=== PATIENT | male | born 1955 | race Caucasian/White ===

== ENCOUNTER 2018-02-07 09:08 | Emergency (ER) | payer OTHER ==
[~2018-02-07] VITALS: Ht 172.7 cm; Wt 79.4 kg
[~2018-02-07 09:08] MED LIST: ACET325 PO; ALBIPROI INH; AZIT250 PO; Augmentin 875-1 EACH PO; BENZ100A PO; BISA10S PR; CHLO25 PO; CLON.1 PO; CODGUAEL PO; CYCL10 PO; DOCU100 PO; FENT25TP TOP; FOLI1 PO; GUAI600T33 PO; Glucophage1000 MG PO; HYDACE10B PO; HYDACE5 PO; HYDR1TAB94 PO; LEVFLO500 PO; LORA.5 PO; LORA1 PO; LORA2 PO; MAGOX 400400 MG PO; MAGOXI400 PO; Milk Of Ma800 MG/5 M PO; NAPR500 PO; NICO21TP TD; Omeprazole20 M1 PO; PENVK500 PO; PHENY100ER PO; PRED20 PO; PROM25 PO; RANI150 PO; ROXICODONE5 MG PO; RXLORA1 PO; THIA100 PO; TRAM50 PO; Therapeutic M1 EAC4 PO; Tylenol325 MG PO; Ultram50 MG PO; Ventolin Soln3 ML INH; ZOLP5 PO
[2018-02-07] MEDS ORDERED: PAROEX473 ML MM (10:01)
[2018-02-07] MEDS ORDERED: Augmentin 875-1 EACH PO (10:01)
[2018-02-07] MEDS ORDERED: Cough Formula118 ML PO (10:01)
== END 2018-02-07 10:15 | disposition home or self-care (01) ==
LOC: ER 09:08
DX: K04.7 Periapical abscess without sinus (principal); R05 Cough; F17.210 Nicotine dependence, cigarettes, uncomplicated
CPT/HCPCS: 99283

== ENCOUNTER 2018-05-26 12:49 | Emergency (ER) | payer SELFPAY ==
[~2018-05-26] VITALS: Ht 172.7 cm; Wt 77.1 kg
[~2018-05-26 12:49] MED LIST changes: +Cough Formula118 ML PO; +PAROEX473 ML MM
[2018-05-26] MEDS ORDERED: Augmentin 500-1 EACH PO (13:32)
== END 2018-05-26 13:44 | disposition home or self-care (01) ==
LOC: ER 12:49
DX: K04.7 Periapical abscess without sinus (principal); F17.210 Nicotine dependence, cigarettes, uncomplicated
CPT/HCPCS: 41800; 99282

== ENCOUNTER 2018-09-21 11:42 | Emergency (ER) | payer MEDICAID ==
[~2018-09-21] VITALS: Ht 172.7 cm; Wt 77.1 kg
[~2018-09-21 11:42] MED LIST changes: +Augmentin 500-1 EACH PO
[2018-09-21 12:10] LABS: Base Excess Venous 2.9 mmol/L; Bicarbonate Venous 25.5 mmol/L (24.0-30.0); PCO2 Venous 48.2 mmHg (38-42); PO2 Venous 44.7 mmHg (38-42); pH Blood Venous 7.38 (7.34-7.37)
[2018-09-21 12:14] LABS: BASOPHILS ABSOLUTE AUTO 0.04 K/mm3 (0.00-0.23); BASOPHILS PERCENT AUTO 0 % (0-2); EOSINOPHILS ABSOLUTE AUTO 0.01 K/mm3 (0.00-0.68); EOSINOPHILS PERCENT AUTO 0 % (0-6); Hematocrit 47.2 % (37.0-53.0); IMMATURE GRAN ABSOLUTE AUTO 0.03 K/mm3 (0.00-0.10); IMMATURE GRAN PERCENT AUTO 0 % (0-1); LYMPHOCYTES ABSOLUTE AUTO 2.11 K/mm3 (0.84-5.20); LYMPHOCYTES PERCENT AUTO 21 % (21-46); MONOCYTES PERCENT AUTO 6 % (4-13); Mean Corpuscular HGB 30.8 pg (26.0-34.0); Mean Corpuscular HGB Conc 33.9 g/dL (31.5-36.5); Mean Corpuscular Volume 91 fL (80-100); Mean Platelet Volume 7.8 fL (9.1-12.4); NEUTROPHILS ABSOLUTE AUTO 7.17 K/mm3 (1.96-9.15); NEUTROPHILS PERCENT AUTO 72 % (41-73); Platelet Count 552 K/mm3 (150-400); RDW Coefficient Variation 14.7 % (11.7-14.2); RDW Standard Deviation 48.1 fL (35.1-46.3); Red Blood Cell Count 5.19 M/mm3 (4.30-5.90); White Blood Cell Count 9.96 K/mm3 (4.00-11.30)
[2018-09-21 12:37] LABS: Alanine Aminotransfer (ALT/SGP 71 U/L (12-78); Albumin, Blood 3.3 g/dL (3.4-5.0); Albumin/Globulin Ratio 0.7 (0.8-1.8); Alk Phos 134 U/L (50-136); Anion Gap 11 mmol/L (6-16); Aspartate Aminotrans (AST/SGOT 30 U/L (12-37); Bilirubin, Total 0.2 mg/dL (0.1-1.0); Blood Urea Nitrogen 7 mg/dL (8-24); CO2, Blood 26 mmol/L (21-32); CPK Creatine Kinase 70 U/L (39-308); Calcium, Blood 8.2 mg/dL (8.5-10.1); Chloride, Blood 99 mmol/L (98-108); Creatine Kinase MB Index 4.3 (0.0-4.0); Globulin, Blood 4.7 g/dL (2.2-4.0); Glomerular Filtration Rate >60 (60-); Glucose, Blood 130 mg/dL (70-99); Magnesium, Blood 1.9 mg/dL (1.6-2.4); Potassium, Blood 4.3 mmol/L (3.5-5.5); Sodium, Blood 136 mmol/L (136-145); Troponin I <0.015 ng/mL (0.000-0.040)
[2018-09-21 12:56] LABS: Ethanol (Alcohol), Blood, Med 332 mg/dL
== END 2018-09-21 17:02 | disposition home or self-care (01) ==
LOC: ER 11:42
PROVIDERS: Emergency Medicine
DX: G93.40 Encephalopathy, unspecified (principal); F10.10 Alcohol abuse, uncomplicated; F17.200 Nicotine dependence, unspecified, uncomplicated
CPT/HCPCS: 36415; 70450; 71045; 80053; 82550; 82553; 82803; 83690; 83735; 83880; 84443; 84484; 85025; 93005; 93010; 96365; 96366; 96375; 99285-25; G0480; J2405; J3411; J3475; J7042

== ENCOUNTER 2018-10-31 12:47 | Emergency (ER) | payer OTHER ==
[~2018-10-31] VITALS: Ht 172.7 cm; Wt 72.6 kg
[2018-10-31 13:30] LABS: Source, Urine Clean Catch
[2018-10-31 13:32] LABS: BASOPHILS ABSOLUTE AUTO 0.05 K/mm3 (0.00-0.23); BASOPHILS PERCENT AUTO 1 % (0-2); EOSINOPHILS ABSOLUTE AUTO 0.09 K/mm3 (0.00-0.68); EOSINOPHILS PERCENT AUTO 1 % (0-6); Hemoglobin 17.1 g/dL (13.5-17.5); IMMATURE GRAN ABSOLUTE AUTO 0.03 K/mm3 (0.00-0.10); IMMATURE GRAN PERCENT AUTO 0 % (0-1); LYMPHOCYTES ABSOLUTE AUTO 2.53 K/mm3 (0.84-5.20); LYMPHOCYTES PERCENT AUTO 24 % (21-46); MONOCYTES ABSOLUTE AUTO 0.77 K/mm3 (0.16-1.47); MONOCYTES PERCENT AUTO 7 % (4-13); Mean Corpuscular HGB 31.1 pg (26.0-34.0); Mean Corpuscular HGB Conc 33.5 g/dL (31.5-36.5); Mean Corpuscular Volume 93 fL (80-100); Mean Platelet Volume 9.4 fL (9.1-12.4); NEUTROPHILS ABSOLUTE AUTO 6.94 K/mm3 (1.96-9.15); NEUTROPHILS PERCENT AUTO 67 % (41-73); Platelet Count 273 K/mm3 (150-400); RDW Coefficient Variation 13.7 % (11.7-14.2); RDW Standard Deviation 47.9 fL (35.1-46.3); White Blood Cell Count 10.41 K/mm3 (4.00-11.30)
[2018-10-31 13:42] LABS: Bilirubin, Urine Neg (Neg); Blood, Urine 1+ (Neg); Glucose Qualitative, Urine Neg (Neg); Ketones, Urine Neg (Neg); Leukocyte Esterase, Urine Neg (Neg); Nitrite, Urine Neg (Neg); Protein, Urine Neg (Neg); Specific Gravity, Urine 1.015 (1.003-1.022); Urobilinogen, Urine NORM (Normal)
[2018-10-31 13:51] LABS: Alanine Aminotransfer (ALT/SGP 22 U/L (12-78); Albumin, Blood 3.7 g/dL (3.4-5.0); Albumin/Globulin Ratio 0.9 (0.8-1.8); Alk Phos 69 U/L (50-136); Anion Gap 6 mmol/L (6-16); Aspartate Aminotrans (AST/SGOT 16 U/L (12-37); Bilirubin, Total 0.3 mg/dL (0.1-1.0); Blood Urea Nitrogen 17 mg/dL (8-24); Bun/Creatinine Ratio 21.7 (12.0-20.0); CO2, Blood 27 mmol/L (21-32); Calcium, Blood 9.2 mg/dL (8.5-10.1); Chloride, Blood 105 mmol/L (98-108); Creatinine, Blood 0.78 mg/dL (0.60-1.20); Globulin, Blood 4.2 g/dL (2.2-4.0); Glomerular Filtration Rate >60 (60-); Glucose, Blood 124 mg/dL (70-99); Potassium, Blood 3.8 mmol/L (3.5-5.5); Sodium, Blood 138 mmol/L (136-145); Total Protein, Blood 7.9 g/dL (6.4-8.2)
[2018-10-31 14:04] LABS: Appearance, Urine Clear (Clear); Color, Urine Yellow (P-Yellow)
[2018-10-31 14:08] LABS: Bacteria Rare /hpf; Mucus Light (0-Heavy); Squamous Epithelial Cells Not Seen /hpf (Few); White Blood Cells, Urine Rare /hpf (0-5)
[2018-10-31] MEDS ORDERED: ONDA4ODT MM (15:22)
== END 2018-10-31 13:35 | disposition home or self-care (01) ==
LOC: ER 12:47
PROVIDERS: Physician Assistant
DX: R10.9 Unspecified abdominal pain (principal); F17.200 Nicotine dependence, unspecified, uncomplicated
CPT/HCPCS: 80053; 81001; 83690; 85025; 93005; 93010; 96374; 99283-25; J2405

== ENCOUNTER 2019-11-26 08:27 | Inpatient (IN) | payer OTHER ==
[~2019-11-26] VITALS: Ht 182.9 cm; Wt 63.6 kg
[~2019-11-26 08:27] MED LIST changes: +ONDA4ODT MM
[2019-11-26] MEDS ORDERED: HYDPAM50 (08:44)
[2019-11-26] MEDS ORDERED: CLON.1 (08:44)
[2019-11-26] MEDS ORDERED: METO25 PO (08:45)
[2019-11-26] MEDS ORDERED: PROM25 PO (08:45)
[2019-11-26] MEDS ORDERED: TRAZ50 PO (08:46)
[2019-11-26] MEDS ORDERED: NICO21TP TOP (08:46)
[2019-11-26 09:05] LABS: BASOPHILS ABSOLUTE AUTO 0.03 K/mm3 (0.00-0.23); BASOPHILS PERCENT AUTO 0 % (0-2); EOSINOPHILS ABSOLUTE AUTO 0.04 K/mm3 (0.00-0.68); EOSINOPHILS PERCENT AUTO 0 % (0-6); Hemoglobin 15.5 g/dL (13.5-17.5); IMMATURE GRAN ABSOLUTE AUTO 0.04 K/mm3 (0.00-0.10); IMMATURE GRAN PERCENT AUTO 0 % (0-1); LYMPHOCYTES ABSOLUTE AUTO 1.17 K/mm3 (0.84-5.20); LYMPHOCYTES PERCENT AUTO 13 % (21-46); MONOCYTES ABSOLUTE AUTO 0.62 K/mm3 (0.16-1.47); MONOCYTES PERCENT AUTO 7 % (4-13); Mean Corpuscular HGB 32.4 pg (26.0-34.0); Mean Corpuscular HGB Conc 34.4 g/dL (31.5-36.5); Mean Corpuscular Volume 94 fL (80-100); Mean Platelet Volume 9.8 fL (9.1-12.4); NEUTROPHILS PERCENT AUTO 79 % (41-73); Platelet Count 143 K/mm3 (150-400); RDW Coefficient Variation 15.6 % (11.7-14.2); RDW Standard Deviation 54.4 fL (35.1-46.3); Red Blood Cell Count 4.79 M/mm3 (4.30-5.90)
[2019-11-26 09:17] LABS: Alanine Aminotransfer (ALT/SGP 248 U/L (12-78); Albumin, Blood 2.8 g/dL (3.4-5.0); Albumin/Globulin Ratio 0.7 (0.8-1.8); Alk Phos 89 U/L (50-136); Anion Gap 10 mmol/L (6-16); Aspartate Aminotrans (AST/SGOT 197 U/L (12-37); Bilirubin, Total 1.1 mg/dL (0.1-1.0); Blood Urea Nitrogen 17 mg/dL (8-24); Bun/Creatinine Ratio 20.1 (12.0-20.0); CO2, Blood 22 mmol/L (21-32); Calcium, Blood 9.2 mg/dL (8.5-10.1); Chloride, Blood 105 mmol/L (98-108); Creatinine, Blood 0.85 mg/dL (0.60-1.20); Ethanol (Alcohol), Blood, Med 14 mg/dL; Globulin, Blood 4.2 g/dL (2.2-4.0); Glomerular Filtration Rate >60 (60-); Glucose, Blood 85 mg/dL (70-99); Potassium, Blood 4.8 mmol/L (3.5-5.5); Sodium, Blood 137 mmol/L (136-145)
[2019-11-26 14:59] LABS: International Normalized Ratio 1.02; Prothrombin Time Results 10.9 Sec (9.7-11.5)
[2019-11-26] MEDS ORDERED: B-1100 M1 PO (15:02)
[2019-11-26 15:07] LABS: CPK Creatine Kinase 177 U/L (39-308)
[2019-11-26] MEDS ORDERED: FOLI400 PO (15:13)
[2019-11-26] MEDS ORDERED: Daily Vitamin1 EAC8 PO (15:15)
[2019-11-26] MEDS ORDERED: Ativan1 MG PO (15:15)
[2019-11-26 17:18] LABS: Source, Urine Clean Catch
[2019-11-26 17:22] LABS: Bilirubin, Urine Neg (Neg); Blood, Urine 2+ (Neg); Glucose Qualitative, Urine Neg (Neg); Ketones, Urine 1+ (Neg); Leukocyte Esterase, Urine Neg (Neg); Nitrite, Urine Neg (Neg); Protein, Urine 2+ (Neg); Urobilinogen, Urine NORM (Normal)
[2019-11-26 17:27] LABS: Appearance, Urine Clear (Clear); Color, Urine Yellow (P-Yellow)
[2019-11-26 17:28] LABS: Bacteria Rare /hpf; Squamous Epithelial Cells Not Seen /hpf (Few); White Blood Cells, Urine 0-2 /hpf (0-5)
[2019-11-26 17:43] LABS: U Amphetamine Screen Not Detected; U Barbituate Screen Not Detected; U Benzodiazapine Screen DETECTED; U Buprenorphine Screen Not Detected; U Cannabinoids Screen DETECTED; U Cocaine Screen Not Detected; U Methadone Screen Not Detected; U Methamphetamine Screen Not Detected; U Opiates Screen Not Detected; U Oxycodone Screen Not Detected; U Phencyclidine Screen Not Detected; U Propoxyphene Screen Not Detected
--- NOTE | 2019-11-26 18:02 | NUR ---
Shift Summary Pt arrived from ER to room 362 @ 1630 via stretcher. Garbled and mumbled speech. A/O to self, hospital, and year (does not know date). CIWA 15, medicated with 2mg Ativan IV, notified matrix inspector Sally. Pt mildly impulsive and forgetful, attempts to climb OOB. Patient's fiancee (Catrina) to bring in meds to complete med rec tomorrow (11/27/19) per conversation this RN had with Catrina over the phone. Pt continues to have visual hallucinations and obvious visible tremors. Pt c/o /10 headache between the eyes and unable to add/subtract dates appropriately. No visible sweats. Will continue to monitor. Bed alarm on, bed in lowest position. Call light and phone in reach.
--- NOTE | 2019-11-26 20:39 | NUR ---
PT WAS SLEEPING AT SHIFT COMMENCE, AWAKENED FOR CIWA ASSESSMENT. SKIN - PALMS SWEATY. LETHARGIC BUT EATING MEAL WITH ASSISTANCE. WILL CONTINUE TO MONITOR/ASSESS. CALL LIGHT IN REACH.
--- NOTE | 2019-11-27 00:58 | NUR ---
PT CONTINUES ON CIWAS, LAST CIWA WAS 17. RECEIVED PO LIBRIUM 50 MG AND IV ATIVAN 2 MG ABOUT 20 MIN AGO. STATED THAT HE IS FEELING BETTER. TREMORS CONTINUE. INSTRUCTED TO REMAIN IN BED FOR SAFETY. CHARGE NURSE AND WELDING MACHINE OPERATOR THERMIT HSE COORDINATOR NOTIFIED. CALL LIGHT IN REACH. NICOTINE PATCH AND GUM PER NOV ADMIN. ARTUR CONTINUE TO MONITOR.
[2019-11-27] MEDS ORDERED: MELATONIN5 M1 PO (02:33)
[2019-11-27] MEDS ORDERED: NICO21TP TOP (02:37)
[2019-11-27] MEDS ORDERED: IBUP400 PO (02:38)
[2019-11-27] MEDS ORDERED: ACET500 PO (02:38)
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
[2019-11-27] MEDS ORDERED: CLON.1 PO (02:42)
[2019-11-27] MEDS ORDERED: HYDPAM50 PO (02:43)
[2019-11-27] MEDS ORDERED: GABA300 PO (02:45)
[2019-11-27] MEDS ORDERED: CHLO25 PO (02:51)
--- NOTE | 2019-11-27 03:29 | NUR ---
INFORMED CLINICAL COORDINATOR RE: HTN AND MILD TACHYCARDIA & SLIGHT RISE IN TEMP. SHE INSTRUCTED ME TO GIVE THIS PT MORE ATIVAN. PRIMARY RN IS AT LUNCH. I WILL CONTINUE TO MONITOR UNTIL HE RETURNS.
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
--- NOTE | 2019-11-27 03:53 | NUR ---
PT CONTINUES TO INCREASE IN CIWA ACUITY. CURRENT SCORE IS 20. CALL PLACED TO MD TEST OPERATOR. ORDERS RECEIVED TO TRANSFER TO ICU. BP 151/97, HR 104. T 98.4 F. TALKING TO THE WALL, TREMORS INVOLVE ENTIRE ARMS AND DROPPING WATER CUP ON CHEST WHEN TRYING TO TAKE A DRINK. SHOE CUTTER STATED HE TRIED TO ET OUT OF BED AND ALMOST FELL X 2.
--- NOTE | 2019-11-27 04:40 | NUR ---
TRANSFERRED TO ICU ROOM 8 POST REPORT GIVEN TO STENOGRAPHIC COURT REPORTER. CALL PLACED TO FAMILY MEMBER "SUNITHA" [phone], NOTIFIED OF SAID TRANSFER.
--- NOTE | 2019-11-27 05:00 | NUR ---
PT TRANSFERED TO ICU-8 FROM RM 362. PT IS ALERT, ORIENTED TO SELF, SAYS HE'S AT [facility]. RAMBLING CONVERSATION, TREMORS NOTED. IV NOTED INFILTRATED, AND RESTARTED X 2. MEGAN PLACED FOR SAFETY, PT HAD BEEN CLIMBING OUT OF BED. WILL CONT TO MONITOR.
[2019-11-27 05:08] LABS: Hemoglobin 15.8 g/dL (13.5-17.5); Mean Corpuscular HGB 31.9 pg (26.0-34.0); Mean Corpuscular HGB Conc 34.3 g/dL (31.5-36.5); Mean Corpuscular Volume 93 fL (80-100); Mean Platelet Volume 10.2 fL (9.1-12.4); Platelet Count 125 K/mm3 (150-400); RDW Coefficient Variation 14.8 % (11.7-14.2); RDW Standard Deviation 51.2 fL (35.1-46.3); Red Blood Cell Count 4.95 M/mm3 (4.30-5.90); White Blood Cell Count 7.39 K/mm3 (4.00-11.30)
[2019-11-27 05:41] LABS: Alanine Aminotransfer (ALT/SGP 194 U/L (12-78); Albumin, Blood 2.8 g/dL (3.4-5.0); Albumin/Globulin Ratio 0.6 (0.8-1.8); Alk Phos 89 U/L (50-136); Anion Gap 8 mmol/L (6-16); Aspartate Aminotrans (AST/SGOT 104 U/L (12-37); Bilirubin, Total 1.3 mg/dL (0.1-1.0); Blood Urea Nitrogen 18 mg/dL (8-24); Bun/Creatinine Ratio 27.1 (12.0-20.0); CO2, Blood 25 mmol/L (21-32); Calcium, Blood 8.8 mg/dL (8.5-10.1); Chloride, Blood 103 mmol/L (98-108); Creatinine, Blood 0.66 mg/dL (0.60-1.20); Globulin, Blood 4.4 g/dL (2.2-4.0); Glomerular Filtration Rate >60 (60-); Glucose, Blood 97 mg/dL (70-99); Potassium, Blood 3.9 mmol/L (3.5-5.5); Sodium, Blood 136 mmol/L (136-145); Total Protein, Blood 7.2 g/dL (6.4-8.2)
--- NOTE | 2019-11-27 07:34 | NUR ---
PT TRIED TO USE URINAL, CALLED FOR HELP, BUT BECOMING MORE AGITATED. WANTS TO GO OUTSIDE TO SMOKE, ASKING FOR VALIUM AND QUALUDES. RAMBLING CONVERSATION. PT MED W LIBRIUM 50 MG. SWALLOWED WO DIFFICULTY. MEGAN IN PLACE, BUT IS NOT TIED- BED ALARM IS ON.
--- NOTE | 2019-11-27 09:43 | NUR ---
ASSUMED CARE OF PT AT 0700. REPORT FROM SADIA ZAPATA. PT RESTING IN BED. BED ALARM ON FOR SAFETY. PT AWAKE, TELLING STORIES OF PREVIOUS LOGGING EXPERIENCES. PT STATES HE IS AT [facility]. FOLLOWS SIMPLE COMMANDS. TREMOROUS, INTERMITTANTLY AGGITATED, PARANOID. REQUESTING THAT I CALL SWETHA TO SEE IF SHE PAID THE RENT. ATTEMPTED TO REORIENT PT. PT ALSO REQUESTING TO GO OUTSIDE TO SMOKE. NICOTINE GUM PROVIDED. CAMELIA 27, WILL MONITOR AND MEDICATED c LIBRUIM AND ATIVAN ORDERED. ST ON MONITOR. WILL MONITOR.
--- NOTE | 2019-11-27 18:00 | NUR ---
SHIFT SUMMARY PT MENTATION IMPROVED THIS SHIFT. A&OX 2. FOLLOWS SIMPLE COMMANDS. ABLE TO AMBULATE IN DEPARTMENT c WALKER. PT REMAINS TREMOROUS. NO LONGER APPEARS TO HAVE VISUAL AND AUDITORY HALLUCINATIONS. MEDICATED c ATIVAN AND LIBRIUM PRN. PT ALSO C/O GENERALIZED BODY PAIN. ORDER OBTAINED FOR TYLENOL AND ULTRAM, MEDICATED c ULTRAM. CONDOM CATH IN PLACE. VSS. REPORT TO ONCOMING NURSE.
--- NOTE | 2019-11-27 23:45 | NUR ---
CARE ASSUMED BEDSIDE REPORT RECEIVED, CARE ASSUMED AT 1900 FROM JODI ORR. PT SLEEPING ON ROUNDS, AROUSES DURING REPORT. DURING INITIAL ASSESSMENT, CIWA ELEVATED, PT CONFUSED BUT CALM AND COOPERATIVE. NIGHT PROGRESSED, PT BECAME AGITATED, YELLING, FRUSTRATED AND FIXATED ON GOING HOME TO PAY HIS BILLS, REPEATEDLY ATTEMPTING TO GET OUT OF BED, UNABLE TO REDIRECT, REQUIRING MULTIPLE STAFF MEMBERS AT BEDSIDE TO KEEP PATIENT SAFE FROM PULLING LINES OR GETTING OUT OF BED TO LEAVE AND POTENTIALLY FALLING DOWN. ATIVAN GIVEN MULTIPLE TIMES WITH NO RESULTS. LIBRIUM GIVEN. MEGAN VEST PLACED. PT EVENTUALLY REQUIRED PRECEDEX DUE TO INABILITY TO CALM PATIENT AND EXTREMELY ELEVATED CIWAS. APPROXIMATELY 1 HOUR AFTER INITIATING AND TITRATING PRECEDEX, PT CALMED AND FELL ASLEEP. SINCE THEN, PRECEDEX HAS BEEN TITRATED DOWN. PT CONTINUES TO HAVE TREMORS WHEN AWAKE. AFTER STARTING PRECEDEX, HR 60'S-70'S, BP SOFT BUT MAPS CONTINUE GREATER THAN 65. 02 SAT 90'S ON ROOM AIR. PT AFEBRILE. PT AROUSES WITH NOXIOUS STIMULI, AND IS REPOSITIONING SELF IN BED PERIODICALLY.
--- NOTE | 2019-11-28 01:15 | NUR ---
REASSESSMENT PT AROUSES EASILY FOR REASSESSMENT. CONFUSED AND HAVING HALLUCINATIONS. CALLS OUT FOR VARIOUS PEOPLE WHO ARE NOT HERE, ASKS NURSE QUESTIONS INCLUDING, "HOW DO WE DRIVE THIS THING?" AND "WHAT THE HELL IS GOING ON HERE?" ATTEMPTED TO REDIRECT AND PT ESCALATES. PULLING OFF CORDS/LINES. DURING PRECEDEX TITRATED UP. PT REPORTING "PAIN EVERYWHERE." MEDICATED WITH ULTRAM. VITALS STABLE.
[2019-11-28 03:48] LABS: BASOPHILS ABSOLUTE AUTO 0.02 K/mm3 (0.00-0.23); BASOPHILS PERCENT AUTO 0 % (0-2); EOSINOPHILS ABSOLUTE AUTO 0.15 K/mm3 (0.00-0.68); EOSINOPHILS PERCENT AUTO 3 % (0-6); Hematocrit 42.9 % (37.0-53.0); Hemoglobin 14.8 g/dL (13.5-17.5); IMMATURE GRAN ABSOLUTE AUTO 0.03 K/mm3 (0.00-0.10); IMMATURE GRAN PERCENT AUTO 1 % (0-1); LYMPHOCYTES ABSOLUTE AUTO 1.58 K/mm3 (0.84-5.20); LYMPHOCYTES PERCENT AUTO 26 % (21-46); MONOCYTES ABSOLUTE AUTO 0.53 K/mm3 (0.16-1.47); MONOCYTES PERCENT AUTO 9 % (4-13); Mean Corpuscular HGB 31.9 pg (26.0-34.0); Mean Corpuscular HGB Conc 34.5 g/dL (31.5-36.5); Mean Corpuscular Volume 93 fL (80-100); Mean Platelet Volume 10.2 fL (9.1-12.4); NEUTROPHILS ABSOLUTE AUTO 3.79 K/mm3 (1.96-9.15); NEUTROPHILS PERCENT AUTO 62 % (41-73); Platelet Count 118 K/mm3 (150-400); RDW Coefficient Variation 14.7 % (11.7-14.2); RDW Standard Deviation 50.6 fL (35.1-46.3); Red Blood Cell Count 4.64 M/mm3 (4.30-5.90)
[2019-11-28 04:05] LABS: Alanine Aminotransfer (ALT/SGP 151 U/L (12-78); Albumin, Blood 2.7 g/dL (3.4-5.0); Albumin/Globulin Ratio 0.6 (0.8-1.8); Alk Phos 85 U/L (50-136); Anion Gap 7 mmol/L (6-16); Aspartate Aminotrans (AST/SGOT 77 U/L (12-37); Bilirubin, Total 0.7 mg/dL (0.1-1.0); Blood Urea Nitrogen 22 mg/dL (8-24); Bun/Creatinine Ratio 36.1 (12.0-20.0); CO2, Blood 26 mmol/L (21-32); Calcium, Blood 9.1 mg/dL (8.5-10.1); Chloride, Blood 104 mmol/L (98-108); Creatinine, Blood 0.61 mg/dL (0.60-1.20); Globulin, Blood 4.2 g/dL (2.2-4.0); Glomerular Filtration Rate >60 (60-); Glucose, Blood 134 mg/dL (70-99); Potassium, Blood 3.8 mmol/L (3.5-5.5); Sodium, Blood 137 mmol/L (136-145); Total Protein, Blood 6.9 g/dL (6.4-8.2)
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
--- NOTE | 2019-11-28 10:56 | NUR ---
ASSUMED CARE OF PT AT 0700. REPORT FROM KAREY ZAPATA. PT RESTING IN BED. WAKES TO VERBAL STIMULI. CONFUSED. OREINTED TO SELF. IRRITABLE. YELLING OUT FOR SWETHA AND TO "GO SMOKE." GARBLED SPEECH. ATTEMPTED TO ORIENT. PRECEDEX INFUSING AT 0.1 MCG/KG/HR. MEGAN VEST IN PLACE TO PROTECT LINES AND TUBES AND FOR PT SAFETY. INCREASED PRECEDEX AND WILL CONTINUE TO TITRATE TO EFFECT. PT C/O JARVIS, TREMOROUS. WILL MONITOR CIWA. VSS. WILL CONTINUE TO MONITOR.
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
--- NOTE | 2019-11-28 20:39 | NUR ---
ASSUMPTION OF CARE: PT ALERT AND ORIENTED TO SELF, YR, MONTH. DENIES A/V HALLUCINATIONS. PT APPEARS TREMULOUS, SPEECH IS SLURRED. IN SR WITH HR IN THE 70S, SBP IN THE 130S. LUNG SOUNDS CLEAR, SPO2 >90% ON RA. PT IS ABLE TO VOID USING URINAL WITH SOME ASSISTANCE. 2 IVS IN R FA/HAND INFUSING WITH PRECEDEX AT 0.2 MCG. PT CURRENTLY UP IN CHAIR ON PHONE WITH SO. WILL CONT TO MONITOR
--- NOTE | 2019-11-28 23:05 | NUR ---
PT UP IN ROOM. PULLED OUT BOTH PIVS AND CARDIAC MONITORING LEADS. TWO 20G IVS PLACED IN BILAT FAS. LEADS REPLACED. PT BACK IN BED. WILL CONTINUE TO MONITOR
--- NOTE | 2019-11-29 00:55 | NUR ---
PT CURRENTLY RESTING. NO COMPLAINTS AT THIS TIME. VSS
--- NOTE | 2019-11-29 06:07 | NUR ---
SUMMARY: PT RESTING COMFORTABLY SINCE LAST NOTE. BP HAS BEEN SOMEWHAT SOFT, BUT MAP HAS REMAINED >60. LUNG SOUNDS CLEAR ON RA. CIWA A 8 THIS AM. PT STATED THAT HIS TREMORS SEEM BETTER THIS AM. HE IS A&O TO SELF, FAMILY, PLACE, YEAR, MONTH. PT IS CURRENTLY AWAKE IN BED WATCHING TV. ONLY COMPLAINTS THIS AM IS HE IS HUNGRY AND WOULD LIKE BREAKFAST.
--- NOTE | 2019-11-29 07:15 | NUR ---
BEGINNING OF SHIFT Assumed care at 0700. Bedside report received from Juan ZAPATA. Pt alert and oriented to self and place. Follows directions. Verbalizes needs. Pt on room air. Sinus rhtyhm per monitor. Bed in lowest position. Call light in reach. Pt denies need at this time.
[2019-11-29 07:17] LABS: BASOPHILS ABSOLUTE AUTO 0.03 K/mm3 (0.00-0.23); BASOPHILS PERCENT AUTO 1 % (0-2); EOSINOPHILS ABSOLUTE AUTO 0.17 K/mm3 (0.00-0.68); EOSINOPHILS PERCENT AUTO 3 % (0-6); Hematocrit 43.8 % (37.0-53.0); Hemoglobin 14.9 g/dL (13.5-17.5); IMMATURE GRAN ABSOLUTE AUTO 0.02 K/mm3 (0.00-0.10); IMMATURE GRAN PERCENT AUTO 0 % (0-1); LYMPHOCYTES ABSOLUTE AUTO 1.72 K/mm3 (0.84-5.20); LYMPHOCYTES PERCENT AUTO 29 % (21-46); MONOCYTES ABSOLUTE AUTO 0.57 K/mm3 (0.16-1.47); MONOCYTES PERCENT AUTO 10 % (4-13); Mean Corpuscular HGB 31.9 pg (26.0-34.0); Mean Corpuscular Volume 94 fL (80-100); Mean Platelet Volume 9.9 fL (9.1-12.4); NEUTROPHILS PERCENT AUTO 58 % (41-73); Platelet Count 126 K/mm3 (150-400); RDW Coefficient Variation 14.6 % (11.7-14.2); RDW Standard Deviation 51.1 fL (35.1-46.3); Red Blood Cell Count 4.67 M/mm3 (4.30-5.90); White Blood Cell Count 6.01 K/mm3 (4.00-11.30)
[2019-11-29 07:34] LABS: Anion Gap 5 mmol/L (6-16); Blood Urea Nitrogen 20 mg/dL (8-24); Bun/Creatinine Ratio 29.5 (12.0-20.0); CO2, Blood 26 mmol/L (21-32); Calcium, Blood 8.7 mg/dL (8.5-10.1); Chloride, Blood 109 mmol/L (98-108); Creatinine, Blood 0.68 mg/dL (0.60-1.20); Glomerular Filtration Rate >60 (60-); Glucose, Blood 156 mg/dL (70-99); Magnesium, Blood 1.6 mg/dL (1.6-2.4); Sodium, Blood 140 mmol/L (136-145)
--- NOTE | 2019-11-29 08:58 | NUR ---
PHYSICAL THERAPY IN TO SEE PATIENT Pt up to chair. Tolerated activity well. Remains in vest restraint. Tab alarm on.
--- NOTE | 2019-11-29 09:00 | NUR ---
LIBRIUM Pt states that he feels tremulous and his stomach hurts. This RN placed call to Dr Eaton. Discussed current CIWA and mentation. This RN requested PRN librium. Provider states he will assess pt when he rounds. No new orders at this time.
--- NOTE | 2019-11-29 09:30 | NUR ---
UPDATE Precedex off. Pt verbalizes concern about lack of mobility. States he feels very weak and verbalizes concern that he will become more weak. States desire to walk in hallway. This RN assisted pt to walk around entire unit using walker and gait belt. Pt tolerated this activity well. Pt out of vest restraint and compliant with fall prevention.
--- NOTE | 2019-11-29 13:10 | NUR ---
MEDICAL FLOOR STATUS Dr Eaton in to see pt. Plan of care discussed. Pt remains in chair with tab alarm on. Verbalizes desire to go for a walk. Pleasant and cooperative with care. Plan for pt to transfer to room 310.
--- NOTE | 2019-11-29 14:30 | NUR ---
TRANSFERRED TO ROOM 310 Telephone report given to Anaya ZAPATA. Pt verbalized desire to walk to newly assigned room. Pt walked from ICU 8 to room 310 using gait belt and FWW. Escorted by this RN and PCTMerced. Wheelchair brought during transport, however pt did not require wheelchair. Pt remains pleasant and cooperative with care, follows directions well and verbalizes needs.
--- NOTE | 2019-11-29 15:31 | NUR ---
PATIENT ARRIVED TO THE UNIT WALKING VIA A WALKER WITH ICU STAFF. HE IS ORIENTED TO SELF, MUMBLING. PATIENT HAS ATTEMPTED TO GET UP 2X SINCE COMING TO THE UNIT. NOTIFIED CHIEF CLINICAL OFFICER. WILL TRANSFER TO SCU.
--- NOTE | 2019-11-29 15:58 | NUR ---
PATIENT IS MUMBLING TO SELF. HE IS SAYING " MAKE IT SHUT UP, COMMON GET MY MEDICINE IN ME" HE IS VERY HARD TO UNDERSTAND HIS CONVERSATION. HE IS TALKING ABOUT PREVIOUS MARRIAGE. SHAKING. STATES HIS HEAD IS SCREAMING AT HIM. VERY SHAKING. UNAWARE OF WHERE HE IS. KNOWS HIS BIRTHDAY. STATES HIS WHOLE BODY IS ITCHING. MEDICATED PER EMAR.
--- NOTE | 2019-11-29 18:38 | NUR ---
SHIFT SUMMARY. 1640 TRANSFER FROM RM 310, REPORT RECIEVED FROM JODI PIMENTEL PRIOR TO TRANSFER. PT IS CONFUSED, ALERT, ORIENTATED TO SELF AND THAT HE IS IN A HOSPITAL. PT WITH TREMORS, ITCHY FEELING. PT REPORTS PAIN TO BLE, PAIN MANAGED WELL WITH PRN APAP. PT DENIES SOB, N/V. GOOD MEAL INTAKE FOR DINNER. NO NEW CHANGES OR CONCERNS.
--- NOTE | 2019-11-30 00:34 | NUR ---
PT COMPLAINING OF LEG PAIN. PT STATES HE WANTS HYDROCODONE FOR PAIN. PT STATES HE HAS USED HYDROCODONE IN PAST VISITS PT AT [facility] [place]. DR JOY HAMILTON WAS CALLED AND HE ORDERED GABAPENTIN. PT IS AGITATED DUE TO NOT GETTING HYDROCODONE. WCTM.
--- NOTE | 2019-11-30 04:51 | NUR ---
SUMMARY PT HAD TREMORS T/O SHIFT. PT HAD COMPLAINTS OF LEG DISCOMFORT. PT HAS A HX OF BACK INJURY IN THE PAST. DR HAMILTON WAS CALLED AND HE ORDERED GABAPENTIN FOR LEG DISCOMFORT. PT WAS REQUESTING HYDROCODONE. PT S/O, SWETHA, CALLED FOR UPDATE AND ASKED TO HAVE PROVIDER CALL HER FOR UPDATE AND ANSWER SOME QUESTIONS. SWETHA DID STATE PT HAD IN THE PAST TOOK HER TRAMADOL AND OXYCODONE FOR RECREATIONAL PURPOSES. PT TX WITH ATIVAN AND LIBRIUM ORDERED WITH GOOD RESULTS. PT EVENTUALLY WAS ABLE TO FALL ASLEEP. PT CURRENTLYSLEEPING AND BREATHING EASY. CALL LIGHT IN REACH AND BED ALARM ON.
[2019-11-30 06:06] LABS: BASOPHILS ABSOLUTE AUTO 0.02 K/mm3 (0.00-0.23); BASOPHILS PERCENT AUTO 0 % (0-2); EOSINOPHILS ABSOLUTE AUTO 0.11 K/mm3 (0.00-0.68); EOSINOPHILS PERCENT AUTO 2 % (0-6); Hemoglobin 15.1 g/dL (13.5-17.5); IMMATURE GRAN ABSOLUTE AUTO 0.02 K/mm3 (0.00-0.10); IMMATURE GRAN PERCENT AUTO 0 % (0-1); LYMPHOCYTES ABSOLUTE AUTO 1.98 K/mm3 (0.84-5.20); LYMPHOCYTES PERCENT AUTO 33 % (21-46); MONOCYTES ABSOLUTE AUTO 0.78 K/mm3 (0.16-1.47); MONOCYTES PERCENT AUTO 13 % (4-13); Mean Corpuscular HGB 32.3 pg (26.0-34.0); Mean Corpuscular HGB Conc 34.3 g/dL (31.5-36.5); Mean Corpuscular Volume 94 fL (80-100); NEUTROPHILS PERCENT AUTO 52 % (41-73); Platelet Count 143 K/mm3 (150-400); RDW Coefficient Variation 14.7 % (11.7-14.2); RDW Standard Deviation 51.3 fL (35.1-46.3); Red Blood Cell Count 4.68 M/mm3 (4.30-5.90); White Blood Cell Count 6.01 K/mm3 (4.00-11.30)
[2019-11-30 06:39] LABS: Anion Gap 8 mmol/L (6-16); Blood Urea Nitrogen 14 mg/dL (8-24); Bun/Creatinine Ratio 18.3 (12.0-20.0); CO2, Blood 25 mmol/L (21-32); Calcium, Blood 8.7 mg/dL (8.5-10.1); Chloride, Blood 107 mmol/L (98-108); Creatinine, Blood 0.76 mg/dL (0.60-1.20); Glomerular Filtration Rate >60 (60-); Glucose, Blood 104 mg/dL (70-99); Potassium, Blood 3.6 mmol/L (3.5-5.5); Sodium, Blood 140 mmol/L (136-145)
--- NOTE | 2019-11-30 16:57 | NUR ---
SHIFT SUMMARY0- PT IS A/O PLESANT AND COOPERATIVE. HE HAS SOME CONFUSION. HIS SON AND GIRLFRIEND VISITED FOR MUCH OF THIS SHIFT. PT WORKED WITH PHYSICAL THERAPY AND TOLERATED WELL. PT IS MAINTAING ON HIS CIWA SCORES. HIS SCORES WERE LOWER THIS AFTERNOON BECAUSE HE WAS SLEEPING. HE IS EATING AND DRINKING WELL
--- NOTE | 2019-11-30 19:19 | NUR ---
PT'S GIRLFRIEND WAS IN VISITING. WANTED TO TAKE PT OUT OF THE ROOM IN A WHEEL CHAIR FOR A SHOR WALK. WHEN THEY WALKED BY THE ACCOUNTING MANAGER ASSISTANT CONTROLLER NOTICED THAT THEY SMELLED LIKE ETOH. SHE LOOKED IN THE ROOM AND FOUND AN EMPTY WATTERBOTTLE WHICH SMELLED HEAVLY LIKE BEER. NOTIFIED DR. PAREDES.
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
--- NOTE | 2019-12-01 04:18 | NUR ---
SHIFT SUMMARY: 64 Y/O MALE HAD RESTLESS NIGHT MOST OF NIGHT; CIWA SCORED 8; ATIVAN 2MG IVP GIVEN X 1; NICORETTE GUM X 2 GIVEN; LIBRUIM 25MG PO X 2 GIVEN WITH GOOD EFFECT WITH PATIENT FINALLY ABLE TO SLEEP AROUND 0330; GIRLFRIEND AT SIDE AND SUPPORTIVE; PT TAUGHT BE THIS NURSE NEED FOR ETOH CESSATION AND POSSIBLY ATTEND AA CLASSES WITH COOL NAILING MACHINE OPERATOR TO IDEA AT THIS TIME. PT DENIES NAUSEA OR PAIN; PT GAIT SLIGHTLY UNSTEADY AT TIMES WITH WALKER USAGE ENCOURAGED; PT DRANK 2-3 CUPS OF COFFEE THIS SHIFT AND FELT MORE RELAXED AFTER DRINKING THIS BEVERAGE; BED LOW POSITION WITH CALL LIGHT AT SIDE.
--- NOTE | 2019-12-01 11:30 | NUR ---
PT REQUESTED TO GO HOME. HE SAID HE WAS FEELING BETTER AND NEEDED TO GET HOME TO TAKE CARE OF BILLS. SPOKE WITH DR. TOLENTINO ABOUT PT WISHES, NOTIFIED HIM THAT PT HAD AMBULATED IN THE [facility] AND HAD ONE UNSTEADY MOMENT, AGREED TO DISCHARGE PT HOME. DISCHARGED FROM THE UNIT AT 1130. IV'S REMOVED FROM BOTH ARMS. DISCHARGE INSTRUCTIONS REVIEWED. NO NEW MEDICATIONS.
--- NOTE | 2019-12-01 12:11 | NUR ---
PT WAS LEAVING THE UNIT THEY REPORTED THAT THEY DID NOT HAVE ANY MEDICATIONS AT HOME. HARD COPY OF LIBRIUM PROVIDED, MEDICATIONS FAXED TO [facility]
== END 2019-12-01 12:10 | disposition home or self-care (01) | DRG 896 ==
LOC: ER 08:27 → PCU 13:15 → ICUE 13:15 → MEDS 16:28 → ICUE 11-27 03:47 → MEDS 11-29 14:21 → ENPENDDIS 12-01 10:43 → MEDS 12-01 12:10
PROVIDERS: Emergency Medicine; Nurse Practitioner Acute Care; ADMIT Internal Medicine
DX: F10.239 Alcohol dependence with withdrawal, unspecified (principal); G92 Toxic encephalopathy; E44.0 Moderate protein-calorie malnutrition; I95.9 Hypotension, unspecified; M79.669 Pain in unspecified lower leg; D69.6 Thrombocytopenia, unspecified; F17.210 Nicotine dependence, cigarettes, uncomplicated; K70.10 Alcoholic hepatitis without ascites; R74.0 Nonspecific elevation of levels of transaminase and lactic acid dehydrogenase [LDH]; Z68.23 Body mass index [BMI] 23.0-23.9, adult
CPT/HCPCS: 36415; 70450; 73551; 80048; 80053; 81001; 82140; 82533; 82550; 82607; 82746; 82947; 83735; 84443; 85025; 85027; 85610; 93005; 93010; 96365; 96366; 96375; 96376; 97110; 97162; 97165; 97530; 97535; 99285-25; A9270; G0480; J1650; J2060; J3411; J3475; J7030; J7042

== ENCOUNTER 2019-12-25 19:08 | Observation (INO) | payer OTHER ==
[~2019-12-25] VITALS: Ht 172.7 cm; Wt 72.6 kg
[~2019-12-25 19:08] MED LIST changes: +ACET500 PO; +Ativan1 MG PO; +B-1100 M1 PO; +CLON.1; +Daily Vitamin1 EAC8 PO; +FOLI400 PO; +GABA300 PO; +HYDPAM50; +HYDPAM50 PO; +IBUP400 PO; +MELATONIN5 M1 PO; +METO25 PO; +NICO21TP TOP; +TRAZ50 PO
[2019-12-25 20:08] LABS: BASOPHILS ABSOLUTE AUTO 0.02 K/mm3 (0.00-0.23); BASOPHILS PERCENT AUTO 0 % (0-2); EOSINOPHILS ABSOLUTE AUTO 0.01 K/mm3 (0.00-0.68); EOSINOPHILS PERCENT AUTO 0 % (0-6); Hematocrit 54.7 % (37.0-53.0); Hemoglobin 19.1 g/dL (13.5-17.5); IMMATURE GRAN ABSOLUTE AUTO 0.01 K/mm3 (0.00-0.10); IMMATURE GRAN PERCENT AUTO 0 % (0-1); LYMPHOCYTES ABSOLUTE AUTO 1.91 K/mm3 (0.84-5.20); LYMPHOCYTES PERCENT AUTO 34 % (21-46); MONOCYTES ABSOLUTE AUTO 0.43 K/mm3 (0.16-1.47); MONOCYTES PERCENT AUTO 8 % (4-13); Mean Corpuscular HGB Conc 34.9 g/dL (31.5-36.5); Mean Corpuscular Volume 92 fL (80-100); Mean Platelet Volume 9.4 fL (9.1-12.4); NEUTROPHILS ABSOLUTE AUTO 3.17 K/mm3 (1.96-9.15); NEUTROPHILS PERCENT AUTO 57 % (41-73); Platelet Count 96 K/mm3 (150-400); RDW Coefficient Variation 13.9 % (11.7-14.2); RDW Standard Deviation 47.1 fL (35.1-46.3); Red Blood Cell Count 5.96 M/mm3 (4.30-5.90); White Blood Cell Count 5.55 K/mm3 (4.00-11.30)
[2019-12-25 20:30] LABS: Alanine Aminotransfer (ALT/SGP 184 U/L (12-78); Albumin, Blood 3.5 g/dL (3.4-5.0); Albumin/Globulin Ratio 0.8 (0.8-1.8); Alk Phos 98 U/L (50-136); Anion Gap 13 mmol/L (6-16); Aspartate Aminotrans (AST/SGOT 180 U/L (12-37); Bilirubin, Total 0.4 mg/dL (0.1-1.0); Blood Urea Nitrogen 9 mg/dL (8-24); Bun/Creatinine Ratio 16.2 (12.0-20.0); CO2, Blood 24 mmol/L (21-32); Calcium, Blood 8.4 mg/dL (8.5-10.1); Chloride, Blood 105 mmol/L (98-108); Creatinine, Blood 0.56 mg/dL (0.60-1.20); Globulin, Blood 4.5 g/dL (2.2-4.0); Glomerular Filtration Rate >60 (60-); Glucose, Blood 132 mg/dL (70-99); Potassium, Blood 4.2 mmol/L (3.5-5.5); Salicylate 3.4 mg/dL (2.8-20.0); Sodium, Blood 142 mmol/L (136-145)
[2019-12-25 20:36] LABS: Acetaminophen, Random <2.0 ug/mL (10.0-30.0); Ethanol (Alcohol), Blood, Med 428 mg/dL
[2019-12-25] MEDS ORDERED: B-1100 M1 PO (20:55)
[2019-12-25 23:19] LABS: Source, Urine Clean Catch
[2019-12-25 23:32] LABS: Bilirubin, Urine Neg (Neg); Blood, Urine 3+ (Neg); Glucose Qualitative, Urine Neg (Neg); Ketones, Urine 2+ (Neg); Leukocyte Esterase, Urine Neg (Neg); Nitrite, Urine Neg (Neg); Protein, Urine 2+ (Neg); Urobilinogen, Urine NORM (Normal)
[2019-12-25 23:33] LABS: Appearance, Urine Clear (Clear); Color, Urine Yellow (P-Yellow)
[2019-12-25 23:42] LABS: U Amphetamine Screen Not Detected; U Barbituate Screen Not Detected; U Benzodiazapine Screen DETECTED; U Buprenorphine Screen Not Detected; U Cannabinoids Screen Not Detected; U Cocaine Screen Not Detected; U Methadone Screen Not Detected; U Methamphetamine Screen Not Detected; U Opiates Screen Not Detected; U Oxycodone Screen Not Detected; U Phencyclidine Screen Not Detected; U Propoxyphene Screen Not Detected
[2019-12-25 23:43] LABS: Bacteria Few /hpf; Red Blood Cells, Urine 0-2 /hpf (0-2); Squamous Epithelial Cells Not Seen /hpf (Few); White Blood Cells, Urine 0-2 /hpf (0-5)
[2019-12-25 23:44] LABS: Hyaline Casts 0-2 /lpf (0-2)
== END 2019-12-26 00:31 | disposition home or self-care (01) ==
LOC: ER 19:08 → EOR 19:09
PROVIDERS: ADMIT Emergency Medicine
DX: F10.129 Alcohol abuse with intoxication, unspecified (principal); F17.200 Nicotine dependence, unspecified, uncomplicated; G92 Toxic encephalopathy; E86.0 Dehydration; Y90.8 Blood alcohol level of 240 mg/100 ml or more
CPT/HCPCS: 36415; 80053; 81001; 85025; 96360; 99285-25; G0378; G0480; J7030

== ENCOUNTER 2019-12-27 15:59 | Emergency (ER) | payer OTHER ==
[~2019-12-27] VITALS: Ht 172.7 cm; Wt 63.5 kg
== END 2019-12-27 16:47 | disposition left against medical advice (07) ==
LOC: ER 15:59
DX: R07.9 Chest pain, unspecified (principal); R56.9 Unspecified convulsions; F17.210 Nicotine dependence, cigarettes, uncomplicated; Z79.899 Other long term (current) drug therapy
CPT/HCPCS: 36415; 93005; 93010; 99283-25

== ENCOUNTER 2020-03-09 12:03 | Inpatient (IN) | payer OTHER ==
[~2020-03-09] VITALS: Ht 172.7 cm; Wt 65.6 kg
[2020-03-09 13:00] LABS: BASOPHILS ABSOLUTE AUTO 0.02 K/mm3 (0.00-0.23); BASOPHILS PERCENT AUTO 0 % (0-2); EOSINOPHILS PERCENT AUTO 0 % (0-6); Hemoglobin 15.8 g/dL (13.5-17.5); IMMATURE GRAN ABSOLUTE AUTO 0.01 K/mm3 (0.00-0.10); IMMATURE GRAN PERCENT AUTO 0 % (0-1); LYMPHOCYTES ABSOLUTE AUTO 0.88 K/mm3 (0.84-5.20); LYMPHOCYTES PERCENT AUTO 15 % (21-46); MONOCYTES ABSOLUTE AUTO 0.34 K/mm3 (0.16-1.47); MONOCYTES PERCENT AUTO 6 % (4-13); Mean Corpuscular HGB 31.3 pg (26.0-34.0); Mean Corpuscular HGB Conc 33.6 g/dL (31.5-36.5); Mean Corpuscular Volume 93 fL (80-100); Mean Platelet Volume 8.9 fL (9.1-12.4); NEUTROPHILS ABSOLUTE AUTO 4.56 K/mm3 (1.96-9.15); NEUTROPHILS PERCENT AUTO 79 % (41-73); Platelet Count 298 K/mm3 (150-400); RDW Coefficient Variation 14.8 % (11.7-14.2); RDW Standard Deviation 51.4 fL (35.1-46.3); Red Blood Cell Count 5.04 M/mm3 (4.30-5.90); White Blood Cell Count 5.81 K/mm3 (4.00-11.30)
[2020-03-09 13:21] LABS: Alanine Aminotransfer (ALT/SGP 73 U/L (12-78); Albumin, Blood 3.3 g/dL (3.4-5.0); Albumin/Globulin Ratio 0.7 (0.8-1.8); Alk Phos 111 U/L (50-136); Anion Gap 11 mmol/L (6-16); Aspartate Aminotrans (AST/SGOT 66 U/L (12-37); Bilirubin, Total 0.7 mg/dL (0.1-1.0); Blood Urea Nitrogen 8 mg/dL (8-24); Bun/Creatinine Ratio 15.6 (12.0-20.0); CO2, Blood 22 mmol/L (21-32); Calcium, Blood 8.1 mg/dL (8.5-10.1); Chloride, Blood 104 mmol/L (98-108); Creatinine, Blood 0.51 mg/dL (0.60-1.20); Globulin, Blood 4.5 g/dL (2.2-4.0); Glomerular Filtration Rate >60 (60-); Glucose, Blood 73 mg/dL (70-99); Potassium, Blood 4.3 mmol/L (3.5-5.5); Sodium, Blood 137 mmol/L (136-145); Total Protein, Blood 7.8 g/dL (6.4-8.2); Troponin I <0.015 ng/mL (0.000-0.040)
[2020-03-09 16:26] LABS: Source, Urine Voided
[2020-03-09 16:34] LABS: Bilirubin, Urine Neg (Neg); Blood, Urine 3+ (Neg); Glucose Qualitative, Urine Neg (Neg); Ketones, Urine 3+ (Neg); Leukocyte Esterase, Urine Neg (Neg); Nitrite, Urine Neg (Neg); Protein, Urine 3+ (Neg); Urobilinogen, Urine NORM (Normal)
[2020-03-09 16:43] LABS: Appearance, Urine Clear (Clear); Color, Urine Yellow (P-Yellow)
[2020-03-09 16:44] LABS: Bacteria Not Seen /hpf; Granular Casts 0-2 /lpf (0); Red Blood Cells, Urine 0-2 /hpf (0-2); Squamous Epithelial Cells Not Seen /hpf (Few); White Blood Cells, Urine Not Seen /hpf (0-5)
[2020-03-09 17:39] LABS: International Normalized Ratio 1.01; Prothrombin Time Results 10.8 Sec (9.7-11.5)
[2020-03-09 17:44] LABS: CPK Creatine Kinase 295 U/L (39-308)
[2020-03-09 18:28] LABS: U Amphetamine Screen Not Detected; U Methamphetamine Screen DETECTED
[2020-03-09 18:29] LABS: U Barbituate Screen Not Detected; U Benzodiazapine Screen DETECTED; U Buprenorphine Screen Not Detected; U Cannabinoids Screen Not Detected; U Cocaine Screen Not Detected; U Methadone Screen Not Detected; U Opiates Screen Not Detected; U Oxycodone Screen Not Detected; U Phencyclidine Screen Not Detected; U Propoxyphene Screen Not Detected
--- NOTE | 2020-03-09 18:50 | NUR ---
ADMISSION NOTE- PT ADMITTED TO ICU FROM ER ON [facility]. ASLEEP, AWAKENS TO NAME, ABLE TO FOLLOW DIRECTIONS AND ANSWER BRIEF QUESTIONS. COOPERATIVE WITH CARES. SKIN POOR CONDITION, BRIGHT RED COLOR POSTERIOR ARMS, LEGS, KNEES, FEET. RASH PERIAREA. DISHELVED APPEARANCE, DIRTY. LUNGS CLEAR, DENIES SOB OR PAIN. PIV X 2 INTACT WITH NS BOLUS AND BANANA BAG INFUSING. NO N/V. MULTIPLE ABRASION, OPEN SORES RIGHT BUTTOCK AND LOWER SPINE.
--- NOTE | 2020-03-09 21:16 | NUR ---
ASSUME CARE: REPORT RECIEVED FROM LAURA OFF GOING RN. MONITOR INTACT SHOWING SINUS TACH HEART RATE 100'S-120'S, LUNG SOUNDS COARSE UPPER LOBES DECREASED IN THE BASES OCC MOIST LOOSE NONPRODUCTIVE COUGH. ABDOMEN SOFT WITH BOWEL SOUNDS FOUR QUADS. DENIES NEED TO VOID. AROUSES TO VERBAL STIMULI SLOW TO RESPOND ANSWERS IN ONE TO THREE WORD ANSWERS. TREMULEOUS VISIBLE DENIES NAUSEA SEE CAMELIA SHUKLA WELL IN BED. RETURNS TO SLEEP QUICKLY. BLOOD CONSENT GIVEN VERBALLY AND WITNESSED. PEDAL PULSES PRESENT NO EDEMA NOTED. COOPERATIVE TO CARES CONTINUE TO MONITOR AND REPORT CHANGE IN PATIENT CONDITION.
[2020-03-10 03:54] LABS: BASOPHILS ABSOLUTE AUTO 0.03 K/mm3 (0.00-0.23); BASOPHILS PERCENT AUTO 1 % (0-2); EOSINOPHILS ABSOLUTE AUTO 0.03 K/mm3 (0.00-0.68); EOSINOPHILS PERCENT AUTO 1 % (0-6); Hematocrit 40.4 % (37.0-53.0); Hemoglobin 13.7 g/dL (13.5-17.5); IMMATURE GRAN ABSOLUTE AUTO 0.01 K/mm3 (0.00-0.10); IMMATURE GRAN PERCENT AUTO 0 % (0-1); LYMPHOCYTES ABSOLUTE AUTO 1.51 K/mm3 (0.84-5.20); LYMPHOCYTES PERCENT AUTO 28 % (21-46); MONOCYTES ABSOLUTE AUTO 0.54 K/mm3 (0.16-1.47); MONOCYTES PERCENT AUTO 10 % (4-13); Mean Corpuscular HGB 31.9 pg (26.0-34.0); Mean Corpuscular HGB Conc 33.9 g/dL (31.5-36.5); Mean Corpuscular Volume 94 fL (80-100); Mean Platelet Volume 9.3 fL (9.1-12.4); NEUTROPHILS ABSOLUTE AUTO 3.24 K/mm3 (1.96-9.15); NEUTROPHILS PERCENT AUTO 60 % (41-73); Platelet Count 223 K/mm3 (150-400); RDW Standard Deviation 51.8 fL (35.1-46.3); White Blood Cell Count 5.36 K/mm3 (4.00-11.30)
[2020-03-10 04:17] LABS: Alanine Aminotransfer (ALT/SGP 56 U/L (12-78); Albumin, Blood 2.6 g/dL (3.4-5.0); Albumin/Globulin Ratio 0.7 (0.8-1.8); Alk Phos 86 U/L (50-136); Anion Gap 10 mmol/L (6-16); Aspartate Aminotrans (AST/SGOT 46 U/L (12-37); Bilirubin, Total 1.2 mg/dL (0.1-1.0); Blood Urea Nitrogen 7 mg/dL (8-24); CO2, Blood 22 mmol/L (21-32); Calcium, Blood 7.5 mg/dL (8.5-10.1); Chloride, Blood 105 mmol/L (98-108); Creatinine, Blood 0.58 mg/dL (0.60-1.20); Globulin, Blood 3.8 g/dL (2.2-4.0); Glomerular Filtration Rate >60 (60-); Glucose, Blood 64 mg/dL (70-99); Magnesium, Blood 1.6 mg/dL (1.6-2.4); Potassium, Blood 3.9 mmol/L (3.5-5.5); Sodium, Blood 137 mmol/L (136-145); Total Protein, Blood 6.4 g/dL (6.4-8.2)
--- NOTE | 2020-03-10 06:00 | NUR ---
SHIFT SUMMARY: RESTS QUIETLY WHEN UNDISTURBED MONITOR INTACT SHOWING SINUS RHYTHM-SINUS TACH HEART RATE 90'S-100'S. LUNG SOUNDS COARSE UPPER LOBES WITH DECREASED SOUNDS IN THE BASES. OCC MOIST LOOSE NONPRODUCTIVE COUGH.ABDOMEN SOFT WITH BOWEL SOUNDS FOUR QUADS. VOIDS MARIELA URINE PER URINAL. SHUKLA WELL IN BED REPOSITIONS SELF IN BED SCATTERED ABRASIONS TO BACK, FACE . SEE PHOTOS. CONTINUE TO MONITOR AND REPORT CHANGE IN PATIENT CONDITION.
--- NOTE | 2020-03-10 09:13 | NUR ---
ASSUMED CARE: REPORT RECEIVED FROM JODI OROURKE. PT LAYING IN BED TRYING TO TAKE A DRINK OF WATER BUT STRUGGLING BECAUSE HIS ARMS ARE TREMORING SO BAD. CIWAA COMPLETED AND PT SCORED 27. MEDICATED WITH ATIVAN, LIBRIUM AND TYLENOL WELL FOR COMPLAINTS OF RIB AND BACK PAIN. ASSISTED PT WITH BREAKFAST AND THEN PT FELL ASLEEP. AN HOUR LATER CIWAA 12 BUT STILL SLEEPING SO HELD OFF ON MEDICATION AND WILL REASSESS IN AN HOUR.
--- NOTE | 2020-03-10 16:52 | NUR ---
SHIFT SUMMARY PT SPENT THE DAY IN BED. HE IS ALERT, ORIENTED TO PERSON AND PLACE. CIWAA STARTED OUT AT 27, BUT CAME DOWN TO STAY DOWN AROUND 11 AND 12 FOR THE REST OF THE DAY. MEDICATING WITH ATIVAN AND LIBRIUM. PT STATES HE IS STILL HALLUCINATING AND TREMORS ARE BAD ENOUGH THAT IT IS DIFFICULT FOR HIM TO FEED HIMSELF. PT STATES THAT HE WOULD LIKE TO QUIT DRINKING "ONCE AND FOR ALL" THIS TIME. LUNGS ARE CLEAR, RA. ST IN THE 110S, BP STABLE. VOIDING IN THE URINAL. PASSING GAS, AND HASD SOME SMEARS, BUT NO BM. CONTINUING TO MONITOR.
--- NOTE | 2020-03-10 21:03 | NUR ---
ASSUMED CARE OF PT, REPORT RCV'D FROM ALVAREZ Rapp RN. PT SLEEPING UPON ASSESSMENT, OPENS EYES TO VERBAL STIMULI, GARBLED SPEECH. PT ABLE TO FOLLOW COMMANDS AND ASSIST WITH REPOSITIONING. USES URINAL UNASSISTED. PT HAS SEVERE VISIBLE TREMORS. PT NOT MEDICATED WITH ATIVAN/LIBRIUM AT THIS TIME D/T DECREASED LOC/SLEEPINESS. WILL CONTINUE ASSESSING PER [facility] PROTOCOL. GROIN, NATHAN AREA RED, REDDNESS SCATTERED T/O BACKSIDE (ARMS/LEGS/TRUNK), OPEN WOUND BUTTOCKS/COCCYX (SEE PICTS). SEE FULL SHIFT ASSESSMENT
[2020-03-11 03:45] LABS: Anion Gap 6 mmol/L (6-16); Blood Urea Nitrogen 12 mg/dL (8-24); Bun/Creatinine Ratio 19.9 (12.0-20.0); CO2, Blood 27 mmol/L (21-32); Calcium, Blood 8.2 mg/dL (8.5-10.1); Chloride, Blood 105 mmol/L (98-108); Glomerular Filtration Rate >60 (60-); Glucose, Blood 108 mg/dL (70-99); Magnesium, Blood 1.6 mg/dL (1.6-2.4); Phosphorus, Blood 2.7 mg/dL (2.5-4.9); Potassium, Blood 3.4 mmol/L (3.5-5.5); Sodium, Blood 138 mmol/L (136-145)
--- NOTE | 2020-03-11 05:58 | NUR ---
SHIFT SUMMARY NO ACUTE CHANGES OVERNIGHT. PT ALERT/ORIENTED, SLOW AND OFTEN GARBLED/TREMULOUS SPEECH. PT ASSISTS WITH CARE ABLE. CIWA OF 3,13,13-MEDICATED PER EMAR WITH 50 MG LIBRIUM X1 DOSE AND 2MG ATIVAN X1 DOSE. PT HAD 2000 ML CLEAR URINARY OUTPUT, CONDOM CATH IN PLACE D/T FREQUENT INCONTINENCE. PT HAS GOOD APPETITE, NEEDS ASSISTANCE WITH EATING D/T TREMORS. PT STATES HIS DESIRE TO STOP DRINKING AND STAY INPATIENT UNTIL DETOXED. WILL REPORT TO DAYSHIFT NURSE.
--- NOTE | 2020-03-11 08:00 | NUR ---
PT OPENS EYES TO VOICE. CIWA 18. SPEECH GARBLED. PT ORIENTED TO SELF AND COOPERATIVE WITH CARE, BUT HE THOUGHT THAT THE MONTH WAS APRIL. MED WITH LIBRIUM 50 MG PO FOR DT'S. PT HAS DIFFICULTY FEEDING HIMSELF THIS AM DUE TO TREMORS-ASSISTED PT WITH BREAKFAST TRAY-HE ATE 25% OCCASIONAL, MOIST, NONPRODUCTIVE COUGH NOTED. NO NOTED SOB-MAINTAINS SATS>90% ON RA. PT REPORTS DISCOMFORT TO RIBS ON THE LEFT SIDE-REPOSITIONED SUPINE WITH HOB ELEVATED AND EXTREMITIES ELEVATED ON PILLOWS.
--- NOTE | 2020-03-11 11:45 | NUR ---
CIWA 23. PT MED WITH LIBRIUM 25 MG PO X 1. SLEPT FOR MOST OF THE AM, BUT AWAKENS AND IS DIAPHORETIC, ANXIOUS, AND TREMULOUS.
--- NOTE | 2020-03-11 12:11 | NUR ---
PT REPORTS NAUSEA. MED WITH ZOFRAN 4 MG IVP X 1. PT HAS TO BE ASSISTED WITH MEALS. HE IS HIGH RISK FOR ASPIRATION DUE TO DT'S.
--- NOTE | 2020-03-11 12:25 | NUR ---
PT TEARFUL AND CIWA 24-MED WITH ATIVAN 1 MG IVP X 1.
--- NOTE | 2020-03-11 13:00 | NUR ---
CIWA CONTINUES 24. MED WITH LIBRIUM 25 MG PO X 1 AND ATIVAN 1 MG IVP X 1.
--- NOTE | 2020-03-11 13:55 | NUR ---
CIWA 19 DESPITE MED WITH BOTH LIBRIUM AND ATIVAN.
--- NOTE | 2020-03-11 15:30 | NUR ---
CIWA CONTINUES AT 20 DESPITE MED WITH A TOTAL OF 6 MG ATIVAN IVP AND LIBRIUM 100 MG PO SO FAR TODAY. DR. HAMILTON UPDATED TO CIWA, CURRENT VS, AND STATUS. PRECEDEX DRIP TO BE INITIATED.
--- NOTE | 2020-03-11 17:00 | NUR ---
CIWA 7 WITH PRECEDEX @ 0.4 MCG/KG/MIN-SATS TO 88% ON RA WHEN PT SLEEPING. O2 PLACED AT 2 LITERS NASAL CANULA TO KEEP SATS>90% PT RESTING QUIETLY WHEN NOT DISTURBED.
--- NOTE | 2020-03-11 18:04 | NUR ---
CIWA 5. PT SLEEPING. SBP 70'S AND MAP 57. PRECEDEX TITRATED DOWN TO 0.2 MCG/KG/MIN.
--- NOTE | 2020-03-11 18:06 | NUR ---
MAP 50'S. PT SLEEPING.PRECEDEX DRIP ON STANDBY.
--- NOTE | 2020-03-11 21:45 | NUR ---
PT ORIENTED TO PERSON AND PLACE. KNEW THE MONTH AND YEAR. ABLE TO DO BASIC MATH. GARBLED SPEECH. PT HAS BILATERAL HAND TREMORS. LIBRIUM PER CIWA SCORE OF 15. PT HAS BEEN OFF OF PRECEDEX SINCE DAY SHIFT. PT C/O RIB AND LEG PAIN, ULTRAM GIVEN. PT C/O NAUSEA, ZOFRAN ADMINISTRED. PT ABLE TO HOLD DOWN EVENING MEDICATIONS. PT ATE 1/2 TURKEY SANDWICH. NO SIGN OF DISTRESS
[2020-03-12 03:55] LABS: Anion Gap 6 mmol/L (6-16); Blood Urea Nitrogen 9 mg/dL (8-24); Bun/Creatinine Ratio 14.4 (12.0-20.0); CO2, Blood 26 mmol/L (21-32); Calcium, Blood 7.9 mg/dL (8.5-10.1); Chloride, Blood 107 mmol/L (98-108); Creatinine, Blood 0.62 mg/dL (0.60-1.20); Glomerular Filtration Rate >60 (60-); Glucose, Blood 102 mg/dL (70-99); Potassium, Blood 3.9 mmol/L (3.5-5.5); Sodium, Blood 139 mmol/L (136-145)
--- NOTE | 2020-03-12 06:26 | NUR ---
END OF SHIFT SUMMARY PT ALERT TO PERSON AND PLACE. PRECEDEX HAS BEEN OFF ALL NIGHT. PT HAS BEEN CALM AND COOPERATIVE. LIBRIUM AND ATIVAN GIVEN PER CIWA. CIWA HAS BEEN BETWEEN 13-15 THROUGHOUT THE NIGHT. TOLERATING FOOD. PT C/O LEFT RIB AND KNEE PAIN WITH MOVEMENT, UNKNOWN ORIGIN. PT APPEARS TO BE SLEEPING, NO SIGN OF OBVIOUS DISTRESS.
--- NOTE | 2020-03-12 07:30 | NUR ---
PT AWAKE AND ORIENTED TO PERSON AND PLACE. FOLLOWING COMMANDS AND COOPERATIVE WITH CARE. SPEECH REMAINS GARBLED, BUT LESS GARBLED THAN 03/11/20. CIWA 15. MED WITH LIBRIUM 50 MG PO-SEE EMAR.PT IS GENERALLY WEAK AND DECONDITIONED. PT REPORTS 10/10 LEFT KNEE PAIN. MED WITH ULTRAM AND ELEVATED LEFT, LOWER EXTREMITY ON PILLOWS. ECG CONTINUES SR, BP STABLE. LUNGS WITH SCATTERED RHONCHI THAT CLEAR WITH COUGH. PT HAS OCCASIONAL, MOIST COUGH THAT IS PRODUCTIVE OF SMALL AMOUNT OF THICK, CLEAR SECRETIONS. SATS>90% ON RA. MILD EXERTIONAL DYSPNEA NOTED. PT REPORTS NAUSEA THIS AM-MED WITH ZOFRAN 4 MG IVP X 1. PT IS STILL TREMULOUS, BUT IS ABLE TO FEED HIMSELF BREAKFAST THIS AM. ATTENDS IN PLACE PT REMOVED CONDOM CATH DURING THE NIGHT-IT IS C/D/I.
--- NOTE | 2020-03-12 08:00 | NUR ---
PT CRYING OUT "HELP!" PT ACCIDENTALLY REMOVED RIGHT HAND IV AND BLOOD DRIPPING ON THE PT AND THE BED. PRESSURE DRESSING PLACED TO RIGHT HAND AND PT CLEANED UP. PT STATES "I'M SORRY."
--- NOTE | 2020-03-12 09:00 | NUR ---
PT STATES THAT THE ULTRAM DID NOT IMPROVE HIS PAIN TO THE LEFT KNEE. PT ATE 100% OF BREAKFAST TRAY. PT ABLE TO FEED HIMSELF, BUT BED SOILED BY FOOD AND DRINK. BED BATH, ATTENDS CHANGED, AND LINEN CHANGE COMPLETED. CIWA 9.
--- NOTE | 2020-03-12 11:31 | NUR ---
CIWA 15. PT MED WITH LIBRIUM 100 MG PO. PT REPORTS CONTINUED 10/10 PAIN TO LEFT KNEE. ASSISTED PT OOB TO CHAIR WITH WALKER AND 2 PERSON ASSIST. PT CRYING OUT "OUCH! OUCH!" PT REQUESTS HYDROCODONE BY NAME-FOR PAIN.
--- NOTE | 2020-03-12 12:56 | NUR ---
PT APPEARS TO BE SLEEPING AT THIS TIME. ICE IN PLACE TO LEFT KNEE AND LEFT LOWER EXTREMITY ELEVATED ON PILLOWS.
--- NOTE | 2020-03-12 13:23 | NUR ---
PT APPEARS TO BE RESTING WHEN NOT DISTURBED. REPOSITIONED IN RECLINER CHAIR AND COVERED WITH BLANKET.
--- NOTE | 2020-03-12 14:54 | NUR ---
PT ABLE TO WASH HIS FACE, COMB HIS HAIR, AND AMBULATE WITH OT. PT FOLLOWING COMMANDS AND COOPERATIVE WITH CARE. PT REPORTS 10/10 LEFT RIB, HIP, AND KNEE PAIN. MED WITH OXYCODONE 5 MG PO X 1 SEE EMAR.
--- NOTE | 2020-03-12 16:36 | NUR ---
CIWA 5. PT SITTING UP IN CHAIR WATCHING TV WITHOUT NOTED DISTRESS. PT TOLERATING PO FOOD AND FLUIDS WELL. DR. HAMILTON CONTACTED AND UPDATED TO CURRENT VS AND STATUS. MD MADE AWARE THAT PT IS TOLERATING PO WELL AND THAT PT CONTINUES TO REPORTS LEFT HIP AND KNEE PAIN. IVF TO BE DISCONTINUED AND DR. HAMILTON TO ORDER X-RAYS.
--- NOTE | 2020-03-12 17:10 | NUR ---
PT MED WITH LIBRIUM 50 MG PO FOR CIWA 5-REPORT PHONED TO JODI JAIME. PT TRANSFERED TO U 3 VIA RECLINER CHAIR. BELONGINGS AND CHART SENT WITH PT.
--- NOTE | 2020-03-12 17:16 | NUR ---
PT ARRIVAL... PT ARRIVED ON UNIT IN RECLINER CHAIR. PT'S VS STABLE. PT IS VERY EMOTIONAL AND TEARFUL. PT ASKED "CAN I GET SOMETHING FOR DEPRESSION PLEASE, I JUST DON'T KNOW WHAT TO DO ANY MORE." THIS RN PROVIDED EMOTIONAL SUPPORT AND THERAPUTIC COMMUNICATION TO THE PT. CALL LIGHT IN REACH WILL CONTINUE TO MONITOR.
--- NOTE | 2020-03-12 21:55 | NUR ---
ASSUMPTION OF CARE ASSUMED CARE OF PT @ 1900, PT UP IN CHAIR WATCHING TELEVISION, ORIENTED TO SELF, EVENT, LOCATION AND FOLLOWING DIRECTIONS, CIWA 13, ATIVAN PROVIDED. O2 SATURATIONS>90% ON RA, NSR PER SAMPLER TESTER, VSS. PT REPORTS 10/10 PAIN TO L KNEE, HIP, RIB AND BACK AREA, NOT RELEIVED WITH PAIN MEDICATIONS. PT TRANSPORTED TO XRAY @ APPROX 1940, MODERATE ASSISTANCE NEEDED WITH AMBULATION R/T PAIN, BACK TO ROOM @ 1999, PT SLEEPING. CALL LIGHT WITHIN REACH. CALL PLACED TO NANCY CONTRERAS HAND SCREEN PRINTER, ULTRASandra AND LIDOCAINE PATCH ORDERED FOR PAIN.
[2020-03-13 05:31] LABS: Anion Gap 4 mmol/L (6-16); Blood Urea Nitrogen 15 mg/dL (8-24); Bun/Creatinine Ratio 19.3 (12.0-20.0); CO2, Blood 29 mmol/L (21-32); Calcium, Blood 8.3 mg/dL (8.5-10.1); Chloride, Blood 102 mmol/L (98-108); Creatinine, Blood 0.78 mg/dL (0.60-1.20); Glomerular Filtration Rate >60 (60-); Glucose, Blood 102 mg/dL (70-99); Magnesium, Blood 1.4 mg/dL (1.6-2.4); Phosphorus, Blood 3.7 mg/dL (2.5-4.9); Potassium, Blood 3.7 mmol/L (3.5-5.5); Sodium, Blood 135 mmol/L (136-145)
--- NOTE | 2020-03-13 06:06 | NUR ---
SHIFT SUMMARY PT SLEPT WELL T/O NIGHT, REMAINS AROUSABLE BUT VERY DROWSY, PAIN WITH REPOSITIONING IN BED. O2 SATURATIONS> 90% ON RA, VSS. PT TOLERATING PO INTAKE, VOIDS IN URINAL AT BEDSIDE, AMBULATES WITH ASSISTANCE BUT REPORTS SIGNIFICANT PAIN TO KNEE AND HIP WITH MOVEMENT, XRAY COMPLETED AT BEGINNING OF SHIFT. CIWA AT BEGINNING OF SHIFT 13, PT SLEEPING FOR FOLLOW UP ASSESSMENTS. CALL LIGHT WITHIN REACH.
--- NOTE | 2020-03-13 10:39 | NUR ---
UPDATE PT ALERT AND ORIENTED. VS STABLE. CIWA OF 3. PT COMPLAINS OF PAIN IN HIS LEFT HIP AND RIGHT KNEE. PT MEDICATED PER EMAR AND ENCOURAGED TO MOVE [facility] ROOM WITH STAFF ASSISTANCE. DR. HAMILTON IN WITH NEW ORDERS TO TRANSFER TO MEDICAL FLOOR. REPORT GIVEN TO MEDICAL FLOOR RN. PT TAKEN UP BY MELY.
--- NOTE | 2020-03-13 17:10 | NUR ---
SHIFT SUMMARY PCU TRANSFER THISMORNING. PATIENT ARRIVED BY WHEELCHAIR. PATIENT UP ONE ASSIST W/FWW. PATIENT MEDICATED X2 FOR PAIN. PATIENT DENIES NAUSEA AND SHORTNESS OF BREATH. CIWA LESS THAN 3. PATIENT EATING AND DRINKING WELL. PATIEN UP IN CHAIR OR NAPPING IN BED THIS SHIFT. CALL LIGHT IN REACH.
--- NOTE | 2020-03-14 04:08 | NUR ---
SHIFT SUMMARY ADMITTED FOR ALCOHOL WITHDRAWAL. FULL CODE. CIWAS HAVE BEEN 2 IN SCORE FOR ME. ONLY TREMORS VISIBLE. HE DOES HAVE PAIN IN LEFT HIP AND RT KNEE, I HAVE MEDICATED FOR PAIN TWICE THIS SHIFT. HE IS ON RA, REGULAR DIET, 1 ASSIST W/FWW & GAITBELT. HE IS HOMELESS. PLAN MAY BE FOR DC TO [facility]. SOME ELECTROLYTE IMBALANCES ARE BEING MONITORED AND CORRECTED. HX: HEAVY ALCOHOL USE, FREQUENT FALLS, RECENT ADMIT 11/2018 ALCOHOL WITHDRAWALS.
[2020-03-14 09:01] LABS: Albumin, Blood 2.8 g/dL (3.4-5.0); Anion Gap 4 mmol/L (6-16); Blood Urea Nitrogen 17 mg/dL (8-24); Bun/Creatinine Ratio 22.4 (12.0-20.0); CO2, Blood 29 mmol/L (21-32); Calcium, Blood 8.8 mg/dL (8.5-10.1); Chloride, Blood 101 mmol/L (98-108); Creatinine, Blood 0.76 mg/dL (0.60-1.20); Glomerular Filtration Rate >60 (60-); Glucose, Blood 99 mg/dL (70-99); Magnesium, Blood 1.5 mg/dL (1.6-2.4); Phosphorus, Blood 3.1 mg/dL (2.5-4.9); Potassium, Blood 4.2 mmol/L (3.5-5.5); Sodium, Blood 134 mmol/L (136-145)
--- NOTE | 2020-03-14 17:16 | NUR ---
SHIFT SUMMARY PT AWAKE DURING SHIFT REPORT. ADMITTED FOR ALCOHOL W/D AFTER BEING FOUND DOWN IN A PARK. PT DENIED BEING HOMELESS TODAY, BUT REPORTED THAT HE WILL BE IN A FEW DAYS. PT REPORTED PAIN TO L KNEE AND R HIP WITH SOME SCATTERED BRUISING ON RIBS/BACK FROM FALLS WHEN DRINKING. PT MEDICATED PER EMAR FOR PAIN. REPORTED MEDICATION EFFECTIVE. ABLE TO WORK WITH P/T TODAY AND REQUESTED TO WALK HALLS SEVERAL TIMES AFTER THAT. 1P SBA USING FWW TO WALK HALLS. PT SEEMS TO BE IMPROVING. OCCASSIONAL TREMORS NOTED LASTING ONLY BRIEFLY. PT REPORTED NO BM FOR 4-[address] FREITAS NOTIFIED. NEW ORDERS PLACED AND ADMINISTERED. PT UP TO CHAIR SEVERAL TIMES AND FOR ALL MEALS. RESTING QUIETLY AT THIS TIME. BED ALARM AND CHAIR ALARM ON FOR SAFETY. CALL LT IN REACH.
--- NOTE | 2020-03-15 04:19 | NUR ---
SHIFT SUMMARY PATIENT HAD NO ACUTE CHANGES OBSERVED. AXOX 3 AND ONE ASSIST WITH FWW TO BSC. USES URINAL AT BEDSIDE. PIV REMAINS INTACT. REPORTED L KNEE AND R HIP PAIN AND RECEIVED TRAMADOL AND OXYCODONE PER EMAR PRN. VSS/AFEBRILE. DENIES SOB AND N/V. WATCHED TV T/O SHIFT. COOPERATIVE WITH CARE. CALL LIGHT IN REACH. BED IN LOWEST POSITION. WILL CONTINUE TO MONITOR UNTIL DAY SHIFT NURSE ASSUMES CARE.
[2020-03-15] MEDS ORDERED: OMEP20ER PO (12:15)
[2020-03-15] MEDS ORDERED: TRAM50 PO (12:15)
--- NOTE | 2020-03-15 15:34 | NUR ---
SHIFT SUMMARY PT AWAKE AT START OF SHIFT, WATCHING TV. REQUESTED PAIN MEDICATION WITH BREAKFAST FOR L KNEE PAIN. ICE BAG ALSO GIVEN AGAIN, WHICH PT REPORTED HELPED. SWELLING TO L KNEE MUCH IMPROVED FROM YESTERDAY. PT UP AMBULATING IN ROOM AND IN MUSTAFA AFTER BREAKFAST. PT SAT IN CHAIR AT END OF MUSTAFA FOR A WHILE WELL. PT DID NOT C/O PAIN NEAR MUCH TODAY YESTERDAY. BOWEL CARE GIVEN AGAIN PT REPORTED ONLY PARTIAL BM AFTER YESTERDAYS BOWEL CARE. LUNGS T/O IMPROVED FROM YESTERDAY. NICOTINE PATCH PLACED AGAIN PER PT REQUEST, BUT WANTED TO GO OUT TO [facility] INSTEAD. DR FREITAS IN TO SEE PT. D/C ORDERS PLACED. PT ABLE TO DRESS HIMSELF AND WAS THEN ANXIOUS TO LEAVE. PT TAKEN OUT, VIA W/C, WHEN [facility] ARRIVED.
== END 2020-03-15 13:07 | disposition home or self-care (01) | DRG 897 ==
LOC: ER 12:03 → PCU 16:51 → ICUE 18:11 → PCU 03-12 16:53 → MEDS 03-13 10:35
PROVIDERS: Emergency Medicine; Family Medicine; Nurse Practitioner Acute Care; ADMIT Internal Medicine
DX: F10.239 Alcohol dependence with withdrawal, unspecified (principal); F19.90 Other psychoactive substance use, unspecified, uncomplicated; E83.42 Hypomagnesemia; E87.6 Hypokalemia; E83.39 Other disorders of phosphorus metabolism; K21.9 Gastro-esophageal reflux disease without esophagitis; M25.552 Pain in left hip; I10 Essential (primary) hypertension; F17.290 Nicotine dependence, other tobacco product, uncomplicated; Z91.81 History of falling
CPT/HCPCS: 36415; 71111; 73502; 73560-LT; 80048; 80053; 80069; 81001; 82140; 82550; 83690; 83735; 84100; 84443; 84484; 85025; 85610; 93005; 93010; 96361; 96374; 96375; 96376; 97110; 97116; 97162; 97166; 97535; 99285-25; A9270; A9270-GY; C9113; G0480; J1650; J2060; J2405; J2560; J3411; J3475; J7030; J7042

== ENCOUNTER 2020-10-05 23:21 | Observation (INO) | payer OTHER ==
[~2020-10-05] VITALS: Ht 172.7 cm; Wt 68.0 kg
[~2020-10-05 23:21] MED LIST changes: +OMEP20ER PO
[2020-10-05 23:46] LABS: BASOPHILS ABSOLUTE AUTO 0.03 K/mm3 (0.00-0.23); BASOPHILS PERCENT AUTO 1 % (0-2); EOSINOPHILS ABSOLUTE AUTO 0.13 K/mm3 (0.00-0.68); EOSINOPHILS PERCENT AUTO 2 % (0-6); Hemoglobin 17.9 g/dL (13.5-17.5); IMMATURE GRAN ABSOLUTE AUTO 0.01 K/mm3 (0.00-0.10); IMMATURE GRAN PERCENT AUTO 0 % (0-1); LYMPHOCYTES PERCENT AUTO 42 % (21-46); MONOCYTES ABSOLUTE AUTO 0.38 K/mm3 (0.16-1.47); MONOCYTES PERCENT AUTO 6 % (4-13); Mean Corpuscular HGB 30.8 pg (26.0-34.0); Mean Corpuscular HGB Conc 35.1 g/dL (31.5-36.5); Mean Corpuscular Volume 88 fL (80-100); Mean Platelet Volume 9.7 fL (9.1-12.4); NEUTROPHILS ABSOLUTE AUTO 2.99 K/mm3 (1.96-9.15); NEUTROPHILS PERCENT AUTO 49 % (41-73); Platelet Count 149 K/mm3 (150-400); RDW Coefficient Variation 12.4 % (11.7-14.2); RDW Standard Deviation 39.6 fL (35.1-46.3); Red Blood Cell Count 5.82 M/mm3 (4.30-5.90); White Blood Cell Count 6.14 K/mm3 (4.00-11.30)
[2020-10-06 00:09] LABS: Alanine Aminotransfer (ALT/SGP 169 U/L (12-78); Albumin, Blood 3.8 g/dL (3.4-5.0); Albumin/Globulin Ratio 0.9 (0.8-1.8); Alk Phos 93 U/L (50-136); Anion Gap 7 mmol/L (6-16); Aspartate Aminotrans (AST/SGOT 129 U/L (12-37); Bilirubin, Total 0.5 mg/dL (0.1-1.0); Blood Urea Nitrogen 8 mg/dL (8-24); Bun/Creatinine Ratio 12.4 (12.0-20.0); CO2, Blood 28 mmol/L (21-32); Calcium, Blood 8.6 mg/dL (8.5-10.1); Chloride, Blood 105 mmol/L (98-108); Creatinine, Blood 0.64 mg/dL (0.60-1.20); Globulin, Blood 4.1 g/dL (2.2-4.0); Glomerular Filtration Rate >60 (60-); Glucose, Blood 115 mg/dL (70-99); Potassium, Blood 4.1 mmol/L (3.5-5.5); Sodium, Blood 140 mmol/L (136-145); Total Protein, Blood 7.9 g/dL (6.4-8.2); Troponin I <0.015 ng/mL (0.000-0.040)
[2020-10-06 00:10] LABS: Ethanol (Alcohol), Blood, Med 425 mg/dL
== END 2020-10-06 03:45 | disposition home or self-care (01) ==
LOC: ER 23:21 → EOR 23:22
PROVIDERS: ADMIT Emergency Medicine
DX: F10.129 Alcohol abuse with intoxication, unspecified (principal); R07.9 Chest pain, unspecified; F17.200 Nicotine dependence, unspecified, uncomplicated; Z86.69 Personal history of other diseases of the nervous system and sense organs
CPT/HCPCS: 36415; 71046; 80053; 83690; 83880; 84484; 85025; 93005; 93010; 99285-25; G0378; G0480

== ENCOUNTER 2021-12-08 17:41 | Inpatient (IN) | payer OTHER ==
[~2021-12-08] VITALS: Ht 177.8 cm; Wt 65.2 kg
[2021-12-08 18:33] LABS: Base Excess Venous -4.6 mmol/L; Bicarbonate Venous 20.9 mmol/L (24.0-30.0); PCO2 Venous 35.9 mmHg (38-42); PO2 Venous 63.3 mmHg (38-42); pH Blood Venous 7.37 (7.34-7.37)
[2021-12-08 18:39] LABS: BASOPHILS ABSOLUTE AUTO 0.01 K/mm3 (0.00-0.23); BASOPHILS PERCENT AUTO 0 % (0-2); EOSINOPHILS PERCENT AUTO 0 % (0-6); Hematocrit 42.7 % (37.0-53.0); IMMATURE GRAN ABSOLUTE AUTO 0.02 K/mm3 (0.00-0.10); IMMATURE GRAN PERCENT AUTO 0 % (0-1); LYMPHOCYTES ABSOLUTE AUTO 0.86 K/mm3 (0.84-5.20); LYMPHOCYTES PERCENT AUTO 8 % (21-46); MONOCYTES ABSOLUTE AUTO 0.64 K/mm3 (0.16-1.47); MONOCYTES PERCENT AUTO 6 % (4-13); Mean Corpuscular HGB 32.6 pg (26.0-34.0); Mean Corpuscular HGB Conc 35.1 g/dL (31.5-36.5); Mean Corpuscular Volume 93 fL (80-100); Mean Platelet Volume 10.3 fL (9.1-12.4); NEUTROPHILS ABSOLUTE AUTO 8.77 K/mm3 (1.96-9.15); NEUTROPHILS PERCENT AUTO 85 % (41-73); Platelet Count 84 K/mm3 (150-400); RDW Coefficient Variation 15.9 % (11.7-14.2); RDW Standard Deviation 54.2 fL (35.1-46.3)
[2021-12-08 18:53] LABS: Alanine Aminotransfer (ALT/SGP 78 U/L (12-78); Albumin, Blood 2.8 g/dL (3.4-5.0); Albumin/Globulin Ratio 0.6 (0.8-1.8); Alk Phos 113 U/L (50-136); Anion Gap 13 mmol/L (6-16); Aspartate Aminotrans (AST/SGOT 100 U/L (12-37); Bilirubin, Direct 0.2 mg/dL (0.0-0.3); Bilirubin, Indirect 0.3 mg/dL (0.1-0.7); Bilirubin, Total 0.5 mg/dL (0.1-1.0); Blood Urea Nitrogen 17 mg/dL (8-24); Bun/Creatinine Ratio 28.9 (12.0-20.0); CO2, Blood 20 mmol/L (21-32); Chloride, Blood 102 mmol/L (98-108); Creatinine, Blood 0.59 mg/dL (0.60-1.20); Globulin, Blood 4.4 g/dL (2.2-4.0); Glomerular Filtration Rate >60 (60-); Glucose, Blood 118 mg/dL (70-99); Magnesium, Blood 1.7 mg/dL (1.6-2.4); Salicylate 3.6 mg/dL (2.8-20.0); Sodium, Blood 135 mmol/L (136-145); Total Protein, Blood 7.2 g/dL (6.4-8.2)
[2021-12-08 19:06] LABS: Acetaminophen, Random <2.0 ug/mL (10.0-30.0); Ethanol (Alcohol), Blood, Med 437 mg/dL
[2021-12-08 19:26] LABS: Influenza A, PCR NEGATIVE (NEGATIVE); Influenza B, PCR NEGATIVE (NEGATIVE); Resp Syncytial Virus, PCR NEGATIVE (NEGATIVE); SARS-Cov-2 (COVID-19) PCR, MMC NEGATIVE (NEGATIVE)
[2021-12-09 00:54] LABS: Source, Urine Clean Catch
[2021-12-09 01:04] LABS: Appearance, Urine Clear (Clear); Bilirubin, Urine Neg (Neg); Blood, Urine 4+ (Neg); Color, Urine Yellow (P-Yellow); Glucose Qualitative, Urine Neg (Neg); Ketones, Urine 3+ (Neg); Leukocyte Esterase, Urine Neg (Neg); Nitrite, Urine Neg (Neg); Protein, Urine 2+ (Neg); Specific Gravity, Urine 1.015 (1.003-1.022); Urobilinogen, Urine NORM (Normal); White Blood Cells, Urine Rare /hpf (0-5)
[2021-12-09 01:05] LABS: Bacteria Not Seen /hpf; Red Blood Cells, Urine 0-2 /hpf (0-2); Squamous Epithelial Cells Not Seen /hpf (Few)
[2021-12-09 01:12] LABS: U Amphetamine Screen Not Detected; U Barbituate Screen Not Detected; U Benzodiazapine Screen DETECTED; U Buprenorphine Screen Not Detected; U Cannabinoids Screen Not Detected; U Cocaine Screen Not Detected; U Methadone Screen Not Detected; U Methamphetamine Screen Not Detected; U Opiates Screen Not Detected; U Oxycodone Screen Not Detected; U Phencyclidine Screen Not Detected; U Propoxyphene Screen Not Detected
[2021-12-09 04:30] LABS: Source, Urine Foley catheter
[2021-12-09 04:40] LABS: BASOPHILS ABSOLUTE AUTO 0.01 K/mm3 (0.00-0.23); BASOPHILS PERCENT AUTO 0 % (0-2); EOSINOPHILS ABSOLUTE AUTO 0.02 K/mm3 (0.00-0.68); EOSINOPHILS PERCENT AUTO 0 % (0-6); Hematocrit 35.7 % (37.0-53.0); Hemoglobin 12.4 g/dL (13.5-17.5); IMMATURE GRAN ABSOLUTE AUTO 0.02 K/mm3 (0.00-0.10); IMMATURE GRAN PERCENT AUTO 0 % (0-1); LYMPHOCYTES ABSOLUTE AUTO 0.87 K/mm3 (0.84-5.20); LYMPHOCYTES PERCENT AUTO 11 % (21-46); MONOCYTES ABSOLUTE AUTO 0.67 K/mm3 (0.16-1.47); MONOCYTES PERCENT AUTO 9 % (4-13); Mean Corpuscular HGB 32.5 pg (26.0-34.0); Mean Corpuscular HGB Conc 34.7 g/dL (31.5-36.5); Mean Corpuscular Volume 94 fL (80-100); Mean Platelet Volume 10.3 fL (9.1-12.4); NEUTROPHILS ABSOLUTE AUTO 6.05 K/mm3 (1.96-9.15); NEUTROPHILS PERCENT AUTO 79 % (41-73); Platelet Count 70 K/mm3 (150-400); RDW Coefficient Variation 15.8 % (11.7-14.2); RDW Standard Deviation 54.8 fL (35.1-46.3); Red Blood Cell Count 3.81 M/mm3 (4.30-5.90); White Blood Cell Count 7.64 K/mm3 (4.00-11.30)
[2021-12-09 04:40] LABS: Bilirubin, Urine Neg (Neg); Blood, Urine 4+ (Neg); Glucose Qualitative, Urine Neg (Neg); Ketones, Urine 3+ (Neg); Leukocyte Esterase, Urine 1+ (Neg); Nitrite, Urine Neg (Neg); Protein, Urine 2+ (Neg); Specific Gravity, Urine 1.015 (1.003-1.022); Urobilinogen, Urine NORM (Normal)
[2021-12-09 05:01] LABS: Alanine Aminotransfer (ALT/SGP 57 U/L (12-78); Albumin, Blood 2.2 g/dL (3.4-5.0); Albumin/Globulin Ratio 0.6 (0.8-1.8); Alk Phos 85 U/L (50-136); Anion Gap 7 mmol/L (6-16); Aspartate Aminotrans (AST/SGOT 68 U/L (12-37); Bilirubin, Total 0.5 mg/dL (0.1-1.0); Blood Urea Nitrogen 10 mg/dL (8-24); Bun/Creatinine Ratio 18.8 (12.0-20.0); CO2, Blood 25 mmol/L (21-32); Calcium, Blood 6.7 mg/dL (8.5-10.1); Chloride, Blood 110 mmol/L (98-108); Creatinine, Blood 0.53 mg/dL (0.60-1.20); Globulin, Blood 3.4 g/dL (2.2-4.0); Glomerular Filtration Rate >60 (60-); Glucose, Blood 95 mg/dL (70-99); Potassium, Blood 3.8 mmol/L (3.5-5.5); Sodium, Blood 142 mmol/L (136-145); Total Protein, Blood 5.6 g/dL (6.4-8.2)
[2021-12-09 05:09] LABS: Appearance, Urine Hazy (Clear); Color, Urine Yellow (P-Yellow)
[2021-12-09 05:11] LABS: Amorphous Light (0-Heavy); Bacteria Few /hpf; Mucus Light (0-Heavy); Squamous Epithelial Cells Not Seen /hpf (Few); White Blood Cells, Urine 50-100 /hpf (0-5)
--- NOTE | 2021-12-09 05:33 | NUR ---
ASSUMED PT CARE AT 0330 FROM ED PT ARRIVED TO ICU SECONDARY TO ETOH WITHDRAWALS WITH ATIVAN GTT INFUSING AT 8MG/HR PIGGYBACKED TO NS AT 400MLS/HR. ATIVAN SWITCHED TO ITS OWN PUMP AT 6MG/HR AND Y SITED TO NS BOLUS. PT ALER TO SELF, FOLLOWING SIMPLE COMMANDS; HOWEVER, DIFFICULT TO UNDERSTAND D/T GARBLED SPEECH. CIWA SCORE 19-25. ACTIVE HALLUCINATIONS THAT HE IS SMOKING. PER REPORT PT LIVES IN A TRAILER THAT IS TARPED; RECENTLY AND PT DRINKS APPROXIMATELY A GALLON OF WINE/DAY. PT IS ALSO AN ACTIVE SMOKER. UNABLE TO OBTAIN HISTORY D/T MENTATION. PT WAS A HIGH 1:1 OBSERVATION IN ER D/T SUICIDE RISK; HOWEVER, ORDERS OBTAINED FOR MODERATE RISK IN ICU D/T SEDATIVE MEDICATIONS. PT IS CURRENTLY ON THE REMOTE MONITORING SYSTEM. PT IS CURRENTLY IN BILATERAL SOFT WRIST RESTRAINTS D/T ATTEMPTING TO PULL OUT IV'S AND PAINTER CATHETER. PT HAS A POWERGLIDE TO RIGHT UPPER ARM. PRECEDEX GTT AT 0.7MCG/KG/HR, BANANA BAG AT 100MLS/HR, AND ATIVAN AT 1MG/HR. 18G TO BILATERAL AC SITES. SOLES OF FEET APPEAR TO HAVE LIND BITE WITH RIGHT BIG TOE NOTED TO BE PURPLE/CYANOTIC WITH BLACK/NECROTIC TISSUE. ALL PULSES ARE PALPABLE AND STRONG AND ALL EXTREMITIES ARE HOT TO THE TOUCH. UNABLE TO ACCURATELY ASSESS PT'S PAIN LEVEL D/T MENTATION AND GARBLED SPEECH. PT NOTED TO BE SINUS TACHYCARDIA WITH HR 110-120'S; BP'S STABLE AT THIS TIME, SEE FLOWSHEET. PT ARRIVED ON 4L OF OXYGEN VIA NC, WHICH IS NOW DOWN TO 2L WITH SPO2 98%. RR 20'S. SEE SHIFT SUMMARY FOR FURTHER DETAIL. WILL CONTINUE TO MONITOR UNTIL REPORT IS HANDED OFF TO ONCOMING RN.
--- NOTE | 2021-12-09 07:30 | NUR ---
ASSUMPTION OF CARE RECEIVED REPORT FROM BAKARI ZAPATA, ASSUMED CARE OF PATIENT. PATIENT IN BED, EYES CLOSED. SEDATED ON PRECEDEX OF 0.6MCG/KG AND ATIVAN OF 1MG/HR. DECREASED PRECEDEX TO 0.5MCG/KG. VITALS STABLE, ON 2L 02 VIA NC. WOUNDS ASSESSED, WILL LEAVE OPEN TO AIR UNTIL FURTHER EVALUATION FROM PHYSICIAN.
--- NOTE | 2021-12-09 09:01 | NUR ---
PHYSICIAN COMMUNICATION DR. SARGENT ROUNDED ON PATIENT. COMMUNICATED PLATELET RESULTS, AND CURRENT SEDATION. WILL TURN OFF ATIVAN DRIP AND HOLD LOVENEX TO BE REASSESSED TOMORROW. FEET EVALUATED, AWAITING CONSULT ORDERS FOR FURTHER TREATMENT.
--- NOTE | 2021-12-09 12:54 | NUR ---
oral care perfomed
--- NOTE | 2021-12-09 12:56 | NUR ---
DAYRON WASTED 45ML OF ATIVAN DRIP WITH MARIAJOSE ANDUJAR RN WITNESS.
[2021-12-09 14:23] LABS: BASOPHILS ABSOLUTE AUTO 0.01 K/mm3 (0.00-0.23); BASOPHILS PERCENT AUTO 0 % (0-2); EOSINOPHILS ABSOLUTE AUTO 0.02 K/mm3 (0.00-0.68); EOSINOPHILS PERCENT AUTO 0 % (0-6); Hematocrit 38.5 % (37.0-53.0); Hemoglobin 12.9 g/dL (13.5-17.5); IMMATURE GRAN ABSOLUTE AUTO 0.02 K/mm3 (0.00-0.10); IMMATURE GRAN PERCENT AUTO 0 % (0-1); LYMPHOCYTES ABSOLUTE AUTO 0.51 K/mm3 (0.84-5.20); LYMPHOCYTES PERCENT AUTO 7 % (21-46); MONOCYTES ABSOLUTE AUTO 0.73 K/mm3 (0.16-1.47); MONOCYTES PERCENT AUTO 10 % (4-13); Mean Corpuscular HGB 32.4 pg (26.0-34.0); Mean Corpuscular HGB Conc 33.5 g/dL (31.5-36.5); Mean Corpuscular Volume 97 fL (80-100); Mean Platelet Volume 10.3 fL (9.1-12.4); NEUTROPHILS ABSOLUTE AUTO 5.91 K/mm3 (1.96-9.15); NEUTROPHILS PERCENT AUTO 82 % (41-73); Platelet Count 76 K/mm3 (150-400); RDW Coefficient Variation 15.9 % (11.7-14.2); RDW Standard Deviation 56.9 fL (35.1-46.3); Red Blood Cell Count 3.98 M/mm3 (4.30-5.90)
--- NOTE | 2021-12-09 18:20 | NUR ---
SHIFT SUMMARY PATIENT SEDATED THROUGH SHIFT, ATIVAN REMOVED CHARTED WITH IV PUSHES ADMINISTERED FOR CIWA SCORES. PRECEDEX AT 0.2MCG/KG. PATIENT AWAKENS TO VERBAL STIMULI, GARBLED SPEECH AND SEVERE TREMORS TO BUE NOTED WHILE AWAKE. VITALS STABLE WITH HEART RATE 100-110'S. REMAINS ON 2L 02 VIA NC AT 95%. REVIEWED CONCERNS WITH DR. SARGENT DURING AM ROUNDS AND REVIEWED SUICIDE RISK. PATIENT TO REMAIN MODERATE SUICIDE RISK, 1:1 CONTINUOUS OBSERVATION PROVIDED BY STAFF. FLUIDS ORDERED AND INFUSING. REPOSITIONED CHARTED AND RESTRAINTS REMOVED AT 1600. CONSULT TO DR. MARSHALL PODIATRY CALLED IN. PAINTER CATHETER REMAINED PATENT AND DRAINING.
--- NOTE | 2021-12-09 20:59 | NUR ---
SHIFT ASSESSMENT ASSUMED CARE OF PT @ 1900. PT LAYING SUPINE IN BED. ALERT AND ORIENTED TO PERSON, PLACE, AND YEAR. VERY DIFFICULT TO UNDERSTAND DUE TO GARBLED SPEECH. FOLLOWING COMMANDS, SHUKLA. SEVERE TREMORS TO ARMS, MEDICATED c ATIVAN PER MAR FOR CIWA SCORES. PRECEDEX GTT @ 0.2MCG/KG. LS CLEAR, ON 2LPM O2 VIA NC c SATS >95%. VSS. TEMP PROBE PAINTER PATENT, DRAINING MARIELA URINE. AWAITING PODIATRY CONSULT FOR BLACKENED BLE. PT REMAINS ON 1:1 OBSERVATION FOR SI PRECAUTIONS.
[2021-12-10 04:20] LABS: BASOPHILS ABSOLUTE AUTO 0.03 K/mm3 (0.00-0.23); BASOPHILS PERCENT AUTO 1 % (0-2); EOSINOPHILS ABSOLUTE AUTO 0.03 K/mm3 (0.00-0.68); EOSINOPHILS PERCENT AUTO 1 % (0-6); Hematocrit 37.1 % (37.0-53.0); IMMATURE GRAN ABSOLUTE AUTO 0.02 K/mm3 (0.00-0.10); IMMATURE GRAN PERCENT AUTO 0 % (0-1); LYMPHOCYTES ABSOLUTE AUTO 1.02 K/mm3 (0.84-5.20); LYMPHOCYTES PERCENT AUTO 18 % (21-46); MONOCYTES ABSOLUTE AUTO 0.78 K/mm3 (0.16-1.47); MONOCYTES PERCENT AUTO 14 % (4-13); Mean Corpuscular HGB 32.8 pg (26.0-34.0); Mean Corpuscular Volume 94 fL (80-100); Mean Platelet Volume 11.2 fL (9.1-12.4); NEUTROPHILS ABSOLUTE AUTO 3.72 K/mm3 (1.96-9.15); NEUTROPHILS PERCENT AUTO 67 % (41-73); Platelet Count 69 K/mm3 (150-400); RDW Coefficient Variation 15.2 % (11.7-14.2); RDW Standard Deviation 52.5 fL (35.1-46.3); Red Blood Cell Count 3.96 M/mm3 (4.30-5.90)
[2021-12-10 04:34] LABS: Alanine Aminotransfer (ALT/SGP 45 U/L (12-78); Albumin, Blood 2.2 g/dL (3.4-5.0); Albumin/Globulin Ratio 0.6 (0.8-1.8); Alk Phos 88 U/L (50-136); Anion Gap 8 mmol/L (6-16); Aspartate Aminotrans (AST/SGOT 54 U/L (12-37); Bilirubin, Total 0.7 mg/dL (0.1-1.0); Blood Urea Nitrogen 7 mg/dL (8-24); Bun/Creatinine Ratio 12.3 (12.0-20.0); CO2, Blood 27 mmol/L (21-32); Calcium, Blood 7.5 mg/dL (8.5-10.1); Chloride, Blood 102 mmol/L (98-108); Creatinine, Blood 0.57 mg/dL (0.60-1.20); Globulin, Blood 3.9 g/dL (2.2-4.0); Glomerular Filtration Rate >60 (60-); Glucose, Blood 111 mg/dL (70-99); Potassium, Blood 3.2 mmol/L (3.5-5.5); Sodium, Blood 137 mmol/L (136-145); Total Protein, Blood 6.1 g/dL (6.4-8.2)
--- NOTE | 2021-12-10 06:18 | NUR ---
SHIFT SUMMARY NO SIGNIFICANT ACUTE CHANGES DURING THE NIGHT. PT REMAINS ON SEDATION. AWAKENS EASILY TO VERBAL STIMULI, ABLE TO FOLLOW COMMANDS, SPEACH REMAINS GARBLED. PRECEDEX GTT TITRATED UP TO 0.7MCG/KG/HR. UPPER EXTREMITIES VERY TREMULOUS, MEDICATED c PRN ATIVAN FOR INCREASING CIWA SCORES. PAINTER CATH PATENT, DRAINING MARIELA URINE. PT AFEBRILE. NO BM THIS SHIFT. 1:1 SITTER T/O THE NIGHT.
--- NOTE | 2021-12-10 08:00 | NUR ---
ASSUMED CARE OF PT PT AWAKENS TO VOICE, ORIENTED TO SELF AND SURROUNDINGS. FOLLOWS COMMANDS, BUT FALLS ASLEEP EASILY. PT'S SPEECH IS MUMBLED, BUT AT TIMES CLEAR. CIWA SCORE 10. WHEN PT WAS ASKED ABOUT SI, HE DENIED, BUT FELL BACK ASLEEP QUICKLY. PRECEDEX GTT CONTINUES AT 0.7MCG/KG/HR. PT HAS DARK DISCOLORATION TO RIGHT FOOT. PODIATRY CONSULT IN PLACE. PT REMAINS NPO DUE TO MENTATION TO REDUCE ASPIRATION RISK AND IS RECEIVING IVF. PAINTER TO GRAVITY DRAINING CLEAR, YELLOW, URINE. PT ON 2L OF O2 VIA NC TO MAINTAIN SPO2>92%, LUNGS ARE COURSE, PT HAS WEAK PRODUCTIVE COUGH. MONITOR SHOWS PT TO BE IN SINUS RHYTHM. VITALS ARE STABLE.
--- NOTE | 2021-12-10 12:30 | NUR ---
REASSESSMENT PT REMAINS 1:1, RN SITTER. PT AWAKENS MORE EASILY THIS AFTERNOON AND SPEECH IS CLEARER. DR MARSHALL FROM PODIATRY EVALUATED PTS FOOT WOUNDS. WHILE DR WAS AT BEDSIDE RIGHT FOOT WOUND WAS SCRUBBED AND PAINTED WITH BETADINE. DAILY WOUND DRESSING CHANGE ORDERS RECEIVED AND IMPLEMENTED. DR MARSHALL PLANS TO RE-EVALUATE RIGHT FOOT WOUNDS ON MONDAY. CIWA SCORE NOW 13. PT MEDICATED WITH LORAZAPAM. PT HAS BEEN RELATIVELY SEDATED THIS MORNING, STARTED TO TITRATE PRECEDEX GTT DOWN. NOW INFUSING AT 0.6MCG/KG/HR. NO OTHER CHANGES TO PREVIOUS ASSESSMENT. VITALS REMAIN STABLE. SINUS RHYTHM ON THE MONITOR.
--- NOTE | 2021-12-10 14:39 | NUR ---
RN notified this poem writer yesterday of possible need for Safety Plan, but patient still altered mentation. Review of notes today indicate patient continues to require intensive medical treatment and is unable to engage in active conversation or counseling. Caroline Bland M.d., [facility], [facility]
--- NOTE | 2021-12-10 15:10 | NUR ---
CASE CONFERENCED with ICU staff re: current status and concerns, lack of proxy decision maker with pt's altered mental status. I reviewed previous admissions back to 2017 and [place] contact [place] [facility] [place] and no contact information was found in EMR, CM, RN notes.
--- NOTE | 2021-12-10 16:20 | NUR ---
REASSESSMENT PT IS MORE ALERT THIS AFTERNOON, ORIENTED TO PERSON, PLACE AND YEAR. FOLLOWS COMMANDS AND IS CALM AND COOPERATIVE. CIWA SCORE NOW A 9. TITRATED PRECEDEX GTT DOWN AGAIN TO 0.5MCG/KG/HR. OTHER PORTIONS OF PREVIOUS ASSESSMENT REMAINS UNCHANGED. PT REMAINS 1:1 SITTER FOR SAFETY. EARLIER TODAY DISCUSSED PSYCH CONSULT WITH DR ABDUL AND WHEN PT IS ALERT ENOUGH TO PARTICPATE WITH PROVIDER, A CONSULT CAN BE PLACED. VITALS ARE STABLE. SINUS RHYTHM ON THE MONITOR.
--- NOTE | 2021-12-10 18:33 | NUR ---
SHIFT SUMMARY PT IS MORE ALERT THIS EVENING, CALM AND COOPERATIVE. PT DENIES SI AT THIS TIME. WITH PT AWAKE, WAS ABLE TO START PT ON A DIET. PT TOLERATED SIPS OF WATER AND A PUDDING WITH ASSISTANCE FROM STAFF. WITH PT AWAKE, WAS ABLE TO TITARATE O2 OFF. SPO2 >96% ON ROOM AIR. PT IS C/O SOME NASAL CONGESTION. THIS EVENING PT REPORTED 1.5PPD CIGARETTE SMOKER. NICOTINE PATCH ORDER OBTAINED AND APPLIED TO PT. DISCUSSED PSYCH EVAL WITH DR ABDUL AND SHE STATED TOMORROW FOR A TELEPSYCH EVAL WILL BE APPROPRIATE TO ALLOW PT TO CONTINUE TO BECOME MORE ALERT. VITALS HAVE REMAINED STABLE. SINUS RHYTHM ON THE MONITOR. REMAINS 1:1 WITH SITTER.
--- NOTE | 2021-12-10 19:59 | NUR ---
ASSUMED CARE AT 1900 PATIENT IS SITTING UP EATING AT START OF SHIFT. ALERT AND ORIENTED X SELF, PLACE A FOLLOWING DIRECTIONS. CIWA OF 19 DUE TO TREMORS, HEADACHE, RINGING IN EARS, PATIENT STATES HE IS SEEING THINGS, UNABLE TO STATE DATE, THINKS ITS 2011. PRECEDEX INF AND ATIVAN PRN. WHEN ASKED ABOUT SUICIDAL IDEATION PATIENT STATES "NO, NOT RIGHT NOW". HE THEN STARTED TO TALK ABOUT HIS GIRLFRIEND THAT RECENTLY. 02 SATS 97% ON RA. HR SR @70s CURRENTLY. BP STABLE. PAINTER DRAINING TO GRAVITY. PER DAYSHIFT RN RIGHT FOOT DRESSING CHANGE DONE TODAY, DRESSING IS C/D/I, PULSES STRONG. SEE SHIFT ASSESSMENT FOR MORE DETAIL.
[2021-12-11 03:56] LABS: BASOPHILS ABSOLUTE AUTO 0.02 K/mm3 (0.00-0.23); BASOPHILS PERCENT AUTO 0 % (0-2); EOSINOPHILS ABSOLUTE AUTO 0.06 K/mm3 (0.00-0.68); EOSINOPHILS PERCENT AUTO 1 % (0-6); Hematocrit 37.9 % (37.0-53.0); Hemoglobin 13.5 g/dL (13.5-17.5); IMMATURE GRAN ABSOLUTE AUTO 0.01 K/mm3 (0.00-0.10); IMMATURE GRAN PERCENT AUTO 0 % (0-1); LYMPHOCYTES ABSOLUTE AUTO 1.15 K/mm3 (0.84-5.20); LYMPHOCYTES PERCENT AUTO 23 % (21-46); MONOCYTES ABSOLUTE AUTO 0.72 K/mm3 (0.16-1.47); MONOCYTES PERCENT AUTO 14 % (4-13); Mean Corpuscular HGB 32.8 pg (26.0-34.0); Mean Corpuscular HGB Conc 35.6 g/dL (31.5-36.5); Mean Corpuscular Volume 92 fL (80-100); Mean Platelet Volume 10.7 fL (9.1-12.4); NEUTROPHILS ABSOLUTE AUTO 3.04 K/mm3 (1.96-9.15); NEUTROPHILS PERCENT AUTO 61 % (41-73); Platelet Count 84 K/mm3 (150-400); RDW Coefficient Variation 14.4 % (11.7-14.2); RDW Standard Deviation 48.9 fL (35.1-46.3); Red Blood Cell Count 4.12 M/mm3 (4.30-5.90)
[2021-12-11 04:13] LABS: Alanine Aminotransfer (ALT/SGP 38 U/L (12-78); Albumin, Blood 2.3 g/dL (3.4-5.0); Albumin/Globulin Ratio 0.6 (0.8-1.8); Alk Phos 94 U/L (50-136); Anion Gap 8 mmol/L (6-16); Aspartate Aminotrans (AST/SGOT 36 U/L (12-37); Bilirubin, Total 0.7 mg/dL (0.1-1.0); Blood Urea Nitrogen 9 mg/dL (8-24); Bun/Creatinine Ratio 16.4 (12.0-20.0); CO2, Blood 28 mmol/L (21-32); Calcium, Blood 7.9 mg/dL (8.5-10.1); Chloride, Blood 100 mmol/L (98-108); Creatinine, Blood 0.55 mg/dL (0.60-1.20); Globulin, Blood 3.9 g/dL (2.2-4.0); Glomerular Filtration Rate >60 (60-); Glucose, Blood 130 mg/dL (70-99); Potassium, Blood 2.9 mmol/L (3.5-5.5); Sodium, Blood 136 mmol/L (136-145); Total Protein, Blood 6.2 g/dL (6.4-8.2)
--- NOTE | 2021-12-11 05:48 | NUR ---
SHIFT SUMMARY PATIENT IS ALERT AND ORIENTED. CIWA RANGES FROM 21-16. PATIENTS HAS TREMORS, HEADACHE, HALLUCINATION, VISUAL DISTURBANCES. PRECEDEX INF, MEDICATED PER EMAR PRN WELL. PATIENT IS COOPERATIVE WITH CARE AND AWARE OF WHAT IS HAPPENING. HARD TO UNDERSTAND AT TIMES, MUMBLES AND TALKS QUIETLY. DENIES SUICIDAL IDEATION CURRENTLY BUT HAS TALKED A LOT THIS SHIFT ABOUT BEING SAD AND THAT HE HAS THOUGHT ABOUT SUICIDE THIS LAST WEEK FREQUENTLY. 1:1 SITTER THIS SHIFT. 02 SATS >95% ON RA. HR SR @70s. BP STABLE. PAINTER DRAINING CLEAR YELLOW, 2400 OUT THIS SHIFT. NO BM. PATIENT COMPLAINING OF RIGHT FOOT PAIN, MEDICATED PER EMAR. SNACKS PROVIDED THROUGH THE NIGHT. PATIENT TURNED Q2 HOURS.
--- NOTE | 2021-12-11 07:31 | NUR ---
0700: SBAR FROM TOBIAS RN. PT SLEEPING, NO DISTRESS NOTED. BED IN LOW/LOCKED POSITION, CALL LIGHT IN REACH. PUMPS VERIFIED.
[2021-12-11 08:07] LABS: Magnesium, Blood 1.1 mg/dL (1.6-2.4); Phosphorus, Blood 2.3 mg/dL (2.5-4.9)
--- NOTE | 2021-12-11 08:56 | NUR ---
0850: RECEIVED CALL-BACK AFTER LEAVING MESSAGE WITH . NOTIFIED MD SARGENT OF CRITICAL MG LEVEL OF 1.1; SEE MAR FOR MED CHANGES. FED PATIENT HIS BREAKFAST, HE ATE APPROXIMATELY 75% OF MEAL. HE VERBALIZED "I WANT TO " BUT STATES HE IS FEELING "MORE HOPEFUL" TODAY COMPARED TO YESTERDAY. NIGHT RN REPORTED PT DESCRIBING PLAN TO SHOOT HIMSELF THROUGH THE MOUTH. CHARGE NURSE NOTIFIED, PSYCH CONSULT PLACED. PT REMAINS ON 1:1 BUT SHOWS NO IMPULSIVE BEHAVIOR AND IS COOPERATIVE WITH CARE; HE COMMUNICATES HIS NEEDS IN AN ORGANIZED FASHION.
--- NOTE | 2021-12-11 09:28 | NUR ---
0915: MD AT BEDSIDE. DISCUSSED CURRENT CIWA/TREATMENT, PSYCH SITUATION W/ TELEPSYCH CONSULT AND PT ACTIVE SUICIDAL IDEATION LAST NIGHT. NOTIFIED MD THAT PT AAOX4 TODAY AND ABLE TO PERFORM SERIAL ADDITION, WITH IMPROVEMENT IN AUDITORY/VISUAL HALLUCINATIONS S/P LIBRIUM INITIATION. NOTIFIED MD THAT PT REPORTS SOB/FATIGUE AFTER MINIMAL EXERTION. WITH TEMP ELEVATION LAST NIGHT AND PT DIFFICULTY SWALLOWING THIN LIQUIDS, RECOMMENDED CONSIDERATION FOR SPEECH PATHOLOGY CONSULT AND CXR. DISCUSSED CURRENT WOUND MANAGEMENT AND PRESENTATION TODAY. MD STATES TO PLAN FOR CONTINUED E'LYTE REPLACEMENT, SWALL EVAL, PSYCH EVAL, CXR, AND USE LIBRIUM BEFORE ATIVAN TODAY PER CIWA NEEDS.
--- NOTE | 2021-12-11 11:56 | NUR ---
FULL BEDBATH WITH HAIR CARE PROVIDED AT THIS TIME, INCLUDING ORAL CARE. PT TOLERATED WELL. LINEN CHANGED.
--- NOTE | 2021-12-11 15:25 | NUR ---
1500: SPOKE WITH MD AND RECOMMENDED CONSIDERATION FOR POTASSIUM REPLACEMENT D/T PERSISTENT HYPOKALEMIA AND MANDATORY LOSS THROUGH HIGH VOLUME OF URINARY OUTPUT. SEE MAR FOR CHANGES.
--- NOTE | 2021-12-11 16:13 | NUR ---
SHIFT SUMMARY NEURO: CIWA 13-15 THROUGHOUT SHIFT, CONTROLLED WITH PRN LIBRIUM AND PRN LORAZEPAM. PT ORIENTED X 4 THROUGHOUT SHIFT AND ABLE TO PERFORM SERIAL ADDITION. SLEPT FOR A SIGNIFICANT PORTION OF SHIFT, EASILY REAWAKENED; PT ABLE TO VERBALIZE WHEN HIS HEADACHE AND OTHER SX GET SEVERE ENOUGH TO REQUEST MEDICATION. PRECEDEX CONTINUED AT 0.7MCG/KG/HR. PAIN CONTROLLED PRIMARILY THROUGH TREATING ALCOHOL WITHDRAWAL, HEADACHE IS PT'S MOST SIGNIFICANT CONCERN AND DECREASES WITH USE OF ATIVAN/LIBRIUM. PAIN TO R FOOT MANAGED WITH ACETAMINOPHEN AND FOOT ELEVATION TO PREVENT SWELLING. CARDIAC: AFEBRILE. SR W/ OCCASIONAL UNIFOCAL PVC. MONITORING FOR DYSRHYTHMIA SECONDARY TO HYPOMAGNESEMIA/KALEMIA/PHOSPHATEMIA. PT APPEARS SOMEWHAT ORTHOSTATIC WITH SBP CONSISTENTLY DOWN TO 92 MMHG WHEN SITTING UPRIGHT IN BED. NEW ABX, SEE NOV. R FOOT ELEVATED TO LEVEL OF HEART THROUGHOUT SHIFT. RESP: PT STATES SOB ON MILD EXERTION, CONTINUES TACHYPNEIC WITH ANY EXERTION. DENIES CP. SPO2 94-98% THROUGHOUT SHIFT ON RA. CXR PERFORMED, UNREMARKABLE. BREATHING TX PERFORMED BY RT W/O SIGNIFICANT CHANGES. RISK FOR ASPIRATION PER SPEECH PATHOLOGY ASSESSMENT; PT TO BE 90DEG WHEN RECEIVING ORAL MEDICATIONS. GI: PT NPO PENDING RE-EVALUATION FROM SPEECH PATHOLOGY DUE TO DYSPHAGIA WITH ANY TYPE OF LIQUIDS; MAY HAVE APPLESAUCE/PUDDING CONSISTENCY LIQUID WITH CRUSHED MEDICATIONS. NO BM, PT STATES HE IS HUNGRY AND PASSING GAS. ORAL CARE Q4 HRS PERFORMED, INCLUDING SUCTION ([phone]). : PAINTER WITH 2000ML OUTPUT BETWEEN [id number], CLEAR YELLOW URINE. REPLACED POTASSIUM X 2 EVENTS. REPLACED PHOSPHATE X 2 EVENTS. REPLACED MAGNESIUM IN ADDITION TO BANANA BAG. MK/INTEG: PT PERFORMED EXERCISES IN BED BY MOVING LEGS. TURNED Q2HRS; WHEN SLEEPING, PT DOES NOT MAKE SIGNIFICANT POSITIONAL CHANGES BUT HE IS CAPABLE WHEN AWAKE. R FOOT DRESSING CHANGED. R HALLUX GANGRENE STILL DEMONSTRATING SIGNFIICANT DEMARCATION AT THE JOINT, WITH 3RD-5TH DIGITS DISTAL AND DORSAL GANGRENE UNCHANGED. MILD REDNESS/ERYTHEMA SURROUNDING WOUNDS TO R FOOT. DRESSING TO COCCYX INTACT. FULL BEDBATH PERFORMED AND LINENS CHANGED. PSYCH: CONSULT PLACED, NO TELEPSYCH EVAL PERFORMED TODAY. PT CONTINUED TO EXPRESS SOME THOUGHTS OF DYING ("I JUST WANT TO ") BUT DID NOT ELABORATE FURTHER ON PLANS PREVIOUSLY EXPRESSED (I.E., JUMPING OFF BRIDGE; SHOOTING SELF IN HEAD). 1:1 CONTINUED.
--- NOTE | 2021-12-11 18:45 | NUR ---
MEAL REQUEST: PT VERBALIZED THAT MEALS "ARE THE ONLY THING KEEPING [HIS] ENERGY UP" AND REQUESTS FOOD. HE INDICATED THAT HE DOES NOT AGREE REGARDING HIS RISK OF ASPIRATION, STATES "I AM NOT GOING TO ASPIRATE; IF I WAS GOING TO ASPIRATE I WOULD HAVE YEARS AGO." HE APPEARED QUITE EMOTIONAL REGARDING THIS ISSUE AND IT APPEARS TO BE OF SIGNIFICANT IMPORTANCE TO HIS MORALE. WILL DISCUSS OPTIONS WITH ONCOMING RN TO ADDRESS WITH PROVIDER THIS EVENING. NOTE THAT PT SUCCESSFULLY TOOK MEDICATIONS WITH APPLESAUCE AND PUDDING WITHOUT ANY COUGHING AFTERWARDS (IN AFTERNOON). COUGHING OCCURS WITH ANY LIQUID (INCLUDING NECTAR) PER VERBAL DISCUSSION WITH SPEECH PATHOLOGIST.
--- NOTE | 2021-12-11 20:21 | NUR ---
ASSUMED CARE AT 1900 PATIENT IS ALERT AND ORIENTED X4. PATIENT IS VERY AGITATED AT START OF SHIFT TALKING ABOUT LEAVING, WANTING FOOD, AND STARTED TO CRY. TITRATED PRECEDEX. CIWA 16, MEDICATED WITH ATIVAN PER EMAR. 02 SATS 97% ON RA. LUNGS COARSE TO DIMINISHED. BP STABLE. HR SR 70s-80s. PAINTER DRAINING TO GRAVITY. PATIENT DENIES SUICIDAL IDEATION AT THIS TIME, CURRENTLY ON CAMERA AND THIS RN 1:1 SITTER. REPOSITONED AND ORAL CARE DONE. SEE SHIFT ASSESSMENT FOR MORE DETAIL.
[2021-12-12 03:50] LABS: BASOPHILS ABSOLUTE AUTO 0.02 K/mm3 (0.00-0.23); BASOPHILS PERCENT AUTO 0 % (0-2); EOSINOPHILS ABSOLUTE AUTO 0.07 K/mm3 (0.00-0.68); EOSINOPHILS PERCENT AUTO 2 % (0-6); Hematocrit 39.4 % (37.0-53.0); Hemoglobin 13.8 g/dL (13.5-17.5); IMMATURE GRAN ABSOLUTE AUTO 0.02 K/mm3 (0.00-0.10); IMMATURE GRAN PERCENT AUTO 0 % (0-1); LYMPHOCYTES ABSOLUTE AUTO 1.22 K/mm3 (0.84-5.20); LYMPHOCYTES PERCENT AUTO 26 % (21-46); MONOCYTES ABSOLUTE AUTO 0.78 K/mm3 (0.16-1.47); MONOCYTES PERCENT AUTO 17 % (4-13); Mean Corpuscular HGB 32.6 pg (26.0-34.0); Mean Corpuscular Volume 93 fL (80-100); Mean Platelet Volume 9.7 fL (9.1-12.4); NEUTROPHILS ABSOLUTE AUTO 2.56 K/mm3 (1.96-9.15); NEUTROPHILS PERCENT AUTO 55 % (41-73); Platelet Count 119 K/mm3 (150-400); RDW Coefficient Variation 14.9 % (11.7-14.2); RDW Standard Deviation 51.4 fL (35.1-46.3); Red Blood Cell Count 4.23 M/mm3 (4.30-5.90); White Blood Cell Count 4.67 K/mm3 (4.00-11.30)
[2021-12-12 04:03] LABS: Albumin, Blood 2.3 g/dL (3.4-5.0); Anion Gap 7 mmol/L (6-16); Blood Urea Nitrogen 6 mg/dL (8-24); Bun/Creatinine Ratio 10.6 (12.0-20.0); CO2, Blood 27 mmol/L (21-32); Calcium, Blood 8.2 mg/dL (8.5-10.1); Chloride, Blood 105 mmol/L (98-108); Creatinine, Blood 0.57 mg/dL (0.60-1.20); Glomerular Filtration Rate >60 (60-); Glucose, Blood 159 mg/dL (70-99); Magnesium, Blood 1.4 mg/dL (1.6-2.4); Phosphorus, Blood 3.6 mg/dL (2.5-4.9); Potassium, Blood 3.3 mmol/L (3.5-5.5); Sodium, Blood 139 mmol/L (136-145)
--- NOTE | 2021-12-12 06:02 | NUR ---
SHIFT SUMMARY PATIENT IS ALERT AND ORIENTED X4. THIS AM PATIENT APPEARS LESS AGITATED AND ABLE TO COMMUNICATE WITHOUT BECOMING ANXIOUS, TITRATED PRECEDEX DOWN. MEDICATED PER EMAR FOR CIWAs RANGING FROM 12-16. DENIES SUICIDAL IDEATION CURRENTLY. 02 SATS >95% ON RA THROUGH THE SHIFT. LUNGS COARSE IN UPPER LOBES, COUGH BECOMING STRONGER. BP STABLE. HR SR 60s-70s. PAINTER DRAINING CLEAR YELLOW URINE, 3600 OUT THIS SHIFT. NO BM. PATIENT NOW ABLE TO PULL SELF UP IN BED AND TURN SELF SIDE TO SIDE. ORAL CARE DONE Q4 HOURS. MAG AND POTASSIUM LOW IN AM LABS, CALLED HOSPITALIST, CURRENTLY REPLACING ELECTROLYTES, SEE EMAR. CALL LIGHT IN REACH. 1:1 SITTER AND PATIENT ON CAMERA.
--- NOTE | 2021-12-12 07:16 | NUR ---
ASSUMED CARE BEDSIDE REPORT RECIEVED. PT IS LAYING IN BED AWAKE AND ALERT. PT IS DROWSEY, BUT ANSWERS QUESTIONS APPROPRIATELY. SPEECH IS SLURRED AND DIFFICULT TO UNDERSTAND. PT ASKED IF HE REMAINS SUICIDAL, PT STATES "I WOULDNT BE SUICIDAL IF YOU GUYS GAVE ME SOMETHING TO EAT." PT IS TREMULOUS WITH EXTREMITY MOVEMENT AND PICKING AT DRESSING TO RIGHT FOOT. PRECEDEX INFUSING AT 1.0 MCG/KG/HR AND NS AT 100 ML/HR. PAINTER TEMP PROBE IN PLACE WITH CLEAR YELLOW URINE OUTPUT. VITAL SIGNS STABLE. REMOTE MONITORING CAMERA IN PLACE AND PT ON 1:1 DIRECT OBSERVATION. WILL CONTINUE TO MONITOR.
[2021-12-12 13:16] LABS: Albumin, Blood 2.3 g/dL (3.4-5.0); Anion Gap 7 mmol/L (6-16); Blood Urea Nitrogen 8 mg/dL (8-24); Bun/Creatinine Ratio 12.5 (12.0-20.0); CO2, Blood 28 mmol/L (21-32); Calcium, Blood 8.2 mg/dL (8.5-10.1); Chloride, Blood 105 mmol/L (98-108); Creatinine, Blood 0.64 mg/dL (0.60-1.20); Glomerular Filtration Rate >60 (60-); Glucose, Blood 118 mg/dL (70-99); Magnesium, Blood 1.6 mg/dL (1.6-2.4); Phosphorus, Blood 3.2 mg/dL (2.5-4.9); Potassium, Blood 3.3 mmol/L (3.5-5.5); Sodium, Blood 140 mmol/L (136-145)
--- NOTE | 2021-12-12 17:38 | NUR ---
SHIFT SUMMARY NO ACUTE CHANGES THIS SHIFT. PT HAS SLEPT OFF AND ON THROUGHOUT THE SHIFT. WHEN PT AWAKE, PT IS DROWSEY, BUT ORIENTED AND ANSWERS QUESTIONS APPROPRIATELY. PT SPEECH REMAINS QUIET/SLURRED. PT HAS COMPLAINED OF PAIN AT TIMES TO RIGHT FOOT. PT MED PER EMAR. PT WITH PERIODS OF FORGETFULNESS AND IS TREMULOUS WITH EXTREMITY MOVEMENT. PT MED WITH ATIVAN AND LIBRIUM PER EMAR. PT REMAINS WITH PRECEDEX INFUSING AT 1.0 MCG/KG/HR AND NS AT 100 ML/HR. PAINTER TEMP PROBE REMAINS IN PLACE WITH DARK YELLOW URINE OUTPUT NOTED. VITAL SIGNS HAVE REMAINED STABLE. PT IS WEAK, BUT ABLE TO REPOSITION SELF INDEPENDENTLY. PT REMAINS ON 2 MD HOLD. REMOTE MONITORING REMAINS IN PLACE AND 1:1 DIRECT OBSERVATION THIS SHIFT. WILL CONTINUE TO MONITOR AND REPORT OFF TO ONCOMING RN.
[2021-12-13 03:02] LABS: Hematocrit 39.3 % (37.0-53.0); Hemoglobin 13.8 g/dL (13.5-17.5); Mean Corpuscular HGB 32.6 pg (26.0-34.0); Mean Corpuscular HGB Conc 35.1 g/dL (31.5-36.5); Mean Corpuscular Volume 93 fL (80-100); Mean Platelet Volume 9.3 fL (9.1-12.4); Platelet Count 142 K/mm3 (150-400); Red Blood Cell Count 4.23 M/mm3 (4.30-5.90); White Blood Cell Count 6.98 K/mm3 (4.00-11.30)
[2021-12-13 03:17] LABS: Anion Gap 5 mmol/L (6-16); Blood Urea Nitrogen 5 mg/dL (8-24); Bun/Creatinine Ratio 10.4 (12.0-20.0); CO2, Blood 27 mmol/L (21-32); Calcium, Blood 8.2 mg/dL (8.5-10.1); Chloride, Blood 104 mmol/L (98-108); Creatinine, Blood 0.48 mg/dL (0.60-1.20); Glomerular Filtration Rate >60 (60-); Glucose, Blood 128 mg/dL (70-99); Potassium, Blood 3.4 mmol/L (3.5-5.5); Sodium, Blood 136 mmol/L (136-145)
--- NOTE | 2021-12-13 06:01 | NUR ---
SHIFT SUMMARY: PT ALERT AND ORIENTED TO TIME, PLACE AND PERSON. DOES SLURR, GARBLE AND MUMBLE WORDS INTERMITTENTLY. REMAINS ON PRECEDEX GTT. ATTEMPTED TO TITRATE DOWN BUT PT STARTED TO BECOME MORE AGITATED SO RATE WAS INCREASED TO 1.0 MCG/KG/HR. PT DOES GET CONFUSED INTERMITTENTLY BUT ABLE TO REDIRECT. ABLE TO MOVE ALL EXTREMITIES EQUALLY BUT WEAK. ROOM AIR, DOES HAVE AN OCCAISIONAL COUGH, LUNG SOUNDS ARE COARSE TO CLEAR. BP REMAINS STABLE, SINUS RHYTHM HR 60-80, SLIGHTLY FEVER 99F TO 100.0F, ACETAMINOPHEN GIVEN. PT DOES COMPLAIN OF RIGHT FOOT PAIN. REMAINS NPO AND APPLESAUCE FOR MEDICATIONS. TOLERATING OK, BUT DOES COUGH AFTER APPLESAUCE, UNABLE TO CLEAR APPLESAUCE COMPLETELY. NO BM. SIGNIFICANT AMOUNTS OF UO. WILL RECOMMEND BOWEL MEDICATIONS TO ONCOMING DAY SHIFT RN. SKIN REMAINS INTACT, RIGHT FOOT DRESSING ALSO CLEAN DRY AND INTACT. K+ REPLACED PER ZENA. LAB RECHECK AT NOON. ATIVAN GIVEN OVERNIGHT PER CIWA PROTOCOL.
--- NOTE | 2021-12-13 08:09 | NUR ---
report from pm rn, patient awake all night, albuterol treatment now, speech mumbled, 1:1, with in eye sight, pleasant to care
--- NOTE | 2021-12-13 09:33 | NUR ---
ST IN ROOM WORKING WITH THE PATIENT
--- NOTE | 2021-12-13 10:12 | NUR ---
DR JENKINS ROUNDED, DR MAS CONTACTED VIA CELL PHONE SPOKE TO HIM DIRECTLY, ST INCREASED DIET TO PUREE WITH THIN LIQUIDS, CALL LIGHT WITH IN REACH, WCTM
--- NOTE | 2021-12-13 12:35 | NUR ---
PATIENT OOB IN CHAIR, ASSISTED WITH LUNCH, MAKES NEEDS KNOWN, SLOW MUMBLED VOICE, COOPERATIVE TO CARE, OT WORKED WITH PATIENT , PT TO STILL COME TO SEE PATIENT
--- NOTE | 2021-12-13 13:31 | NUR ---
PT IN WITH PATEINT, MEDICATED WITH NORCO FOR 10/10 PAIN IN RIGHT FOOT, SBP TRENDING 80-90S, DECREASED PRECEDEX TO 0.6, WCTM
[2021-12-13 15:08] LABS: HEPARIN INDUCED PLATELET AB 0.081 OD (0.000-0.400)
--- NOTE | 2021-12-13 17:45 | NUR ---
DR MAS AT BEDSIDE, PATIENT ATE 100%, 1:1 FEEDER, TRIED USING BEDPAN, ONLY FLATUS NO BM, MEDICATED WITH SUPP, WCTM
--- NOTE | 2021-12-13 18:25 | NUR ---
PATIENT ALERT AND ORIENTED, MUMBLED SPEECH, CIWA 12, LS COARSE AND RHONCHI, CLEARED WITH COUGH, RA 98% SATS, WEAL COUGH. TELE SNR 80-100, SBP 100-140, DENIES CHEST PAIN. TEMP PAINTER TO GRAVITY, VERY CLEAR URINE, MEDICATED FOR BM, PATIENT TRYING ON THE BEDPAN NOW. RIGHT FOOT CARE, SKIN CLEANED, NONADHERANT DRESSING INBETWEEN TOES, GAUZE WRAP AND JAYASHREE WRAP, PATIENT TOLERATED WELL. MEDICATED FOR PAIN WITH NORBELGICA, DR MAS ROUNDED THIS EVENING PATIENT NOW LOW SI. COCCYX DRESSING CDI. ADVACNED TO PUREE DIET WITH THIN LIQUIDS 1:1 FEEDER, ASSIT FOR TREMORS. K+3.3, SUPPLIMENTED WITH PO AND IV, MAG 1.6 SUPPLIMENTED WITH IV, PRECEDEX GTT AT 6. REPOSITIONS EASILY, CALL LIGHT WITHIN REACH, WILL RELAY TO PM RN, KELLEN
[2021-12-14 03:15] LABS: BASOPHILS ABSOLUTE AUTO 0.02 K/mm3 (0.00-0.23); BASOPHILS PERCENT AUTO 0 % (0-2); EOSINOPHILS PERCENT AUTO 2 % (0-6); Hematocrit 37.5 % (37.0-53.0); Hemoglobin 12.9 g/dL (13.5-17.5); IMMATURE GRAN ABSOLUTE AUTO 0.01 K/mm3 (0.00-0.10); IMMATURE GRAN PERCENT AUTO 0 % (0-1); LYMPHOCYTES ABSOLUTE AUTO 1.18 K/mm3 (0.84-5.20); LYMPHOCYTES PERCENT AUTO 20 % (21-46); MONOCYTES ABSOLUTE AUTO 0.99 K/mm3 (0.16-1.47); MONOCYTES PERCENT AUTO 17 % (4-13); Mean Corpuscular HGB 32.2 pg (26.0-34.0); Mean Corpuscular HGB Conc 34.4 g/dL (31.5-36.5); Mean Corpuscular Volume 94 fL (80-100); Mean Platelet Volume 9.1 fL (9.1-12.4); NEUTROPHILS ABSOLUTE AUTO 3.62 K/mm3 (1.96-9.15); NEUTROPHILS PERCENT AUTO 61 % (41-73); Platelet Count 176 K/mm3 (150-400); Red Blood Cell Count 4.01 M/mm3 (4.30-5.90); White Blood Cell Count 5.92 K/mm3 (4.00-11.30)
[2021-12-14 03:29] LABS: Albumin, Blood 2.2 g/dL (3.4-5.0); Anion Gap 6 mmol/L (6-16); Blood Urea Nitrogen 8 mg/dL (8-24); Bun/Creatinine Ratio 15.4 (12.0-20.0); CO2, Blood 25 mmol/L (21-32); Calcium, Blood 8.1 mg/dL (8.5-10.1); Chloride, Blood 108 mmol/L (98-108); Creatinine, Blood 0.52 mg/dL (0.60-1.20); Glomerular Filtration Rate >60 (60-); Glucose, Blood 118 mg/dL (70-99); Magnesium, Blood 1.4 mg/dL (1.6-2.4); Phosphorus, Blood 2.1 mg/dL (2.5-4.9); Potassium, Blood 3.8 mmol/L (3.5-5.5); Sodium, Blood 139 mmol/L (136-145)
--- NOTE | 2021-12-14 06:11 | NUR ---
SHIFT SUMMARY: PT ALERT AND ORIENTED TO PERSON, PLACE AND TIME. PT EMOTIONAL AT THE START OF SHIFT, WAS CRYING BUT UNABLE TO DESCRIBE HOW HE WAS FEELING. STILL MUMBLES WORDS. PT STILL HAS THOUGHTS OF SUICIDE BUT NO PLAN IN PLACE. ABLE TO MOVE ALL EXT EQUALLY AND GETTING MUCH STRONGER THAN PREVIOUS SHIFT. PT DID GET ANXIOUS OVERNIGHT, TX WITH PRN ATIVAN PER [facility] PROTOCOL. PRECEDEX GTT WAS PLACED ON STAND BY AT 0500. PT IS COOPERATIVE BUT NEEDS REPEATED EDUCATION ABOUT CARE AND TX PLAN ALONG WITH MEDICATIONS BEING GIVEN. SLIGHT FEVER AT 100F, BP STABLE AND NORMAL SINUS WITH HR IN THE 80's. REMAINS ON ROOM AIR, LUNG SOUNDS ARE COARSE, ABLE TO COUGH UP SPUTUM. COMPLAINS OF CONSTANT PAIN ON RIGHT FOOT, GAVE PRN MEDICATIONS TO ALLEVIATE PAIN.
--- NOTE | 2021-12-14 09:52 | NUR ---
ASSUMED CARE REPORT FROM [facility]AP[facility] AT 0700. PT RESTING IN BED. A&OX 3. PT DIFFICULT TO UNDERSTAND D/T GARBLED SPEECH. PT C/O PAIN TO RIGHT FOOT, 07/11, MEDICATED ORDERED. PLAN FOR DRESSING CHANGE THIS SHIFT. PT REPORTS SI ONLY D/T FOOT PAIN, DENIES SI IF PAIN WAS RESOLVED. CIWA 11, MEDICATED c LIBRIUM. VSS. 1:1 SITTER FOR LOW RISK SI. WILL CONTINUE TO MONITOR.
--- NOTE | 2021-12-14 11:29 | NUR ---
Spiritual Care visit. Pt. is alert and sitting up. Pt. welcomes my visit. Pt, is difficult to understand, but verbalizes he is a man of mariano. Through theraputic listening provided pastoral newspaper delivery counselor to the pt. Pt. wants to show me his bandaged foot, then begins to unravel it. This dining server encouraged him to stop until a doctor was present. Pt. obliged. With permission, prayed with Pt. Pt. verbalized gratitude for his spiritual care visit.
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
--- NOTE | 2021-12-14 17:30 | NUR ---
DR MAS ROUNDING TRAZODONE ADJUSTED. PT LOW RISK SI PER DR MAS, ALEX, AND MY ASSESSMENT. 1:1 SITTER REMOVED AT 1000, CONTINUES ON REMOTE MONITORING.
--- NOTE | 2021-12-14 17:33 | NUR ---
SHIFT SUMMARY PT STATUS CHANGED TO PCU. NO ACUTE CHANGES. REMAINS TREMOROUS c EXT OF ARMS. WORKED c PT/OT THIS SHIFT. CIWA 11. MEDICATED c LIBRIUM AND ATIVAN ORDERED. PT C/O INCREASED PAIN TO RIGHT FOOT, DRESSING CHANGED. MEDICATED c NORCO AND FENTANYL ORDERED. PT C/O 10 PAIN ENTIRE SHIFT. ATTEMPTED REPOSITIONING AND OTHER NON PHARMALOGICAL INTERVENTIONS s RELIEF. WILL CONTINUE TO MONITOR UNTIL REPORT TO ONCOMING NURSE.
--- NOTE | 2021-12-14 20:53 | NUR ---
ASSUMED CARE AT 1900 PATIENT IS ALERT AND ORIENTED X4. MUMBLES AND IS HARD TO UNDERSTAND. ANXIOUS AT TIMES. CIWA OF 11, MEDICATED PER EMAR. DENIES SUICIDAL IDEATION. 02 SATS >93% ON RA, PRODCUTIVE COUGH WITH CLEAR/YELLOW SPUTUM. HR SR-ST 80S-110. BP STABLE. PAINTER DRAINING TO GRAVITY, CLEAR YELLOW URINE. RIGHT FOOT DRESSING C/D/I. PATIENT ABLE TO REPOSITION SELF IN BED. SEE SHIFT ASSESSMENT FOR MORE DETAIL.
[2021-12-15 03:33] LABS: Hematocrit 38.2 % (37.0-53.0); Hemoglobin 13.2 g/dL (13.5-17.5); Mean Corpuscular HGB 32.9 pg (26.0-34.0); Mean Corpuscular HGB Conc 34.6 g/dL (31.5-36.5); Mean Corpuscular Volume 95 fL (80-100); Mean Platelet Volume 8.8 fL (9.1-12.4); Platelet Count 259 K/mm3 (150-400); RDW Coefficient Variation 14.8 % (11.7-14.2); RDW Standard Deviation 51.7 fL (35.1-46.3); Red Blood Cell Count 4.01 M/mm3 (4.30-5.90); White Blood Cell Count 6.45 K/mm3 (4.00-11.30)
[2021-12-15 03:51] LABS: Anion Gap 5 mmol/L (6-16); Blood Urea Nitrogen 8 mg/dL (8-24); Bun/Creatinine Ratio 12.4 (12.0-20.0); CO2, Blood 28 mmol/L (21-32); Calcium, Blood 8.5 mg/dL (8.5-10.1); Chloride, Blood 106 mmol/L (98-108); Creatinine, Blood 0.65 mg/dL (0.60-1.20); Glomerular Filtration Rate >60 (60-); Glucose, Blood 107 mg/dL (70-99); Magnesium, Blood 1.2 mg/dL (1.6-2.4); Potassium, Blood 3.7 mmol/L (3.5-5.5); Sodium, Blood 139 mmol/L (136-145)
--- NOTE | 2021-12-15 07:05 | NUR ---
SHIFT SUMMARY PATIENT ALERT AND ORIENTED X4. ANXIOUS AT TIMES. CIWA 8-12 THROUGH THE NIGHT, MEDICATED PER EMAR. DENIES SUICIDAL IDEATION THIS SHIFT. 02 SATS >93% ON RA. COUGHING UP MODERATE TO LARGE AMOUNT OF THICK SPUTUM. MEDICATED PER EMAR. COMPLAINS OF SOB AT TIMES, RT NOTIFIED. BP STABLE. HR SR-ST 80-110. PAINTER DRAINING TO GRAVITY. REPLACING MAG PER ORDERS. PATIENT REMAINS ON CAMERA. MEDICATED FOR RIGHT FOOT PAIN PER EMAR, DRESSING C/D/I. CALL LIGHT IN REACH.
--- NOTE | 2021-12-15 14:57 | NUR ---
TRANSFER TO MEDICAL FLOOR/REPORT TO [facility] BARIUM SWALLOW STUDY DONE, PT NOW NPO STATUS. CIWA MANGEMENT c ATIVAN IV AND PAIN MANAGEMENT c FENTANYL. NS CONTINUES AT 100 ML/HR. NO OTHER ACUTE CHANGES THIS SHIFT. ALL BELONGINGS SENT c PT TO 339.
--- NOTE | 2021-12-15 15:10 | NUR ---
ASSUMED CARE OF PATIENT AT 1507 UPON HIS ARRIVAL FROM ICU VIA W/C. SBA FROM W/C TO BED. TREMULOUS IN BUE. DID NOT SPEAK, KEPT EYES CLOSED, WANTS TO SLEEP. PAINTER DRAINING ADEQUATE YELLOW URINE. R FOOT WRAPED IN GAUZE, NO DRAINAGE NOTED. IS NPO.
--- NOTE | 2021-12-15 17:56 | NUR ---
SHIFT SUMMARY: NO EVENTS SINCE TRANSFER. CIWA SCORE 8; MEDICATED WITH ATIVAN 2 MG IV. HAD TO GIVE NORCO 2 TABS EVEN THOUGH PT IS NPO; SWALLOWED WITH APPLESAUCE. PAIN IS POORLY CONTROLLED WITH IV FENTANYL ALONE. HAS WEAK COUGH EFFORT WITH PRODUCTIVE COUGH, WHITISH SPUTUM. WANTED TO BE LEFT ALONE TO SLEEP.
--- NOTE | 2021-12-16 02:54 | NUR ---
SHIFT [id number] YR M ADMITTED ON 12/09/21 FOR ALCOHOL WITHDRAWL AND SI. FULL CODE. NO ACUTE CHANGES THIS SHIFT. CURRENT CIWA IS A 5. PT C/O PAIN IN HIS FEET AND WAS MEDICATED PER EMAR. HE HAS SLEPT FOR MOST OF THE SHIFT AND HAS ONLY WOKEN UP WHEN HE WAS IN PAIN AND ASKED FOR SOMETHING. HE WAS ABLE TO SWALLOW HIS PILLS W/ A SMALL AMOUNT OF WATER W/ NO DIFFICULTY.
--- NOTE | 2021-12-16 17:08 | NUR ---
Shift Summary A/Ox4, garbled speech at times. C/O throbbing pain to R foot, medicate per EMAR with good effect. Worked with OT. Patient was angry RE NPO status this morning stating "I will crawl out of here if I have to to get something to eat." Education given RE reason why NPO status (aspiration, safety issue). Patient does not believe he is aspirating and thinks his productive cough is a "smoker's cough" and "smoker's hack". Has copius amounts of yellowish thick phlegm with coughs. Settled down during the afternoon. CIWA 6, 1, 1. Roque removed and patient has continent voids post roque removal. Can be impulsive when frustrated. Bed alarm on, call light in reach, bed in lowest position.
--- NOTE | 2021-12-17 00:32 | NUR ---
PT ASKED FOR FOOD AT THE BEGINNING OF THIS SHIFT BUT HIS STATUS WAS NPO AFTER FAILING A SWALOW STUDY. PT INSISTED ON FOOD SO HOSPITALIST WAS CALLED AND ADVISED THAT THE PT HAS NOT HAD TROUBLE TAKING HIS MEDS W/ WATER AND THAT HE WOULD LIKE SOMETHING TO EAT. PER HOSPITALIST, SOFT FOODS TOLERATED AND DIET ORDER WAS CHANGED. PT ATE PUDDING AND BROTH W/ SOFTENED CRACKERS IN IT WITH NO DIFFICULTY.
--- NOTE | 2021-12-17 03:44 | NUR ---
SHIFT SUMMARY NO ACUTE CHANGES THIS SHIFT. PT WAS PLACED NPO YESTERDAY MORNING AND HAD NOT EATEN SINCE THEN. HE BEGGED FOR FOOD STATING THAT HE WAS STARVING AND IT WAS CAUSING HIM PAIN. NO ACCOMODATIONS HAD BEEN MADE FOR NUTRITIONAL SUPPORT OR TO HAVE HIS MEDS TRANSITIONED TO IV. HOSPITALIST WAS CALLED AND ADVISED THAT PT WAS ABLE TO TAKE PILLS W/ WATER WITH NO TROUBLE AND SO HE AGREED FOR PT TO BE GIVEN FOOD STARTING WITH SOFTS AND PROGRESS TOLERATED. PT WAS GIVEN PUDDING AND CHICKEN BROTH W/ SOFTENED CRACKERS IN IT AND TOLERATED BOTH JUST FINE. PT IS EAGER TO HAVE "REAL FOOD" AND INSISTS HE DOES NOT HAVE A PROBLEM W/ EATING/CHOKING/ASPRATING.
[2021-12-17 07:00] LABS: Anion Gap 6 mmol/L (6-16); Blood Urea Nitrogen 6 mg/dL (8-24); Bun/Creatinine Ratio 10.5 (12.0-20.0); CO2, Blood 25 mmol/L (21-32); Calcium, Blood 8.4 mg/dL (8.5-10.1); Chloride, Blood 107 mmol/L (98-108); Creatinine, Blood 0.57 mg/dL (0.60-1.20); Glomerular Filtration Rate >60 (60-); Glucose, Blood 85 mg/dL (70-99); Magnesium, Blood 1.5 mg/dL (1.6-2.4); Potassium, Blood 3.7 mmol/L (3.5-5.5); Sodium, Blood 138 mmol/L (136-145)
--- NOTE | 2021-12-17 08:29 | NUR ---
ANXIETY DUE TO NPO. WANTS TO LEAVE AND EAT. STS WAS TOLD HE WOULD BE GETTING BREAKFAST TRAY. DOES NOT UNDERSTAND SILENT ASPIRATION
--- NOTE | 2021-12-17 08:38 | NUR ---
JAYDON NOTIFIED PT S.I. "I'LL WITH NO FOOD. I WANT TO HANG MYSELF."
--- NOTE | 2021-12-17 08:42 | NUR ---
DR. Devin HAMILTON NOTIFIED PATIENT SUICIDAL. SAJANYLN IN 1:1 SITTER. IN ROOM. FACE SHEET SENT TO [facility] PER
--- NOTE | 2021-12-17 09:00 | NUR ---
JOY RAMOS TOOK PATIENT OFF S.I.
--- NOTE | 2021-12-17 10:51 | NUR ---
Multiple visits this AM. Spoke with Dr Lizabeth Davison and discussed case. Pt failed modified barrium study and is adamant about wanting to eat. Pt has even threatened suicide when he leaves the hospital. Kita reports Pt appears to have poor insight and low level of understanding. Met with Pt a couple of times this morning. Second visist this RN was accompanied by caremanjosemanuel Calderon. Discussed Pt's wishes regarding code status with Pt stating he does not want to be brought back if his heart stops and does not want intubation. Assessed Pt's understanding of his unsafe swallow and consequences of continuing to eat. Pt appears to be in complete denial of very poor insight and understanding. Yumiko will discuss with hospitalist regarding cognitive evaluation. Spoke with Dr Barone and discussed case. Will hold off on changing Pt's code status to DNR until after cognitive evaluation. Palliative Care will remain available for supportive and therapeutic visits.
--- NOTE | 2021-12-17 14:43 | NUR ---
ALERT. KNOWS DATE AND IS ABLE TO DO SERIAL ADDITIONS. DOES NOT SEEM TO UNDERSTAND ASPIRATION RISK WITH SILENT ASPIRATION. PER DR.KHAN PARKER FOR PATIENT TO EAT.MOIST SOUNDING PRODUCTIVE COUGH, SOUNDING A LITTLE WORSE AFTER EATTING. DRESSING CHANGED TO RT FOOT WITH NEW PICS TAKEN. WCTM
--- NOTE | 2021-12-17 18:25 | NUR ---
PATIENT WAS IN DEEP SLEEP WHEN AWAKENED FOR CHANGE OF NICOTINE PATCH. WHEN AWAKE IMMEDIATELY ASKS FOR PAIN MEDS THEN FALLS BACK TO SLEEP IN FEW MINUTES. DRESSING TO FOOT CHANGED EARLIER WITH FOOT CLEANED AND THEN BETADINE APPLIED. TOLERATED WELL. NEW PICS PLACED IN CHART. WCTM
--- NOTE | 2021-12-18 05:28 | NUR ---
SHIFT SUMMARY PATIENT ALERT AND ORIENTED X3. MEDICATED PER EMAR FOR PAIN. HAD NO COMPLAINTS OF SHORTNESS OF BREATH. NO ACUTE ISSUES NOTED OVERNIGHT. BED IN LOWEST POSITION WITH WHEELS LOCKED AND ALARM ON. CALL LIGHT WITHIN REACH. REPORT GIVEN TO ONCOMING RN.
[2021-12-18 05:59] LABS: Anion Gap 7 mmol/L (6-16); Blood Urea Nitrogen 6 mg/dL (8-24); Bun/Creatinine Ratio 11.1 (12.0-20.0); CO2, Blood 25 mmol/L (21-32); Calcium, Blood 8.6 mg/dL (8.5-10.1); Chloride, Blood 108 mmol/L (98-108); Creatinine, Blood 0.54 mg/dL (0.60-1.20); Glomerular Filtration Rate >60 (60-); Glucose, Blood 111 mg/dL (70-99); Magnesium, Blood 1.6 mg/dL (1.6-2.4); Potassium, Blood 3.8 mmol/L (3.5-5.5); Sodium, Blood 140 mmol/L (136-145)
--- NOTE | 2021-12-18 16:50 | NUR ---
THE PATIENT HAS BEEN COMPLAINING ABOUT PAIN IN HIS RIGHT FOOT. PATIENT ONLY RESPONDS THAT HIS PAIN IS A 10 OUT OF 10 PAIN. PRN OXYCODONE GIVE TO PATIENT X2 TODAY WHEN ASKING FOR PAIN RELIEF. PATIENT HAS BEEN ASKING INTERNAL AFFAIRS INVESTIGATOR FOR FENTENAYL AND STATES THAT THE OXYCODONE DOES NOT WORK DESPITE BEING ASLEEP DURING EACH REASSESSMENT PERIOD AFTER
--- NOTE | 2021-12-18 18:53 | NUR ---
PATIENT ABLE TO EAT MEALS TODAY BUT CHOKED ON OCCASION. DRESSING ON FOOT CHANGED DUE TO GANGRENE. REPORT GIVEN TO ONCOMING RN. NO SUCIDAL THREATS OR CONCERNS TODAY. PATIENT WAS JUST OBSSESSED WITH GETTING FENTANYL OVER OXYCODONE WHICH PATIENT STATES DOES NOT WORK.
--- NOTE | 2021-12-19 07:04 | NUR ---
SHIFT SUMMARY PATIENT ALERT AND ORIENTED X3. MEDICATED PER EMAR FOR PAIN. NO ACUTE ISSUES NOTED OVERNIGHT. BED IN LOWEST POSITION WITH WHEELS SHAHEEN AND ALARM ON. CALL LIGHT WITHIN REACH. REPORT GIVEN TO ONCOMING RN.
--- NOTE | 2021-12-19 19:09 | NUR ---
PT ALERT AND ORIENTED X3. PRN MEDICATIONS GIVEN FOR PAIN THROUGHOUT THE DAY. PATIENT ATE EVERY MEAL AND SILENTLY ASPIRATED WHEN DRINKING WATER AND EATING FOOD. PATIENT HAD A BOWEL MOVEMENT X2 TODAY.
[2021-12-20 05:18] LABS: Anion Gap 4 mmol/L (6-16); Blood Urea Nitrogen 9 mg/dL (8-24); Bun/Creatinine Ratio 12.3 (12.0-20.0); CO2, Blood 30 mmol/L (21-32); Calcium, Blood 8.9 mg/dL (8.5-10.1); Chloride, Blood 105 mmol/L (98-108); Creatinine, Blood 0.73 mg/dL (0.60-1.20); Glomerular Filtration Rate >60 (60-); Glucose, Blood 104 mg/dL (70-99); Magnesium, Blood 1.7 mg/dL (1.6-2.4); Potassium, Blood 3.9 mmol/L (3.5-5.5); Sodium, Blood 139 mmol/L (136-145)
--- NOTE | 2021-12-20 07:09 | NUR ---
66 year old Male Hammett with rt foot wound that requires daily dressing change. Dressing CDI this shift. Med for pain x 1 with good effect. Cough loose productive continues. PT refused NPO status despite probable aspiration. coughs with oral intake. Room air voids tolerates diet mech soft.
--- NOTE | 2021-12-20 12:10 | NUR ---
Met with patients SO. She has been staying at bedside. She is distraught at pt not getting hydration. She feels he slhould be recieving more narcotics for comfort. Review of care and pt tolerance of medication . Advised her will review with nursing. No overt signs of pain or air hunger at this time. assisted RESEARCH INVESTIGATOR with care. Pt eyes deviated and some stiffening of extremities. Will update physician for po ativan dose in case we loose IV and prn doing for seizures if they develop.
--- NOTE | 2021-12-20 19:25 | NUR ---
PT A&OX3 FORGETFUL AT TIMES. PT COMPLAINING OF PAIN, MEDICATED PER EMR. PT WAS WORKING WITH PATIENT AND PT CALLED RN FOR PATIENT POSSIBLY ASPIRATING. PATIENT TOOK A BIG GULP OF COFFEE AND STARTED TO ASPIRATE. PATIENT SPITTING UP COFFEE AND SUCTIONING HIMSELF. NOTIFIED MD. NO NEW ORDERS. PT EDUCATED ON TAKING SMALLER SIPS AND BITES. PATIENT NOW RESTING IN BED. CALL LIGHT PLACED WITHIN REACH. BED IN LOWEST POSITION.
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
[2021-12-21 06:23] LABS: Albumin, Blood 2.6 g/dL (3.4-5.0); Anion Gap 7 mmol/L (6-16); Blood Urea Nitrogen 12 mg/dL (8-24); Bun/Creatinine Ratio 17.1 (12.0-20.0); CO2, Blood 29 mmol/L (21-32); Calcium, Blood 8.9 mg/dL (8.5-10.1); Chloride, Blood 104 mmol/L (98-108); Glomerular Filtration Rate >60 (60-); Glucose, Blood 94 mg/dL (70-99); Phosphorus, Blood 3.8 mg/dL (2.5-4.9); Potassium, Blood 4.1 mmol/L (3.5-5.5); Sodium, Blood 140 mmol/L (136-145)
--- NOTE | 2021-12-21 15:06 | NUR ---
Spiritual Care Attempted. Pt. is asleep and highly medicated.
--- NOTE | 2021-12-22 06:13 | NUR ---
PT with service hx continues with gross tremors & medicated 2 x with 25 mg librium for ETOH WD score of 12 with helpful effect. Medicated x 2 for severe RT foot pain with roxycodone 5 mg & x 1 with tyl 650 mg with helpful effect. PT continues to be noncompliant with recommendations for NPO status & appears to aspirate with oral intake, self suctions to maintain airway.
--- NOTE | 2021-12-22 15:45 | NUR ---
Reviewed chart and discussed case with Dr Moore. Dr Moore reports discussion with Pt regarding comfort care and hospice would be appropriate. Pt resting in bed and is minimally responsive. Pt raises his eyebrows but does not respond verbally. Pt appears comfortable with no S/S of distress at this time. Spoke with selena Calderon, Primary RN Mitali, and discussed case. Pt recently recieved Librium and could be contributing towards Pt minimall response. Pt self suctions are PO intake. Yumiko reports plan for placement and has reached out to several facilities. Plan: Will discuss with Pt regarding considering comfort care and hospice. Palliative Care will remain available.
--- NOTE | 2021-12-22 16:18 | NUR ---
Spiritual Care Attempted. Pt. was not responsive, even after I tried to rouse him. Prayed for Pt. Will monitor and attempt at another time.
--- NOTE | 2021-12-22 18:24 | NUR ---
PT WAS AGITATED MOST OF THE DAY. PT COMPLAINING OF FOOT PAIN. MEDICATED PER EMR. PATIENT WAS HAVING TROUBLE EATING LUNCH DUE TO SEVERE TREMORS, MEDICATED PER EMR. PT NOW RESTING IN BED. BED IN LOWEST POSITION. BED ALARM ON. CALL LIGHT WITHIN REACH.
--- NOTE | 2021-12-23 06:32 | NUR ---
Patient is alert and oriented x3, sometimes forgetful. Was in bed all night. Able to let needs be known. Insisting on eating solid foods, educated patient about mechanical soft diet. Snacks that are soft were provided. Everytime the patient eats, he coughs and uses the suction to clear his throat. Complains of generalized pain and right toe pain. Right toe dressing over frosbite is clean dry and intact. Call light within reach. Suction within reach by patient who uses it independently.
--- NOTE | 2021-12-23 19:26 | NUR ---
PT ASLEEP MOST OF SHIFT. PT COMPLAIN OF PAIN, MEDICATED PER EMR. PT STILL HAVING TREMORS, MEDICATED PER CIWA PROTOCOL. PT ABLE TO WORK WITH PT AND SAT IN CHAIR FOR LUNCH. PT NOW RESTING IN BED. BED IN LOWEST POSITION. CALL LIGHT WITHIN REACH. BED ALARM ON.
--- NOTE | 2021-12-24 06:16 | NUR ---
Patient is alert and oriented x3 forgetful with situation. Patient is bedrest. Gait unsteady and generalized weakness. Right gangrene toes present, dressing is clean dry and intact. Patient has tremeors, librium given and is effective. Patient insisting on eating solid foods, educated pt about soft mechanical diet and the risk of aspiration. Appropriate snacks given. Everytime patient eats, it follows with a cough and he uses his suction independently. Q2 turns performed. Call light within reach.
--- NOTE | 2021-12-24 09:00 | NUR ---
PT PLEASANT COOP A/O X2-3. STATES [place] [address], ONLY HAS TO PAY ELECT. HE STATES TREMOR IS NORMAL SINCE NOT DRINKING. DID THE CWA. SCORE 7. PT DENIES HALLUCINATIONS, VISUAL OR AUDITORY. DENIES ANX, BUT FEELS SOME AGITATION. H/R REG, NO MURMER NOTED. NO TELE. LUNGS CLEAR, RESP EASY, UNLABORED. ON R.A. BT X4 LAST BM 2 DAYS PER PT. MEDICATED. ABD SOFT NONTENDER. VOIDS URINAL. PT WEAK, UNSTEADY. PT STATES PAIN IN RT FOOT IS MOST OF ISSUE. IS WRAPPED. WILL FOLLOW WITH WOUND CARE ORDERS PER 1 ASST. BED IN LOW POSITION, ALL LITE IN REACH, BED ALARM ON FOR SAFETY
--- NOTE | 2021-12-24 10:07 | NUR ---
D/C IVF PER DR FREITAS
--- NOTE | 2021-12-24 14:11 | NUR ---
Spiritual Care Visit. Pt. was displaying evidence of somnolence, but responded when I introduced myself. Pt. did not verbally communicate clearly. Attempted to understand, but pt. was unintelligible. Inquired if Pt. had been approached about comfort care, and being made comfortable. Pt. did attempt to communicate but the words were again unintelligible. Prayed with Pt. as I had since he was in ICU. Pt. was able to control his bed and surroundings, but could not commuinicate clearly. Reported observations to Palliative Care.
--- NOTE | 2021-12-24 15:48 | NUR ---
BP TAKEN WHILE PT UP IN CHAIR. HE QUITE SLEEPY. 68/47, PUT PT BACK TO BED. IS AWAKE, BUT SLEEPY. RETAKEN AT 83/60 MAP 69. MANAGER COST ASSISTED. CALLED DR FREITAS. 500 BOLUS. DONE.PT IS STILL AROUSABLE. STATES NOT DIZZY, BUT BACK TO BED. BED ALARM ON FOR SAFETY. BED IN LOW POSITION. CALL LITE IN REACH
--- NOTE | 2021-12-24 18:36 | NUR ---
PT COMPLIANT TODAY. DID HAVE LOW BP EPISODE. PRESENTS DRY. BOLUSED. RESPONDED WELL. IS RESTING AT THIS TIME. DOES AWAKEN. WANTS TO SLEEP AT THIS TIME. HE TOOK DRESSING OFF FOOT THIS AFT. PLANNING TO REDRESS SOON. DID MED FOR TREMORS AND AGITATION. LAST PAIN MED AT 1245. NO OTHER CONCERNS NOTED. BED IN LOW POSITION, CALLLITE IN REACH, BED ALARM ONFOR SAFETY
--- NOTE | 2021-12-25 04:57 | NUR ---
PT ASLEEP THIS MORNING. PT ALERT AND ORIENTED X3 CAN BE FORGETFUL OF TIME, ON RA, NOT MONITORED, NO BM, URINATING IN THE URINAL. PT CIWA AT 2000 WAS <8, 0000 CIWA WAS 8 MEDICATED PER EMAR. ONLY WITHDRAWL SYMPTOMS THAT APPEAR TO BE SEVERE ARE THE TREMORS, VISIBLE TREMORS EVEN WITHOUT ARMS EXTENDED. PT DID STATE THAT THE TREMORS WERE NORMAL AND USUALLY DON'T GO AWAY FOR A WHILE. OTHERWISE NO ACUTE EVENTS OVERNIGHT. PT CALL LIGHT AND BELONINGS WITHIN REACH.
--- NOTE | 2021-12-25 09:11 | NUR ---
Pt resting in bed upon arrival. Pt reports feeling better. Engaged in therapeutic discussion regarding goals of care including the option for comfort care. Pt still appears to have poor insight stating "I swallow just fine". Pt states he uses the suction after he coughs up secretions. Pt reports not ready to consider comfort care. Continued therapeutic listening. Ended visit to allow Pt to rest. Palliative Care will F/U with therapeutic visits.
--- NOTE | 2021-12-25 18:10 | NUR ---
PT PLEASANT TODAY. DR PLACED ON PRN CWA NEEDED. PAIN MANAGED WITH AVAIL MEDS. TYLENOL APPEARS TO BE BETTER THAN CURT. HAS BEEN SLEEPING SEVERAL HOURS TODAY. DID GET UP AND HAVE GOOD BM THIS AM. NO OTHER CONCRNS NOTED. BED IN LOW POSITION, CALL LITE IN REACH, BED ALARM ON FOR SAFETY
--- NOTE | 2021-12-26 06:28 | NUR ---
PT IS AWAKE WATCHING TV THIS MORNING. PT IS ALERT AND ORIENTED X3-4, ON RA SATTING >90%, NOT MONITORED. CIWAS ORDERS CHANGED TO PRN YESTERDAY, PT SHOWING VERY MINIMAL SYMPTOMS. TREMORS ARE STILL VISIBLE BUT IS GETTING BETTER, ACCORRDING TO THE PT TREMORS NORMALLY PERSIST FOR A COUPLE OF MONTHS. PT DID COMPLAIN OF PAIN IN THE R FOOT/TOE AREA, MEDICATED PER EMAR. OTHERWISE PT IS DOING WELL, VITAL HAVE BEEN STABLE, NO ACUTE EVENTS OVERNIGHT. PT CALL LIGHT AND BELONGINGS WITHIN REACH.
--- NOTE | 2021-12-26 13:57 | NUR ---
Supportive visit this afternoon. Pt resting in bed upon arrival. Pt reports 8/10 pain in his foot. Engaged in therapeutic discussion regarding the importance of having a healthcare decision maker in the event he can not make decisions for himself in the future. Pt reports he has no one he can trust. He reports plan to work on this when he is D/C from the hospital. Pt reports he does'nt have any friends he can trust either. Continued therapeuti listening. Ended visit to allow Pt to rest. Spoke with Primary RN Kayce and reported Pt's pain. Kayce will offer Roxicodone that is available. Palliative Care will remain available.
--- NOTE | 2021-12-26 14:50 | NUR ---
RN NOTE- PT ORIENTATED X4. C/O PAIN TO RIGHT FOOT - MEDICATED TWICE SO FAR THIS SHIFT WITH SLIGHT RELIEF. R FOOT WITH BLACKENED RIGHT BIG TOES AND LESSER BLACKNESS TO OTHER TOES. CLEANSED WITH WOUND CLEANSER AND IODINE, NON ADHESIVE DRESSING BETWEEN AND AROUND TOES AND KERLEX WRAP. PT HAS TREMORS, NO AUDITORY OR VISUAL HALLUCINATIONS. LIBRIUM GIVEN FOR TREMORS. 2 LIBRIUM REMOVED FROM PYXIS, ONE MEANT TO BE REMOVED, ONLY ONE GIVE, OTHER ONE RETURNED TO EXTERNAL BIN WITH CHARGE NURSE WITNESS. MADISYN PHARMACIST SAID THAT SHE WILL RESOLVE THE DISCREPANCY. PT S/B PALIATIVE CARE THIS MORNING AND PAIN MEDS DISCUSSED. FEET ELEVATED ON PILLOW AND PT SAID HE IS MORE COMFORTABLE AT THIS TIME.
--- NOTE | 2021-12-26 19:12 | NUR ---
SHIFT SUMMARY. NO ACUTE CHANGES SINCE EARLY RN NOTE. MR CASTRO IS RESTING NOW. THE TREMORS WERE LESSENED SOMEWHAT AFTER THE LIBRIUM AND HE LOOKS COMFORTABLE AT THIS TIME. HE HAS EATEN AND DRANK WELL TODAY. BED LOW, CALL LIGHT IN REACH. BED ALARM ON.
--- NOTE | 2021-12-27 17:23 | NUR ---
SHIFT SUMMARY PT AxOx4 WITH OCCASIONAL CONFUSION/FORGETFULNESS. SLOWED SPEECH. PT WORKED WITH PHYSICAL THERAPY TODAY. PT HAD SHOWER AND DRESSING CHANGE TO R FOOT WITH NECROTIC TOES. PT REPORTS PAIN IN FOOT x1 TODAY. MEDICATED PER EMAR. PT REPORTED MEDICATION DID NOT REALLY HELP WITH PAIN. DECLINES OTHER INTERVENTION. PT EATING AND DRINKING PER HIS REQUEST. TOLERATING MECHANICAL SOFT DIET WELL. USING SELF SUCTION PRN. PT HAS MODERATE BUE TREMORS. PT REPORTS THAT HIS TREMORS WERE NOT THIS BAD WITH PAST ALCOHOL DETOXES. CIWA SCORED 5 AND 4 THIS SHIFT. VITALS REVIEWED. PT CALLS APPROPRIATELY. AMBULATING WITH 1 ASSIST, FWW AND GB. PT CURRENTLY RESTING IN BED WITH CALL LIGHT IN REACH. DENIES ANY NEEDS AT THIS TIME.
--- NOTE | 2021-12-28 07:30 | NUR ---
ASSUMED CARE: PT RESTING QUIETLY IN BED. NO ACUTE NEEDS AT THIS TIME.
--- NOTE | 2021-12-28 10:16 | NUR ---
OT AT BEDSIDE
--- NOTE | 2021-12-28 11:07 | NUR ---
SECOND THERAPIST AT BEDSIDE AT THIS TIME.
--- NOTE | 2021-12-28 11:26 | NUR ---
PT HAS NOT REQUIRED CIWA SCORING FOR 19 HOURS AND NO LIBRIUM ADMINISTERED SINCE 5 AM YESTERDAY. DISCUSSED WITH DR LOPEZ WHO STATES TO DC CIWA ORDERS. STATES PT'S TREMOR IS CHRONIC AND NOT WITHDRAWAL RELATED AT THIS TIME.
--- NOTE | 2021-12-28 18:15 | NUR ---
SHIFT SUMMARY: PT'S DRESSINGS CHANGED TO RIGHT FOOT. MEDICATED FOR PAIN X2. PT WORKED WITH PT/OT TODAY WITH PLANS FOR DC TO SNF. NO ACUTE NEEDS OR CONCERNS AT THIS TIME.
--- NOTE | 2021-12-29 10:36 | NUR ---
ADVISED PATIENT PULLED IV. DOES NOT GET ANYTHING IV. OK FOR NO IV ASSESS NEEDED
--- NOTE | 2021-12-29 17:07 | NUR ---
ALERT. ORIENTED WITH OCCASIONAL FORGETFULNESS. INCREASE TREMORS BUE WHEN USING HANDS SUCH WHEN EATTING. UNLABORED RESPIRATIONS. WANTS TO EAT OFTEN AND IS AWARE OF THE RISK FOR ASPIRATION. NO IV ASSESS NEEDED. WORKED WITH P.T. AND SEEMS TO DO GOOD WITH WALKER WITH HANDLES. COOPERATIVE. PLEASANT. WCTM
--- NOTE | 2021-12-30 06:14 | NUR ---
No acute changes through night. Respirations even and unlabored, denies SOB or CP. Slept well through night. Safety maintained, call maki in reach.
--- NOTE | 2021-12-30 17:02 | NUR ---
SHIFT SUMMARY A&O X3-4 AND IN PLESEANT MOOD T/O SHIFT. PT PLEASENTLY CONFUSED @ TIMES T/O SHIFT, EASILY REORIENTATED. PT RESTED COMFORTABLY IN BED, PAIN MEDICATED PER EMAR. AMBULATED W/ [facility] IN HALLWAY W/ STEADY GAIT UTILIZING FWW & GB. TOLERATING PO INTAKE WELL. VSS. DRESSING CHANGED THIS SHIFT PER ORDERSCALL LIGHT W/IN REACH.
--- NOTE | 2021-12-31 06:06 | NUR ---
Patient is alert and oriented x4, ambulatory with one person assist. Complains of right foot pain, PRN pain medication given. big toe is gangrenous due to frostbite Dressing change per order. Dressing is C/D/I, no foul smell. Snacks provided. Call ligth within reach.
--- NOTE | 2021-12-31 18:49 | NUR ---
SHIFT SUMMARY- PT A&O X3 HE HAS BEEN UP AND WORKING WITH THERAPIES TODAY, PT REQUESTED AND RECIEVED A FULLL SHOWER TODAY, PT CURRENTLY AWAITING PLACEMENT. DR ORDERED A REEVALUATION FROM BOOM TRUCK DRIVER DR MARSHALL, DR MARSHALL IS CURRENTLY OUT OF TOWN AND WILL NOT BE BACK UNTIL MONDAY, HE STATED DR DE LA GARZA CAN SEE THE PT TOMORROW IF HE NEEDS TO BE SEEN SOONER OR HE CAN SEE HIM WHEN HE RETURNS TO TOWN ON MONDAY. CALLED VINNY, TOMORROWS HOSPITALIST TIMOTHY HAVE TO DECIDE. PT HAD HIS DRESSING CHANGED AFTER HIS SHOWER AFTER DR LOPEZ VIISUALIZED THE WOUND. NO ACUTE CHANGES T/O THE SHIFT, NO IV ACCESS. PT CURRENTLY IN BED, CALL LIGHT IN REACH NO S&S OF DISTRESS, SUCTION AT THE BEDSIDE, PT HAS FAILED SWALLOW EVALS THIS VISIT BUT REFUSES TO FOLLOW THE RECOMENDATIONS FROM SPEECH THERAPY, HE IS AWARE HE IS POTENTIALLY ASPIRATING.
--- NOTE | 2022-01-01 03:40 | NUR ---
PT GAVE CONSENT TO PROVIDE CARE ON 12/31/2021 AT 0710.
--- NOTE | 2022-01-01 04:05 | NUR ---
PT IS A/O X 4. PT USES BEDSIDE URINAL. PT USES CALL LIGHT APPROPRIATELY. PT SPENT SHIFT EATING SNACKS AND WATCHING MOVIES. PT COMPLAINED OF PAIN IN BIG RIGHT TOE. PRN MEDICATION WAS ADMINISTERED. PT IS CURRENTLY ASLEEP. CALL LIGHT IS WITHIN REACH.
[2022-01-01] MEDS ORDERED: Acetaminophen325 M1 PO (13:48)
--- NOTE | 2022-01-01 14:23 | NUR ---
DISCHARGE NOTE- PT BECAME ADIMANT TODAY THAT HE WAS GOING HOME, SPOKE TO HIM THIS MORNING ABOUT THE IMPORTANCE OFF WAITING FOR THE COURT ABSTRACTOR TO COME SEE HIM, AT THE VERY LEAST. PT AGREED AND WAITED TO BE SEEN BY DR DE LA GARZA. AFTER DR DE LA GARZA EVALUATED THE PT HE BECAME MORE ADIMANT THAT HE WAS LEAVING NOW. CALLED CARE MANAGEMENT AND SHE SPOKE TO DR TOLENTINO ABOUT THE PT DESIRE TO LEAVE NOW, DR WAS AWARE THE PT WAS WANTING TO LLEAVE EARLIER. THE INITIAL PLAN WAS FOR THE PT TO DISCHARGE TO A FACILITY AND HE HAS BEEN HERE AWAITING PLACEMENT. PT HAS BEEN AMBULATING IN THE HALLS WITH THEARPIES HERE. PT WAS GIVEN VERBAL AND WRITTEN DISCHARGE INSTRUCTIONS AND ACKNOWLEDGED UNDERSTANDING OF THEM. PT WAS ESCORTED OUT TO THE PT ENTRANCE VIA WHERE HE GOT INTO A TAXI TO TAKE HIM TO THE [facility]. NO S&S OF DDISTRESS NOTED AT THE TIME OF DISCHARGE.
== END 2022-01-01 14:11 | disposition home or self-care (01) | DRG 871 ==
LOC: ER 17:41 → ICUW 12-09 03:00 → ICUE 12-09 03:00 → MEDS 12-15 15:02
PROVIDERS: Internal Medicine; Student in an Organized Health Care Education/Training Program; ADMIT Family Medicine
PROC: 3E03329 Introduction of Other Anti-infective into Peripheral Vein, Percutaneous Approach (ICD-10-PCS; principal; 2021-12-09)
PROC: HZ2ZZZZ Detoxification Services for Substance Abuse Treatment (ICD-10-PCS; 2021-12-09)
DX: A41.9 Sepsis, unspecified organism (principal); G92.8 Other toxic encephalopathy; J18.9 Pneumonia, unspecified organism; J69.0 Pneumonitis due to inhalation of food and vomit; T33.821A Superficial frostbite of right foot, initial encounter; Z66 Do not resuscitate; F10.239 Alcohol dependence with withdrawal, unspecified; E87.1 Hypo-osmolality and hyponatremia; R45.851 Suicidal ideations; L03.115 Cellulitis of right lower limb; I96 Gangrene, not elsewhere classified; Z20.822 Contact with and (suspected) exposure to COVID-19; Z78.1 Physical restraint status; E83.42 Hypomagnesemia; E87.6 Hypokalemia; R13.10 Dysphagia, unspecified; G25.0 Essential tremor; F32.A Depression, unspecified; R65.20 Severe sepsis without septic shock; D69.6 Thrombocytopenia, unspecified; F10.229 Alcohol dependence with intoxication, unspecified; G40.909 Epilepsy, unspecified, not intractable, without status epilepticus; Z98.890 Other specified postprocedural states; X31.XXXA Exposure to excessive natural cold, initial encounter; Y90.8 Blood alcohol level of 240 mg/100 ml or more
CPT/HCPCS: 0241U; 36415; 51702; 70450; 71045; 72125; 73630; 74230; 80048; 80053; 80069; 80076; 81001; 82803; 83605; 83690; 83735; 84100; 84132; 84145; 84484; 85025; 85027; 86022; 87040; 87086; 92523; 92526; 92610; 92611; 93005; 93010; 94640; 94664; 94668; 94760; 96365; 96375; 96376; 97110; 97116; 97162; 97166; 97530; 97535; 99285-25; A9270; C1751; G0480; J0456; J0690; J1650; J1885; J2060; J3010; J3411; J3475; J3480; J7030; J7042; J7050; J7060

== ENCOUNTER 2022-08-24 12:43 | Inpatient (IN) | payer OTHER ==
[~2022-08-24] VITALS: Ht 162.6 cm; Wt 72.0 kg
[~2022-08-24 12:43] MED LIST changes: +Acetaminophen325 M1 PO; +FAMO20 PO; +Nicoderm Cq1 EAC1 TOP; +TRAZ100 PO
[2022-08-24 13:40] LABS: BASOPHILS ABSOLUTE AUTO 0.03 K/mm3 (0.00-0.23); BASOPHILS PERCENT AUTO 0 % (0-2); EOSINOPHILS ABSOLUTE AUTO 0.02 K/mm3 (0.00-0.68); EOSINOPHILS PERCENT AUTO 0 % (0-6); Hematocrit 44.9 % (37.0-53.0); Hemoglobin 16.4 g/dL (13.5-17.5); IMMATURE GRAN ABSOLUTE AUTO 0.02 K/mm3 (0.00-0.10); IMMATURE GRAN PERCENT AUTO 0 % (0-1); LYMPHOCYTES ABSOLUTE AUTO 1.16 K/mm3 (0.84-5.20); LYMPHOCYTES PERCENT AUTO 17 % (21-46); MONOCYTES ABSOLUTE AUTO 0.68 K/mm3 (0.16-1.47); MONOCYTES PERCENT AUTO 10 % (4-13); Mean Corpuscular HGB 31.4 pg (26.0-34.0); Mean Corpuscular HGB Conc 36.5 g/dL (31.5-36.5); Mean Corpuscular Volume 86 fL (80-100); Mean Platelet Volume 11.1 fL (9.1-12.4); NEUTROPHILS ABSOLUTE AUTO 4.92 K/mm3 (1.96-9.15); NEUTROPHILS PERCENT AUTO 72 % (41-73); Platelet Count 154 K/mm3 (150-400); RDW Coefficient Variation 13.2 % (11.7-14.2); RDW Standard Deviation 41.1 fL (35.1-46.3); Red Blood Cell Count 5.23 M/mm3 (4.30-5.90); White Blood Cell Count 6.83 K/mm3 (4.00-11.30)
[2022-08-24 13:50] LABS: Albumin, Blood 3.4 g/dL (3.4-5.0); Bilirubin, Total 1.4 mg/dL (0.1-1.0); Bun/Creatinine Ratio 19.4 (12.0-20.0); Calcium, Blood 8.9 mg/dL (8.5-10.1); Creatinine, Blood 0.62 mg/dL (0.60-1.20); Globulin, Blood 3.5 g/dL (2.2-4.0); Potassium, Blood 3.8 mmol/L (3.5-5.5); Total Protein, Blood 6.9 g/dL (6.4-8.2)
[2022-08-24 15:52] LABS: Thyroid Stimulating Hormone 0.935 uIU/mL (0.360-4.800)
--- NOTE | 2022-08-24 19:19 | NUR ---
Admit note Received report from ed rn, pt to room via gurney, transferred to bed with 4 person assist and slider sheet. Pt alert, oriented, answers questions appropriatly. CIWA 18; medicated x1 with ativan 1 mg. Bp elevated, with parameters at this time. Tele sinus tach 110-120's, per ekg qtc prolonged. Pt Spo2 >90% on ra t/o shift. Pt has red rash to right lower abd, right flank and entire back with scratch ramsay scattered. No other acute changes noted. Report given to oncoming rn.
[2022-08-25 04:22] LABS: Hematocrit 41.2 % (37.0-53.0); Hemoglobin 14.8 g/dL (13.5-17.5); Mean Corpuscular HGB 31.1 pg (26.0-34.0); Mean Corpuscular HGB Conc 35.9 g/dL (31.5-36.5); Mean Corpuscular Volume 87 fL (80-100); Mean Platelet Volume 11.1 fL (9.1-12.4); Platelet Count 98 K/mm3 (150-400); RDW Coefficient Variation 13.2 % (11.7-14.2); RDW Standard Deviation 41.4 fL (35.1-46.3); Red Blood Cell Count 4.76 M/mm3 (4.30-5.90); White Blood Cell Count 7.34 K/mm3 (4.00-11.30)
[2022-08-25 05:04] LABS: Bun/Creatinine Ratio 21.7 (12.0-20.0); Calcium, Blood 8.3 mg/dL (8.5-10.1); Creatinine, Blood 0.69 mg/dL (0.60-1.20); Magnesium, Blood 1.6 mg/dL (1.6-2.4); Potassium, Blood 3.8 mmol/L (3.5-5.5)
--- NOTE | 2022-08-25 05:29 | NUR ---
SHIFT SUMMARY ASSUMED CARE OF PT AT AROUND 1900. PT IS A/OX4. AT THE START OF SHIFT PT STATED HE HAD A HEADACHE AND HALLUCINATIONS CIWAH WAS 18. ATIVAN AND LIBRIUM GIVEN. PT CIWA REMAINED AT 12 T/O THE NIGHT AND WAS GIVEN LIBRIUM Q4. PT CO FEELING TIRED AND NOT HIMSELF THE REST OF THE NIGHT. PT WAS CON/INCONTINENT, PT USED URINAL. PT REMAINED IN BED T/O THE NIGHT. PT HAS A MOIST BUT NONPRODICTIE COUGH.
[2022-08-25 08:03] LABS: Albumin, Blood 2.8 g/dL (3.4-5.0); Albumin/Globulin Ratio 0.9 (0.8-1.8); Bilirubin, Direct 0.3 mg/dL (0.0-0.3); Bilirubin, Indirect 0.7 mg/dL (0.1-0.7); Total Protein, Blood 5.8 g/dL (6.4-8.2)
--- NOTE | 2022-08-25 08:57 | NUR ---
AM NOTE: PATIENT EASILY AWAKES TO VOICE AND TOUCH. ALERT AND ORIENTED X2-3. NOT ABLE TO TELL ME DATE, AND SOME CONFUSING STATEMENTS ON WHERE HE IS. BILATERAL DESK REPRESENTATIVE STRENGTH. OVERALL WEAKNESS NOTED. N/T TO BILAERAL FEET/TOES. PATIENT STATES HE HAS A HISTORY OF "FREEZING HIS TOES". NO FACIAL DROOP NOTED. SPEECH SLIGHTLY SLURRED. PERRLA. BED ALARM IN PLACE. HELPING PATIENT ADJUST AND TURN IN BED. ON ROOM AIR SATING ABOVE 95%. OCCASIONAL COARSE SOUNDING COUGH. LUNGS SOUNDING CLEAR AND DIM IN BASES. TELE SHOWING SINUS TACH WITH HR 90-110'S. BP STABLE. DENIES CHEST PAIN/PRESSURE. NO SIGNS OF EDEMA. PPP. DENIES ABOMINAL PAIN. INTERMIT NAUSEA. EATING WELL THIS AM. USING URINAL TO VOID. ATTENDS IN PLACE. CALL LIGHT IN REACH. PATIENT ORIENTED TO ROOM/CALL LIGHT. TAKING PILLS WHOLE. CIWA SCORING 12 THIS AM, PO LIBRIUM GIVEN. JOY REID AND ELBA BY TO ASSESS PATIENT, NO NEW ORDERS FOR THIS RN TO PLACE. WILL CONTINUE TO MONITOR.
--- NOTE | 2022-08-25 17:52 | NUR ---
SHIFT SUMMARY: PATIENT NOTED TO BE CHOKING ON FOOD DURING DINNER AND NOT ABLE TO CLEAR SECRETIONS VERY WELL. DINNER REMOVED FROM ROOM. SUCTION SET UP AND USED NEEDED. CALL PLACED TO DR. ARREOLA. NPO AT THIS TIME AND ORDERS FOR SWALLOW EVAL. PATIENT REMAINS PLEASENT AND COOPERATIVE THROUGHOUT SHIFT. CIWAS RANGING FROM 10-12. MEDICATED WITH PO LIBRIUM WITH GOOD RESULTS. REMAINS SINUS TACH ON TELE. BP STABLE. LR INFUSING AT 125 ML/HR. USING URINAL TO VOID. CALL LIGHT IN REACH. BED BATH COMPLETED THIS SHIFT. WILL CONTINUE TO MONITOR AND REPORT OFF TO ONCOMING RN.
[2022-08-26 03:54] LABS: BASOPHILS ABSOLUTE AUTO 0.03 K/mm3 (0.00-0.23); BASOPHILS PERCENT AUTO 1 % (0-2); EOSINOPHILS ABSOLUTE AUTO 0.19 K/mm3 (0.00-0.68); EOSINOPHILS PERCENT AUTO 3 % (0-6); Hematocrit 40.7 % (37.0-53.0); Hemoglobin 14.2 g/dL (13.5-17.5); IMMATURE GRAN ABSOLUTE AUTO 0.01 K/mm3 (0.00-0.10); IMMATURE GRAN PERCENT AUTO 0 % (0-1); LYMPHOCYTES ABSOLUTE AUTO 1.69 K/mm3 (0.84-5.20); LYMPHOCYTES PERCENT AUTO 26 % (21-46); MONOCYTES ABSOLUTE AUTO 0.55 K/mm3 (0.16-1.47); MONOCYTES PERCENT AUTO 9 % (4-13); Mean Corpuscular HGB 31.2 pg (26.0-34.0); Mean Corpuscular HGB Conc 34.9 g/dL (31.5-36.5); Mean Corpuscular Volume 90 fL (80-100); Mean Platelet Volume 11.3 fL (9.1-12.4); NEUTROPHILS ABSOLUTE AUTO 3.97 K/mm3 (1.96-9.15); NEUTROPHILS PERCENT AUTO 62 % (41-73); Platelet Count 92 K/mm3 (150-400); RDW Coefficient Variation 13.2 % (11.7-14.2); RDW Standard Deviation 43.2 fL (35.1-46.3); Red Blood Cell Count 4.55 M/mm3 (4.30-5.90); White Blood Cell Count 6.44 K/mm3 (4.00-11.30)
[2022-08-26 04:16] LABS: International Normalized Ratio 0.99; Prothrombin Time Results 10.4 Sec (9.7-11.5)
[2022-08-26 04:33] LABS: Albumin, Blood 2.8 g/dL (3.4-5.0); Albumin/Globulin Ratio 0.9 (0.8-1.8); Bilirubin, Total 0.5 mg/dL (0.1-1.0); Bun/Creatinine Ratio 22.1 (12.0-20.0); Calcium, Blood 8.9 mg/dL (8.5-10.1); Creatinine, Blood 0.68 mg/dL (0.60-1.20); Globulin, Blood 3.1 g/dL (2.2-4.0); Potassium, Blood 3.5 mmol/L (3.5-5.5); Total Protein, Blood 5.9 g/dL (6.4-8.2)
--- NOTE | 2022-08-26 06:41 | NUR ---
SHIFT SUMMARY: NEURO: PATIENT LETHARGIC OVERNIGHT. HALLUCINATING AND TREMORS. CIWA PROTOCOL IN PLACE. CIWA 10. PRN LIBRIUM GIVEN X2. SEE EMAR FOR MORE INFORMATION. PATIENT COMPLAINING OF LEG AND ARM PAIN. SLURRED SPEECH. CARDIAC: SR-ST, AFEBRILE. BP WNL RESP: MAINTAINING O2 >95% ON RA. GI: PATIENT EXTREMELY HUNGRY. WAS ABLE TO TOLERATE FOOD WITH CLOSE SUPERVISION AND REMINDERS NOT TO TALK WHILE EATING AND POSITION SELF SAFELY : PATIENT USES URINAL. 2 EPISODES OF INCONTINENCE REQUIRING FULL BED CHANGES. SKIN: RASH ON RIGHT THIGH. SCRAPES AND BRUISES NOTED. OTHER: LR @ 125
--- NOTE | 2022-08-26 18:38 | NUR ---
DAY SHIFT SUMMARY PT ALERT TO LETHARGIC WITH WANING ORIENTATION STATUS. ORIENTED X4 OCCASIONALLY THROUGHOUT THE DAY BUT ENDORSES HALLUCINATIONS. CIWAS 4-10 AND PRNS GIVEN APPROPRIATE. SPEECH THERAPY AND PHYSICAL THERAPY WORKED WITH PT TODAY, DIET ORDER CHANGED TO NECTAR THICK LIQUIDS AND MECH SOFT DUE TO COUGHING WITH INTAKE. MEDS WITH APPLESAUCE. SR/ST ON TELEMETRY W/BBB. MOOD LABILE WHEN AWAKE WITH SOME CRYING AND ANXIOUSNESS. VOIDING ADEDQUATELY AND CONTINENT. WILL PASS ON TO NOC RN
--- NOTE | 2022-08-27 04:20 | NUR ---
end of shift summary it was an interesting shift. pt is very hungary and has requested more pudding then we had availible. after eating non stop pt started to choke and said he couldnt breath although he was sating 95 on ra. he was thrashing around and at that point i felt like this was etoh withdraw symptoms so he got 2mg of ativan and he calmed and finally rested. his ciwa was 10. he also at one point had poop all over hands and wiped in hair. he has had 2 full bed change. will continue to monitor and report off to oncoming rn
[2022-08-27 04:26] LABS: BASOPHILS ABSOLUTE AUTO 0.02 K/mm3 (0.00-0.23); BASOPHILS PERCENT AUTO 0 % (0-2); EOSINOPHILS ABSOLUTE AUTO 0.15 K/mm3 (0.00-0.68); EOSINOPHILS PERCENT AUTO 1 % (0-6); Hematocrit 41.5 % (37.0-53.0); Hemoglobin 14.6 g/dL (13.5-17.5); IMMATURE GRAN ABSOLUTE AUTO 0.03 K/mm3 (0.00-0.10); IMMATURE GRAN PERCENT AUTO 0 % (0-1); LYMPHOCYTES ABSOLUTE AUTO 1.29 K/mm3 (0.84-5.20); LYMPHOCYTES PERCENT AUTO 12 % (21-46); MONOCYTES PERCENT AUTO 8 % (4-13); Mean Corpuscular HGB 31.7 pg (26.0-34.0); Mean Corpuscular HGB Conc 35.2 g/dL (31.5-36.5); Mean Corpuscular Volume 90 fL (80-100); Mean Platelet Volume 11.4 fL (9.1-12.4); NEUTROPHILS PERCENT AUTO 78 % (41-73); Platelet Count 110 K/mm3 (150-400); RDW Coefficient Variation 13.3 % (11.7-14.2); RDW Standard Deviation 43.8 fL (35.1-46.3); Red Blood Cell Count 4.61 M/mm3 (4.30-5.90); White Blood Cell Count 11.09 K/mm3 (4.00-11.30)
[2022-08-27 04:50] LABS: Albumin, Blood 2.7 g/dL (3.4-5.0); Albumin/Globulin Ratio 0.8 (0.8-1.8); Bilirubin, Total 0.5 mg/dL (0.1-1.0); Bun/Creatinine Ratio 14.5 (12.0-20.0); Calcium, Blood 8.4 mg/dL (8.5-10.1); Creatinine, Blood 0.69 mg/dL (0.60-1.20); Globulin, Blood 3.6 g/dL (2.2-4.0); Potassium, Blood 4.1 mmol/L (3.5-5.5); Total Protein, Blood 6.3 g/dL (6.4-8.2)
[2022-08-27 06:09] LABS: HIV AB/P24 AG SCREEN Non Reactive (Non Reactive)
[2022-08-27 08:09] LABS: HBSAG SCREEN Negative (Negative); HCV AB <0.1 (0.0-0.9); HEP A AB, IGM Negative (Negative); HEP B CORE AB, IGM Negative (Negative)
--- NOTE | 2022-08-28 02:23 | NUR ---
TOOK OVER CARE OF PT AT 0100. PT RESTING ON RA. DR. RUBY NOTIFIED OF PT'S BP TREND AND WBC TREND. NO ABX OR CULTURES ORDERED AT THIS TIME. FLUIDS INCREASED.
[2022-08-28 08:44] LABS: Hematocrit 38.9 % (37.0-53.0); Hemoglobin 13.4 g/dL (13.5-17.5); Mean Corpuscular HGB 31.5 pg (26.0-34.0); Mean Corpuscular HGB Conc 34.4 g/dL (31.5-36.5); Mean Corpuscular Volume 91 fL (80-100); Mean Platelet Volume 10.2 fL (9.1-12.4); Platelet Count 144 K/mm3 (150-400); RDW Coefficient Variation 13.5 % (11.7-14.2); RDW Standard Deviation 44.9 fL (35.1-46.3); Red Blood Cell Count 4.26 M/mm3 (4.30-5.90); White Blood Cell Count 10.29 K/mm3 (4.00-11.30)
[2022-08-28 09:00] LABS: Albumin, Blood 2.5 g/dL (3.4-5.0); Albumin/Globulin Ratio 0.8 (0.8-1.8); Bilirubin, Total 0.4 mg/dL (0.1-1.0); Calcium, Blood 8.7 mg/dL (8.5-10.1); Creatinine, Blood 0.8 mg/dL (0.60-1.20); Globulin, Blood 3.3 g/dL (2.2-4.0); Potassium, Blood 4.3 mmol/L (3.5-5.5); Total Protein, Blood 5.8 g/dL (6.4-8.2)
--- NOTE | 2022-08-28 18:52 | NUR ---
DAY SHIFT SUMMARY PT ORIENTED X3-4, ALERT TO LETHARGIC DEPENDING ON TIME OF DAY BUT AWAKENS TO VOICE. VSS PER PT TREND, HR IN 90S-100S ST/SR WITH A BBB. ASSIST X1-2 S/P TO BEDSIDE COMMODE. MUMBLES AT BASELINE. DENIES CP OR DISCOMFORT. WORKING WITH PT/OT WHEN AVAILABLE. PLAN FOR POTENTIAL SNF PLACEMENT PER MD DISCUSSION THIS AM. PLAN FOR SPEECH REEVAL TOMORROW. WILL PASS ON TO TOBIAS ZAPATA
--- NOTE | 2022-08-29 06:03 | NUR ---
Pt ALERT AND ORIENTED T/O SHIFT, USES URINAL IN BED INDEPENDENTLY. FREQUENTLY REQUESTS CRACKERS, PUDDING, DRINKS. REMINDED OF [facility] SOFT AND NECTAR THICK ORDERS. APPEARS DYSPNEIC AT TIMES WHEN MOVING AROUND IN BED. TACHYPNEIC WHILE AWAKE. SATS >95% ON RA. DENIES CP. NO ACUTE CHANGES.
[2022-08-29 06:23] LABS: Hematocrit 35.9 % (37.0-53.0); Hemoglobin 12.2 g/dL (13.5-17.5); Mean Corpuscular Volume 91 fL (80-100); Mean Platelet Volume 9.6 fL (9.1-12.4); Platelet Count 187 K/mm3 (150-400); RDW Coefficient Variation 13.4 % (11.7-14.2); RDW Standard Deviation 44.8 fL (35.1-46.3); Red Blood Cell Count 3.94 M/mm3 (4.30-5.90); White Blood Cell Count 5.25 K/mm3 (4.00-11.30)
[2022-08-29 06:44] LABS: Bun/Creatinine Ratio 16.3 (12.0-20.0); Calcium, Blood 8.7 mg/dL (8.5-10.1); Creatinine, Blood 0.67 mg/dL (0.60-1.20); Magnesium, Blood 1.8 mg/dL (1.6-2.4); Potassium, Blood 3.9 mmol/L (3.5-5.5)
--- NOTE | 2022-08-29 09:43 | NUR ---
AM NOTE: PATIENT ALERT AND ORIENTED X3. UNABLE TO TELL THIS RN DATE/TIME. INTERMIT CONFUSING STATEMENTS. IMPROVING. CAMELIA ISAAC. PERSHARMAINE. N/T TO BILATERAL LEGS/FEET. NO FACIAL DROOP NOTED. BILATERAL INSURANCE MANAGER STRENGTH AND MOVEMENTS. FOLLOWING COMMANDS. UP WITH ONE PERSON ASSIST. PT PLAN TO SEE PATIENT TODAY. ABLE TO TURN AND MOVE SELF AROUND IN BED. ON ROOM AIR SATING ABOVE 94%. OCCASIONAL COUGH. LUNGS SOUNDING COARSE AND DIM. TELE SHOWING SR-ST WITH HR 90-110'S. DENIES CHEST PAIN/PRESSURE/PALPITATIONS. BP STABLE. NO SIGNS OF EDEMA. PPP. DENIES ABDOMINAL PAIN/NAUSEA. SPEECH THERAPY IN TO SEE PATIENT UPGRADED TO REG DIET. OKAY TO TAKE PILLS WITH WATER AND STRAW. USING URINAL TO VOID. ATTENDS C/D/I. DENIES PAINS. RIGHT SIDE REDNESS/SCRATCH ROBERTO. DR. OVIEDO AWARE AND PO ORDERS FOR CLARITIN. LR INFUSING AT 150 ML/HR. CALL LIGHT IN REACH. BED ALARM IN PLACE. WILL CONTINUE TO MONITOR.
--- NOTE | 2022-08-29 14:20 | NUR ---
PATIENT EXPRESSED INTEREST IN HELP WITH QUITTING ALCOHOL TO BOTH MYSELF, DR. OVIEDO, AND PHYSICAL THERAPIST. CASE MANAGEMENT UPDATED BY MYSELF AND DR. OVIEDO REGARDING PATIENT INTEREST IN INPATIENT REHAB. CASE MANAGEMENT HELPING WITH DISCHARGE OPTIONS.
--- NOTE | 2022-08-29 18:07 | NUR ---
SHIFT SUMMARY: NO ACUTE CHANGES. SEE PREVIOUS NOTE FOR UPDATES. REMAINS ALERT AND ORIENTED X3. NEURO UNCHANGED FROM AM ASSESSMENT. TELE CONTINUES TO SHOW SR/ST WITH HR 90-110'S. BP STABLE. DENIES CHEST PAIN/PRESSURE. REMAINS ON ROOM AIR SATING ABOVE 95%. UP TO CHAIR FOR ALL MEALS. SPEECH THERAPY IN TO ASSESS PATIENT THIS AM. LR CONTINUES TO INFUSE 150 ML/HR. CALL LIGHT IN REACH. WILL CONTINUE TO MONITOR.
[2022-08-30 04:14] LABS: BASOPHILS ABSOLUTE AUTO 0.04 K/mm3 (0.00-0.23); BASOPHILS PERCENT AUTO 1 % (0-2); EOSINOPHILS ABSOLUTE AUTO 0.27 K/mm3 (0.00-0.68); EOSINOPHILS PERCENT AUTO 4 % (0-6); Hemoglobin 12.9 g/dL (13.5-17.5); IMMATURE GRAN ABSOLUTE AUTO 0.03 K/mm3 (0.00-0.10); IMMATURE GRAN PERCENT AUTO 0 % (0-1); LYMPHOCYTES ABSOLUTE AUTO 2.48 K/mm3 (0.84-5.20); LYMPHOCYTES PERCENT AUTO 37 % (21-46); MONOCYTES ABSOLUTE AUTO 1.11 K/mm3 (0.16-1.47); MONOCYTES PERCENT AUTO 17 % (4-13); Mean Corpuscular HGB 31.5 pg (26.0-34.0); Mean Corpuscular HGB Conc 34.9 g/dL (31.5-36.5); Mean Corpuscular Volume 90 fL (80-100); NEUTROPHILS ABSOLUTE AUTO 2.76 K/mm3 (1.96-9.15); NEUTROPHILS PERCENT AUTO 41 % (41-73); Platelet Count 258 K/mm3 (150-400); RDW Coefficient Variation 13.3 % (11.7-14.2); RDW Standard Deviation 43.8 fL (35.1-46.3); White Blood Cell Count 6.69 K/mm3 (4.00-11.30)
[2022-08-30 04:32] LABS: Magnesium, Blood 1.5 mg/dL (1.6-2.4)
[2022-08-30 04:35] LABS: Alanine Aminotransfer (ALT/SGP 96 U/L (12-78); Albumin, Blood 2.4 g/dL (3.4-5.0); Albumin/Globulin Ratio 0.7 (0.8-1.8); Alk Phos 68 U/L (50-136); Anion Gap 5 mmol/L (6-16); Aspartate Aminotrans (AST/SGOT 40 U/L (12-37); Bilirubin, Total <0.1 mg/dL (0.1-1.0); Blood Urea Nitrogen 15 mg/dL (8-24); Bun/Creatinine Ratio 21.7 (12.0-20.0); CO2, Blood 31 mmol/L (21-32); Calcium, Blood 8.8 mg/dL (8.5-10.1); Chloride, Blood 105 mmol/L (98-108); Creatinine, Blood 0.69 mg/dL (0.60-1.20); Globulin, Blood 3.6 g/dL (2.2-4.0); Glomerular Filtration Rate 101 (60-); Glucose, Blood 170 mg/dL (70-99); Potassium, Blood 4.1 mmol/L (3.5-5.5); Sodium, Blood 141 mmol/L (136-145)
--- NOTE | 2022-08-30 06:32 | NUR ---
SHIFT SUMMARY: A&OX3 WITH MOMENTS OF FORGETFULNESS. DENIES ANY SOB OR CHEST PAIN DURING SHFIT. O2 SAT > 92% ON RA. HR SR/ST IN THE LOW 100'S. VOIDING LARGE AMOUNTS OF CLEAR, YELLOW URINE IN URINAL WITHOUT DIFFICUTLY. IV FLUIDS INFUSING AT 150 ML/HR WIHTOUT DIFFICUTLY.
--- NOTE | 2022-08-30 11:09 | NUR ---
PT UPDATE MD IN ROOM THIS AM TO ASSESS PT. DECREASED LR FLUIDS FROM 150 MLS/HR TO TKO. ORDERED CHEST XRAY. XRAY IN ROOM. SHORTLY AFTER XRAY LEFT, SPEECH THERAPY IN ROOM TO EVALUATE. PT CURRENTLY SLEEPING IN ROOM, C/O HE DID NOT SLEEP LAST NIGHT.
--- NOTE | 2022-08-30 16:43 | NUR ---
SHIFT SUMMARY PT ALERT, FORGETFUL. SP02>90% ON RA. VSS. PT USED URINAL TO VOID. UP TO BSC TO HAVE BM. TURNS SELF IN BED. EATS MEALS VERY QUICKLY, COUGHED A FEW TIMES AFTER EATING RICE. REMINDED TO SLOW DOWN. PT C/O OF STOMACH PAIN AFTER EAT. PT STATES, "I ATE TOO MUCH TOO FAST." LR RUNNING TKO. PT WORKED W/ SPEECH THERAPY, XRAY, SEE PREVIOUS NOTE. PT RESTING IN ROOM. CALL LIGHT IN REACH. BED ALARM ON.
--- NOTE | 2022-08-30 19:57 | NUR ---
ASSUMPTION OF CARE THIS RN ASSUMED CARE OF PATIENT AT 1900. REPORT TAKEN FROM ANNA ZAPATA. PATIENT'S VITALS STABLE. PATIENT ALERT AND ORIENTED FULLY AND APPEARS TO UNDERSTAND PLAN OF CARE FOR DISCHARGE PLANNING. PATIENT ABLE TO REPOSITION SELF IN BED AND MAKE NEEDS KNOWN. USING URINAL INDEPENDENTLY. CALLING STAFF APPROPRIATELY. ASKING FOR SNACKS OFTEN. PATIENT WITH C/O BLE PAIN; MEDICATING PER EMAR. C/O PRODUCTIVE COUGH; MEDICATING PER EMAR. BED IN LOWEST POSITION AND CALL LIGHT WITHIN REACH. THIS RN WILL REVIEW CHART AND CONTINUE TO MONITOR AND PROVIDE INTERVENTIONS NEEDED/ORDERED.
[2022-08-31 04:23] LABS: Hematocrit 42.3 % (37.0-53.0); Hemoglobin 14.2 g/dL (13.5-17.5)
--- NOTE | 2022-08-31 04:28 | NUR ---
SHIFT SUMMARY NO ACUTE CHANGES OVERNIGHT. PATIENT WITH C/O 10/10 PAIN EARLIER YESTERDAY EVENING; MEDICATED WITH TORADOL WITH GOOD RESULTS, PATIENT WAS ABLE TO SLEEP MOST OF THE NIGHT. PATIENT VERBALIZED THAT IT HELPED HIS BLE PAIN. VSS. PATIENT USING URINAL INDEPENDENTLY. ABLE TO MAKE NEEDS KNOWN AND CALLING STAFF APPROPRIATELY. PATIENT CONTINUES TO ANSWER QUESTIONS APPROPRIATELY THROUGHOUT THIS SHIFT BUT DOES SEEM TO BE FORGETFUL AT TIMES. LR INFUSING TKO. BED IN LOWEST POSITION, CALL LIGHT WITHIN REACH, AND BED ALARM ON. THIS RN WILL CONTINUE TO MONITOR AND PROVIDE INTERVENTIONS NEEDED/ORDERED UNTIL SHIFT CHANGE AT 0700.
[2022-08-31 04:43] LABS: Albumin, Blood 2.5 g/dL (3.4-5.0); Albumin/Globulin Ratio 0.7 (0.8-1.8); Bilirubin, Total 0.3 mg/dL (0.1-1.0); Bun/Creatinine Ratio 34.3 (12.0-20.0); Creatinine, Blood 0.82 mg/dL (0.60-1.20); Globulin, Blood 3.7 g/dL (2.2-4.0); Potassium, Blood 4.4 mmol/L (3.5-5.5); Total Protein, Blood 6.2 g/dL (6.4-8.2)
--- NOTE | 2022-08-31 17:13 | NUR ---
SHIFT SUMMARY PT IS ALERT AND ORIENTED X 4, HE ANSWERS QUESTIONS APPROPRIATELY AND HAS BEEN ABLE TO MAKE HIS NEEDS KNOWN AND USE HIS CALL LIGHT APPROPRIATELY. VSS. SPO2 MAINTAINED 97% VIA ROOM AIR. HE REPORTED BILATERAL LEG PAIN 10/10, AFTER MEDICATION ADMINISTRATION (SEE EMAR), PT APPEARED TO BE SLEEPING COMFORTABLY. DRY COUGH NOTED IN BEGINNING OF SHIFT, SEE EMAR. HE HAS DENIED FEELINGS OF CHEST PAIN/PRESSURE. PT HAS BEEN UP TO CHAIR FOR MEALS AND HAS USED BEDSIDE COMMODE A SBA. BED AND CHAIR ALARM HAVE BEEN USED T/O SHIFT TO MAINTAIN PT SAFETY DUE TO DIAGNOSIS OF ETOH WELL HX OF DEMENTIA. PT HAS REPORTED THAT HE "FEELS DEPRESSED" DURING SHIFT. HE HAS EXPRESSED CONCERNS REGARDING DISCHARGE AND FEAR THAT HE WILL CONTINUE DRINKING. HE STATED THAT THIS MONDAY [facility]ONEY WILL BE DEPOSITED INTO HIS ACCOUNT AND HE FEARS THAT IF HE IS DISCHARGED W/OUT BEING IN A FACILITY THAT HOLDS HIM ACCOUNTABLE SUCH A SNF, THAT HE WILL START DRINKING AGAIN. THIS NURSE RELAYED THAT PER COSTUMER ASSISTANT NOTES, THE PLAN IS TO FIND SNF PLACEMENT SO THAT HE CAN REHABILITATE SAFELY AND W/ STAFF THAT WILL CONTINUE TO MONITOR HIM. NO ACUTE CHANGES NOTED. PT IS NOW IN CHAIR W/ CHAIR ALARM ON FOR DINNER. WILL CONTINUE TO MONITOR UNITL REPORT GIVEN. CALL LIGHT IS IN REACH.
--- NOTE | 2022-08-31 20:53 | NUR ---
ASSUMPTION OF CARE THIS RN ASSUMED CARE OF PATIENT AT 1900. REPORT TAKEN FROM LOVE ZAPATA. VSS. PATIENT IS ALERT AND ORIENTED X4, ANSWERING ALL QUESTIONS APPROPRIATELY. PATIENT WITH C/O 10/10 LEG PAIN; MEDICATED WITH PER EMAR. PATIENT WITH COARSE/CRACKLES HEARD THROUGHOUT LUNG LOBES, PATIENT ENCOURAGED TO DEEP BREATHE AND COUGH OUT SECRETIONS. ABLE TO MAKE NEEDS KNOWN AND CALLING STAFF APPROPRIATELY. LR INFUSING TKO. PATIENT USING URINAL INDEPENDENTLY. BED IN LOWEST POSITION AND CALL LIGHT WITHIN REACH. THIS RN WILL REVIEW CHART AND CONTINUE TO MONITOR AND PROVIDE INTERVENTIONS NEEDED/ORDERED.
[2022-09-01 04:06] LABS: BASOPHILS ABSOLUTE AUTO 0.08 K/mm3 (0.00-0.23); BASOPHILS PERCENT AUTO 1 % (0-2); EOSINOPHILS ABSOLUTE AUTO 0.18 K/mm3 (0.00-0.68); EOSINOPHILS PERCENT AUTO 2 % (0-6); Hematocrit 39.3 % (37.0-53.0); Hemoglobin 13.4 g/dL (13.5-17.5); IMMATURE GRAN ABSOLUTE AUTO 0.09 K/mm3 (0.00-0.10); IMMATURE GRAN PERCENT AUTO 1 % (0-1); LYMPHOCYTES ABSOLUTE AUTO 3.12 K/mm3 (0.84-5.20); LYMPHOCYTES PERCENT AUTO 36 % (21-46); MONOCYTES ABSOLUTE AUTO 1.68 K/mm3 (0.16-1.47); MONOCYTES PERCENT AUTO 19 % (4-13); Mean Corpuscular HGB Conc 34.1 g/dL (31.5-36.5); Mean Corpuscular Volume 91 fL (80-100); Mean Platelet Volume 8.7 fL (9.1-12.4); NEUTROPHILS ABSOLUTE AUTO 3.64 K/mm3 (1.96-9.15); NEUTROPHILS PERCENT AUTO 42 % (41-73); NRBC ABSOLUTE 0.02 K/mm3 (0.00-0.02); NRBC Auto 0.2 /100 WBC (0.0-0.2); Platelet Count 425 K/mm3 (150-400); RDW Coefficient Variation 13.4 % (11.7-14.2); RDW Standard Deviation 45.3 fL (35.1-46.3); Red Blood Cell Count 4.32 M/mm3 (4.30-5.90); White Blood Cell Count 8.79 K/mm3 (4.00-11.30)
[2022-09-01 04:32] LABS: Albumin, Blood 2.4 g/dL (3.4-5.0); Albumin/Globulin Ratio 0.7 (0.8-1.8); Bilirubin, Total 0.1 mg/dL (0.1-1.0); Bun/Creatinine Ratio 36.9 (12.0-20.0); Calcium, Blood 8.8 mg/dL (8.5-10.1); Creatinine, Blood 0.81 mg/dL (0.60-1.20); Globulin, Blood 3.6 g/dL (2.2-4.0); Magnesium, Blood 1.7 mg/dL (1.6-2.4); Potassium, Blood 3.9 mmol/L (3.5-5.5)
--- NOTE | 2022-09-01 05:01 | NUR ---
SHIFT SUMMARY NO ACUTE CHANGES DURING THIS SHIFT. VSS. PATIENT ALERT AND ORIENTED FULLY AND RESPONDED TO ALL QUESTIONS APPROPRIATELY THROUGHOUT THE SHIFT. THE PATIENT REPORTED FEELING SAD DURING THIS SHIFT AND STATED TO THIS RN, "I WILL NEVER BE HAPPY AND I AM TIRED OF BEING ALONE, I WISH I HAD SOMEONE IN LIFE WHO LOVED ME AND TO SLEEP NEXT TO AT NIGHT". THIS RN RESPONDED AND ATTEMPTED TO ASK THE PATIENT WHY HE FELT THAT WHY BUT THE PATIENT TURNED OVER AND TOLD THIS RN THAT HE WAS GOING TO SLEEP AND DID NOT WANT TO TALK ABOUT IT. PATIENT HAD PREVIOUSLY SPOKE ABOUT ANXIETY REGARDING PLACEMENT INTO A SNF AND HOW HE HOPES THAT WE CAN GET HIM IN BEFORE HE IS DISCHARGED DUE TO HIM FEELING LIKE HE WILL START DRINKING UPON DISCHARGE. THIS RN PROVIDED REASSURANCE TO PATIENT THROUGHOUT THE SHIFT. PATIENT APPEARS TO BE SLEEPING AT THIS TIME. BED IN LOWEST POSITION, BED ALARM ON, AND CALL LIGHT WITHIN REACH. THIS RN WILL CONTINUE TO MONITOR AND PROVIDE INTERVENTIONS NEEDED/ORDERED UNTIL SHIFT CHANGE AT 0700.
[2022-09-01 09:16] LABS: SARS-Cov-2 (COVID-19) PCR, MMC NEGATIVE (NEGATIVE)
[2022-09-01] MEDS ORDERED: Acetaminophen650 M1 PO (09:47)
[2022-09-01] MEDS ORDERED: ALBU90OI INH (09:48)
[2022-09-01] MEDS ORDERED: DULO30 PO (09:48)
[2022-09-01] MEDS ORDERED: GABA300 PO ×2 (09:48→09:49)
[2022-09-01] MEDS ORDERED: KETO10 PO (09:49)
[2022-09-01] MEDS ORDERED: NICO21TP TOP (09:50)
[2022-09-01] MEDS ORDERED: CLARAVIS PO (09:50)
[2022-09-01] MEDS ORDERED: MELATONIN5 M1 PO (09:50)
[2022-09-01] MEDS ORDERED: B-1100 M1 PO (09:51)
[2022-09-01] MEDS ORDERED: PANT40 PO (09:51)
[2022-09-01] MEDS ORDERED: DULO60 PO (09:53)
--- NOTE | 2022-09-01 15:58 | NUR ---
REPORT TO NURSE AT [facility] WHO WILL ASSUME PT
== END 2022-09-01 16:00 | DRG 897 ==
LOC: ER 12:43 → MEDS 15:16 → PCU 18:05
PROVIDERS: Emergency Medicine; Family Medicine; Nurse Practitioner Acute Care; ADMIT Internal Medicine
DX: F10.231 Alcohol dependence with withdrawal delirium (principal); E46 Unspecified protein-calorie malnutrition; R65.10 Systemic inflammatory response syndrome (SIRS) of non-infectious origin without acute organ dysfunction; G62.1 Alcoholic polyneuropathy; F10.288 Alcohol dependence with other alcohol-induced disorder; K80.20 Calculus of gallbladder without cholecystitis without obstruction; K20.90 Esophagitis, unspecified without bleeding; K76.0 Fatty (change of) liver, not elsewhere classified; R94.31 Abnormal electrocardiogram [ECG] [EKG]; D69.6 Thrombocytopenia, unspecified; L29.9 Pruritus, unspecified; G30.9 Alzheimer's disease, unspecified; F02.80 Dementia in other diseases classified elsewhere, unspecified severity, without behavioral disturbance, psychotic disturbance, mood disturbance, and anxiety; M54.9 Dorsalgia, unspecified; M79.671 Pain in right foot; M79.672 Pain in left foot; J44.9 Chronic obstructive pulmonary disease, unspecified; F17.210 Nicotine dependence, cigarettes, uncomplicated; F32.A Depression, unspecified; E83.42 Hypomagnesemia; I10 Essential (primary) hypertension; R74.01 Elevation of levels of liver transaminase levels; Z20.822 Contact with and (suspected) exposure to COVID-19; Z23 Encounter for immunization; Z86.19 Personal history of other infectious and parasitic diseases; Z87.81 Personal history of (healed) traumatic fracture; Z87.2 Personal history of diseases of the skin and subcutaneous tissue; Z98.890 Other specified postprocedural states; Z68.25 Body mass index [BMI] 25.0-25.9, adult
CPT/HCPCS: 36415; 71045; 74177; 80048; 80053; 80074; 80076; 82140; 82150; 82550; 83690; 83735; 84443; 84484; 85014; 85018; 85025; 85027; 85610; 87389; 90686; 92526; 92610; 93005; 93010; 94640; 94664; 94760; 96361; 96365; 96366; 96372; 96375; 97110; 97116; 97162; 97530; 99285-25; A9270; C9113; G0008; G0378; G0480; J1650; J1885; J2060; J3475; J7030; J7120; Q9967; U0004

== ENCOUNTER 2023-05-13 21:33 | Inpatient (IN) | payer OTHER ==
[~2023-05-13] VITALS: Ht 177.8 cm; Wt 68.1 kg
[~2023-05-13 21:33] MED LIST changes: +ALBU90OI INH; +Acetaminophen650 M1 PO; +CLARAVIS PO; +DULO30 PO; +DULO60 PO; +KETO10 PO; +PANT40 PO
[2023-05-14] VITALS (53 sets, daily range): BP systolic 124–185; BP diastolic 88–123
[2023-05-14 00:17] LABS: BASOPHILS ABSOLUTE AUTO 0.04 K/mm3 (0.00-0.23); BASOPHILS PERCENT AUTO 1 % (0-2); EOSINOPHILS PERCENT AUTO 1 % (0-6); Hematocrit 48.9 % (37.0-53.0); Hemoglobin 17.7 g/dL (13.5-17.5); IMMATURE GRAN ABSOLUTE AUTO 0.01 K/mm3 (0.00-0.10); IMMATURE GRAN PERCENT AUTO 0 % (0-1); LYMPHOCYTES ABSOLUTE AUTO 2.55 K/mm3 (0.84-5.20); LYMPHOCYTES PERCENT AUTO 31 % (21-46); MONOCYTES ABSOLUTE AUTO 0.45 K/mm3 (0.16-1.47); MONOCYTES PERCENT AUTO 6 % (4-13); Mean Corpuscular HGB 31.4 pg (26.0-34.0); Mean Corpuscular HGB Conc 36.2 g/dL (31.5-36.5); Mean Corpuscular Volume 87 fL (80-100); Mean Platelet Volume 10.3 fL (9.1-12.4); NEUTROPHILS PERCENT AUTO 61 % (41-73); Platelet Count 152 K/mm3 (150-400); RDW Standard Deviation 41.3 fL (35.1-46.3); Red Blood Cell Count 5.64 M/mm3 (4.30-5.90); White Blood Cell Count 8.15 K/mm3 (4.00-11.30)
[2023-05-14 00:38] LABS: U Amphetamine Screen Not Detected; U Barbituate Screen Not Detected; U Benzodiazapine Screen Not Detected; U Buprenorphine Screen Not Detected; U Cannabinoids Screen Not Detected; U Cocaine Screen Not Detected; U Methadone Screen Not Detected; U Methamphetamine Screen Not Detected; U Opiates Screen Not Detected; U Oxycodone Screen Not Detected; U Phencyclidine Screen Not Detected; U Propoxyphene Screen Not Detected
[2023-05-14 00:44] LABS: Ethanol (Alcohol), Blood, Med 294 mg/dL; Salicylate 2.2 mg/dL (2.8-20.0); Thyroid Stimulating Hormone 0.863 uIU/mL (0.360-4.800)
[2023-05-14 00:47] LABS: Alanine Aminotransfer (ALT/SGP 129 U/L (12-78); Albumin, Blood 3.8 g/dL (3.4-5.0); Albumin/Globulin Ratio 0.9 (0.8-1.8); Alk Phos 110 U/L (50-136); Anion Gap 9 mmol/L (6-16); Aspartate Aminotrans (AST/SGOT 109 U/L (12-37); Bilirubin, Total 0.5 mg/dL (0.1-1.0); Blood Urea Nitrogen 8 mg/dL (8-24); Bun/Creatinine Ratio 11.1 (12.0-20.0); CO2, Blood 27 mmol/L (21-32); Chloride, Blood 106 mmol/L (98-108); Creatinine, Blood 0.72 mg/dL (0.60-1.20); Globulin, Blood 4.1 g/dL (2.2-4.0); Glomerular Filtration Rate 99 (60-); Glucose, Blood 105 mg/dL (70-99); Potassium, Blood 4.2 mmol/L (3.5-5.5); Sodium, Blood 142 mmol/L (136-145); Total Protein, Blood 7.9 g/dL (6.4-8.2)
[2023-05-14 00:51] LABS: Acetaminophen, Random <2.0 ug/mL (10.0-30.0)
--- NOTE | 2023-05-14 12:40 | NUR ---
ADMIT PT ARRIVED TO ICU 2 AT 1055. PT SLEEPING, BUT WAKES TO VOICE. SPEECH IS MUMBLED AND SLURRED, BUT ABLE TO DECIPHER SOME OF WHAT HE SAYS. PT MOVED TO ICU BED. IV FLUIDS STARTED. MEDICATED FOR CIWAA. PT GIVEN BED BATH PT'S FEET WERE BLACK BETWEEN THE TOES AND PT HAD GRASS IN HIS HAIR. PT HAS BEEN COOPERATIVE, SITTER AT BEDSIDE. CONTINUING TO MONIOR.
--- NOTE | 2023-05-14 17:17 | NUR ---
SHIFT SUMMARY PT HAS BEEN SLEEPING IN BED SINCE ADMIT. HE WAKES TO VOICE AND IS COOPERATIVE WHEN AWAKE, BUT QUICKLY FALLS BACK ASLEEP. HIS CIWAA HAS BEEN 7-10. LUNGS ARE CLEAR, RA. SINUS TACH AND HYPERTENSIVE, BUT BETTER WITH PRECEDEX INFUSING. VOIDS USING URINAL. TURNING SELF INDEPENDENTLY IN BED. CONTINUING TO MONITOR.
--- NOTE | 2023-05-14 20:39 | NUR ---
PATIENT RESTING IN BED AWAKENS TO SLIGHT VERBAL STIMULI. UNSURE OF DATE AND WHERE HE IS. STATES "I DON'T KNOW" PATIENT VERBALIZED THAT HE DOES NOT FEEL LIKE HURTING HIS SELF. "I JUST WANT TO FEEL BETTER." EXPLAINED THAT HE IS ON A SUICIDE WATCH AT THIS TIME AND THAT HE WILL HAVE A PERSON WATCHING HIM AT HIS BEDSIDE T/O THE NIGHT TONIGHT. PATIENT VERBALIZED UNDERSTANDING. REQUESTING WATER TO DRINK. [place] PO WATER WITHOUT DIFFICULTY. PATIENT INCONT OF URINE DURING BEDSIDE REPORT. PRECEDEX 0.2 INFUSING. PATIENT CONTINUES TO BE IMPULSIVE AND SPONTANEOUS, ASSISTED WITH URINAL.
[2023-05-15] VITALS (50 sets, daily range): BP systolic 101–164; BP diastolic 69–113
[2023-05-15 03:29] LABS: Hematocrit 45.1 % (37.0-53.0); Hemoglobin 16.3 g/dL (13.5-17.5); Mean Corpuscular HGB 31.3 pg (26.0-34.0); Mean Corpuscular HGB Conc 36.1 g/dL (31.5-36.5); Mean Corpuscular Volume 87 fL (80-100); Mean Platelet Volume 10.2 fL (9.1-12.4); Platelet Count 128 K/mm3 (150-400); RDW Coefficient Variation 12.5 % (11.7-14.2); RDW Standard Deviation 39.8 fL (35.1-46.3); Red Blood Cell Count 5.21 M/mm3 (4.30-5.90); White Blood Cell Count 6.61 K/mm3 (4.00-11.30)
[2023-05-15 03:45] LABS: Albumin/Globulin Ratio 0.8 (0.8-1.8); Bun/Creatinine Ratio 19.1 (12.0-20.0); Calcium, Blood 8.2 mg/dL (8.5-10.1); Creatinine, Blood 0.58 mg/dL (0.60-1.20); Globulin, Blood 3.7 g/dL (2.2-4.0); Potassium, Blood 3.9 mmol/L (3.5-5.5); Total Protein, Blood 6.7 g/dL (6.4-8.2)
--- NOTE | 2023-05-15 06:29 | NUR ---
SUMMARY PATIENT SLEEPING OFF AND ON T/O NIGHT. WHEN RESTLESS USUALLY BETTER AFTER VOIDING. INCONT OF URINE TWICE DURING THE NIGHT, ATTENDS IN PLACE. PATIENT WAKING UP THIS MORNING WITH N/V WITH DRY HEAVES, SPITING ON FLOOR DESPITE BEING GIVEN EMESIS BAG. "WHY ARE YOU GUYS NOT HELPING ME" "LAST TIME I WAS HERE YOU GAVE ME SOMETHING THAT MADE ME FEEL BETTER" WHEN ASKED WHERE WE ARE AT THIS POINT "HELL IF I KNOW" ATIVAN GIVEN. PRECEDEX 0.2 MCG CONTINUES. PATIENT NOW RESTING QUIETLY, NO FURTHER NAUSEA.
--- NOTE | 2023-05-15 07:15 | NUR ---
CARE ASSUMPTION DURING BEDSIDE SHIFT REPORT Ed Ward RN THE PT IS LYING ASLEEP IN BED ON RM AIR. PT AROUSES TO MY VOICE AND IS SPEAKING TO US APPROPRIATELY. PT IS VERY TREMULOUS AND ANXIOUS WHEN AWAKE. MONITOR SHOWING SR 90'S. PT HAS PRECEDEX RUNNING AT 0.2MCG/KG/HR. PT DENYING ANY NAUSEA AT THIS TIME. PT'S EYES ARE VERY BLOOD-SHOT AND HE APPEARS VERY ILL. PT DENIES ANY FURTHER NEEDS AT THIS TIME.
--- NOTE | 2023-05-15 16:40 | NUR ---
DAYSHIFT SUMMARY THE PT HAS REMAINED ALERT AND ORIENTED THIS SHIFT DESPITE MODERATE TO SEVERE ALCOHOL WITHDRAWL SYMPTOMS. CIWA'S HAVE REMAINED 10-14 THIS SHIFT REQUIRING Q2H ATIVAN AND MULTIPLE DOSES OF LIBRIUM, PRECEDEX TURNED OFF MID AM PER DR. MAN REQUEST AND THE PT IS TOLERATING THAT WELL. NO SEIZURE LIKE ACTIVITY THIS SHIFT. BP HAS REMAINED ELEVATED W SBP IN THE 140'S, PROVIDER AWARE. PT'S MONITOR SHOWING SR/ST 90'S-100'S. PT HAS BEEN CALM AND VERY COOPERATIVE W CARE THIS SHIFT. PT HAS EATEN MOST OF HIS MEALS THIS SHIFT. PT DENYING ANY SUICIDAL IDEATION THIS SHIFT STATING, "I JUST WANT TO WHEN I AM WITHDRAWLING FROM ALCOHOL BUT I DO NOT WANT TO KILL MYSELF". PT HAS BEEN INCONTINENT OF URINE THIS SHIFT. PT MADE PCU STATUS THIS SHIFT AND WILL BE TRANSFERED BEFORE THE END OF THE SHIFT. PT STILL HAS 1 ON [address] MAS IN ROOM W THE PT AT THIS TIME. WILL GIVE REPORT TO RECIEVING BURLAP SPREADER.
--- NOTE | 2023-05-15 18:03 | NUR ---
Pt transfered to room at approx 1729, no acute changes noted. Will continue to monitor.
[2023-05-16] VITALS (67 sets, daily range): BP systolic 85–158; BP diastolic 62–126
--- NOTE | 2023-05-16 05:27 | NUR ---
SHIFT SUMMARY PATIENT ALERT, ORIENTED TO SELF ONLY. PATIENT VERY TREMULOUS. AGITATED AT TIMES, PULLING OUT MULTIPLE IVs AND PULLING AT TELE LINES. MEDICATED PER EMAR FOR CIWAs. CIWA MAX 22 OVERNIGHT. 1:1 SITTER AT BEDSIDE DURING THE SHIFT. PATIENT REPORTING SOME SUICIDAL IDEATION, DENIES CURRENT PLAN OR PLAN IF HE WERE AT HOME. PATIENT HYPERTENSIVE AND TACHYCARDIC DURING THE NIGHT, REMAINED ON RA WITH O2 SAT >90%. INCONTINENT OF BLADDER, MULTIPLE LINEN CHANGES AND PARTIAL BED BATHS PERFORMED OVERNIGHT. TURNING SELF IN BED INDEPENDENTLY. TOLERATING PO. NO OTHER CHANGES, WILL REPORT TO DAY SHIFT RN. PATIENT HAS BEEN REQUESTING CIGARETTES DURING THE NIGHT. NICOTINE PATCHES ORDERED FOR PATIENT. NO IGNITION SOURCES IN ROOM. WILL CONTINUE TO MONITOR FOR INCREASED RISK PATIENT IS UNABLE TO UNDERSTAND EDUCATION D/T WITHDRAWAL.
--- NOTE | 2023-05-16 06:49 | NUR ---
ASSUMPTION OF CARE THIS RN ASSUMED CARE OF PT AT 0530. REPORT FROM CAR REPOSSESSOR SEBLE. PT IN ROOM, AGITATED. PT YELLING AND DEMANDING ALCOHOL AND CIGARETTES. THIS RN CALLED HOSPITALIST FOR NICOTINE PATCH. PATCH PLACED. PT BECAME INCREASINGLY MORE AGITATED AND TRYING TO LEAVE ROOM. PT COMBATIVE BUT NOT HITTING ANY STAFF. PT UNABLE TO RECIEVE MEDICATIONS PER [facility] PROTOCOL D/T REACHING MAX DOSE. TRACKWALKER CALLED HOSPITALIST, NEW ORDERS FOR TRANSFER TO ICU. REFUSING TO WEAR WAREHOUSE PRICING AND INVENTORY CLERK AND WEAR GOWN. PT TRANSFERRED TO ICU WITH BELONGINGS. PT YELLING AND SPITTING ON THE WAY, PT ALSO VOIDED ON HIMSELF DURING TRANSFER. BEDSIDE REPORT GIVEN TO CADENCE ZAPATA.
--- NOTE | 2023-05-16 06:59 | NUR ---
PT ARRIVED FROM PCU TO ICU 14. PT IS YELLING AND THRASHING, TALKING NONSENSE AND VERY DIFFICULT TO REDIRECT. HE IS CONFUSED, SPITTING AND PULLING AT HIS MONITOR WIRES/CORDS, BLOOD PRESSURE CUFF, ETC. HE WAS MEDICATED PER EMAR W/ATIVAN AND HAS CALMED BEHAVIOR SOMEWHAT. HE HAS A 1:1 SITTER FOR SI. HE IS SR ON THE LAN ANALYST, BP WNL. OXYGEN SAT 98% AT THIS TIME. HE SHUKLA AND HAS A DIFFUSE RASH ALL OVER HIS BODY.
--- NOTE | 2023-05-16 07:36 | NUR ---
CARE ASSUMPTION DURING BEDSIDE SHIFT REPORT WITH CADENCE ZAPATA THE PT IS LYING IN BED ASLEEP ON RM AIR. PT RECIEVED 4MG OF ATIVAN JUST PRIOR TO SHIFT CHANGE. PT'S MONITOR SHOWING SR 80'S. BP WNL ANDSTABLE. PT HAS SITTER AT THE DOOR FOR HIGH SI RISK.
--- NOTE | 2023-05-16 17:45 | NUR ---
DAY SHIFT SUMMARY PT BEGAN THE SHIFT SLEEPING AFTER RECIEVING 4MG ATIVAN ON ARRIVAL TO ICU AT THE END OF NET FINISHER. THE PT WOKE UP FOR BREAKFAST AND WAS ABLE TO EAT BREAKFAST INDEPENDENTLY. PT'S CIWA'S REMAIN IN THE TEENS WHEN AWAKE W PEAK CIWA AT 17 THIS SHIFT. PT RECEIVED TOTAL OF 10MG ATIVAN SINCE RETURNING TO ICU AND 150MG OF LIBRIUM. PT STARTED ON PRECEDEX THIS SHIFT AND REMAINS ON PRECEDEX 0.2 MCG/KG/HR. PT'S SPO2 >92% ON RM AIR. BP WNL AND STABLE. MONITOR SHOWING SR/ST 90'S-100'S. PT HAS BEEN INCONTINENT OF URINE THIS SHIFT SO A CONDOM CATH WAS PLACED ON HIM TO PROTECT HIS SKIN WHICH IS VERY EXCORIATED ON HIS HIPS AND GROIN. PT TURNED T/O THE SHIFT BUT TENDS TO TURN SELF IN BED USUALLY ROLLING ONTO HIS LEFT SIDE. WILL REPORT TO ONCOMING RN.
--- NOTE | 2023-05-16 22:58 | NUR ---
ASSUMPTION OF CARE/ASSESSMENT: ASSUMED CARE OF PT AT 1900. PT CURRENTLY IN BED AND SLEEPING; AROUSES BRIEFLY TO VERBAL STIMILI BUT GOES RIGHT BACK TO SLEEP. PT ON PRECEDEX GTT @ 0.2 MCG/KG/HR AND PRN ATIVAN PER EMAR. PT CURRENTLY ON RA WITH SPO2 98< AND LUNG SOUNDS CLEAR THROUGHOUT. PT SR ON MONITOR WITH HR 80'S AND SBP 100-110. HYPOACTIVE BOWEL SOUNDS IN ALL QUADRANTS, WHEN ASKED IF PT NAUSEOUS PT RESPONDS "YES." PT TOLERATING PO INTAKE AT THIS TIME. PT HAS CONDOM CATH IN PLACE THAT IS DRAININING TO GRAVITY; DARK YELLOW URINE OUTPUT. PT HAS RASH TO GROIN, HIPS AND ABD; CREAM APPLIED PER EMAR. PT HAS SCATTERED BRUISING AND ABRASIONS NOTED. BED LOWERED, CALL LIGHT IN REACH, AND 1:1 SITTER IN DOORWAY. PT WOKE UP AROUND 2230 AND NEURO EVAL COMPLETED; PT CURRENTLY A&O X 2. PT ACCURRATELY STATING NAME/ AND THE HE IS AT [facility] BUT CANNOT ANSWER OTHER QUESTIONS AT THIS TIME. PT FOLLOWING COMMANDS AND BEING COOPERATIVE WITH CARE. WHEN ASKED IF PT HAD CURRENT THOUGHTS OF KILLING HIMSELF HE STATED "NO." PT BACK TO SLEEP QUICKLY AFTER ASSESSMENT.
[2023-05-17] VITALS (37 sets, daily range): BP systolic 64–125; BP diastolic 36–96
--- NOTE | 2023-05-17 06:31 | NUR ---
SHIFT SUMMARY: NO ACUTE CHANGES OVERNIGHT. PT SLEPT FOR MAJORITY OF THE NIGHT. WHEN PT AWAKE ENOUGH TO ANSWER QUESTIONS PT A&O X 2 AND DENIES ANY THOUGHTS OF KILLING HIMSELF. PT HAD 1:1 SITTER IN DOORWAY FOR ENTIRE SHIFT. CONDOM CATH REPLACED THIS SHIFT; ONLY 200 ML URINE OUTPUT THIS SHIFT. PT CONTINUES ON PRECEDEX GTT @ 0.3 MCG/KG/HR AND RECIEVED 4 MG ATIVAN AND 25 MG LIBRIUM TOTAL THIS SHIFT. PT HAD SOME SOFT FOOD EARLY THIS MORNING AND THEN WENT BACK TO SLEEP. PT FOLLOWING SIMPLE DIRECTIONS. BED LOWERED, CALL LIGHT IN REACH.
--- NOTE | 2023-05-17 08:49 | NUR ---
ASSUMED CARE REPORT FROM TABATHA ZAPATA AT 0700. PT LAYING IN BED. WAKES c PAINFUL STIMULI, GRUNTS, YELLS "FOOD", RETURNS TO SLEEP WHEN UNDISTURBED. RESPONSES TO NAME. DOES NOT ANSWER QUESTIONS OR FOLLOW COMMANDS. LUNGS DIM. SR, RATE 70-80'S. BP STABLE. 1:1 SITTER AT BEDSIDE FOR SI RISK. ROOM MITIGATION COMPLETE. PRECEDEX PLACED ON STANDBY, PLAN TO TRANSITION TO LIBRIUM AND ATIVAN IF TOLERATES. WILL CONTINUE TO MONITOR.
--- NOTE | 2023-05-17 17:43 | NUR ---
SHIFT SUMMARY PT MENTATION IMPROVED THIS SHIFT. A&OX 2, KNOWS SELF AND LOCATION, OCCASIONALLY KNOWS YEAR. FOLLOWS COMMANDS. ABLE TO MAKE NEEDS KNOWN. OCCASIONALLY IRRITABLE c CARE OR PROTOCOLS. CIWA 5-8 THIS SHIFT. MEDICATED c LIBRIUM. PRECEDEX OFF SINCE THIS AM. MIDDLEKAUF ROUNDED, SI CHANGED TO LOW RISK. DENIES SI/HI. SITTER RELEASED. ON CAMERA OBSERVATION. PT REDIRECTABLE. SPEECH EVAL'D SWALLOW, PUREE DIET, FEEDER. OCCASIONAL COUGH BUT PT HAS STRONG COUGH. PLAN FOR COGNITIVE EVAL TOMORROW. VSS. WILL CONTINUE TO MONITOR UNTIL REPORT TO ONCOMING NURSE.
--- NOTE | 2023-05-17 23:08 | NUR ---
ASUMPTION OF CARE/ASSESSMENT: ASSUMED CARE OF PT AT 1900. PT IN BED, A&O X 2 AND IS FOLLOWING DIRECTIONS. PT DECLINES ANY CURRENT THOUGHTS OF KILLING HIMSELF. PT NOT ABLE TO RECALL WHY HE IS IN THE HOSPITAL; PT EDUCATED REGARDING 2 MD HOLD AND REASONING FOR 1:1 SITTER. PT CURRENTLY ON RA WITH SPO2 96< AND LUNG SOUNDS CLEAR THROUGHOUT; PT HAS DRY COUGH THAT IS NON-PRODUCTIVE. PT SR-ST WITH HR 90-100'S, SBP 120-130'S. PT DENIES CHEST PAIN OR SOB AT THIS TIME. PT CURRENTLY ON PUREE DIET AND CONSTANTLY CALLING OUT FOR FOOD AND THAT HE IS STARVING. PT GIVEN DINNER TRAY, FOUR PUDDINGS AND TWO ENSURES. PT ABLE TO FEED SELF, OBSERVED TO BE SHAKEY AT TIMES. HYPERACTIVE BOWEL SOUNDS IN ALL QUADRANTS; ATTENDS IN PLACE AND NO BM THIS SHIFT. PT USING URINAL WITH ASSIST AND HAS BEEN CONTINENT. PT HAS SCATTERED BRUSING/SCABS AND HAS A RASH TO HIS HIPS, GROIN AND LOWER ABD THAT IS BEING TREATED. RAC PIC THAT IS SALINE LOCKED. PT CIWA <5. BED LOWERED, CALL LIGHT IN REACH, 1:1 SITTER IN DOORWAY.
[2023-05-18] VITALS: BP 141/102
--- NOTE | 2023-05-18 06:04 | NUR ---
SHIFT SUMMARY: NO ACUTE CHANGES OVERNIGHT; VSS THROUGHOUT THE SHIFT. AROUND 0100 PT STARTED TO BECOME AGGITATED AND HITTING HIMSELF IN THE FACE AND ABD; PT MEDICATED WITH PRN ATIVAN, LIBRIUM AND SYPREXA. PT SETTLED AROUND 0400 AND HAS BEEN SLEEING SINCE. 1:1 SITTER IN DOORWAY FOR ENTIRE NIGHT. PT REMAINS CONTINENT AND CALLED FOR ASSISTANCE WITH URINAL; ATTENDS REMAINS IN PLACE AND NO BM THIS SHIFT. BED LOWERED, CALL LIGHT IN REACH.
[2023-05-18 08:51] VITALS: BP 145/104
--- NOTE | 2023-05-18 10:54 | NUR ---
CARE OF PT ASSUMED AT 0700. PT SLEEPING, AWAKENS TO VOICE. PT YELLS OUT/ GRUMBLES WITH SOME CARE. PT INCONTINENT OF URINE. BEDBATH COMPLETED, LINEN CHANGED. NEW ATTENDS PLACED ON PT. PT STATES HE IS IN THE [place] WHEN ASKED WHERE HE IS AT. [place] AL[place] AND THAT THE YEAR WAS 1978. PT HAS MILD AGITATION BUT IS REDIRECTABLE. PT DENIES SI. CIWA 10 FOR TREMORS, MILD AGITATION, AND SOME CONFUSION. PT ANGRY/YELLS OUT ABOUT "THAT PUREE DIET IS BABY FOOD FOR BABIES, AND IM 69 AND HAVENT YET FROM CHOKING ON FOOD". SPEECH NOTIFIED AND WILL RE-EVALUATE PT TODAY. OT PERFORMED COGNITIVE ASSESSMENT, PT SCORED 20/30. PT NOW ABLE TO STATE WHERE HE IS AND APPEARS LESS CONFUSED OVERALL. DR MAY INCREASED PT'S SEROQUEL DOSE. PT HAS 1:1 SITTER.
[2023-05-18 11:53] VITALS: BP 123/94
[2023-05-18 12:00] VITALS: BP 126/78
--- NOTE | 2023-05-18 16:51 | NUR ---
PT 2 PERSON SBA TO WHEELCHAIR W GAIT BELT, PT HAD BEEN 1 PERSON ASSIST EARLIER IN DAY. REPORT GIVEN TO [facility] FLOOR RN. PT TRANSFERED UP BY 1:1 SITTER/FURNITURE INSTALLER IN STABLE CONDITION.
--- NOTE | 2023-05-18 17:07 | NUR ---
Received pt from ICU at 1640 awake and alert x3. Gen weakness noted. Resp even nonlabored on RA. Oriented to room and call light. Bed locked in lowest positio. Low SI sitter at bedside. No c/o verbalized at this time. Pt resting comfortably. Will continue to monitor.
[2023-05-18 19:51] VITALS: BP 123/78
--- NOTE | 2023-05-19 01:58 | NUR ---
PATIENT TEARFUL EARLY IN SHIFT. 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 WHEN SUICIDE IDEATION WAS DISCUSSED, REINA STATED "NO MORE THAT ANYONE ELSE WOULD IN THE SAME SITUATION". HE DID FERVENTLY DENY HAVING THOUGHT ABOUT A PLAN. LATER IN THE NIGHT, REINA BRIEFLY GOT AGGRESSIVE, SHOUTING AT THIS RN AND THE SITTER. CIWA WENT FROM 6-9. THEN BACK DOWN BELOW 6 AFTER RECEIVING IV ATIVAN AND TYLENOL FOR BILATERAL FOOT PAIN. TREMORS VERY EVIDENT IN HIS HANDS, BUT THESE ARE BENIGN TREMORS AT HIS BASELINE.
[2023-05-19 07:21] VITALS: BP 120/74
[2023-05-19 14:49] VITALS: BP 138/85
--- NOTE | 2023-05-19 15:40 | NUR ---
SHIFT SUMMMARY Pt remains A&O x3, forgetful at times. VSS. Denies suicidal ideation. 1:1 sitter at bedside. Per El at pre comittment hold [phone], pt involuntary hold is up at [address] Donis aware. Pt up in recliner resting comfortably. Appetite good with in btwn snacks. Pain and safety maintained. Will continue to monitor.
[2023-05-19 19:35] VITALS: BP 132/89
[2023-05-20 04:26] VITALS: BP 116/78
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
[2023-05-20 07:21] VITALS: BP 136/87
[2023-05-20 11:12] LABS: BASOPHILS ABSOLUTE AUTO 0.02 K/mm3 (0.00-0.23); BASOPHILS PERCENT AUTO 0 % (0-2); EOSINOPHILS ABSOLUTE AUTO 0.14 K/mm3 (0.00-0.68); EOSINOPHILS PERCENT AUTO 2 % (0-6); Hematocrit 43.1 % (37.0-53.0); IMMATURE GRAN ABSOLUTE AUTO 0.03 K/mm3 (0.00-0.10); IMMATURE GRAN PERCENT AUTO 0 % (0-1); LYMPHOCYTES PERCENT AUTO 26 % (21-46); MONOCYTES ABSOLUTE AUTO 1.19 K/mm3 (0.16-1.47); MONOCYTES PERCENT AUTO 15 % (4-13); Mean Corpuscular HGB 31.6 pg (26.0-34.0); Mean Corpuscular HGB Conc 34.8 g/dL (31.5-36.5); Mean Corpuscular Volume 91 fL (80-100); Mean Platelet Volume 9.7 fL (9.1-12.4); NEUTROPHILS ABSOLUTE AUTO 4.68 K/mm3 (1.96-9.15); NEUTROPHILS PERCENT AUTO 57 % (41-73); Platelet Count 193 K/mm3 (150-400); RDW Coefficient Variation 13.2 % (11.7-14.2); RDW Standard Deviation 43.9 fL (35.1-46.3); Red Blood Cell Count 4.75 M/mm3 (4.30-5.90); White Blood Cell Count 8.16 K/mm3 (4.00-11.30)
[2023-05-20 11:33] LABS: Albumin, Blood 3.1 g/dL (3.4-5.0); Albumin/Globulin Ratio 0.9 (0.8-1.8); Bilirubin, Total 0.2 mg/dL (0.1-1.0); Bun/Creatinine Ratio 28.3 (12.0-20.0); Calcium, Blood 8.8 mg/dL (8.5-10.1); Creatinine, Blood 0.78 mg/dL (0.60-1.20); Globulin, Blood 3.4 g/dL (2.2-4.0); Potassium, Blood 4.1 mmol/L (3.5-5.5); Total Protein, Blood 6.5 g/dL (6.4-8.2)
[2023-05-20 13:29] VITALS: BP 147/90
[2023-05-20 16:59] VITALS: BP 132/96
--- NOTE | 2023-05-20 18:49 | NUR ---
PT HAD AN EPISODE OF CHOKING, COUGHING AND EMESIS TODAY DURING LUNCH. EZRA HAS NO TEETH BUT WAS SENT A HAMBURGER, HAMBURGER BUN, AND CARROTS. DR. CRUZ ORDERED A CHEST XRAY TO R/O ASPIRATION AND IT WAS CLEAR. AFTER LUNCH, RUTHY WAS ACTING MORE LETHARGIC AND C/O PAIN IN HIS STOMACH AND FEELING BAD. RUTHY IS ON CONTINUOUS BIOX, WHICH REMAINED ABOVE 92%. HE IS USING URINAL WITH STAFF ASSSITANCE. ROOM AIR.
[2023-05-20 20:07] VITALS: BP 163/93
[2023-05-21 02:03] VITALS: BP 140/92
--- NOTE | 2023-05-21 05:05 | NUR ---
REINA HAD A MUCH BETTER NIGHT LAST NIGHT. IBUPROPHEN, GABAPENTIN AND SEROQUEL HAD HIM MUCH MORE COMFORTABLE. HE DID EXCALATE INTO AGITATION WHEN HE WOKE HUNGRY AND COULDN'T EAT CRACKERS OR DRINK FLUIDS WITHOUT SUPERVISION. HE WAS GIVEN 5MG IM ZYPREXA WELL A MIX OF CRACKERS, YOGURT AND CHOCOLATE ENSURE. THIS SATISFIED HIS CRAVINGS AND ALLOWED HIM TO RELAX AND SLEEP THROUGH THE NIGHT. OF CONCERN, PATIENT COULD POSSIBLY BENEFIT FROM ANOTHER UA. HIS URINE IS VERY ODOROUS
[2023-05-21 07:51] VITALS: BP 129/90
[2023-05-21 15:10] VITALS: BP 147/89
--- NOTE | 2023-05-21 18:06 | NUR ---
SHIFT SUMMARY PT AxOx4 WITH OCCASIONAL FORGETFULNESS/CONFUSION. PT REPORTS FEELING A LOT BETTER TODAY. PT DENIES ANY THOUGHTS OF SUICIDE THIS SHIFT. PT WAS ABLE TO GET UP IN CHAIR WITH 2 MAX ASSIST, FWW/GB. PT IS PHYSICALLY DECONDITIONED WITH UNSTEADY GAIT. PT REPORTED PAIN IN BLE. MEDICATED PER EMAR. PT EXPRESSED FRUSTRATION THAT HE IS ONLY GETTING IBUPROFEN FOR PAIN, STATING "IT DOESN'T DO ANYTHING." PT CURRENTLY STILL HAS 1:1 SITTER. NO BEHAVIORAL DISTURBANCES OR VERBAL AGGRESSION NOTED FROM PT THIS SHIFT. VITALS REVIEWED. PT WAS EDUCATED ON FIRE RISK AND SAFETY THIS SHIFT WITH A VERBALIZED UNDERSTANDING. PT IS CURRENTLY SITTING UP IN BED EATING DINNER. CALL LIGHT IN REACH.
[2023-05-21 20:44] VITALS: BP 163/92
--- NOTE | 2023-05-22 04:09 | NUR ---
PATIENT CALM AT THE BGINNING OF SHIFT, AWAKE AND TALKING TO STAFF. NIGHT MEDICATIONS GIVEN AND PATIENT WAS ABLE TO SLEEP FOR AND HOUR OR SO. WOKE UP AGITATED AND COULDN'T GET COMFORTABLE TRYING TO CRAWL OUT OF BED. IM ZYPREXA GIVEN AND PATIENT CALMED DOWN AND SLEPT WELL THE REST OF THE NIGHT. 1:1 SITTER AT BEDSIDE FOR PATIENT SAFETY. NO NEW CONCERNS THIS SHIFT.
[2023-05-22 05:01] VITALS: BP 166/102
[2023-05-22 05:54] LABS: Albumin, Blood 2.9 g/dL (3.4-5.0); Albumin/Globulin Ratio 0.7 (0.8-1.8); Bilirubin, Total 0.2 mg/dL (0.1-1.0); Bun/Creatinine Ratio 25.9 (12.0-20.0); Calcium, Blood 8.9 mg/dL (8.5-10.1); Creatinine, Blood 0.77 mg/dL (0.60-1.20); Potassium, Blood 4.1 mmol/L (3.5-5.5); Total Protein, Blood 6.9 g/dL (6.4-8.2)
[2023-05-22 06:39] LABS: BASOPHILS ABSOLUTE AUTO 0.03 K/mm3 (0.00-0.23); BASOPHILS PERCENT AUTO 0 % (0-2); EOSINOPHILS ABSOLUTE AUTO 0.13 K/mm3 (0.00-0.68); EOSINOPHILS PERCENT AUTO 1 % (0-6); Hematocrit 44.4 % (37.0-53.0); Hemoglobin 15.1 g/dL (13.5-17.5); IMMATURE GRAN ABSOLUTE AUTO 0.05 K/mm3 (0.00-0.10); IMMATURE GRAN PERCENT AUTO 1 % (0-1); LYMPHOCYTES ABSOLUTE AUTO 1.74 K/mm3 (0.84-5.20); LYMPHOCYTES PERCENT AUTO 17 % (21-46); MONOCYTES ABSOLUTE AUTO 1.71 K/mm3 (0.16-1.47); MONOCYTES PERCENT AUTO 17 % (4-13); Mean Corpuscular HGB 30.9 pg (26.0-34.0); Mean Corpuscular Volume 91 fL (80-100); Mean Platelet Volume 9.8 fL (9.1-12.4); NEUTROPHILS ABSOLUTE AUTO 6.39 K/mm3 (1.96-9.15); NEUTROPHILS PERCENT AUTO 64 % (41-73); Platelet Count 241 K/mm3 (150-400); RDW Coefficient Variation 13.2 % (11.7-14.2); Red Blood Cell Count 4.88 M/mm3 (4.30-5.90); White Blood Cell Count 10.05 K/mm3 (4.00-11.30)
[2023-05-22 15:49] VITALS: BP 142/82
--- NOTE | 2023-05-22 16:15 | NUR ---
SHIFT SUMMARY PT AxOx4 WITH INTERM FORGETFULNESS/CONFUSION. PT WAS COOPERATIVE WITH CARE THIS SHIFT. PT WAS IRRITABLE THIS AM REGARDING LACK OF PAIN MANAGEMENT. PAIN MEDS WERE ADJUSTED SHORTLY AFTER WITH IMPROVED PAIN COVERAGE PER PATIENT. PHYSICAL AND OCCUPATIONAL THERAPY IN THIS SHIFT FOR TX. SPEECH THERAPY ALSO IN FOR EVAL AND UPDATED SWALLOW PRECAUTIONS. PT IS GETTING UP IN CHAIR FOR ALL MEALS. PT HAD A SHOWER TODAY. PT IS ABLE TO GET UP WITH 1-2 ASSIST, FWW AND GB. PT DENIES SI THIS SHIFT. 1:1 SITTER DISMISSED AT APPROX 11:30AM. PT HAS NOT HAD ANY COMBATIVE BEHAVIOR THIS SHIFT. PT DID REPORT HAVING SOME VISUAL DISTURBANCES T/O THE DAY. PT IS CURRENTLY RESTING IN BED WITH CALL LIGHT IN REACH. DENIES ANY NEEDS AT THIS TIME.
[2023-05-23 04:52] VITALS: BP 90/60
[2023-05-23 04:55] VITALS: BP 95/59
--- NOTE | 2023-05-23 05:31 | NUR ---
SHIFT SUMMARY PATIENT MEDICATED X1 FOR PAIN, AND X1 FOR ANXIETY. PATIENT ALSO GIVEN KPAD FOR CHRONIC BACK PAIN. ROOM AIR. UP 1-2 ASSIST DEPENDING ON LEVEL OF CONSCIOUSNESS. CONFUSED/FORGETFUL AT TIMES BUT ANSWERS QUESTIONS APPROPRIATELY. COOPERATIVE WITH CARE.
[2023-05-23 07:58] VITALS: BP 91/64
[2023-05-23 14:59] VITALS: BP 107/66
[2023-05-23 15:51] LABS: Hematocrit 37.2 % (37.0-53.0); Hemoglobin 12.9 g/dL (13.5-17.5); Mean Corpuscular HGB 31.3 pg (26.0-34.0); Mean Corpuscular HGB Conc 34.7 g/dL (31.5-36.5); Mean Corpuscular Volume 90 fL (80-100); Mean Platelet Volume 9.5 fL (9.1-12.4); Platelet Count 266 K/mm3 (150-400); RDW Coefficient Variation 13.6 % (11.7-14.2); RDW Standard Deviation 45.1 fL (35.1-46.3); Red Blood Cell Count 4.12 M/mm3 (4.30-5.90); White Blood Cell Count 16.54 K/mm3 (4.00-11.30)
--- NOTE | 2023-05-23 16:02 | NUR ---
DAYSHIFT SUMMARY Patient alert x oriented 2-3, hard to understand at times. Patient very sleepy this AM, more awake this afternoon. BPs low, 95/59 then 91/64, MD ordered IV fluids 200mL/hr x2 bags. BP improved after fluids. Temp 99 this AM, this afternoon PO temp spiked to 101 then 102. Ibuprofen given for fever (Patient refused to take tylenol). MD assessed patient at bedside, ordered labs & chest x-ray. Patient reporting muscle aches, skin warm to the touch. Will continue plan of care.
[2023-05-23 16:06] LABS: Albumin, Blood 2.6 g/dL (3.4-5.0); Albumin/Globulin Ratio 0.7 (0.8-1.8); Bilirubin, Total 0.3 mg/dL (0.1-1.0); Bun/Creatinine Ratio 26.9 (12.0-20.0); Calcium, Blood 8.6 mg/dL (8.5-10.1); Creatinine, Blood 0.93 mg/dL (0.60-1.20); Globulin, Blood 3.5 g/dL (2.2-4.0); Potassium, Blood 4.2 mmol/L (3.5-5.5); Total Protein, Blood 6.1 g/dL (6.4-8.2)
[2023-05-23 16:14] LABS: BAND PERCENT MAN 4 % (0-8); BASOPHILS PERCENT MAN 0 % (0-2); EOSINOPHILS PERCENT MAN 0 % (0-6); LYMPHOCYTES ABSOLUTE MAN 0.82 K/mm3 (0.84-5.20); LYMPHOCYTES PERCENT MAN 5 % (21-46); MONOCYTES ABSOLUTE MAN 2.31 K/mm3 (0.16-1.47); MONOCYTES PERCENT MAN 14 % (4-13); NEUTROPHILS ABSOLUTE MAN 13.39 K/mm3 (1.96-9.15); SEG NEUTROPHILS PERCENT MAN 77 % (41-73); TOTAL CELLS COUNTED 100
[2023-05-23 16:43] VITALS: BP 85/58
[2023-05-23 19:15] LABS: Source, Urine Clean Catch
[2023-05-23 19:21] LABS: Appearance, Urine Cloudy (Clear); Bilirubin, Urine Neg (Neg); Blood, Urine 4+ (Neg); Color, Urine Amber (P-Yellow); Glucose Qualitative, Urine 1+ (Neg); Ketones, Urine Neg (Neg); Leukocyte Esterase, Urine 3+ (Neg); Nitrite, Urine Pos (Neg); Protein, Urine 2+ (Neg); Urobilinogen, Urine NORM (Normal)
[2023-05-23 19:38] LABS: Bacteria Many /hpf; Hyaline Casts 0-2 /lpf (0-2); Squamous Epithelial Cells Rare /hpf (Few); Transitional Epithelial Cells Rare /hpf (0-Rare); White Blood Cells, Urine 50-100 /hpf (0-5)
[2023-05-23 20:40] VITALS: BP 180/93
[2023-05-24] VITALS (8 sets, daily range): BP systolic 80–152; BP diastolic 61–109
--- NOTE | 2023-05-24 03:44 | NUR ---
PT END OF SUMMARY NOTE PT COMPLIANT WITH CARE PROVIDED. PT BECAME ANXIOUS AND REQUESTED SOMETHING TO HELP CALM HIM DOWN. PRN PO SEROQUEL GIVEN AND EFFECTIVE. PRN IBUPROFEN GIVEN FOR GENERALIZED SORE/ACHINESS AND FOR FEVER. PT'S TEMP WAS 103. PT SLEPT WELL THE REST OF THE NIGHT. PT ABLE TO MAKE NEEDS KNOWN, CALL LIGHT WITHIN REACH, WCTM.
[2023-05-24 05:16] LABS: BASOPHILS ABSOLUTE AUTO 0.07 K/mm3 (0.00-0.23); BASOPHILS PERCENT AUTO 0 % (0-2); Hematocrit 36.7 % (37.0-53.0); Hemoglobin 12.7 g/dL (13.5-17.5); LYMPHOCYTES ABSOLUTE AUTO 1.55 K/mm3 (0.84-5.20); LYMPHOCYTES PERCENT AUTO 8 % (21-46); MONOCYTES ABSOLUTE AUTO 3.71 K/mm3 (0.16-1.47); MONOCYTES PERCENT AUTO 20 % (4-13); Mean Corpuscular HGB 31.4 pg (26.0-34.0); Mean Corpuscular HGB Conc 34.6 g/dL (31.5-36.5); Mean Corpuscular Volume 91 fL (80-100); Mean Platelet Volume 9.5 fL (9.1-12.4); Platelet Count 273 K/mm3 (150-400); RDW Coefficient Variation 13.4 % (11.7-14.2); RDW Standard Deviation 44.5 fL (35.1-46.3); Red Blood Cell Count 4.04 M/mm3 (4.30-5.90); White Blood Cell Count 18.45 K/mm3 (4.00-11.30)
[2023-05-24 05:19] LABS: EOSINOPHILS ABSOLUTE AUTO 0.02 K/mm3 (0.00-0.68); EOSINOPHILS PERCENT AUTO 0 % (0-6); IMMATURE GRAN ABSOLUTE AUTO 0.16 K/mm3 (0.00-0.10); IMMATURE GRAN PERCENT AUTO 1 % (0-1); NEUTROPHILS ABSOLUTE AUTO 12.94 K/mm3 (1.96-9.15); NEUTROPHILS PERCENT AUTO 70 % (41-73)
[2023-05-24 05:49] LABS: Albumin, Blood 2.2 g/dL (3.4-5.0); Albumin/Globulin Ratio 0.6 (0.8-1.8); Bilirubin, Total 0.2 mg/dL (0.1-1.0); Bun/Creatinine Ratio 26.7 (12.0-20.0); Calcium, Blood 8.7 mg/dL (8.5-10.1); Creatinine, Blood 0.94 mg/dL (0.60-1.20); Globulin, Blood 3.5 g/dL (2.2-4.0); Potassium, Blood 4.5 mmol/L (3.5-5.5); Total Protein, Blood 5.7 g/dL (6.4-8.2)
--- NOTE | 2023-05-24 17:25 | NUR ---
DAYSHIFT SUMMARY Patient very sleepy this morning, incontinent of urine, BP 80/61. MD at bedside, conducted assessment & instructed RN to adminster fluid bolus, and check orthostatic VS. Patient afebrile, finally awake at noon. Orthos done & charted. Patient OOB in recliner for the remainder of the day. Worked with physical therapy today. Patient very anxious about requesting a new SS card, seroquel 25mg PRN given for anxiety/distress. PRN effective w/o causing sedation. Continues to have tremors bilateral hands. IV Rocephin adminsitred. Sputum culture collected & results pending. Productive cough, thick white/shaw colored. Lungs clear, wheezy. Infrequent cough. Will continue plan of care, awaiting discharge planning.
--- NOTE | 2023-05-24 21:05 | NUR ---
PT TRANSFERED UP FROM PCU ON 05/19 TO THE MEDICAL FLOOR IN ROOM 346. NO TRANSFER ORDER WAS ENTERED. UPDATED [facility] ORDER ON 05/24.
[2023-05-25 04:53] VITALS: BP 112/73
--- NOTE | 2023-05-25 05:10 | NUR ---
SHIFT SUMMARY PT IS A&04, MILD CONFUSION, 1 ASSIST WITH GB AND FWW, RA, VSS, PRN PAIN MEDICATION GIVEN FOR BACK PAIN, TREMORS AT BASELINE, NO ACUTE OVERNIGHT EVENTS, CONTINUE POC
[2023-05-25 07:27] LABS: BASOPHILS ABSOLUTE AUTO 0.04 K/mm3 (0.00-0.23); BASOPHILS PERCENT AUTO 1 % (0-2); EOSINOPHILS PERCENT AUTO 2 % (0-6); IMMATURE GRAN ABSOLUTE AUTO 0.07 K/mm3 (0.00-0.10); IMMATURE GRAN PERCENT AUTO 1 % (0-1); LYMPHOCYTES ABSOLUTE AUTO 1.65 K/mm3 (0.84-5.20); LYMPHOCYTES PERCENT AUTO 19 % (21-46); MONOCYTES ABSOLUTE AUTO 1.25 K/mm3 (0.16-1.47); MONOCYTES PERCENT AUTO 15 % (4-13); Mean Corpuscular HGB 31.5 pg (26.0-34.0); Mean Corpuscular HGB Conc 34.2 g/dL (31.5-36.5); Mean Corpuscular Volume 92 fL (80-100); Mean Platelet Volume 9.4 fL (9.1-12.4); NEUTROPHILS PERCENT AUTO 62 % (41-73); Platelet Count 274 K/mm3 (150-400); RDW Coefficient Variation 13.7 % (11.7-14.2); RDW Standard Deviation 46.8 fL (35.1-46.3); Red Blood Cell Count 4.13 M/mm3 (4.30-5.90); White Blood Cell Count 8.51 K/mm3 (4.00-11.30)
[2023-05-25 07:48] LABS: Bun/Creatinine Ratio 25.3 (12.0-20.0); Calcium, Blood 8.8 mg/dL (8.5-10.1); Creatinine, Blood 0.75 mg/dL (0.60-1.20); Potassium, Blood 4.2 mmol/L (3.5-5.5)
[2023-05-25 08:25] VITALS: BP 123/80
[2023-05-25 16:46] VITALS: BP 158/92
--- NOTE | 2023-05-25 19:14 | NUR ---
SHIFT SUMMARY: PT A&O X3. PT PLEASANT MOST OF SHIFT BUT STARTED TO BECOME IRRITABLE LAST COUPLE HOURS OF SHIFT BLAMING N/V ON "NEW MEDICATIONS." EXPLAINED TO PT THAT THE PAIN MEDICATION HE RECEIVED IN AM WOULD HAVE MADE HIM SICK SEVERAL HOURS PRIOR AND THAT HE HAS BEEN TAKING GABAPENTIN FOR NEUROPATHY SINCE 05/22. PT DID NOT WANT TO LISTEN AND CONTINUED TO BLAME STAFF FOR PAIN AND N/V. PT UP IN CHAIR FOR ALL MEALS. NS INFUSING @100/HR. IV ABX GIVEN W/O COMPLICATIONS. PT WORKED WITH PT TODAY AND ABLE TO WALK INTO HALLWAY. CALL LIGHT IN REACH. CHAIR ALARM ON. REPORT GIVEN TO ONCOMING RN.
[2023-05-25 19:31] VITALS: BP 170/99
[2023-05-26 03:26] VITALS: BP 159/92
--- NOTE | 2023-05-26 06:15 | NUR ---
PT IS A&O3, MILD CONFUSION AT NIGHT, RA, VSS, PT SLEPT WELL OVERNIGHT, PRN PAIN MEDICATON GIVEN X1 PER MAR FOR BACK PAIN, NO ACUTE OVERNIGHT EVENTS CONTINUE POC
[2023-05-26 07:12] VITALS: BP 156/101
[2023-05-26 15:19] VITALS: BP 170/98
--- NOTE | 2023-05-26 17:10 | NUR ---
SHIFT SUMMARY: PT A&O X3. PT MOSTLY PLEASANT THIS SHIFT. PT SLIGHTLY IRRITABLE REGARDING LIVING SITUATION. SPUTUM CULTURE POSITIVE FOR MRSA. DROPLET PRECAUTIONS IN PLACE. NS CONTINUING TO INFUSE @125/HR. PT WORKED WITH PT/OT THIS SHIFT TOLERATING WELL. PT COMPLAINING OF PAIN IN BACK/FEET/LEGS OF 10/10 PAIN. TORADOL GIVEN PER EMAR. PT STATED HE DID NOT HAVE ANY PAIN WITH REASSESSMENT. CALL LIGHT IN REACH. BED IN LOWEST POSITION. WILL CONTINUE TO MONITOR.
[2023-05-26 19:49] VITALS: BP 160/96
--- NOTE | 2023-05-27 05:04 | NUR ---
SHIFT SUMMARY- PT HAS NO ACUTE CHANGES T/O THE NIGHT. C/O PAIN AT THE START OF SHIFT, MEDICATED WITH IV TORADOL, PT STATED HE FELT MUCH BETTER AFTER THAT. IVF STILL INFUSING AT 125ML/HR. PER MD NOTE PT MEDICALLY STABLE, DISCHARGE PENDING INSURANCE AUTH TO [facility]. BP'S SLIGHTLY ELEVATED. PT HAS SLEPT WELL T/O THE NIGHT, WAKING FOR LAB DRAW MINUTES AGO. PT CONTINENT OF BOWEL AND BLADDER USES THE URINAL AT THE BEDSIDE. PT IN BED, CALL LIGHT IN REACH, HE USES IT. MECH SOFT DIET. PT LIKES SNACKS, LOTS OF SNACKS.
[2023-05-27 05:15] VITALS: BP 145/91
[2023-05-27 05:50] LABS: BASOPHILS ABSOLUTE AUTO 0.09 K/mm3 (0.00-0.23); BASOPHILS PERCENT AUTO 2 % (0-2); EOSINOPHILS ABSOLUTE AUTO 0.18 K/mm3 (0.00-0.68); EOSINOPHILS PERCENT AUTO 3 % (0-6); Hemoglobin 13.4 g/dL (13.5-17.5); IMMATURE GRAN ABSOLUTE AUTO 0.15 K/mm3 (0.00-0.10); IMMATURE GRAN PERCENT AUTO 3 % (0-1); LYMPHOCYTES ABSOLUTE AUTO 1.97 K/mm3 (0.84-5.20); LYMPHOCYTES PERCENT AUTO 35 % (21-46); MONOCYTES ABSOLUTE AUTO 1.24 K/mm3 (0.16-1.47); MONOCYTES PERCENT AUTO 22 % (4-13); Mean Corpuscular HGB 31.2 pg (26.0-34.0); Mean Corpuscular HGB Conc 34.4 g/dL (31.5-36.5); Mean Corpuscular Volume 91 fL (80-100); Mean Platelet Volume 9.2 fL (9.1-12.4); NEUTROPHILS ABSOLUTE AUTO 2.02 K/mm3 (1.96-9.15); NEUTROPHILS PERCENT AUTO 36 % (41-73); Platelet Count 345 K/mm3 (150-400); RDW Coefficient Variation 13.6 % (11.7-14.2); Red Blood Cell Count 4.29 M/mm3 (4.30-5.90); White Blood Cell Count 5.65 K/mm3 (4.00-11.30)
[2023-05-27 06:13] LABS: Albumin, Blood 2.3 g/dL (3.4-5.0); Albumin/Globulin Ratio 0.6 (0.8-1.8); Bilirubin, Total 0.1 mg/dL (0.1-1.0); Bun/Creatinine Ratio 24.9 (12.0-20.0); Calcium, Blood 9.1 mg/dL (8.5-10.1); Creatinine, Blood 0.76 mg/dL (0.60-1.20); Globulin, Blood 4.1 g/dL (2.2-4.0); Potassium, Blood 4.3 mmol/L (3.5-5.5); Total Protein, Blood 6.4 g/dL (6.4-8.2)
[2023-05-27 07:21] VITALS: BP 140/98
[2023-05-27 15:49] VITALS: BP 170/101
--- NOTE | 2023-05-27 16:32 | NUR ---
THIS AFTERNOON, BP WAS 170/101, HR 91. THIS AUTHOR REPEATED BP, 175/100, HR 96. REPORTED THIS TO DR. TREVIÑO BY PHONE, AWAITING ORDERS.
[2023-05-27 17:47] VITALS: BP 163/97
--- NOTE | 2023-05-27 18:02 | NUR ---
SHIFT SUMMARY: NO ACUTE EVENTS. C/O PAIN IN BLE, REQUESTED PAIN MEDS IN ADDITION TO GABAPENTIN BUT LAUGHED OUT LOUD WHEN GIVEN TYLENOL BEFORE TORADOL. BREATH SOUNDS COARSE WITH EXP WHEEZES, STARTED ON BD PROTOCOL. FIRST DOSE OF NORVASC GIVEN, RE-CHECK WAS STILL ELEVATED AT 160/90'S. GETTING UP TO CHAIR FOR MEALS AND BR PRN; GAIT IS UNSTEADY AND TREMULOUS, IS USING FWW AND SBA. GOBBLES FOOD EVEN AFTER BEING TOLD REPEATEDLY TO SLOW DOWN AND TAKE SMALLER BITES.
[2023-05-27 20:17] VITALS: BP 159/115
--- NOTE | 2023-05-28 05:11 | NUR ---
SHIFT SUMMARY- PT ALERT AND ORIENTED X 3-4. HE WAS UP IN THE CHAIR UNTIL AROUND 2330 WHEN HE WAS SLEEPING, STAFF ASSISTED HIM BACK TO BED, 1PA. PT STATED AT THAT TIME "I'M STARVING TO ! I NEED A SNACK!" STAFF ATTEMPTED TO PROVIDE ONE, BUT THE PT WAS SOUNDLY ASLEEP BY THE TIME THEY RETURNED TO THE BEDSIDE. PT JUST WOKE FOR LABS. PT AWAKE AND SITTING UP IN BED, NO CURRENT S&S OF DISTRESS NOTED.
[2023-05-28 05:14] LABS: BASOPHILS ABSOLUTE AUTO 0.09 K/mm3 (0.00-0.23); BASOPHILS PERCENT AUTO 2 % (0-2); EOSINOPHILS ABSOLUTE AUTO 0.18 K/mm3 (0.00-0.68); EOSINOPHILS PERCENT AUTO 3 % (0-6); Hematocrit 41.7 % (37.0-53.0); Hemoglobin 14.4 g/dL (13.5-17.5); IMMATURE GRAN ABSOLUTE AUTO 0.16 K/mm3 (0.00-0.10); IMMATURE GRAN PERCENT AUTO 3 % (0-1); LYMPHOCYTES ABSOLUTE AUTO 2.26 K/mm3 (0.84-5.20); LYMPHOCYTES PERCENT AUTO 37 % (21-46); MONOCYTES ABSOLUTE AUTO 0.95 K/mm3 (0.16-1.47); MONOCYTES PERCENT AUTO 15 % (4-13); Mean Corpuscular HGB 31.2 pg (26.0-34.0); Mean Corpuscular HGB Conc 34.5 g/dL (31.5-36.5); Mean Corpuscular Volume 91 fL (80-100); Mean Platelet Volume 8.8 fL (9.1-12.4); NEUTROPHILS ABSOLUTE AUTO 2.55 K/mm3 (1.96-9.15); NEUTROPHILS PERCENT AUTO 41 % (41-73); Platelet Count 351 K/mm3 (150-400); RDW Standard Deviation 46.5 fL (35.1-46.3); Red Blood Cell Count 4.61 M/mm3 (4.30-5.90); White Blood Cell Count 6.19 K/mm3 (4.00-11.30)
[2023-05-28 05:29] VITALS: BP 130/85
[2023-05-28 05:55] LABS: Albumin, Blood 2.6 g/dL (3.4-5.0); Albumin/Globulin Ratio 0.6 (0.8-1.8); Bilirubin, Total 0.1 mg/dL (0.1-1.0); Bun/Creatinine Ratio 24.7 (12.0-20.0); Calcium, Blood 9.3 mg/dL (8.5-10.1); Creatinine, Blood 0.89 mg/dL (0.60-1.20); Globulin, Blood 4.1 g/dL (2.2-4.0); Potassium, Blood 4.5 mmol/L (3.5-5.5); Total Protein, Blood 6.7 g/dL (6.4-8.2)
[2023-05-28 07:36] VITALS: BP 111/72
--- NOTE | 2023-05-28 09:30 | NUR ---
THIS NURSE ASSUMED CARE OF PT AT 0700. PT RESTING QUIETLY IN BED. BED LOCKED, IN LOW POSITION, AND BED ALARM ENABLED.
--- NOTE | 2023-05-28 09:31 | NUR ---
PT COMPLAINS OF DIFFICULTY PASSING STOOL AND PRESENTS WITH A FIRM ABDOMEN. DR ABURTO NOTIFIED, BOWEL MEDICATIONS PRESCRIBED.
[2023-05-28 14:35] VITALS: BP 116/70
--- NOTE | 2023-05-28 17:50 | NUR ---
SHIFT SUMMARY PT UP IN CHAIR. PT AMBULATED WITH FWW AND I NURSE ASSIST TO THE BR, PASSED LARGE BM. RT ADMINISTERED PRN INHALER TREATMENTS NEEDED FOR SOB. PT EXPERIENCING TREMORS, PHYSICIAN NOTIFIED AND ATIVAN ORDERED.
--- NOTE | 2023-05-28 18:45 | NUR ---
PATIENT WITH TREMORS IN RUE, SLOWLY ESCALATING TO BUE, THEN BLE. PATIENT WAS SITTING UP IN RECLINER, SAYING "I SHOULD HAVE BEEN THERE FOR YOU" AND WAS ALMOST TEARFUL. VS: 175/102, 103, 95% ON ROOM AIR; WITH TREMULOUS ACTIVITY THESE READING WERE AFFECTED BY ARTIFACT. NEURO: PERRLA, TONGUE MIDLINE, HAND GRASP EQUAL, DENIES NUMBNESS AND TINGLING, BUT ENDORSED PAIN IN BLE BUT THIS COMPLAINT IS NOT NEW. CALLED DR. ABURTO TO REPORT THESE SYMPTOMS (LOOKED LIKE EARLY SEIZURE ACTIVITY); RECEIVED ORDER FOR ATIVAN 1 MG PO ONE TIME. GOT PATIENT BACK TO BED, REQUIRED 2 PERSON, GAIT BELT, AND FWW. ATIVAN ADMINISTERED AND PT APPEARS CALM AT THIS TIME. MOVEMENTS ALSO RESEMBLED TARDIVE DYSKENESIA. BED ALARM ON, CALL LIGHT AND BELONGINGS IN REACH.
[2023-05-28 19:50] VITALS: BP 193/82
[2023-05-28 20:39] VITALS: BP 138/94
--- NOTE | 2023-05-29 04:14 | NUR ---
SHIFT SUMMARY- PT ALERT AND ORIENTED x3-4 HE HAS HAD NO ACUTE CHANGE OVERNIGHT, PT HAS SLEPT WELL, BEING SOUNDLY ASLEEP ON ALL CARE ROUNDING. PT IS CURRNETLY IN BED SLEEPING NO S&S OF DISTRESS NOTED.
[2023-05-29 05:02] VITALS: BP 121/85
[2023-05-29 07:27] VITALS: BP 142/110
[2023-05-29 12:44] LABS: SARS-Cov-2 (COVID-19) PCR, MMC NEGATIVE (NEGATIVE)
[2023-05-29] MEDS ORDERED: ACET325 PO (14:34)
[2023-05-29] MEDS ORDERED: FOLI1 PO (14:35)
[2023-05-29] MEDS ORDERED: ALBU90OI INH (14:35)
[2023-05-29] MEDS ORDERED: SENN187 PO (14:35)
[2023-05-29] MEDS ORDERED: AMLO5 PO (14:35)
[2023-05-29] MEDS ORDERED: GABA300 PO (14:36)
[2023-05-29] MEDS ORDERED: NAPR500 PO (14:36)
[2023-05-29] MEDS ORDERED: Nicoderm Cq1 EAC1 TOP (14:37)
[2023-05-29] MEDS ORDERED: MICONAZOLE NITR85 GM TOP (14:37)
[2023-05-29] MEDS ORDERED: QUET25 PO (14:38)
[2023-05-29] MEDS ORDERED: B-1100 M1 PO (14:38)
[2023-05-29] MEDS ORDERED: QUET100 PO (14:38)
--- NOTE | 2023-05-29 15:39 | NUR ---
PT DISCHARGED FROM THE UNIT. IV REMOVED DISCHARGE INSTUCTIONS REVIEWED. REPORT CALLED TO LARIS[facility]. PT LEFT VIA WC WITH TRANSPORT
== END 2023-05-29 15:27 | DRG 896 ==
LOC: ER 21:33 → EOR 21:34 → ER 21:34 → EOR 21:34 → MEDS 05-14 09:42 → ICUE 05-14 09:42 → PCU 05-15 17:32 → ICUE 05-16 06:46 → MEDS 05-18 16:40
PROVIDERS: Emergency Medicine; Family Medicine; Internal Medicine; ADMIT Hospitalist
PROC: HZ2ZZZZ Detoxification Services for Substance Abuse Treatment (ICD-10-PCS; principal; 2023-05-14)
PROC: 3E03329 Introduction of Other Anti-infective into Peripheral Vein, Percutaneous Approach (ICD-10-PCS; 2023-05-14)
DX: F10.231 Alcohol dependence with withdrawal delirium (principal); A41.9 Sepsis, unspecified organism; J18.9 Pneumonia, unspecified organism; R45.851 Suicidal ideations; N39.0 Urinary tract infection, site not specified; F02.B11 Dementia in other diseases classified elsewhere, moderate, with agitation; R74.8 Abnormal levels of other serum enzymes; K80.20 Calculus of gallbladder without cholecystitis without obstruction; F32.A Depression, unspecified; K20.90 Esophagitis, unspecified without bleeding; I73.9 Peripheral vascular disease, unspecified; G62.1 Alcoholic polyneuropathy; K76.0 Fatty (change of) liver, not elsewhere classified; E83.51 Hypocalcemia; R29.6 Repeated falls; R94.31 Abnormal electrocardiogram [ECG] [EKG]; D69.6 Thrombocytopenia, unspecified; I10 Essential (primary) hypertension; E86.0 Dehydration; G30.9 Alzheimer's disease, unspecified; B96.1 Klebsiella pneumoniae [K. pneumoniae] as the cause of diseases classified elsewhere; Z20.822 Contact with and (suspected) exposure to COVID-19; B95.62 Methicillin resistant Staphylococcus aureus infection as the cause of diseases classified elsewhere; K70.10 Alcoholic hepatitis without ascites; F17.210 Nicotine dependence, cigarettes, uncomplicated; F10.229 Alcohol dependence with intoxication, unspecified; Z79.51 Long term (current) use of inhaled steroids; Z79.899 Other long term (current) drug therapy
CPT/HCPCS: 36415; 71046; 80048; 80053; 81001; 84443; 85025; 85027; 85651; 86140; 86592; 87040; 87070; 87077; 87086; 87147; 87186; 87205; 92526; 92610; 93922; 94640; 94664; 94760; 94762; 96361; 96374; 97110; 97112; 97116; 97129; 97162; 97166; 97530; 97535; 99285-25; A9270; G0480; J0696; J1650; J1885; J2060; J2405; J2560; J3411; J7030; J7050; J7120; U0002

== ENCOUNTER 2023-09-26 01:18 | Inpatient (IN) | payer OTHER ==
[~2023-09-26] VITALS: Ht 162.6 cm; Wt 67.5 kg
[2023-09-26] VITALS (25 sets, daily range): BP systolic 96–210; BP diastolic 43–113
[~2023-09-26 01:18] MED LIST changes: +AMLO5 PO; +MICONAZOLE NITR85 GM TOP; +QUET100 PO; +QUET25 PO; +SENN187 PO
[2023-09-26 01:49] LABS: Base Excess Venous 3.9 mmol/L; Bicarbonate Venous 25.3 mmol/L (24.0-30.0); pH Blood Venous 7.35 (7.34-7.37)
[2023-09-26 02:11] LABS: BASOPHILS ABSOLUTE AUTO 0.05 K/mm3 (0.00-0.23); BASOPHILS PERCENT AUTO 1 % (0-2); EOSINOPHILS ABSOLUTE AUTO 0.18 K/mm3 (0.00-0.68); EOSINOPHILS PERCENT AUTO 2 % (0-6); Hematocrit 51.8 % (37.0-53.0); Hemoglobin 18.3 g/dL (13.5-17.5); IMMATURE GRAN ABSOLUTE AUTO 0.01 K/mm3 (0.00-0.10); IMMATURE GRAN PERCENT AUTO 0 % (0-1); LYMPHOCYTES ABSOLUTE AUTO 3.54 K/mm3 (0.84-5.20); LYMPHOCYTES PERCENT AUTO 48 % (21-46); MONOCYTES ABSOLUTE AUTO 0.37 K/mm3 (0.16-1.47); MONOCYTES PERCENT AUTO 5 % (4-13); Mean Corpuscular HGB 30.7 pg (26.0-34.0); Mean Corpuscular HGB Conc 35.3 g/dL (31.5-36.5); Mean Corpuscular Volume 87 fL (80-100); Mean Platelet Volume 8.9 fL (9.1-12.4); NEUTROPHILS ABSOLUTE AUTO 3.28 K/mm3 (1.96-9.15); NEUTROPHILS PERCENT AUTO 44 % (41-73); Platelet Count 297 K/mm3 (150-400); RDW Coefficient Variation 12.6 % (11.7-14.2); RDW Standard Deviation 39.8 fL (35.1-46.3); Red Blood Cell Count 5.96 M/mm3 (4.30-5.90); White Blood Cell Count 7.43 K/mm3 (4.00-11.30)
[2023-09-26 02:19] LABS: Albumin, Blood 3.5 g/dL (3.4-5.0); Albumin/Globulin Ratio 0.7 (0.8-1.8); Bilirubin, Total 0.3 mg/dL (0.1-1.0); Bun/Creatinine Ratio 11.6 (12.0-20.0); Calcium, Blood 8.3 mg/dL (8.5-10.1); Creatinine, Blood 0.69 mg/dL (0.60-1.20); Globulin, Blood 4.8 g/dL (2.2-4.0); Magnesium, Blood 1.7 mg/dL (1.6-2.4); Potassium, Blood 4.3 mmol/L (3.5-5.5); Thyroid Stimulating Hormone 1.22 uIU/mL (0.360-4.800); Total Protein, Blood 8.3 g/dL (6.4-8.2)
--- NOTE | 2023-09-26 05:40 | NUR ---
ASSUMPTION OF CARE PT ARRIVED TO PCU VIA ER ARCELIA AT 0510, PT NOT RESPONSIVE AT THIS TIME, PT NOT OPENING EYES OR FOLLOWING COMMANDS. PT ON 3 LPM NC UPON ARRIVAL, SPO2 100%. PT RR 16, RESPIRATIONS SHALLOW. BLOOD PRESSURE; 155/89, HRR SINUS TACH AT 109, TEMP 97.4. PT HAS ODOR OF ALCOHOL. PT UNABLE TO PARTICIPATE IN ASSESSMENT, HOWEVER PT DOES NOT APPEAR TO BE IN CARDIAC DISTRESS. PT HAS REDDENED AREAS SCATTERED T/O ON ABS, KNEES, ARMS AND GROIN AREA. PT ALSO HAVE VARIOUS SCATTERED SCRATCHES ON HIS BODY. PICTURES TAKEN AND IN CHART. PT MADE COMFORTABLE. IVF PER EMAR. CALL LIGHT IN REACH AND BED ALARM ON. WILL UPDATE ONCOMING RN
[2023-09-26 05:58] LABS: Hematocrit 45.5 % (37.0-53.0); Hemoglobin 15.9 g/dL (13.5-17.5)
[2023-09-26 06:10] LABS: Bun/Creatinine Ratio 12.2 (12.0-20.0); Calcium, Blood 7.4 mg/dL (8.5-10.1); Creatinine, Blood 0.66 mg/dL (0.60-1.20)
--- NOTE | 2023-09-26 17:05 | NUR ---
SHIFT SUMMARY PT HAS BEEN OBTUNDED THE MAJORITY OF TODAY. WHEN HE WAKES HE IS ANXIOUS/AGGITATED/RESTLESS/ITCHY/PAINFUL. CIWA'S HAVE RANGED FROM 3-15, PT MEDICATED PER EMAR. CIWA'S PERFORMED EVER 4 HOURS AND MORE FREQUENTLY NEEDED. HE IS ABLE TO TELL ME HIS NAME AND DATE OF SOMETIMES WHEN HE WAKES UP HE KNOWS WHERE IS IS AND OTHERS HE DOES NOT. HE CONTINUES TO NOT KNOW WHY HE IS HERE AND THINKS IT'S THE YEAR 2023 ALREADY. PT HAS BEEN ON RA AND MAINTINING 02 SATURATION ABOVE 92%, HE DENIES SOB. HIS HR HAS BEEN ELEVATED ALL SHIFT, MD NOTIFIED. BP HAS BEEN ELEVATED, MD NOTIFIED, PT MEDICATED PER EMAR. PT DENIES CHEST PAIN/PRESSURE. CONDOM CATH WAS PLACED ON PT AT BEGINNING OF SHIFT AND YELLOW URINE IS FLOWING WITH GRAVITY. PT HAS RED RASH SCATTERED THROUGHOUT HIS BODY. IV TO L AND R AC PATENT/FLUSHED/SALINE LOCKED. PT'S SWALLOW EVALUATED AT BEGINNING OF SHIFT. WHEN PT IS AWAKE HE CAN SWALLOW WITHOUT DIFFICULTY, NO COUGHING AFTER SWALLOWING, LUNG SOUNDS CLEAR. PT CURRENTLY RESTING IN BED WITH LIGHTS AND TV OFF. UNLABORED AND EVEN RISE AND FALL OF CHEST, RR 16, 02 SATURATION 97%. CALL LIGHT WITHIN REACH.
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
--- NOTE | 2023-09-26 18:55 | NUR ---
ARRIVAL TO ICU PATIENT ARRIVED TO UNIT AT 1830. PATIENT ORIENTED TO SELF AND TOWN. PATIENT ATTACHED TO MONITORING EQUIPMENT. BED LOWERED, CALL LIGHT IN REACH, BED ALARM ON. REPORT GIVEN TO ASSUMING HOUSE DIRECTOR NURSE.
--- NOTE | 2023-09-26 19:09 | NUR ---
ASSUMED CARE RECEIVED INTO CARE AT 1900 REPORT GIVEN BY DAY RN. PT AWAKE LYING IN BED ON RIGHT SIDE, ASKING WHY HE IS HERE. OPERATIONS ARCHITECT EXPLAINED SITUATION. NO OTHER VOICED CONCERNS BY PT AT THIS TIME.
[2023-09-27] VITALS (44 sets, daily range): BP systolic 69–158; BP diastolic 51–106
--- NOTE | 2023-09-27 06:05 | NUR ---
SLEPT WELL FOR MOST OF NIGHT. CIWA 7-10 THROUGHOUT NIGHT, LIBRIUM GIVEN PER NOV. TYLENOL GIVEN X1 FOR PAIN. ST 100-120S. TACHYPNEIC 20S. ANXIOUS/AGGITATED AT TIMES YELLING WANT TO GO HOME, EASILY REDIRECTABLE/ABLE TO SETTLE.
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
--- NOTE | 2023-09-27 09:13 | NUR ---
PT BECAME INCREASINGLY AGITATED HE WAS TOLD HE NEEDS TO STAY IN THE HOSPITAL LONGER. HE IS GIVEN LIBRIUM PO AND IS ABLE TO GO TO SLEEP. IV PG IN ROGELIO.
--- NOTE | 2023-09-27 10:29 | NUR ---
CAMELIA AROUND 17, PT IS ANXIOUS AND IRRITATED. HE HAS GONE THROUGH HIS BELONGINGS WITH THIS RN AND IS COUNTING HIS MONEY IN HIS WALLET, HE IS ANGRY AT HIS SON. UPSET THAT HE IS IN THE HOSPITAL. RESTLESS ON THE BED, ATIVAN X 2 DOSES GIVEN. BP 140'S/80'S.
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
--- NOTE | 2023-09-27 11:42 | NUR ---
PT BECOMING INCREASINGLY AGITATED, CALL TO TO UPDATE, OK TO START PRECEDEX AND RETURN TO ICU STATUS. THE 8MG OF ATIVAN HAVEN'T SLOWED HIM DOWN.
--- NOTE | 2023-09-27 12:18 | NUR ---
PRECEDEX STARTED, PT REMAINS AGITATED AND WANTING TO GO HOME. ATTEMPTS CALL TO SON FRANCISCA'S NUMBER. NO ANSWER. PT ASKS FOR A BEER. CALL TO , HE HOPES WE CAN COMMUNICATE WITH THE SON, SO WE KNOW WHERE WE NEED TO GO IN PLAN OF CARE.
--- NOTE | 2023-09-27 12:20 | NUR ---
ATTEMPT TO RING ARLIN ESPINOSA, NO ANSWER. NO VOICEMAIL SET UP.
--- NOTE | 2023-09-27 13:16 | NUR ---
RUTHY IS FINALLY RESTING QUIETLY, HE HAS BEEN ON HIS LEFT SIDE BREATHING EASY AND QUIET FOR OVER 30 MINUTES NOW. PRECEDEX @ 0.6MCG/KG. SON FRANCISCA JUST RETURNED THE PHONE CALL AND STATED THAT HE AND HIS DAD WOULD LIKE TO FOR HIM TO QUIT DRINKING. HE HAS THE PHONE, THE TRUCK IS SAFE AND EVERYTHING IS TAKEN CARE OF. WILL TRY TO REITERATE THIS TO THE PATIENT WHEN HE ASKED AGAIN.
--- NOTE | 2023-09-27 18:18 | NUR ---
RUTHY IS ON PRECEDEX 0.5MCG/KG AND HE IS ABLE TO COMMUNICATE AND REST WITHOUT ESCALATING HIS BEHAVIOR. HE REMAINS CIWA >15 AT TIMES. HE HAS BEEN ABLE TO EAT AND HAS BEEN INCONTINENT SEVERAL TIMES TODAY. HIS HEART RATE REMAINS SINUS AND BP MAP >65. COUGH CONTINUES, NO RETURN THIS AFTERNOON.
--- NOTE | 2023-09-27 19:40 | NUR ---
HYPOTENSIVE PATIENT BP 69/51 MAP 59 AFTER CHECKING CUFF AND PATIENT POSITIONING. CALL MADE TO BLADE CASILLAS AND ORDER RECEIVED TO TURN OFF PRECEDEX AND GIVE 1L LR BOLUS.
--- NOTE | 2023-09-27 22:06 | NUR ---
ASSUMED CARE/LIRIANO ON TABLE I ASSUMED CARE OF THIS PATIENT AT 1915. BEDSIDE REPORT COMPLETED WITH JODI BE. PRECEDEX WAS @ 0.5MCG/KG/HR, THEN WAS TURNED OFF-SEE PREVIOUS NURSE NOTE. PRECEDEX IS NOW RESTARTED FOR PATIENT AGITATION AND ETOH WITHDRAWAL NOW THAT BP HAS IMPROVED FOLLOWING 1L BOLUS OF LR. PATIENT PULLS OFF LEADS AND SPO2 MONITOR. SPOT CHECK SHOWES SPO2 97%. PATIENT BECAME AGITATED D/T NOT HAVING HIS CELL PHONE AND TRUCK KEYS WHICH HIS SON FRANCISCA HAD TAKEN HOME FOR SAFE KEEPING PER JODI BE. PATIENT IS NOT AGREEABLE TO THIS AND REQUESTED WE CALL HIS SON TO HAVE HIM BRING THESE ITEMS BACK. CALLED SON IN ROOM, BUT NO ANSWER. WALLET IS ON BEDISDE TABLE WITH LIRIANO FANNED OUT UNDERNEATH IT PER PATIENT REQUEST. LIRIANO COUNTED WITH JODI MCCULLOUGH AT PATIENT BEDSIDE WITH TOTAL OF $13.13 PRESENT, LICENSE, [employer] CARD, AND [place] [employer] CARD IN WALLET. WALLET WITH CARDS AND LIRIANO PLACED IN CLEAR ZIPLOCK AND PLACED BACK ON PATIENT BEDSIDE TABLE IN VIEW OF PATIENT.
[2023-09-28] VITALS (64 sets, daily range): BP systolic 74–156; BP diastolic 51–114
--- NOTE | 2023-09-28 05:43 | NUR ---
SHIFT SUMMARY PATIENT SLEPT OFF AND ON THROUGHOUT SHIFT. PRECEDEX WAS OFF FOR A SHORT TIME AT BEGINNING OF SHIFT D/T HYPOTENSION-SEE PREVIOUS NURSE NOTE. BP IMPROVED, PATIENT AGITATION AND ANXIETY INCREAED DESPITE ATIVAN AND LIBRIUM, SO PRECEDEX TURNED BACK ON. CURRENTLY @ 0.3 MCG/KG/HR. PATIENT RECEIVED 1L LR BOLUS. USED URINAL IN BED WITH ONE UNMEASURED VOID AND ONE MEASURED VOID OF 200ML. NO BM THIS SHIFT. CIWA 6-14 T/O SHIFT. REMAINS TREMULOUS. BECAME UPSET THAT CELL PHONE AND TRUCK KEYS WERE NOT PRESENT-SEE ASSUMED CARE NOTE. TOLERATED PO FLUIDS WELL. NO OTHER CHANGES THIS SHIFT.
[2023-09-28 07:56] LABS: Hematocrit 42.6 % (37.0-53.0); Hemoglobin 14.8 g/dL (13.5-17.5)
[2023-09-28 07:59] LABS: Bun/Creatinine Ratio 22.4 (12.0-20.0); Calcium, Blood 8.6 mg/dL (8.5-10.1); Creatinine, Blood 0.8 mg/dL (0.60-1.20); Potassium, Blood 3.8 mmol/L (3.5-5.5)
--- NOTE | 2023-09-28 13:44 | NUR ---
RUTHY IS CURRENTLY ON 0.3 MCG/KG OF PRECEDEX, HE IS ABLE TO COMMUNICATE HIS NEEDS AND BE ABLE TO REST. HE WAS ABLE TO HAVE HIS LUNCH WITH BEING FED. HE WAS PLEASANT AND EVEN "JOKED" A LITTLE. HE WAS ABLE TO BE CONTINENT OF URINE. HE RECALLED THAT HIS SON DID CALL AND THAT HE REPORTED HE WOULD BE IN TO VISIT. HE HAS ASKED A COUPLE OF TIMES SINCE THAT MESSAGE, "WHEN DID MY SON CALL?" CONTINUES WITH THE MOIST COUGH, CONGESTION IN THE UPPER AIRWAYS. ABLE TO REPOSITION HIMSELF WELL.
--- NOTE | 2023-09-28 16:35 | NUR ---
RUTHY BEGAN BANGING ON THE BEDSIDE TABLE, WHEN HE IS ASKED IF HE NEEDS ANYTHING HE EXPRESSES THAT HE "IS DYING!". UPON FURTHER PROBING HE SAYS HIS STOMACH HURTS AND HE IS GOING TO BARF. AFTER REVIEW OF EMAR, IS CALLED AND UPDATED, ORDERS RECEIVED. ZOFRAN 4MG IV GIVEN FOR RELIEF.
--- NOTE | 2023-09-28 16:59 | NUR ---
RUTHY IS BECOMING A BIT MORE PARANOID, HE IS TALKING ABOUT HIS SON TAKING ALL OF HIS STUFF, THE TRUCK AND THE KEYS. ATTEMPTS TO REORIENT AND REDIRECT HAVE BEEN UNSUCCESSFUL AT THIS TIME. HE IS SURE THAT HE IS "GOING TO TONIGHT" BECAUSE HE WON'T HAVE ANYTHING TO DRIVE, ANY FUNDS TO BUY FOOD, ETC. THERAPEUTIC LISTENING AND ENCOURAGEMENT GIVEN.
--- NOTE | 2023-09-28 17:10 | NUR ---
Attempted to reach pt's son Jagjit, who told ICU nurse he would be in several hours ago. He has not shown up yet, and there is no voicemail set up on his phone. Palliative care will continue to attempt to address Code Status, with pt's son.
--- NOTE | 2023-09-28 18:16 | NUR ---
RUTHY WAS HAVING SOME "DOOMS DAY" TALKING HE WAS SPEAKING ABOUT "NEVER DOING ANYTHING RIGHT" THAT HE "ALWAYS MESSES THINGS UP", ETC. POSITIVE REIN- FORCEMENT GIVEN, ENCOURAGEMENT GIVEN. HE WAS ASSISTED WITH THE GAIT BELT TO THE RECLINER. HE TOLERATED WELL AND WAS ABLE TO FEED HIMSELF HIS DINNER. HIS PRECEDEX WAS TURNED DOWN TO 0.2MCG/KG. HE ASKED TO RETURN TO BED ONCE HE WAS FINISHED EATING. HE IS CURRENTLY SLEEPING. VSS, HEART RATE NORMAL. HE WAS ABLE TO COMMUNICATE A STORY OR TWO ABOUT HIS FRIENDS WHILE HE WAS EATING HIS DINNER. REMAINS CONCERNED FOR HIS PICKUP AND HIS SON.
--- NOTE | 2023-09-28 18:49 | NUR ---
PT IS HAVING FULL BODY TREMORS, CRYING OUT. VISIBLY UPSET. ATIVAN 2MG IV PER MAR GIVEN.
--- NOTE | 2023-09-28 20:29 | NUR ---
ASSUMPTION OF CARE BEDSIDE SHIFT REPORT RECEIVED FROM DAYSHIFT RN. PT RESTING IN BED, DROWSY. PT ABLE TO ANSWER SOME QUESTIONS AND FOLLOW SIMPLE COMMANDS, PT CONFUSED. PT OCCASIONALLY ANXIOUS AND AGGITATED, PT ASKS RANDOM NONSENSICAL QUESTIONS AND STATEMENTS. HR 70'S SINUS, MAP >65. PT ON RA, OXYGEN SATURATION >95%. PT USES URINAL TO VOID. POWERGLIDE TO ROGELIO INFUSING PRECEDEX AT 0.2MCG/KG/HR. MITCH IN LOWEST POSITION, CALL LIGHT WITHIN REACH. CARE CONTINUES.
[2023-09-29] VITALS (45 sets, daily range): BP systolic 81–166; BP diastolic 49–127
--- NOTE | 2023-09-29 01:30 | NUR ---
PT UPDATE CIWA SCORE COMPLETED WITH A SCORE OF 12, LEFT ROOM TO GET PT MEDICATIONS AND PT FELL ASLEEP BEFORE MEDICATION COULD BE GIVEN.
[2023-09-29 04:06] LABS: BASOPHILS ABSOLUTE AUTO 0.02 K/mm3 (0.00-0.23); BASOPHILS PERCENT AUTO 0 % (0-2); EOSINOPHILS ABSOLUTE AUTO 0.25 K/mm3 (0.00-0.68); EOSINOPHILS PERCENT AUTO 4 % (0-6); Hematocrit 42.8 % (37.0-53.0); Hemoglobin 14.8 g/dL (13.5-17.5); IMMATURE GRAN ABSOLUTE AUTO 0.01 K/mm3 (0.00-0.10); IMMATURE GRAN PERCENT AUTO 0 % (0-1); LYMPHOCYTES ABSOLUTE AUTO 2.61 K/mm3 (0.84-5.20); LYMPHOCYTES PERCENT AUTO 41 % (21-46); MONOCYTES ABSOLUTE AUTO 0.55 K/mm3 (0.16-1.47); MONOCYTES PERCENT AUTO 9 % (4-13); Mean Corpuscular HGB 30.6 pg (26.0-34.0); Mean Corpuscular HGB Conc 34.6 g/dL (31.5-36.5); Mean Corpuscular Volume 89 fL (80-100); Mean Platelet Volume 9.8 fL (9.1-12.4); NEUTROPHILS ABSOLUTE AUTO 2.91 K/mm3 (1.96-9.15); NEUTROPHILS PERCENT AUTO 46 % (41-73); Platelet Count 168 K/mm3 (150-400); RDW Coefficient Variation 12.9 % (11.7-14.2); Red Blood Cell Count 4.83 M/mm3 (4.30-5.90); White Blood Cell Count 6.35 K/mm3 (4.00-11.30)
[2023-09-29 04:25] LABS: Bun/Creatinine Ratio 23.5 (12.0-20.0); Calcium, Blood 8.8 mg/dL (8.5-10.1); Creatinine, Blood 0.81 mg/dL (0.60-1.20); Potassium, Blood 3.8 mmol/L (3.5-5.5)
--- NOTE | 2023-09-29 05:28 | NUR ---
SHIFT SUMMARY PT RESTING IN BED. PT SLEEPING BUT AROUSABLE. ABLE TO ANSWER MOST QUESTIONS AND FOLLOW COMMANDS. PTS SPEECH IS MUMBLED, PT WILL ASK RANDOM QUESTIONS AND MAKE NONSESNICLE STATEMENTS. PT IS FORGETFUL, AGGITATED AND ANXIOUS. PRECEDEX INFUSING AT 0.2MCG/KG/HR, MEDICATED WITH LIBRIUM AND ATIVAN PER EMAR AND CIWA SCORES. HR 90-100'S SINUS, MAP >65. PT ON RA, OXYGEN SATURATION >95%. PT USES URINAL TO VOID. POWERGLIDE IN PLACE TO ROGELIO WITH NS TKO. BED IN LOWEST POSITION, CALL LIGHT WITHIN REACH. CARE CONTINUES.
--- NOTE | 2023-09-29 07:00 | NUR ---
ASSUMPTION OF CARE: ASSUMED CARE OF PATIENT. PATIENT RESTING QUIETLY IN BED. PATIENT MUMBLES IN RESPONSE TO VERBAL STIMULI. PRECEDEX GTT AT 0.2 MCG/KG/HR. BLOOD PRESSURE STABLE WITH SBP >110. MAPS >65. HR IN THE 80S-90S. PATIENT QUICKLY FALLS BACK ASLEEP AFTER INTERACTIONS.
--- NOTE | 2023-09-29 15:15 | NUR ---
ELEVATED HR AND BP: DURING MORNING, PATIENTS HEART RATE TRENDED UPWARDS. PATIENT STABLE IN LOW 120S. DISCUSSED WITH DR. TOLENTINO AND INITIAL PLAN WAS TO MONITOR. IN THE AFTERNOON, IN ADDITION TO ELEVATED HR, PATIENT EXPERIENCED ELEVATED BPS WITH SBP IN THE 160S. DISCUSSED WITH DR. TOLENTINO. PATIENT MEDICATED PER PRNS FOR WITHDRAWAL AND NEW ORDERS FOR ELEVATED BP.
--- NOTE | 2023-09-29 17:57 | NUR ---
SHIFT SUMMARY: NEURO: PATIENT MEDICATED PER [facility] ASSESSMENTS THROUGHOUT THE SHIFT. PATIENT EXPERIENCED SOME ANXIETY, AGITATION (REDIRECTABLE), HEADACHE, AND TREMORS NOTICABLE WITH DRINKING. PATIENT REQUIRED REPETITION OF INFORMATION DURING THE DAY. PATIENT'S SPEECH MUMBLED. WHEN REQUESTED, PATIENT ABLE TO REPEAT IN A CLEARER VOICE. PATIENT FOLLOWING DIRECTIONS. PATIENT DANGLED AT BEDSIDE FOR DINNER AND ASSISTED WITH REPOSITIONING. REFUSED TO ATTEMPT OUT OF BED ACTIVITY TODAY. CARDIAC: SEE NURSE'S NOTE RE: ELEVATED HR AND BP. PATIENT RESPONDED TO PRN CLONIDINE POSITIVELY TO BRING HIS BP DOWN. CONTINUED TO HAVE A HR IN THE LOW 120S, AFTER CLONIDINE WELL MEDICATIONS FOR WITHDRAWAL. MAPS >65. DENIED CHEST PAIN OR DISCOMFORT. RESPIRATORY: PATIENT STABLE ON ROOM AIR. SPO2 >96% WITH EACH CHECK. TACHYPNEIC AT TIMES WITH MOBILITY IN THE BED. RECOVERS QUICKLY. DIMINISHED LUNG SOUNDS IN THE BASES. DENIES SHORTNESS OF BREATH OR DIFFICULTY BREATHING. PATIENT HAS A NONPRODUCTIVE COUGH. GI/: PATIENT HAS A GOOD APPETITE - EATING THE MAJORITY OF THE MAIN DISH. RN DID NOT NOTE A COUGH THAT CORRELATED WITH EATING OR DRINKING. PATIENT INCONTINENT OF VOIDS. PATIENT VOIDED FREQUENTLY A LIGHT YELLOW URINE. PSYCHSOCIAL: PATIENT COOPERATIVE WITH THE RN. PATIENT ANXIOUS DURING THE DAY, REPORTING THAT HIS LIFE IS MEANINGLESS. PATIENT REPORTS THAT HE TAKES KLONIPIN TID AT HOME FOR HIS MOOD. SPOKE WITH THE PATIENT'S SON, VENKATESH. HE REPORTED THAT HE WOULD COME IN THE VISIT THE PATIENT. BY THE END OF THE SHIFT, HE HAD NOT ARRIVED YET.
--- NOTE | 2023-09-29 19:30 | NUR ---
ASSUMPTION OF CARE BEDSIDE SHIFT REPORT RECEIVED FROM DAYSHIFT RN. PT RESTING IN BED, SLEEPING BUT AROUSABLE. PT ABLE TO ANSWER SOME QUESTIONS AND FOLLOWS COMMANDS. PT ANXIOUS AND AGGITATED AT TIMES, FORGETFUL BUT REDIRECTABLE. PT ASKS RANDOM QUESTIONS AND MAKES NONSENSICLE STATEMENTS. HR 100-120'S SIT, MAP >65. PT ON RA, OXYGEN SATURATION >95% ON SPOT CHECK. POWERGLIDE TO ROGELIO INFUSING NS TKO. ATTENDS IN PLACE. BED IN LOWEST POSITION, CALL LIGHT WITHIN REACH. CARE CONTINUES.
[2023-09-30] VITALS (40 sets, daily range): BP systolic 75–153; BP diastolic 53–98
--- NOTE | 2023-09-30 05:44 | NUR ---
SHIFT SUMMARY PT RESTING IN BED, SLEEPING BUT AROUSABLE. PT ANSWERS SIMPLE QUESTIONS AND FOLLOWS SOME COMMANDS. PT MAKES NONSENSICLE STATEMENTS, PT IS FOREGETFUL, AGGITATED AND ANXIOUS AT TIMES, MEDICATED PER EMAR. HR 90-120'S SINUS, MAP >60. PT ON RA, OXYGEN SATURATION >95%, PT DENIES CP OR SOB. ATTENDS IN PLACE, NO BM THIS SHIFT. POWERGLIDE TO [facility]. BED IN LOWEST POSITION, CALL LIGHT WITHIN REACH. CARE CONTINUES.
[2023-09-30 07:11] LABS: Albumin, Blood 2.8 g/dL (3.4-5.0); Anion Gap 6 mmol/L (6-16); Blood Urea Nitrogen 24 mg/dL (8-24); Bun/Creatinine Ratio 19.2 (12.0-20.0); CO2, Blood 29 mmol/L (21-32); Calcium, Blood 8.6 mg/dL (8.5-10.1); Chloride, Blood 104 mmol/L (98-108); Creatinine, Blood 1.25 mg/dL (0.60-1.20); Glomerular Filtration Rate 62 (60-); Glucose, Blood 118 mg/dL (70-99); Magnesium, Blood 1.6 mg/dL (1.6-2.4); Phosphorus, Blood 4.5 mg/dL (2.5-4.9); Potassium, Blood 3.9 mmol/L (3.5-5.5); Sodium, Blood 139 mmol/L (136-145)
--- NOTE | 2023-09-30 08:00 | NUR ---
INITIAL ASSESSMENT PATIENT OBTUNDED. PATIENT MINIMALLY RESPONSIVE TO NOXIOUS STIMULI BY BRIEFLY OPENING EYES AND INCOHERENTLY MUMBLING. NO SIGNS OF PAIN NOTED. PATIENT AFEBRILE. CIWA SCORE OF 4 FOR MENTATION ONLY. NO TREMBLING OR OTHER SIGNS OF ETOH WITHDRAWAL NOTED. LUNGS CLEAR IN UPPER LOBES AND DIMINISHED IN LOWER LOBES. PAITNET HAS WEAK, MOIST COUGH. PATIENT IN SR WITH BBB, HR IN THE 90S. SBP 80S TO LOW 100S. PATIENT NPO IS ASPIRATION RISK AT THIS TIME. DATE OF LAST BM UNKNOWN. ATTENDS IN PLACE FOR INCONTINENCE. SCATTERED SCABS NOTED. REPOSITIONING Q2H. IV FLUSHED AND SALINE LOCKED. BED LOW, CALL LIGHT IN REACH, BED ALARM ON. CARE CONTINUES.
--- NOTE | 2023-09-30 08:15 | NUR ---
DR. TOLENTINO UPDATED ON PATIENT STATUS. INFORMED THAT PNEUMATIC TOOL OPERATOR RN STATED PATIENT HAS BEEN SLEEPING SOUNDLY SINCE GABAPENTIN GIVEN LAST NIGHT AT 2200. PATIENT SOUND ASLEEP THIS AM. INFORMED THAT PNEUMATIC TOOL OPERATOR RN STATED PATIENT COUGHING AFTER TAKING PILLS LAST NIGHT. ORDERS RECEIVED TO DECREASE GABAPENTIN DOSE AND FOR SWALLOW EVAL.
--- NOTE | 2023-09-30 11:49 | NUR ---
PATIENT AFEBRILE. NO COMPLAINTS OF PAIN. HR IN THE LOW 100S. SBP IN THE LOW 100S. PATIENT WAKES NOW TO VERBAL STIMULI AT TIMES. PATIENT ABLE TO SAY NAME BUT SPEECH DIFFICULT TO UNDERSTAND WITH MUMBLING. CIWA OF 4 FOR MENTATION ALONE. NO VOID THIS SHIFT. PATIENT BLADDER SCANNED AND SHOWED 138 MLS OF URINE IN BLADDER. DR. TOLENTINO AWARE OF BLADDER SCAN AND THAT PATIENT HAS NOT BEEN TAKING IN FLUIDS SINCE YESTERDAY. BLOOD SUGAR 130. BED ALARM ON, BED LOW, CALL LIGHT IN REACH. CARE CONTINUES.
--- NOTE | 2023-09-30 13:43 | NUR ---
PATIENT MORE AWAKE AND ORIENTED. PATIENT ABLE TO ANSWER MOST ORIENTATION QUESTIONS CORRECTLY EXCEPT STATES THE DATE IS 2023. PATIENT INFORMED THAT YEAR IS 2022. PATIENT ASKED WHAT MONTH AND ABLE TO ANSWER SEPTEMBER. PATIENT ASKED IF HE REMEMBERS WAS BROUGHT HIM TO HOSPITAL; PATIENT STATES "NO". PATIENT INFORMED THAT HE WAS FOUND DOWN, BROUGHT IN TO HOSPITAL AND WENT THROUGHOUT ETOH WITHDRAWAL. PATIENT STATED THAT HE RAN OUT OF ALCOHOL AT HOME. PATIENT MADE NPO STATUS AND SPEECH EVAL ORDERED THIS AM PATIENT OBTUNDED BUT ALSO BECAUSE RETAIL TRAINING MANAGER RN STATED PATIENT COUGHED AFTER TAKING A PILL LAST NIGHT. SINCE PATIENT MORE AWAKE, BEDSIDE RN SWALLOW PERFORMED. PATIENT COUGHED UP WATER AFTERING DRINKING FROM CUP. PATIENT INFORMED THAT HE WILL HAVE TO SEE SPEECH THERAPY BEFORE HE CAN EAT AND DRINK BECAUSE HE COUGHED UP AFTER THE WATER. PATIENT BECAME AGITATED AND YELLED "I AM LEAVING IF YOU GUYS ARE NOT GOING TO FEED ME!". PATIENT BECOMING AGGRESSIVE AND TRYING TO GET OUT OF BED. PATIENT INFORMED THAT THIS RN WOULD CALL THE DOCTOR. DR. TOLENTINO CALLED AND UPDATED ON ALL OF THE ABOVE. DR. TOLENTINO STATED THAT IT WOULD BE OKAY TO TRY PUDDING WITH PATIENT AND SEE IF TOLERATES. DR. TOLENTINO STATED OKAY TO GIVE GABAPENTIN. BACK TO PATIENT ROOM AFTER DISCUSSION WITH DR. TOLENTINO AND PATIENT IS NOW SLEEPING AT THIS TIME.
--- NOTE | 2023-09-30 15:16 | NUR ---
SHIFT SUMMARY PATIENT OBTUNDED AND MINIMALLY RESPONSIVE TO NOXIOUS STIMULI THIS AM. PATIENT HAS BECOME MORE AWAKE AND MORE ORIENTED THIS SHIFT. PATIENT NOW ORIENTED TO SELF, TO TOWN, TO HOSPITAL AND TO MONTH. SCHEDULED GABAPENTIN DOSE DECREASED. PATIENT AGITATED THIS SHIFT HE WANTS TO EAT BUT FAILED HIS BEDSIDE SWALLOW EVAL. SPEECH EVAL ORDERED. PATIENT REMAINED SATTING 90% AND GREATER ON RA. PATIENT CONTINUED TO HAVE WEAK, MOIST COUGH. PATIENT REMAINED SR TO ST WITH BBB, HR 90S TO LOW 100S. SBP 80S TO 120S. NO BM THIS SHIFT. ONE VOID THIS SHIFT; DR. TOLENTINO AWARE. MAINTENANCE FLUIDS STARTED THIS SHIFT. NO CHANGES TO SKIN NOTED THIS SHIFT. COMPLETE BED BATH PERFORMED. BED LOW, CALL LIGHT IN REACH, BED ALARM ON. REPORT HAS BEEN GIVEN TO ASSUMING NURSE.
--- NOTE | 2023-09-30 18:03 | NUR ---
ASSUMED CARE OF PT THIS EVENING. PT WAKES UP WANTING TO EAT AND GET OOB. A/O TO PERSON, PLACE, AND MONTH AND YEAR. 1 PERSON ASSIST OOB. AMBULATED IN ROOM THEN SAT IN RECLINER. PT WAS DOING BICYCLE KICKS, TRICEP DIPS, AND SITUPS FOR EXERCISE TO GET BETTER SO HE CAN GET OUT OF THE HOSPITAL ALL WITHOUT PROMPTING FROM STAFF. PT PASSES BEDSIDE SWALLOW EVAL NOW THAT HE IS MORE AWAKE. TOLERATING DINNER, NO SIGN OF DISTRESS.
--- NOTE | 2023-09-30 20:55 | NUR ---
ASSUMPTION OF CARE BEDSDIE SHIFT REPORT RECEIVED FROM DAYSHIFT RN. PT RESTING IN BED, ALERT AND ORIENTED. PT ABLE TO ANSWER QUESTIONS, FOLLOW COMMANDS, AND MAKE NEEDS KNOWN. PT ANXIOUS AND AGGITATED AT TIMES. HR 100-110'S SINUS, MAP >65. PT ON RA, OXYGEN SATURATION >95% PT USES URINAL TO VOID, ATTENDS IN PLACE. POWERGLIDE TO [facility]. BED IN LOWEST POSITION, CALL LIGHT WITHIN REACH. CARE CONTINUES.
[2023-10-01] VITALS (17 sets, daily range): BP systolic 60–146; BP diastolic 43–96
--- NOTE | 2023-10-01 06:17 | NUR ---
SHIFT SUMMARY PT UP TO BEDSIDE RECLINER. PT HAS BEEN AWAKE AND RESTLESS THROUGHOUT THE NIGHT, WITH ABOUT TWO HOURS OF SLEEP. PT CONFUSED AND AGGITATED, SEEMS TO BE MORE AGGITATION AND DEMENTIA RELATED RATHER THAN ETOH WITHDRAWL. ATIVAN AND LIBRIUM GIVEN WITH NO EFFECT. SEROQUEL GIVEN WITH GOOD RESULT. PT ABLE TO MAKE NEEDS KNOWN AND FOLLOW COMMNADS. HR 90-100'S SINUS, MAP >65. PT ON RA WITH OXYGEN SATURATION >95%. PT USES URINAL TO VOID. POWERGLIDE TO ROGELIO SL. CALL LIGHT WITHIN REACH, CARE CONTINUES.
[2023-10-01 06:19] LABS: Hematocrit 43.7 % (37.0-53.0); Mean Corpuscular HGB 30.5 pg (26.0-34.0); Mean Corpuscular HGB Conc 34.3 g/dL (31.5-36.5); Mean Corpuscular Volume 89 fL (80-100); Mean Platelet Volume 9.9 fL (9.1-12.4); Platelet Count 192 K/mm3 (150-400); RDW Coefficient Variation 13.2 % (11.7-14.2); RDW Standard Deviation 42.8 fL (35.1-46.3); Red Blood Cell Count 4.91 M/mm3 (4.30-5.90); White Blood Cell Count 9.56 K/mm3 (4.00-11.30)
[2023-10-01 06:41] LABS: Albumin, Blood 2.9 g/dL (3.4-5.0); Anion Gap 1 mmol/L (6-16); Blood Urea Nitrogen 27 mg/dL (8-24); Bun/Creatinine Ratio 30.1 (12.0-20.0); CO2, Blood 31 mmol/L (21-32); Calcium, Blood 8.8 mg/dL (8.5-10.1); Chloride, Blood 109 mmol/L (98-108); Glomerular Filtration Rate 92 (60-); Glucose, Blood 112 mg/dL (70-99); Magnesium, Blood 1.8 mg/dL (1.6-2.4); Phosphorus, Blood 3.4 mg/dL (2.5-4.9); Potassium, Blood 4.2 mmol/L (3.5-5.5); Sodium, Blood 141 mmol/L (136-145)
--- NOTE | 2023-10-01 11:41 | NUR ---
REASSESSMENT PT TOOK ABOUT A 20 MINUTE NAP THIS MORNING, THEN HAS BEEN AWAKE OTHERWISE. HE IS ORIENTED, BUT VERY IMPULSIVE, NOT USING THE CALL LIGHT. BED ALARM AND CHAIR ALARM IN USE. HE HAS BEEN VERY ANXIOUS ABOUT HIS SON HAVING HIS "DEBIT CARD," WHICH HAS HIS SOCIAL SECURITY FUNDS ON IT. ATTEMPTED TO CALL PT'S SON, BUT NO ANSWER. PT HAS ALSO BEEN TRYING TO CALL THE [id number] TO CHECK THE BALANCE, BUT HAS NOT BEEN ABLE TO. PT GIVEN ONE OF HIS SEROQUEL TO HELP WITH THE ANXIETY. PT ALSO AMBULATED WITH RN AROUND THE UNIT TO HELP. HE IS STILL UNSTEADY ON HIS FEET, BUT MUCH MORE ATBLE WHEN HE USES THE WALKER. PT HAD A SHOWER THIS AM AND TOELRATED IT WELL. LUNGS REMAIN CLEAR, NONPRODUCTIVE COUGH. SR, INITAL SBP WAS IN THE 90S THIS AM, BUT ONCE PT WAS AWAKE IT WAS ABOVE [address] TOLENTINO ROUNDED ON PT AND GAVE OK FOR PT TO BE MEDICAL STATUS. PT CURRENTLY EATING LUNCH. CONTINUING TO MONITOR.
--- NOTE | 2023-10-01 16:22 | NUR ---
TRANSFER PT TRANSFERRED TO 350 VIA WC WITH RN. REPORT GIVEN TO JODI LOPEZ. ALL BELONGINGS SENT WITH PT INCLUDING WALLET AND KEYS. PT'S INTERPRETER LOCKED UP IN BOX WITH THE CHART OUTSIDE THE PT'S ROOM ON MEDICAL FLOOR.
--- NOTE | 2023-10-01 17:29 | NUR ---
TRANSFER AND END OF SHIFT SUMMARY PATIENT TRANSFERED FROM ICU. PATIENT ALERT AND INTERACTIVE. PATIENT UP WALKING WITH WALKER AND STAND BY ASSIST. PATIENT VERBALIZING FRUSTRATION WITH LIFE AND CURRENT SITUATION. PATIENT MEDICATED WITH TYLENOL FOR GENERALIZED ACHING AND ANXIETY. NO SYMPTOMS OF WITHDRAWL NOTED AT THIS TIME.
--- NOTE | 2023-10-01 23:51 | NUR ---
PT ARRIVAL: PT ARRIVED ON THE UNIT AT 2049. UPON ARRIVAL HE IS AROUSABLE AND ABLE TO ANSWER QUESTIONS APPROPRIATLY, BUT IS CONFUSED ABOUT THE DATE. HE IMMEDIATLY EXPRESSED CONCERNS ABOUT HIS WALLET, KEYS, AND PHONE. HIS WALLET IS AT BEDSIDE, BUT HIS PHONE AND KEYS WERE REPORTED SENT HOME WITH HIS SONE IN A PREVIOUS NOTE. HIS BLOOD PRESSURE IS WNL WHILE RECIEVING 1L OF NS. HIS HR AND O2 SATURATION ARE WNL ON ROOM AIR.
[2023-10-02] VITALS (11 sets, daily range): BP systolic 107–152; BP diastolic 64–101
--- NOTE | 2023-10-02 00:28 | NUR ---
PATIENT IS ALERT AND ORIENT DURING CHANGE SHIFT. OUTGOING AND INCOMING NURSE AND PATIENT HAD A SHORT CONVERSATION WHILE HE WAS HAVING DINNER. PATIENT STATED THAT HE IS THINKING OF GIVING ME A NICKNAME AND I RESPONDED THAT WE CAN TALK ABOUT IT LATER. MY SPLICING SUPERVISOR EASTON CALLED MY ATTENTION ASKING FOR HELP SHE TOOK THE PATIENT TO USE THE BATHROOM. I CAME IN TO HELP TO FIND PATIENT UNRESPONSIVE TO ME CALLING HIS NAME, TAPPING HIS FACE, SQUEEZING HIS HANDS. INITIAL VITAL SIGNS TAKEN AND RECORDED BP WAS 60/43. CHARGE NURSE, ROMULO ALSO CAME IN TO HELP AND TRANSFERRED PATIENT BACK TO BED. CALLED UNDERWRITING ANALYST AND THEY TOOK OVER. RECHECKED BP 108/63. PATIENT WAS THEN SENT TO ICU FOR FURTHER EVALUATION. I TRIED TO NOTIFY FAMILY MEMBER, FRANCISCA BUT TO HE IS NOT ANSWERING MY CALL AND I WAS NOT ABLE TO LEAVE ANY VOICE MESSAGE.
--- NOTE | 2023-10-02 06:04 | NUR ---
SHIFT SUMMARY: AFTER ARRIVAL TO THE ICU PT HAD A UNEVENTFUL NIGHT. HE WAS ABLE TO SLEEP MOST OF THE NIGHT. HE DID WAKE UP INTERMITTENTLY AND ASK FOR FOOD OR ABOUT HIS PERSONAL BELONGINGS. HE WAS EASILY REDIRECTABLE. PT'S BLOOD PRESSURE WAS CONSISTENTLY WNL. HE DENIED ANY DIZZINESS OR FEELINGS OF PASSING OUT. HE DID C/O A HEADACHE, BUT THE PAIN WAS RELIEVED BY TYLENOL.
--- NOTE | 2023-10-02 07:30 | NUR ---
ASSUMED CARE: PT LAYING IN BED, TALKING TO STAFF. HR SINUS TACH AT 102. 100% ON RA. ASKING FOR FOOD. CALL LIGHT IN REACH. NO ACUTE NEEDS AT THIS TIME.
--- NOTE | 2023-10-02 09:33 | NUR ---
PT WAS NOTED TRYING TO GET OUT OF BED. ASSISTED TO BSC WITH ONE ASSIST. PT WAS WEAK WITH AMBULATION. TABLE PLACED IN FRONT OF HIM FOR EXTRA SUPPORT. PT STATED IT WAS HARD TO HAVE BM AND BM WAS VERY LARGE AND FORMED. PT ALSO STATES THAT HE HAS GENERALIZED PAIN T/O AND IS ASKING FOR VICODIN. CALL TO DR TOLENTINO TO REQUEST PAIN MEDS AND BOWEL CARE. AWAITING RETURN CALL. BED ALARM IN PLACE FOR PT ATTEMPTING TO GET OUT BED WITHOUT ASSISTANCE.
--- NOTE | 2023-10-02 10:07 | NUR ---
SPOKE WITH DR TOLENTINO. RELAYED THAT THE PATIENT'S STOOL WAS LARGE AND FIRM. ALSO RELAYED TO DR THAT PT SAID HE WAS IN PAIN AND SAID THAT HE DID NOT WANT TO LIVE IN PAIN AND WOULD JUST GO "SHOOT MYSELF" OR "HANG MYSELF." ASKED PT IF HE ACTUALLY WANTED TO HARM HIMSELF AND PT STATED THAT HE DOES NOT WANT TO , THAT HE STILL HAS A LOT OF LIFE TO LIVE AND JUST DOESN'T WANT TO BE IN PAIN. DR REVIEWING CHART AND PLACING ORDERS.
--- NOTE | 2023-10-02 17:33 | NUR ---
PT STATED HE WAS WORRIED ABOUT HIS SON USING ALL OF HIS MONEY AND SAID THAT IF HE FOUND OUT HIS SON SPENT ALL HIS MONEY HE WOULD "JUMP OFF A ROOF." ASKED AGAIN IF PT WANTED TO KILL HIMSELF. HE SAID NO BUT HE WANTS SOMEONE TO HELP HIM FIGURE OUT HOW MUCH MONEY IS IN HIS ACCOUNT BUT DOES NOT HAVE CARD WITH HIM. SPOKE WITH AUDITING CLERK AND NURSING CABINET MAKER WHO STATED TO DO SUICIDE SCREENING WITH SCORE OF NO RISK. PT DENIES SUICIDAL INTENTION. RELAYED THIS TO AND AUDITING CLERK
--- NOTE | 2023-10-02 18:36 | NUR ---
SHIFT SUMMARY: PT HAS BEEN MEDICATED WITH ZYPREXA X2 WHEN HE GETS AGITATED AND IT HAS HAD CALMING AFFECTS. MEDICATED X2 FOR PAIN WITH TRAMADOL WELL. SINUS TACH ON TELE. NO ACUTE NEEDS AT THIS TIME.
--- NOTE | 2023-10-02 21:53 | NUR ---
ASSUMPTION OF CARE: RECEIVED REPORT FROM NAVID ZAPATA. PT ALERT AND ORIENTED TO PERSON AND PLACE. CONFUSED AT TIMES, BUT REDIRECTABLE. PT FREQUENTLY TRYING TO CRAWL OUT OF BED AND STATES "I WANT TO GET IN A WHEELCHAIR AND GO FIND THE SNACK BAR AND A CIGARETTE". PT REMINDED HE IS IN THE HOSPITAL AND THERE IS NO SMOKING. PT ON RA WITH SPO2 >95%. DENIES SOB. SOCIAL SERVICES COUNSELOR IN PLACE, ST WITH HR 100'S. SBP 140'S, DENIES CHEST PAIN OR PRESSURE. POWERGLIDE TO ROGELIO, INTACT AND SALINE LOCKED. VOIDING YELLOW URINE INTO THE URINAL. NO BM YET. TOLERATING PO INTAKE WELL. BED ALARM ON, BED LOW AND LOCKED. CALL LIGHT IN REACH.
[2023-10-03] VITALS (11 sets, daily range): BP systolic 82–215; BP diastolic 58–112
[2023-10-03 04:36] LABS: Hematocrit 42.3 % (37.0-53.0); Hemoglobin 14.2 g/dL (13.5-17.5); Mean Corpuscular HGB 30.4 pg (26.0-34.0); Mean Corpuscular HGB Conc 33.6 g/dL (31.5-36.5); Mean Corpuscular Volume 91 fL (80-100); Mean Platelet Volume 10.1 fL (9.1-12.4); Platelet Count 246 K/mm3 (150-400); RDW Coefficient Variation 13.2 % (11.7-14.2); RDW Standard Deviation 43.3 fL (35.1-46.3); Red Blood Cell Count 4.67 M/mm3 (4.30-5.90); White Blood Cell Count 8.41 K/mm3 (4.00-11.30)
[2023-10-03 04:56] LABS: Albumin, Blood 2.7 g/dL (3.4-5.0); Anion Gap 2 mmol/L (6-16); Blood Urea Nitrogen 22 mg/dL (8-24); Bun/Creatinine Ratio 26.7 (12.0-20.0); CO2, Blood 29 mmol/L (21-32); Calcium, Blood 8.7 mg/dL (8.5-10.1); Chloride, Blood 111 mmol/L (98-108); Creatinine, Blood 0.82 mg/dL (0.60-1.20); Glomerular Filtration Rate 95 (60-); Glucose, Blood 108 mg/dL (70-99); Magnesium, Blood 1.5 mg/dL (1.6-2.4); Phosphorus, Blood 4.1 mg/dL (2.5-4.9); Potassium, Blood 4.7 mmol/L (3.5-5.5); Sodium, Blood 142 mmol/L (136-145)
--- NOTE | 2023-10-03 06:23 | NUR ---
SHIFT SUMMARY: PT ALERT AND ORIENTED TO PERSON AND PLACE. ABLE TO ANSWER SOME SIMPLE QUESTIONS. PT REMAINS ON RA WITH SPO2 >95%. PT HAD C/O SOB WITH A NONPRODUCTIVE COUGH. RELEIVED WITH SITTING UPRIGHT. INTENSIVIST IN PLACE, SR/ST 90-100'S. SBP 140'S. PT REPEATEDLY TRYING TO GET OUT OF BED TO TRY AND GO SMOKE A CIGARETTE. PT REMINDED THAT HE IS IN THE HOSPITAL AND THERE IS NO SMOKING. ORDER FOR NICOTINE PATCH OBTAINED FROM DR. STERLING. TOLERATING PO INTAKE WELL WITH FREQUENT REMINDERS TO DRINK SLOWLY AND SIT UPRIGHT. POWERGLIDE TO ROGELIO, INFUSING. PT VOIDING YELLOW URINE INTO URINAL. NO BM THIS SHIFT. CALL LIGHT IN REACH, BED ALARM ON.
--- NOTE | 2023-10-03 08:15 | NUR ---
INITIAL ASSESSMENT PATIENT ALERT AND ORIENTED X 4 THIS AM. PATIENT AFEBRILE. NO COMPLAINTS OF PAIN. PATIENT LABILE; IRRITABLE AT TIMES. PATIENT CAN BE IMPULSIVE AND TRY TO GET OUT OF BED WITHOUT ASSISTANCE. PATIENT DENYING SI AT THIS TIME. PATIENT SATTING 90% AND GREATER ON RA. PATIENT SR TO SB WITH BBB, HR 90S TO LOW 100S. SBP IN THE 170S. GI AND WNL. PATIENT USING URINAL INDEPENDENTLY. ATTENDS IN PLACE. SCATTERED SCABS, BRUISES AND RASH NOTED. SKIN PALE AND COOL TO TOUCH. IV FLUSHED AND SALINE LOCKED. BED LOW, CALL LIGHT IN REACH. CARE CONTINUES.
--- NOTE | 2023-10-03 08:25 | NUR ---
CARE MANAGEMENT CALLED AND LEFT A MESSAGE ASKING TO SEE IF THEY COULD CALL SON AGAIN TO BRING IN PATIENT'S DEBIT CARD, PHONE AND CAR KEYS. PATIENT VERY UPSET THAT SON HAS. ASKED PATIENT IF HE WOULD LIKE AUTHORITIES INVOLVED AND HE STATED "NO".
--- NOTE | 2023-10-03 10:16 | NUR ---
DR. HAMILTON CALLED AND INFORMED OF PATIENT'S HIGH SBP 170S TO LOW 200S AND HR 120S TO 130S. PLACED NEW MEDICATION ORDERS.
--- NOTE | 2023-10-03 10:40 | NUR ---
PATIENT'S SON, VENKATESH, CALLED BACK AND PHONE GIVEN TO PATIENT TO SPEAK WITH HIM. PATIENT FEELS BETTER AFTER SPEAKING TO HIS SON ABOUT HIS DEBIT CARD.
--- NOTE | 2023-10-03 13:41 | NUR ---
DR. HAMILTON UPDATED ON PATIENT STATUS. INFORMED THAT PATIENT BP IMPROVED BUT THAT HR STILL 120S TO 130S. INFORMED THAT PATIENT HAS TEMP OF 100.4 DEGREES FAHRENHEIT. INFORMED THAT PATIENT IS COMPLAINING ABOUT BODY SORENESS AND HEADACHE. INFORMED THAT PATIENT IS ALSO STATING HE IS "GOING TO CHECK HIMSELF OUT OF HERE". DR. HAMILTON CAME TO SEE PATIENT. PATIENT STILL ADAMANT THAT HE WANTS TO LEAVE AMA AND UNDERSTANDS THE RISKS OF LEAVING. PATIENT CALLED SON TO SEE IF HE COULD COME GET HIM. NO ANSWER AT THIS TIME.
--- NOTE | 2023-10-03 14:13 | NUR ---
PATIENT'S SON, VENKATESH, CALLED BACK AND STATED THAT HE WOULD COME IN AND GIVE PATIENT'S DEBIT CARD BACK AND MAYBE PATIENT WILL AGREE TO STAY IN HOSPITAL. PATIENT INFORMED. PATIENT STATED EVEN IF HE GETS HIS CARD BACK THAT HE WILL STILL BE LEAVING AMA.
[2023-10-03] MEDS ORDERED: Prinivil10 MG PO (14:39)
[2023-10-03] MEDS ORDERED: MULVITA PO (14:40)
[2023-10-03] MEDS ORDERED: MIRALAX17 GM PO (14:40)
[2023-10-03] MEDS ORDERED: Vitamin D1000 UNI1 PO (14:42)
--- NOTE | 2023-10-03 18:30 | NUR ---
SHIFT SUMMARY PATIENT REMAINED ALERT AND ORIENTED THROUGHOUT SHIFT. PATIENT REMAINED DENYING SI. PATIENT IRRITABLE AT TIMES BUT REMAINED CALM AND COOPERATIVE MOST OF THE TIME. PATIENT GIVEN PRN TYLENOL OT FOR COMPLAINTS OF HEADACHE AND BODY SORES THIS SHIFT. PATIENT HAS TMAX OF 100.4 DEGREES FAHRENHEIT THIS SHIFT. PATIENT REMAINED WEAK BUT ABLE TO AMBULATE TO CHAIR WITH 1 PERSON ASSIST. PATIENT REMAINED SATTING 90% AND GREATER ON RA. PATIENT REMAINED SR TO ST WITH BBB, HR 90S TO 130S THIS SHIFT. SBP 80S TO 2-TEENS THIS SHIFT. PATIENT GIVEN OT DOSE OF EXTRA NORVASC THIS SHIFT AND WAS STARTED ON LISINOPRIL FOR HR IN 130S AND HTN. LATE THIS AFTERNOON SBP DOWN TO 80S AND HR 90S TO LOW 100S. NO BM THIS SHIFT. PATIENT ATE BREAKFAST AND DINNER WELL. PATIENT HAD ADEQUATE URINE OUTPUT. NO CHANGES TO SKIN NOTED. PATIENT RECEIVED COMPLETE CHG BATH. GABAPENTIN DOSE INCREASED THIS SHIFT. PATIENT UPSET THAT SON HAS PATIENT'S PHONE, DEBIT CARD AND CAR KEYS. PATIENT FELT BETTER AFTER SPEAKING WITH SON THIS AM BUT THEN UPSET ABOUT IT AGAIN THIS AFTERNOON AND STATED HE WAS GOING AMA. SON CALLED TO COME LODE MINER BUT DID NOT ANSWER. SON CALLED BACK AND INFORMED PATIENT WANTING TO GO AMA. SON STATED THAT HE WOULD BRING PATIENT'S DEBIT CARD IN AND MAYBE HE WOULD FEEL BETTER AND STAY. A COUPLE HOURS LATER SON CALLED AGAIN AND STATED THAT HE "WAS COMING NOW BUT JUST WAS TAKING LONGER THAN EXPECTED SO LET DAD KNOW". PATIENT INFORMED. SON HAS NEVER SHOWED UP. BED LOW, CALL LIGHT IN REACH, BED ALARM ON. PATIENT WILL BE TRANSFERRED TO MEDICAL FLOOR SHORTLY.
--- NOTE | 2023-10-03 19:00 | NUR ---
REPORT GIVEN TO ASSUMING DIRECTOR OF AVIATION NURSE.
[2023-10-04] MEDS ORDERED: Neurontin 300300 MG PO (02:32)
[2023-10-04] MEDS ORDERED: GABA300 PO (02:33)
[2023-10-04] MEDS ORDERED: QUET100 PO (02:34)
[2023-10-04] MEDS ORDERED: AMLO5 PO (02:34)
[2023-10-04] MEDS ORDERED: NAPR500EC PO (02:34)
[2023-10-04 03:36] VITALS: BP 130/82
--- NOTE | 2023-10-04 05:03 | NUR ---
SHIFT SUMMARY PT TRANSFER FROM ICU. PT STATED TO ICU NURSE HE WOULD LEAVE AMA IF HIS SON SHOWED UP. AFTER EDUCATION ON WHAT SERVICES WILL NOT BE PROVIDED IF LEAVING AMA, PT DECIDED TO STAY AND RECEIVE MEDICAL CARE. PT ORIGINALLY ADMITTED FOR ETOH WITHDRAWAL. WAS FOUND DOWN BY EMS AFTER APPARENT SEIZURE. PT WAS ADMITTED TO ICU, THEN TRANSFERRED TO MED FLOOR, THEN BACK TO ICU AFTER VAGAL RESPONSE, NOW BACK TO MED FLOOR. PT IS CONTINENT. WORKING WITH PT/OT, AND PERSONNEL TECHNICIAN. GANGRENOUS TISSUE ON TOES. PT ON DROPLET ISO FOR MRSA SPUTUM. HR CONSISTENTLY HIGH.
[2023-10-04 08:38] VITALS: BP 82/48
--- NOTE | 2023-10-04 15:05 | NUR ---
PT HAS BEEN ANXIOUS AND VERBALIZING HE WANTED TO LEAVE. PT HAS BEEN IMPULSIVE AND IN AND OUT OF BED TO CHAIR AND BACK. RESTING OFF AND ON. PT LEFT AMA AND HAS BEEN ADVISED OF THE DANGERS OF LEAVING BEFORE HE IS CONSIDERED READY BY DOCTOR. NOTIFIED DR HAMILTON AND AMA PAPERWORK SIGNED. PT WAS ESCORTED OUT BY HIS SON. PRIOR TO LEAVING PT WANTED KEYS. CALLED ICU AND THEY STATED PT HAS BEEN ASKING ABOUT THEM. ICU STATED SON HAD TAKEN KEYS HOME ON FIRST DAY PT ARRIVED. PT WAS TOLD THIS AND HIS SON STATED HE DIDN'T TAKE ANYTHING. PT THEN LEFT FLOOR WITH SON AT 1450.
== END 2023-10-04 15:04 | disposition left against medical advice (07) | DRG 894 ==
LOC: ER 01:18 → ICUE 03:59 → PCU 03:59 → ERHOLD 03:59 → PCU 05:03 → ICUE 05:19 → PCU 18:35 → ICUE 18:36 → MEDS 10-01 16:05 → ICUE 10-01 20:36 → MEDS 10-03 20:31
PROVIDERS: Family Medicine; Internal Medicine; Student in an Organized Health Care Education/Training Program; ADMIT Internal Medicine
PROC: HZ2ZZZZ Detoxification Services for Substance Abuse Treatment (ICD-10-PCS; principal; 2023-09-26)
DX: F10.239 Alcohol dependence with withdrawal, unspecified (principal); G92.8 Other toxic encephalopathy; N17.9 Acute kidney failure, unspecified; G62.1 Alcoholic polyneuropathy; I10 Essential (primary) hypertension; E83.51 Hypocalcemia; D75.1 Secondary polycythemia; F17.210 Nicotine dependence, cigarettes, uncomplicated; J44.9 Chronic obstructive pulmonary disease, unspecified; R13.10 Dysphagia, unspecified; F02.80 Dementia in other diseases classified elsewhere, unspecified severity, without behavioral disturbance, psychotic disturbance, mood disturbance, and anxiety; R56.9 Unspecified convulsions; F10.27 Alcohol dependence with alcohol-induced persisting dementia; Z53.29 Procedure and treatment not carried out because of patient's decision for other reasons; Z86.19 Personal history of other infectious and parasitic diseases; Z87.81 Personal history of (healed) traumatic fracture; Z98.890 Other specified postprocedural states; Z86.69 Personal history of other diseases of the nervous system and sense organs; Z87.2 Personal history of diseases of the skin and subcutaneous tissue
CPT/HCPCS: 36415; 70450; 71045; 80048; 80053; 80069; 82550; 82803; 82947; 83605; 83735; 84443; 84484; 85014; 85018; 85025; 85027; 92610; 93005; 93010; 94760; 96361; 96374; 96375; 97163; 99285-25; A9270; C1751; J0360; J1650; J2060; J2405; J3411; J3475; J7030; J7050; J7120

== ENCOUNTER 2023-10-29 20:08 | Inpatient (IN) | payer OTHER ==
[~2023-10-29] VITALS: Ht 182.9 cm; Wt 68.2 kg
[~2023-10-29 20:08] MED LIST changes: +MIRALAX17 GM PO; +MULVITA PO; +NAPR500EC PO; +Neurontin 300300 MG PO; +Prinivil10 MG PO; +Vitamin D1000 UNI1 PO
[2023-10-29 20:41] LABS: Source, Urine Straight Cath
[2023-10-29 20:42] LABS: BASOPHILS ABSOLUTE AUTO 0.02 K/mm3 (0.00-0.23); BASOPHILS PERCENT AUTO 0 % (0-2); EOSINOPHILS ABSOLUTE AUTO 0.01 K/mm3 (0.00-0.68); EOSINOPHILS PERCENT AUTO 0 % (0-6); Hematocrit 46.5 % (37.0-53.0); Hemoglobin 16.6 g/dL (13.5-17.5); IMMATURE GRAN ABSOLUTE AUTO 0.03 K/mm3 (0.00-0.10); IMMATURE GRAN PERCENT AUTO 0 % (0-1); LYMPHOCYTES ABSOLUTE AUTO 0.78 K/mm3 (0.84-5.20); LYMPHOCYTES PERCENT AUTO 7 % (21-46); MONOCYTES ABSOLUTE AUTO 0.79 K/mm3 (0.16-1.47); MONOCYTES PERCENT AUTO 7 % (4-13); Mean Corpuscular HGB 30.1 pg (26.0-34.0); Mean Corpuscular HGB Conc 35.7 g/dL (31.5-36.5); Mean Corpuscular Volume 84 fL (80-100); Mean Platelet Volume 10.6 fL (9.1-12.4); NEUTROPHILS ABSOLUTE AUTO 9.36 K/mm3 (1.96-9.15); NEUTROPHILS PERCENT AUTO 85 % (41-73); Platelet Count 243 K/mm3 (150-400); RDW Coefficient Variation 14.3 % (11.7-14.2); RDW Standard Deviation 44.1 fL (35.1-46.3); Red Blood Cell Count 5.52 M/mm3 (4.30-5.90); White Blood Cell Count 10.99 K/mm3 (4.00-11.30)
[2023-10-29 20:47] LABS: Bilirubin, Urine Neg (Neg); Blood, Urine 4+ (Neg); Glucose Qualitative, Urine 2+ (Neg); Ketones, Urine 4+ (Neg); Leukocyte Esterase, Urine Neg (Neg); Nitrite, Urine Neg (Neg); Protein, Urine 3+ (Neg); Specific Gravity, Urine 1.025 (1.003-1.022); Urobilinogen, Urine NORM (Normal)
[2023-10-29 20:57] LABS: Albumin, Blood 3.2 g/dL (3.4-5.0); Albumin/Globulin Ratio 0.8 (0.8-1.8); Bilirubin, Total 0.9 mg/dL (0.1-1.0); Bun/Creatinine Ratio 47.4 (12.0-20.0); Calcium, Blood 8.5 mg/dL (8.5-10.1); Creatinine, Blood 0.72 mg/dL (0.60-1.20); Globulin, Blood 4.2 g/dL (2.2-4.0); Total Protein, Blood 7.4 g/dL (6.4-8.2)
[2023-10-29 20:58] LABS: U Amphetamine Screen DETECTED; U Barbituate Screen Not Detected; U Benzodiazapine Screen DETECTED; U Buprenorphine Screen Not Detected; U Cannabinoids Screen Not Detected; U Cocaine Screen Not Detected; U Methadone Screen Not Detected; U Methamphetamine Screen DETECTED; U Opiates Screen Not Detected; U Oxycodone Screen Not Detected; U Phencyclidine Screen Not Detected
[2023-10-29 20:59] LABS: Appearance, Urine Clear (Clear); Color, Urine Yellow (P-Yellow)
[2023-10-29 21:00] LABS: Bacteria Few /hpf; Squamous Epithelial Cells Rare /hpf (Few)
[2023-10-29 21:01] LABS: Hyaline Casts 0-2 /lpf (0-2)
[2023-10-30] VITALS (7 sets, daily range): BP systolic 126–161; BP diastolic 66–92
[2023-10-30 02:23] LABS: International Normalized Ratio 1.09; Prothrombin Time Results 11.4 Sec (9.7-11.5)
[2023-10-30 03:32] LABS: BASOPHILS ABSOLUTE AUTO 0.03 K/mm3 (0.00-0.23); BASOPHILS PERCENT AUTO 0 % (0-2); EOSINOPHILS ABSOLUTE AUTO 0.03 K/mm3 (0.00-0.68); EOSINOPHILS PERCENT AUTO 0 % (0-6); Hematocrit 41.2 % (37.0-53.0); Hemoglobin 14.7 g/dL (13.5-17.5); IMMATURE GRAN ABSOLUTE AUTO 0.03 K/mm3 (0.00-0.10); IMMATURE GRAN PERCENT AUTO 0 % (0-1); LYMPHOCYTES ABSOLUTE AUTO 0.97 K/mm3 (0.84-5.20); LYMPHOCYTES PERCENT AUTO 9 % (21-46); MONOCYTES ABSOLUTE AUTO 1.18 K/mm3 (0.16-1.47); MONOCYTES PERCENT AUTO 11 % (4-13); Mean Corpuscular HGB 30.4 pg (26.0-34.0); Mean Corpuscular HGB Conc 35.7 g/dL (31.5-36.5); Mean Corpuscular Volume 85 fL (80-100); Mean Platelet Volume 10.3 fL (9.1-12.4); NEUTROPHILS PERCENT AUTO 79 % (41-73); Platelet Count 199 K/mm3 (150-400); RDW Coefficient Variation 14.5 % (11.7-14.2); RDW Standard Deviation 44.9 fL (35.1-46.3); Red Blood Cell Count 4.84 M/mm3 (4.30-5.90); White Blood Cell Count 10.94 K/mm3 (4.00-11.30)
[2023-10-30 03:47] LABS: Albumin, Blood 2.9 g/dL (3.4-5.0); Albumin/Globulin Ratio 0.8 (0.8-1.8); Bilirubin, Total 1.2 mg/dL (0.1-1.0); Bun/Creatinine Ratio 36.5 (12.0-20.0); Calcium, Blood 8.2 mg/dL (8.5-10.1); Creatinine, Blood 0.74 mg/dL (0.60-1.20); Globulin, Blood 3.6 g/dL (2.2-4.0); Potassium, Blood 4.2 mmol/L (3.5-5.5); Total Protein, Blood 6.5 g/dL (6.4-8.2)
--- NOTE | 2023-10-30 05:28 | NUR ---
T/F AND SUMMARY: REPORT RECIEVED FROM JAMMIE BETTENCOURT RN AT 0155 AND PT T/F TO PCU ROOM 9 VIA [facility] AT 0205. HE'S DROWSY BUT WAKEFUL AND APPEARS ANXIOUS, CONFUSED AND WITHDRAWN W/TROUBLE TRACKING VOICE W/EYES. LILIYA, TREMORS OBSERVED AND PT STARTLES EASILY. HE'S UNABLE TO FOLLOW INSTRUCTION AND DOESN'T ANSWER MOST Q'S APPROPRIATE BUT WAS ABLE TO NOD YES/NO AT TIMES AND CONVEYED "STOMACH PAIN" AND NEEDING "WATER". EXT'S ARE RIGID/STIFF BUT STRENGTH APPEARS EQUAL BILATERALLY. CIWA INITIALLY 11 W/PRN ATIVAN 0.5MG IV, FENTANYL 25MCG IV AND ZOFRAN 4MG IV RECIEVED FOR IMPROVEMENT TO 7 THIS AM. TYLENOL ME PRN WAS ALSO PROVIDED FOR TMAX 100.6 AND BICARB GTT COMMENCED PER EMAR. HE'S ON BEDREST W/ALARM ON FOR AMS, WEAKNESS AND IMPULSIVITY. PT NPO PENDING ST EVAL AND ORAL SWABS PROVIDED W/ASP.PREC'S MAINTAINED. SKIN APPEARS FLUSHED W/REDDENED AREAS TO ALL BONY PROMINENCES AND DIFFUSE RED RASH NOTED T/O BODY AND SKIN FOLDS. HE WAS APPARENTLY FOUND BY EMS IN "SOAKED CLOTHES THAT SMELLED MOLDY". THOROUGH SKIN CARE PERFORMED W/POWDER APPLIED AND CONDOM CATH PLACED FOR INCONTINENCE AND MOISTURE PREVENTION. HE'S S.TACH ON TELE AT 100'S-1TEENS BPM. PT PLACED ON 2L O2 VIA NC FOR DESATS WHEN SLEEPING, SPO2 NOW >93% W/O S/S RESP DISTRESS. NO ACUTE CHANGES. WCTM AND REPORT TO DAY RN.
--- NOTE | 2023-10-30 11:28 | NUR ---
CARE ASSUMPTION PT LETHARGIC, RESPONDS TO PAIN. MOANS WITH REPOSITIONING, TOUCHING. DOES NOT FOLLOW COMMANDS. BRIEFLY WILL OPEN EYES SPONTANEOUSLY. SP02>90% ON 2L NC. ATTEMPTED TO TITRATE TO 1L, PT SP02 IN THE HIGH 80'S. INCREASED TO 2L NC, CURRENTLY AT 98%. TELEMETRY SHOWS SINUS TACH, HR 100'S UPON CARE ASSUMPTION. BP STABLE. HR STARTED INCREASING AT LUNCH TIME, 110'S-120'S. PT MOANING. CIWA 5, D/T NOT ABLE TO ANSWER QUESTIONS. MEDICATED W/ 0.5 ATIVAN IV, SEE EMAR. HR CURRENTLY 100. CONDOM CATH APPLIED THIS AM, DRAINING MARIELA URINE. FULL BED CHANGED DONE. PT FEBRILE, 100 TEMPORAL. RECAL TEMP PROBE INSERTED THIS AM, CURRENTLY READING 99.7. Q2H REPOSITIONING. BICARB GTT INFUSING PER EMAR. ABX, THIAMINE, FOLIC ACID INFUSED PER EMAR. SKIN PICTURES TAKEN THIS AM, SEE CHART. SPEECH ATTEMPTED TO SEE PT, PT TOO LETHARGIC TO PARTICIPATE. ABD ULTRASOUND IN ROOM AM, SEE RESULTS. BED ALARM ON. CALL LIGHT IN REACH.
--- NOTE | 2023-10-30 18:35 | NUR ---
SHIFT SUMMARY PT REMAINS LETHARGIC. NO ACUTE CHANGES SINCE CARE ASSUMPTION. SP02>90% ON 2L NC. TELEMETRY REMAINS SINUS TACH, HR CURRENTLY 90'S-100'S. CIWAS REMAIN 4-5. LAB CALLED W/ POSITIVE BLOOD CULTURE. CALL PLACED TO MD FREITAS W/ UPDATE. MD FREITAS W/ ORDERS TO START VANYCO, CURRENTLY INFUSING PER EMAR. FLUIDS INFUSING PER EMAR. SECONDARY IV INSERTED. CONDOM CATH DRAINING TO GRAVITY. MD MORENO IN ROOM TO CONSULT THIS SHIFT. SCAN ORDERDED FOR AM, IMAGING CALLED TO ENSURE PT NPO AT MIDNIGHT, NO NARCOTICS AFTER MIDNIGHT. BENZO'S OK. IMAGING STATES THEY WANT PT TO BE ABLE TO LAY FLAT/STILL FOR 1 HOUR IN THE AM. CALL LIGHT IN REACH, BED ALARM ON.
[2023-10-31 03:24] VITALS: BP 141/75
[2023-10-31 04:22] LABS: BASOPHILS ABSOLUTE AUTO 0.03 K/mm3 (0.00-0.23); BASOPHILS PERCENT AUTO 0 % (0-2); EOSINOPHILS ABSOLUTE AUTO 0.06 K/mm3 (0.00-0.68); EOSINOPHILS PERCENT AUTO 1 % (0-6); Hematocrit 41.6 % (37.0-53.0); Hemoglobin 14.2 g/dL (13.5-17.5); IMMATURE GRAN ABSOLUTE AUTO 0.03 K/mm3 (0.00-0.10); IMMATURE GRAN PERCENT AUTO 0 % (0-1); LYMPHOCYTES ABSOLUTE AUTO 1.69 K/mm3 (0.84-5.20); LYMPHOCYTES PERCENT AUTO 15 % (21-46); MONOCYTES ABSOLUTE AUTO 0.92 K/mm3 (0.16-1.47); MONOCYTES PERCENT AUTO 8 % (4-13); Mean Corpuscular HGB 29.8 pg (26.0-34.0); Mean Corpuscular HGB Conc 34.1 g/dL (31.5-36.5); Mean Corpuscular Volume 87 fL (80-100); Mean Platelet Volume 10.2 fL (9.1-12.4); NEUTROPHILS ABSOLUTE AUTO 8.68 K/mm3 (1.96-9.15); NEUTROPHILS PERCENT AUTO 76 % (41-73); Platelet Count 142 K/mm3 (150-400); RDW Coefficient Variation 14.4 % (11.7-14.2); RDW Standard Deviation 46.4 fL (35.1-46.3); Red Blood Cell Count 4.76 M/mm3 (4.30-5.90); White Blood Cell Count 11.41 K/mm3 (4.00-11.30)
[2023-10-31 04:47] LABS: Albumin, Blood 2.4 g/dL (3.4-5.0); Albumin/Globulin Ratio 0.6 (0.8-1.8); Bilirubin, Direct 0.4 mg/dL (0.0-0.3); Bilirubin, Indirect 0.8 mg/dL (0.1-0.7); Bilirubin, Total 1.2 mg/dL (0.1-1.0); Bun/Creatinine Ratio 30.3 (12.0-20.0); Creatinine, Blood 0.63 mg/dL (0.60-1.20); Globulin, Blood 3.7 g/dL (2.2-4.0); Potassium, Blood 3.5 mmol/L (3.5-5.5); Total Protein, Blood 6.1 g/dL (6.4-8.2)
--- NOTE | 2023-10-31 05:49 | NUR ---
SHIFT SUMMARY PATIENT RESPONSIVE TO PAIN. NOT ANSWERING ANY QUESTIONS, WILL OCCASIONALLY MOAN OR MUMBLE "PAIN", "THIRSTY". CIWA NEGATIVE D/T LETHARGY. BP STABLE, TELE READING SR 100s. ON 2L NC DURING THE NIGHT, SOME SNORING NOTED WHILE SLEEPING, SPO2 >95%. RECTAL TEMP MAX 100.4. CONDOM CATH IN PLACE, ADEQUATE OUTPUT DURING THE NIGHT. TURNED Q2. NO OTHER CHANGES DURING THE NIGHT. WILL REPORT TO DAY SHIFT RN.
[2023-10-31 07:14] VITALS: BP 125/86
--- NOTE | 2023-10-31 09:57 | NUR ---
CARE ASSUMPTION PT DROWSY BUT ABLE TO ANSWER QUESTIONS APPROPRIATELY. ORIENTED TO PLACE, DATE, SITUATION. ABLE TO MAKE NEEDS KNOWN. STATES HES THIRSTY AND HURTS ALL OVER. WHEN ASKED WHAT BROUGHT HIM TO HOSPITAL, PT STATES, "I TRIED TO KILL MYSELF WITH ALCOHOL." SUICIDE ASSESSMENT COMPLETED, PT DENIES WANTING TO HARM HIMSELF IN ANY WAY CURRENTLY. UPDATED. CIWA 9. PT MEDICATED W/ 1 MG ATIVAN PRIOR TO IMAGING THIS AM. ABLE TO TITRATE PT SP02 TO RA, SATTING >90%. TELEMETRY SHOWS NSR/SINUS TACH, HR 80'S-110'S. BP STABLE. CONDOM CATH DRAINING YELLOW URINE TO GRAVITY. IMAGING IN ROOM THIS AM TO TAKE PT TO SCAN, PT ARRIVED BACK TO ROOM APPROX 0930. BED BATH GIVEN WHEN PT ARRIVED TO ROOM. FLUIDS INFUSING PER EMAR, MEDICATION INFUSING PER EMAR. CARE MANAGEMENT IN ROOM WITH PT. CALL LIGHT IN REACH, BED ALARM ON.
[2023-10-31 10:41] LABS: Influenza A, PCR NEGATIVE (NEGATIVE); Influenza B, PCR NEGATIVE (NEGATIVE); Resp Syncytial Virus, PCR NEGATIVE (NEGATIVE); SARS-Cov-2 (COVID-19) PCR, MMC NEGATIVE (NEGATIVE)
[2023-10-31 11:15] VITALS: BP 147/95
[2023-10-31 15:53] VITALS: BP 133/90
--- NOTE | 2023-10-31 17:10 | NUR ---
shift summary No acute changes since care assumption. Pt able to make needs known. CIWA between 5-12 this shift, medicated per emar. Pt able to work with speech therapy this afternoon, cleared for diet, see orders. Meds w/ applesauce. Libruim given once cleared. Fluids stopped per orders. Condom cath draining yellow urine to gravity. Pt currently resting in room. Call light in reach.
[2023-10-31 19:52] VITALS: BP 150/88
[2023-11-01] VITALS: BP 149/93
[2023-11-01 04:02] VITALS: BP 141/99
--- NOTE | 2023-11-01 04:22 | NUR ---
SHIFT ASSESSMENT. SHIFT HAS BEEN LARGELY UNREMARKABLE. PT AOX3-4, PLEASANT, COOPERATIVE WITH CARE. CIWAs HAVE RANGED BETWEEN 4-9 THROUGHOUT SHIFT THUS FAR, MANIFESTATIONS MANAGED WELL VIA PRN LIBRIUM. STABLE WITHDRAWL THUS FAR. PAIN APPEARS TO BE WELL MANAGED VIA EMAR. CONDOM CATHETER CHANGED EARLY THIS MORNING, FUNCTIONING WELL AT THIS TIME. VITALS HAVE BEEN STABLE. PT HAS BEEN ON ROOM AIR THROUGHOUT MOST OF SHIFT, 2 L O2 PLACED VIA NC THIS MORNING DUE TO SPORADIC DESATURATION WHILE SLEEPING. TOLERATING WELL. PT USES CALL LIGHT APPROPRIATELY AND IS ABLE TO MAKE NEEDS KNOWN. TOLERATES PO INTAKE WELL, VERY HUNGRY. BED LOCKED IN LOWEST POSITION. CALL LIGHT LEFT WITHIN REACH. CONTINUING TO MONITOR.
[2023-11-01 05:28] LABS: BASOPHILS ABSOLUTE AUTO 0.04 K/mm3 (0.00-0.23); BASOPHILS PERCENT AUTO 1 % (0-2); EOSINOPHILS ABSOLUTE AUTO 0.33 K/mm3 (0.00-0.68); EOSINOPHILS PERCENT AUTO 4 % (0-6); Hematocrit 41.4 % (37.0-53.0); Hemoglobin 14.2 g/dL (13.5-17.5); IMMATURE GRAN ABSOLUTE AUTO 0.01 K/mm3 (0.00-0.10); IMMATURE GRAN PERCENT AUTO 0 % (0-1); LYMPHOCYTES ABSOLUTE AUTO 2.27 K/mm3 (0.84-5.20); LYMPHOCYTES PERCENT AUTO 29 % (21-46); MONOCYTES ABSOLUTE AUTO 0.77 K/mm3 (0.16-1.47); MONOCYTES PERCENT AUTO 10 % (4-13); Mean Corpuscular HGB Conc 34.3 g/dL (31.5-36.5); Mean Corpuscular Volume 88 fL (80-100); Mean Platelet Volume 10.9 fL (9.1-12.4); NEUTROPHILS ABSOLUTE AUTO 4.47 K/mm3 (1.96-9.15); NEUTROPHILS PERCENT AUTO 57 % (41-73); Platelet Count 132 K/mm3 (150-400); RDW Coefficient Variation 13.8 % (11.7-14.2); Red Blood Cell Count 4.73 M/mm3 (4.30-5.90); White Blood Cell Count 7.89 K/mm3 (4.00-11.30)
[2023-11-01 06:03] LABS: Alanine Aminotransfer (ALT/SGP 105 U/L (12-78); Albumin, Blood 2.4 g/dL (3.4-5.0); Albumin/Globulin Ratio 0.6 (0.8-1.8); Alk Phos 97 U/L (50-136); Anion Gap 4 mmol/L (6-16); Aspartate Aminotrans (AST/SGOT 72 U/L (12-37); Bilirubin, Total 0.9 mg/dL (0.1-1.0); Blood Urea Nitrogen 17 mg/dL (8-24); Bun/Creatinine Ratio 24.2 (12.0-20.0); CO2, Blood 29 mmol/L (21-32); Calcium, Blood 8.7 mg/dL (8.5-10.1); Chloride, Blood 102 mmol/L (98-108); Globulin, Blood 3.9 g/dL (2.2-4.0); Glomerular Filtration Rate 100 (60-); Glucose, Blood 118 mg/dL (70-99); Potassium, Blood 3.5 mmol/L (3.5-5.5); Sodium, Blood 135 mmol/L (136-145); Total Protein, Blood 6.3 g/dL (6.4-8.2); Vancomycin, Trough 10.4 ug/mL (5.0-10.0)
[2023-11-01 08:31] VITALS: BP 144/84
--- NOTE | 2023-11-01 10:53 | NUR ---
Report was given to Madeline Núñez. Pt to transfer to 343 now that the room is clean. The pt was transferred from the chair back to bed with a 2 person maximum assistance , gait belt but with out walker per PT recommendations. The pt is primarily inhibited by his pain and stated fear of falling.
--- NOTE | 2023-11-01 11:40 | NUR ---
TRANSFER PATIENT ARRIVES FROM PCU AT 1130. PATIENT SETTLED INTO ROOM. PATIENT ORIENTED TO ROOM AND MEDICAL FLOOR PROCEDURES. IGNITION RISK COMPLETED. PATIENT A&O X4. CIWA COMPLETED AND PATIENT MEDICATED WITH LIBRUIM. PATIENT WORKED WITH PT THIS MORNING PER REPORT. CALL LIGHT IN REACH. PATIENT ABLE TO MAKE NEEDS KNOWN.
[2023-11-01] MEDS ORDERED: IBUP400 PO (11:46)
[2023-11-01] MEDS ORDERED: GABA300 PO (11:57)
--- NOTE | 2023-11-01 15:01 | NUR ---
TRANSFER PATIENT HAVING INCREASED HALLUCINATIONS, ATTEMPTING TO GET OUT OF BED MULTIPLE TIMES EVEN AFTER REDIRECTION. PATIENT CONTINUOUSLY SETTING BED ALARM OFF. CIWA DONE. PATIENT MEDICATED WITH ATIVAN WITH GOOD EFFECT. PATIENT RESTING IN BED. PATIENT MOVED TO [facility] FOR SAFETY. REPORT GIVEN TO JODI MAYNARD. ALL BELONGINGS SENT WITH PATIENT. PATIENT HAS HIS WALLET ON HIM.
[2023-11-01 16:42] VITALS: BP 136/94
--- NOTE | 2023-11-01 17:43 | NUR ---
PT WAS TRANSFERED 1450 WITH ALL PERSONAL BELONINGS. JODI PARNELL GAVE REPORT PRIOR TO ROOM CHANGE. PT ORIENTED TO ROOM AND CALL LIGHT WITHIN REACH AND BED ALARM IN PLACE. PT STATED HE WAS HAVING BAD LEG PAIN AND WAS TREATED PER EMAR. WILL CONTINUE TO MONITOR.
--- NOTE | 2023-11-01 18:15 | NUR ---
PT TRANSFERED TO ROOM 360. REPORT WAS GIVEN TO JODI THORNTON. PT AOX4 AND COOPERATIVE OF CARE. PT IS A STANDBY ASSIST. BANDAGE WAS REPACKED AND BANDAGED PT HAD BM AND STOOL SOILED DRESSING. PT TOLERATED WELL AND HAS BEEN TREATED FOR PAIN PER EMAR. ALL PERSONAL BELONINGS HAVE BEEN MOVED TO ROOM 360. PT OREINTED TO NEW ROOM.
[2023-11-01 19:29] VITALS: BP 150/89
[2023-11-02 05:37] VITALS: BP 151/89
--- NOTE | 2023-11-02 05:41 | NUR ---
SHIFT SUMMARY - PT MEDICATED X2 FOR ETOH DETOX - SEE EMAR. PT MEDICATED X2 FOR PAIN WITH GOOD RELIEF. PT SLEPT FOR APPX 3-4 HOURS TONIGHT. PT HAS BEEN IMPULSIVE OOB TONIGHT - BED ALARM ON THROUGHOUT THE NIGHT. PT IS AMBULATORY WITH A WALKER, SBA, OR INDEPENDENT WITH AMBULATION. PT HAS MOSTLY BEEN REDIRECTABLE. PT STATED HE WANTED TO HAVE A CIGARETTE THIS AM - INSTUCTED ON CURRENT POLICY - NO SMOKING AT FACILITY. CALL LIGHT WITHIN REACH. BED IN LOW POSITION. FLUIDS AT BEDSIDE. WILL CONTINUE TO MONITOR UNTIL AM SHIFT CHANGE.
[2023-11-02 06:06] LABS: BASOPHILS ABSOLUTE AUTO 0.04 K/mm3 (0.00-0.23); BASOPHILS PERCENT AUTO 1 % (0-2); EOSINOPHILS ABSOLUTE AUTO 0.43 K/mm3 (0.00-0.68); EOSINOPHILS PERCENT AUTO 7 % (0-6); Hematocrit 42.3 % (37.0-53.0); Hemoglobin 14.6 g/dL (13.5-17.5); IMMATURE GRAN ABSOLUTE AUTO 0.05 K/mm3 (0.00-0.10); IMMATURE GRAN PERCENT AUTO 1 % (0-1); LYMPHOCYTES ABSOLUTE AUTO 1.82 K/mm3 (0.84-5.20); LYMPHOCYTES PERCENT AUTO 28 % (21-46); MONOCYTES ABSOLUTE AUTO 0.73 K/mm3 (0.16-1.47); MONOCYTES PERCENT AUTO 11 % (4-13); Mean Corpuscular HGB 30.2 pg (26.0-34.0); Mean Corpuscular HGB Conc 34.5 g/dL (31.5-36.5); Mean Corpuscular Volume 87 fL (80-100); Mean Platelet Volume 10.5 fL (9.1-12.4); NEUTROPHILS ABSOLUTE AUTO 3.38 K/mm3 (1.96-9.15); NEUTROPHILS PERCENT AUTO 52 % (41-73); Platelet Count 153 K/mm3 (150-400); RDW Coefficient Variation 13.5 % (11.7-14.2); RDW Standard Deviation 43.7 fL (35.1-46.3); Red Blood Cell Count 4.84 M/mm3 (4.30-5.90); White Blood Cell Count 6.45 K/mm3 (4.00-11.30)
[2023-11-02 06:27] LABS: Albumin, Blood 2.7 g/dL (3.4-5.0); Albumin/Globulin Ratio 0.7 (0.8-1.8); Bilirubin, Total 0.6 mg/dL (0.1-1.0); Bun/Creatinine Ratio 23.3 (12.0-20.0); Calcium, Blood 8.6 mg/dL (8.5-10.1); Creatinine, Blood 0.73 mg/dL (0.60-1.20); Globulin, Blood 4.1 g/dL (2.2-4.0); Potassium, Blood 3.8 mmol/L (3.5-5.5); Total Protein, Blood 6.8 g/dL (6.4-8.2)
[2023-11-02 07:34] VITALS: BP 127/85
[2023-11-02 16:22] VITALS: BP 145/90
--- NOTE | 2023-11-02 17:25 | NUR ---
SHIFT SUMMARY Pt remains A&Ox3 this shift. Gen weakness noted. VSS. Ultram effective for BLE pain. Tolerating diet. Voiding per urinal. Slept peacefully most of afternoon. No acute distress/changes noted. Will continue to monitor.
[2023-11-02 20:20] VITALS: BP 131/85
--- NOTE | 2023-11-03 03:14 | NUR ---
SHIFT SUMMARY; PATIENT VERY PAINFULL DURING NOC SHIFT. MEDICATED X 2 FOR PAIN AND FOR ETOH WITHDRAWL SYMPTOMS. HE IS VERY TREMULOUS COMPLAINS OF HEADACHE AND IS AGITATED. VITAL SIGNS ARE STABLE. HR IS 99 SATS ARE 98% ON ROOM AIR. LUNGS ARE COARSE AND PATIENT HAS SLIGHT COUGH. HE COMPLAINS OF NEUROPATHY IN HIS FEET. PATIENT SAYS HE IS WANTING TO DISCHARGE ON MONDAY. WILL REMAIN AVAILABLE FOR THIS PATIENT FOR ANY WANTS OR CONCERNS THAT COME UP PRIOR TO SHIFT CHANGE TO DAY SHIFT.
[2023-11-03 05:01] VITALS: BP 123/85
[2023-11-03 07:19] VITALS: BP 142/95
[2023-11-03] MEDS ORDERED: TRAM50 PO (11:47)
[2023-11-03] MEDS ORDERED: DOCU100 PO (11:47)
[2023-11-03] MEDS ORDERED: MIRALAX17 GM PO (11:47)
[2023-11-03] MEDS ORDERED: PANT40 PO (11:47)
--- NOTE | 2023-11-03 14:05 | NUR ---
[facility] WRITTEN & VERBAL DC INSTRUCTIONS GIVEN TO PT, PT VERBALIZED GOOD UNDERSTANDING. PIV DC'D WITH CATH TIP INTACT, NO REDNESS OR SWELLING NOTED. A RIDE HAS BEEN ARRANGED WITH A [facility] TO TAKE PT TO [facility] & THEN TO [facility]. A HARD COPY SCRIPT WAS GIVEN TO PT FOR TRAMADOL. NEW MED SCRIPTS FAXED TO [facility] PER PT REQUEST. PT TO [facility]IA [facility]/C WITH ALL PERSONAL BELONGINGS.
[2023-11-04] MEDS ORDERED: MIRALAX17 GM PO (15:42)
[2023-11-04] MEDS ORDERED: TRAM50 PO (15:42)
[2023-11-04] MEDS ORDERED: GABA300 PO ×2 (15:42→16:04)
[2023-11-04] MEDS ORDERED: DOCU100 PO (15:42)
[2023-11-04] MEDS ORDERED: PROTONIX40 M4 PO (15:42)
== END 2023-11-03 14:16 | disposition home or self-care (01) | DRG 896 ==
LOC: ER 20:08 → PCU 20:09 → MEDS 11-01 11:28 → ENPENDDIS 11-03 10:45 → MEDS 11-03 14:16
PROVIDERS: Emergency Medicine; Family Medicine; ADMIT Internal Medicine
PROC: HZ2ZZZZ Detoxification Services for Substance Abuse Treatment (ICD-10-PCS; principal; 2023-10-30)
DX: F10.239 Alcohol dependence with withdrawal, unspecified (principal); G92.8 Other toxic encephalopathy; E87.20 Acidosis, unspecified; E87.1 Hypo-osmolality and hyponatremia; K55.1 Chronic vascular disorders of intestine; F10.229 Alcohol dependence with intoxication, unspecified; D72.829 Elevated white blood cell count, unspecified; D69.6 Thrombocytopenia, unspecified; F03.90 Unspecified dementia, unspecified severity, without behavioral disturbance, psychotic disturbance, mood disturbance, and anxiety; G62.9 Polyneuropathy, unspecified; I10 Essential (primary) hypertension; K21.9 Gastro-esophageal reflux disease without esophagitis; F15.10 Other stimulant abuse, uncomplicated; Y90.6 Blood alcohol level of 120-199 mg/100 ml; F17.200 Nicotine dependence, unspecified, uncomplicated; E86.0 Dehydration; K80.20 Calculus of gallbladder without cholecystitis without obstruction; Z11.52 Encounter for screening for COVID-19
CPT/HCPCS: 0241U; 36415; 51701; 70450; 71045; 74177; 76705; 78226; 80048; 80053; 80076; 80202; 81001; 82140; 82947; 83605; 83690; 83880; 84145; 84484; 85025; 85610; 87040; 92526; 92610; 93005; 93010; 94760; 96372; 96374; 96375; 96376; 97110; 97161; 97530; 99285-25; A9270; A9537; C9113; G0378; J0696; J1650; J2060; J2405; J3010; J3370; J3411; J7030; J7050; Q9967

== ENCOUNTER 2023-11-04 12:33 | Emergency (ER) | payer OTHER ==
[~2023-11-04] VITALS: Ht 177.8 cm; Wt 68.0 kg
[2023-11-04 12:55] VITALS: BP 138/74
[2023-11-04 13:13] LABS: BASOPHILS ABSOLUTE AUTO 0.02 K/mm3 (0.00-0.23); BASOPHILS PERCENT AUTO 0 % (0-2); EOSINOPHILS ABSOLUTE AUTO 0.26 K/mm3 (0.00-0.68); EOSINOPHILS PERCENT AUTO 4 % (0-6); Hematocrit 42.3 % (37.0-53.0); Hemoglobin 14.4 g/dL (13.5-17.5); IMMATURE GRAN ABSOLUTE AUTO 0.03 K/mm3 (0.00-0.10); IMMATURE GRAN PERCENT AUTO 0 % (0-1); LYMPHOCYTES ABSOLUTE AUTO 1.95 K/mm3 (0.84-5.20); LYMPHOCYTES PERCENT AUTO 28 % (21-46); MONOCYTES PERCENT AUTO 13 % (4-13); Mean Corpuscular HGB 30.1 pg (26.0-34.0); Mean Corpuscular Volume 89 fL (80-100); Mean Platelet Volume 9.5 fL (9.1-12.4); NEUTROPHILS ABSOLUTE AUTO 3.89 K/mm3 (1.96-9.15); NEUTROPHILS PERCENT AUTO 55 % (41-73); Platelet Count 221 K/mm3 (150-400); RDW Coefficient Variation 14.1 % (11.7-14.2); RDW Standard Deviation 44.8 fL (35.1-46.3); Red Blood Cell Count 4.78 M/mm3 (4.30-5.90); White Blood Cell Count 7.05 K/mm3 (4.00-11.30)
[2023-11-04 13:38] LABS: Albumin, Blood 3.1 g/dL (3.4-5.0); Albumin/Globulin Ratio 0.8 (0.8-1.8); Bilirubin, Total 0.2 mg/dL (0.1-1.0); Bun/Creatinine Ratio 35.1 (12.0-20.0); Calcium, Blood 9.1 mg/dL (8.5-10.1); Creatinine, Blood 0.94 mg/dL (0.60-1.20); Globulin, Blood 4.1 g/dL (2.2-4.0); Potassium, Blood 4.6 mmol/L (3.5-5.5); Total Protein, Blood 7.2 g/dL (6.4-8.2)
[2023-11-04] MEDS ORDERED: PROTONIX40 M4 PO (15:42)
[2023-11-04] MEDS ORDERED: MIRALAX17 GM PO (15:42)
[2023-11-04] MEDS ORDERED: TRAM50 PO (15:42)
[2023-11-04] MEDS ORDERED: GABA300 PO ×2 (15:42→16:04)
[2023-11-04] MEDS ORDERED: DOCU100 PO (15:42)
[2023-11-04] MEDS ORDERED: Gabapentin 300 MG Cap PO ONE (16:05)
== END 2023-11-04 16:37 | disposition home or self-care (01) ==
LOC: ER 12:33
PROVIDERS: Student in an Organized Health Care Education/Training Program
DX: G62.9 Polyneuropathy, unspecified (principal); Z59.00 Homelessness unspecified; Z79.899 Other long term (current) drug therapy; I10 Essential (primary) hypertension; F17.210 Nicotine dependence, cigarettes, uncomplicated
CPT/HCPCS: 80053; 85025; 99283; A9270

== ENCOUNTER 2024-03-15 20:35 | Emergency (ER) | payer OTHER ==
[~2024-03-15] VITALS: Ht 172.7 cm; Wt 72.6 kg
[~2024-03-15 20:35] MED LIST changes: +PROTONIX40 M4 PO
[2024-03-15 20:59] VITALS: BP 152/89
[2024-03-15] MEDS ORDERED: Tetracaine HCl/Pf 0.5% Opth Soln 4 ml LEFTEYE ONE (21:05)
[2024-03-15] MEDS ORDERED: Fluorescein Sod 1MG Opth Strips RIGHTEYE ONE (21:05)
[2024-03-15] MEDS ORDERED: Erythromycin 0.5% Opth Oint 1 gm RIGHTEYE ONE (21:35)
== END 2024-03-15 22:12 | disposition home or self-care (01) ==
LOC: ER 20:35
DX: T15.01XA Foreign body in cornea, right eye, initial encounter (principal); W22.8XXA Striking against or struck by other objects, initial encounter; Z79.899 Other long term (current) drug therapy; F17.210 Nicotine dependence, cigarettes, uncomplicated
CPT/HCPCS: 99283; A9270

== ENCOUNTER 2024-05-20 19:39 | Emergency (ER) | payer OTHER ==
[~2024-05-20] VITALS: Ht 172.7 cm; Wt 86.2 kg
[~2024-05-20 19:39] MED LIST changes: +CIPR500 PO; +METR500 PO
[2024-05-20] MEDS ORDERED: NS 1,000 ML IV SCH (20:25)
[2024-05-20 20:30] LABS: BASOPHILS ABSOLUTE AUTO 0.03 K/mm3 (0.00-0.23); BASOPHILS PERCENT AUTO 0 % (0-2); EOSINOPHILS ABSOLUTE AUTO 0.06 K/mm3 (0.00-0.68); EOSINOPHILS PERCENT AUTO 1 % (0-6); Hematocrit 47.5 % (37.0-53.0); Hemoglobin 16.7 g/dL (13.5-17.5); IMMATURE GRAN ABSOLUTE AUTO 0.02 K/mm3 (0.00-0.10); IMMATURE GRAN PERCENT AUTO 0 % (0-1); LYMPHOCYTES ABSOLUTE AUTO 2.27 K/mm3 (0.84-5.20); LYMPHOCYTES PERCENT AUTO 24 % (21-46); MONOCYTES ABSOLUTE AUTO 0.81 K/mm3 (0.16-1.47); MONOCYTES PERCENT AUTO 9 % (4-13); Mean Corpuscular HGB 30.3 pg (26.0-34.0); Mean Corpuscular HGB Conc 35.2 g/dL (31.5-36.5); Mean Corpuscular Volume 86 fL (80-100); Mean Platelet Volume 9.2 fL (9.1-12.4); NEUTROPHILS ABSOLUTE AUTO 6.23 K/mm3 (1.96-9.15); NEUTROPHILS PERCENT AUTO 66 % (41-73); Platelet Count 278 K/mm3 (150-400); RDW Coefficient Variation 14.2 % (11.7-14.2); RDW Standard Deviation 44.9 fL (35.1-46.3); Red Blood Cell Count 5.51 M/mm3 (4.30-5.90); White Blood Cell Count 9.42 K/mm3 (4.00-11.30)
[2024-05-20 21:02] LABS: Ethanol (Alcohol), Blood, Med 199 mg/dL; Free Thyroxine 1.04 ng/dL (0.70-1.60); Salicylate 1.9 mg/dL (2.8-20.0)
[2024-05-20 21:08] LABS: Acetaminophen, Random <2.0 ug/mL (10.0-30.0); Alanine Aminotransfer (ALT/SGP 64 U/L (12-78); Albumin, Blood 3.6 g/dL (3.4-5.0); Albumin/Globulin Ratio 0.8 (0.8-1.8); Alk Phos 130 U/L (50-136); Anion Gap 16 mmol/L (3-11); Aspartate Aminotrans (AST/SGOT 83 U/L (12-37); Bilirubin, Total 0.6 mg/dL (0.1-1.0); Blood Urea Nitrogen 9 mg/dL (8-24); Bun/Creatinine Ratio 10.6 (12.0-20.0); CO2, Blood 21 mmol/L (21-32); Calcium, Blood 8.5 mg/dL (8.5-10.1); Chloride, Blood 101 mmol/L (98-108); Creatinine, Blood 0.85 mg/dL (0.60-1.20); Globulin, Blood 4.4 g/dL (2.2-4.0); Glomerular Filtration Rate 93 (60-); Glucose, Blood 117 mg/dL (70-99); Potassium, Blood 4.4 mmol/L (3.5-5.5); Sodium, Blood 134 mmol/L (136-145)
[2024-05-20] MEDS ORDERED: Thiamine HCl 100 MG in NS 50 ML IV ONE ×2 (21:45→22:55)
[2024-05-20 22:00] VITALS: BP 158/111
[2024-05-20] MEDS ORDERED: Folic Acid 1 MG in NS 50 ML IV ONE (22:55)
[2024-05-20 23:24] LABS: Source, Urine Clean Catch
[2024-05-20 23:29] LABS: Bilirubin, Urine Neg (Neg); Blood, Urine 2+ (Neg); Glucose Qualitative, Urine Neg (Neg); Ketones, Urine Neg (Neg); Leukocyte Esterase, Urine Neg (Neg); Nitrite, Urine Neg (Neg); Protein, Urine Neg (Neg); Specific Gravity, Urine 1.015 (1.003-1.022); Urobilinogen, Urine NORM (Normal)
[2024-05-20 23:31] LABS: Appearance, Urine Clear (Clear); Color, Urine Yellow (P-Yellow)
[2024-05-20 23:55] LABS: U Amphetamine Screen Not Detected; U Barbituate Screen Not Detected; U Benzodiazapine Screen DETECTED; U Buprenorphine Screen Not Detected; U Cannabinoids Screen Not Detected; U Cocaine Screen Not Detected; U Methadone Screen Not Detected; U Methamphetamine Screen DETECTED; U Opiates Screen Not Detected; U Oxycodone Screen Not Detected; U Phencyclidine Screen Not Detected
[2024-05-21 00:14] LABS: Bacteria Not Seen /hpf; Red Blood Cells, Urine 0-2 /hpf (0-2); Squamous Epithelial Cells Not Seen /hpf (Few); White Blood Cells, Urine Not Seen /hpf (0-5); Yeast/Fungi Urine Not Seen /hpf
[2024-05-21] MEDS ORDERED: Folic Acid 1 MG in NS 50 ML IV SCH (09:00)
[2024-05-26 22:01] LABS: AMITRIPTYLINE, QUANT, URN <100 ng/mL; CLOMIPRAMINE QUANT, URN <200 ng/mL; DESIPRAMINE QUANT, URN <100 ng/mL; DOXEPIN QUANT, URN <100 ng/mL; IMIPRAMINE QUANT, URN <100 ng/mL; NORCLOMIPRAMINE QUANT, URN <200 ng/mL; NORDOXEPIN QUANT, URN <100 ng/mL; NORTRIPTYLINE, QUANT, URN <100 ng/mL; PROTRIPTYLINE QUANT, URN <100 ng/mL
== END 2024-05-20 23:30 | disposition home or self-care (01) ==
LOC: ER 19:39
PROVIDERS: Emergency Medicine
DX: F10.129 Alcohol abuse with intoxication, unspecified (principal); I10 Essential (primary) hypertension; F03.90 Unspecified dementia, unspecified severity, without behavioral disturbance, psychotic disturbance, mood disturbance, and anxiety; F17.210 Nicotine dependence, cigarettes, uncomplicated; Z79.899 Other long term (current) drug therapy
CPT/HCPCS: 70450; 71045; 80053; 80320; 81001; 84439; 84443; 85025; 96360; 96361; 99285-25; G0480; G0481; J3411; J7030

== ENCOUNTER 2024-05-28 11:06 | Emergency (ER) | payer OTHER ==
[~2024-05-28] VITALS: Ht 170.2 cm; Wt 68.0 kg
[2024-05-28 11:17] VITALS: BP 138/94
[2024-05-28] MEDS ORDERED: HyDROXyzine HCl 25 MG Tab PO ONE (11:25)
[2024-05-28] MEDS ORDERED: Ibuprofen 600 MG Tab PO ONE (11:25)
== END 2024-05-28 12:32 | disposition home or self-care (01) ==
LOC: ER 11:06
DX: M54.50 Low back pain, unspecified (principal); G89.29 Other chronic pain; R21 Rash and other nonspecific skin eruption; F17.210 Nicotine dependence, cigarettes, uncomplicated; I10 Essential (primary) hypertension; Z79.899 Other long term (current) drug therapy
CPT/HCPCS: 99283; A9270

== ENCOUNTER 2024-07-20 12:30 | Inpatient (IN) | payer OTHER ==
[~2024-07-20] VITALS: Ht 177.8 cm; Wt 71.1 kg
[2024-07-20] MEDS ORDERED: PHENobarbital Sodium 65MG / ML 1ML Vial IV ONE ×2 (13:20→15:15)
[2024-07-20] MEDS ORDERED: LORazepam 2 MG/ML 1ML Injection IV ONE (13:20)
[2024-07-20] MEDS ORDERED: NS 1,000 ML IV SCH ×4 (13:20→21:00)
[2024-07-20 13:26] LABS: BASOPHILS ABSOLUTE AUTO 0.04 K/mm3 (0.00-0.23); BASOPHILS PERCENT AUTO 0 % (0-2); EOSINOPHILS ABSOLUTE AUTO 0.01 K/mm3 (0.00-0.68); EOSINOPHILS PERCENT AUTO 0 % (0-6); Hematocrit 43.4 % (37.0-53.0); Hemoglobin 15.8 g/dL (13.5-17.5); IMMATURE GRAN ABSOLUTE AUTO 0.02 K/mm3 (0.00-0.10); IMMATURE GRAN PERCENT AUTO 0 % (0-1); LYMPHOCYTES ABSOLUTE AUTO 1.14 K/mm3 (0.84-5.20); LYMPHOCYTES PERCENT AUTO 11 % (21-46); MONOCYTES ABSOLUTE AUTO 0.47 K/mm3 (0.16-1.47); MONOCYTES PERCENT AUTO 5 % (4-13); Mean Corpuscular HGB 30.6 pg (26.0-34.0); Mean Corpuscular HGB Conc 36.4 g/dL (31.5-36.5); Mean Corpuscular Volume 84 fL (80-100); Mean Platelet Volume 8.8 fL (9.1-12.4); NEUTROPHILS ABSOLUTE AUTO 8.41 K/mm3 (1.96-9.15); NEUTROPHILS PERCENT AUTO 83 % (41-73); Platelet Count 266 K/mm3 (150-400); RDW Coefficient Variation 13.2 % (11.7-14.2); RDW Standard Deviation 40.4 fL (35.1-46.3); Red Blood Cell Count 5.16 M/mm3 (4.30-5.90); White Blood Cell Count 10.09 K/mm3 (4.00-11.30)
[2024-07-20 13:38] LABS: Albumin, Blood 2.7 g/dL (3.4-5.0); Albumin/Globulin Ratio 0.6 (0.8-1.8); Bilirubin, Total 0.7 mg/dL (0.1-1.0); Bun/Creatinine Ratio 17.7 (12.0-20.0); Calcium, Blood 8.2 mg/dL (8.5-10.1); Creatinine, Blood 0.62 mg/dL (0.60-1.20); Globulin, Blood 4.4 g/dL (2.2-4.0); Potassium, Blood 4.8 mmol/L (3.5-5.5); Total Protein, Blood 7.1 g/dL (6.4-8.2)
[2024-07-20] MEDS ORDERED: Diazepam 5 MG / ML 2ML SYR IV ONE (15:15)
[2024-07-20] MEDS ORDERED: PHENobarbitaL sodium 130 MG/ML VIAL IV ONE (15:30)
[2024-07-20] MEDS ORDERED: LORazepam 2 MG/ML 1ML Injection IM PRN ×2 (15:55→16:00)
[2024-07-20] MEDS ORDERED: LORazepam 2 MG/ML 1ML Injection IV PRN ×3 (15:55→16:00)
[2024-07-20] MEDS ORDERED: Loperamide HCl 2 MG Cap PO PRN (15:55)
[2024-07-20] MEDS ORDERED: Thiamine HCl 500 MG in NS 100 ML IV SCH (16:00)
[2024-07-20] MEDS ORDERED: FLU VACC TS2024-25(6MOS UP)/PF 45 MCG/0.5 ML SYRINGE IM SCH (16:00)
[2024-07-20] MEDS ORDERED: CloNIDine 0.1 MG Tab PO PRN (16:00)
[2024-07-20] MEDS ORDERED: Ondansetron HCl 2 MG / ML 2ML Vial IV PRN (16:00)
[2024-07-20] MEDS ORDERED: Magnesium Sulf 2 GM/Water 50ML 50 ML IV PRN (16:05)
[2024-07-20] MEDS ORDERED: Mag Sulfate 1 GM/D5% 100ML 100 ML IV PRN (16:05)
[2024-07-20 16:12] LABS: Percent Saturation 44.5 % (20.0-50.0)
[2024-07-20] MEDS ORDERED: Folic Acid 1 MG in NS 50 ML IV SCH (17:00)
[2024-07-20 18:44] VITALS: BP 179/101
[2024-07-20 20:58] VITALS: BP 156/97
[2024-07-20 22:56] VITALS: BP 166/98
[2024-07-20 23:33] VITALS: BP 157/94
[2024-07-21] MEDS ORDERED: ChlordiazePOXIDE 25 MG Cap PO PRN ×2 (00:20)
[2024-07-21 03:55] VITALS: BP 166/109
[2024-07-21 04:39] LABS: Albumin, Blood 2.4 g/dL (3.4-5.0); Albumin/Globulin Ratio 0.7 (0.8-1.8); Bilirubin, Total 0.8 mg/dL (0.1-1.0); Bun/Creatinine Ratio 17.4 (12.0-20.0); Calcium, Blood 7.3 mg/dL (8.5-10.1); Creatinine, Blood 0.63 mg/dL (0.60-1.20); Globulin, Blood 3.4 g/dL (2.2-4.0); Magnesium, Blood 1.3 mg/dL (1.6-2.4); Phosphorus, Blood 1.9 mg/dL (2.5-4.9); Potassium, Blood 4.1 mmol/L (3.5-5.5); Total Protein, Blood 5.8 g/dL (6.4-8.2)
--- NOTE | 2024-07-21 04:39 | NUR ---
SHIFT SUMMARY. SHIFT HAS GONE WELL OVERALL THUS FAR. ORIENTED EXCUSIVELY TO SELF AND PLACE. UNSURE OF DATE, UNSURE OF EVENTS LEADING TO ADMITTANCE, UNABLE TO ANSWER ANY FURTHER QUESTIONS ABOUT SITUATION. SPEECH VERY MUMBLED AND SOFT, DIFFICULT TO DISCERN AT TIMES. DESPITE THIS, PT ABLE TO FOLLOW COMMANDS AND CAN VOICE NEEDS WHEN PROMPTED. VITALS HAVE BEEN STABLE THUS FAR. BP ELEVATED AT TIMES, MAANGED VIA EMAR. INCONTINENT OF BOWEL AND BLADDER UNLESS STAFF PROMPTS FOR NEED TO VOID AT WHICH TIME PT IS ABLE TO USE URINAL WITH ASSISTANCE. ADMISSION PROCESS COMPLETED TO BEST OF ABILITY GIVEN PT INABILITY TO ASSIST WITH HEALTH HX. HAS BEEN RUNNING SINUS TACH THROUGHOUT MOST OF SHIFT. 4 MG IV ATIVAN AND 25 MG PO LIBRIUM ADMINISTERED THUS FAR THIS SHIFT FOR WITHDRAWAL SYMPTOM MANAGEMENT. CIWAs COMPLETED PRN. BED ALARM REMAINS ACTIVE ON PT. BED LOCKED IN LOWEST POSITION. CALL LIGHT LEFT WITHIN REACH. CONTINUING TO MONITOR.
[2024-07-21 04:41] LABS: U Amphetamine Screen Not Detected; U Barbituate Screen DETECTED; U Benzodiazapine Screen DETECTED; U Buprenorphine Screen Not Detected; U Cannabinoids Screen Not Detected; U Cocaine Screen Not Detected; U Methadone Screen Not Detected; U Methamphetamine Screen Not Detected; U Opiates Screen Not Detected; U Oxycodone Screen Not Detected; U Phencyclidine Screen Not Detected
[2024-07-21 04:54] VITALS: BP 129/88
[2024-07-21] MEDS ORDERED: Sodium Phosphate 30 MM in Dextrose 5% 500 ML IV STA (06:14)
--- NOTE | 2024-07-21 06:14 | NUR ---
LATE NOTE. DISCUSSION WITH RESIDENT DR. YOANA OVIEDO REGARDING LAB VALUES THIS MORNING. ORDERED IONIZED CALCIUM WHICH WAS DRAWN AND SENT. VOICED THAT SHE WOULD PLACE ORDERS FOR NECESSARY REPLACEMENTS. CONTINUING TO MONITOR.
[2024-07-21] MEDS ORDERED: Magnesium Sulf 2 GM/Water 50ML 50 ML IV STA (06:17)
[2024-07-21] MEDS ORDERED: CALCIUM GLUC IN NACL, ISO-OSM 50 ML IV ONE (06:20)
[2024-07-21] MEDS ORDERED: NS 1,000 ML IV SCH (07:00)
[2024-07-21 07:37] VITALS: BP 144/92
[2024-07-21 15:43] VITALS: BP 156/102
--- NOTE | 2024-07-21 15:46 | NUR ---
TRANSFER NOTE: REPORT GIVEN TO RECEIVING NURSE BEFOREHAND. PT A&OX1-[address]. SATTING >92% ON ROOM AIR, ON TELE SHOWING NORMAL SINUS RYTHM WITH RATE BETWEEN 90-100. PATIENT TRANSPORTED VIA BED AND ALL BELONGINGS WERE TAKEN WITH.
[2024-07-21 18:18] VITALS: BP 142/91
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
[2024-07-21 19:16] VITALS: BP 151/99
[2024-07-22] MEDS ORDERED: Nicotine Polacrilex 2 MG Gum PO PRN (00:10)
[2024-07-22] MEDS ORDERED: Nicotine 21 MG PATCH TOP SCH (00:10)
[2024-07-22] MEDS ORDERED: Ibuprofen 400 MG Tab PO PRN (05:00)
[2024-07-22 05:02] VITALS: BP 143/99
--- NOTE | 2024-07-22 06:44 | NUR ---
SUMMARY: PT A/OX3-4 AND HAS BEEN PLEASANT AND COOPERATIVE W/CARE. HE'S FORGETFUL AT TIMES W/BED ALARM ON FOR FALL RISK BUT HAS BEEN MOSTLY CALLING APPROPRIATELY TO SPECIFY NEEDS. CIWA'S WERE 11-16 FOR ANXIETY, JARVIS, OCC.NAUSEA AND SIGNIFICANT TREMORS. PRN LIBRIUM AND IV ATIVAN WERE RECEIVED PER EMAR AND MOTRIN WAS RX'D AND GIVEN FOR JARVIS/BODY PAIN. NICOTINE PATCH AND GUM WAS ALSO RX'D AND RECEIVED PER PT REQ. HE USED URINAL AD JORDAN AND ATTENDS WERE CHANGED PRN FOR URGE INCONTINENCE. PT ALSO HAD LARGE SOFT INCONTINENT STOOL W/FULL LINEN CHANGE AND PARTIAL BEDBATH PROVIDED. HE REMAINS IN ISO FOR REPORT OF BEDBUGS BUT NONE WERE OBSERVED THIS SHIFT. NO ACUTE CHANGES. PT IS NSR/S.TACH ON TELE W/VSS AND AFEBRILE. WCTM AND REPORT TO DAY RN.
[2024-07-22 07:32] VITALS: BP 142/93
[2024-07-22 08:39] LABS: BASOPHILS ABSOLUTE AUTO 0.03 K/mm3 (0.00-0.23); BASOPHILS PERCENT AUTO 1 % (0-2); EOSINOPHILS ABSOLUTE AUTO 0.13 K/mm3 (0.00-0.68); EOSINOPHILS PERCENT AUTO 2 % (0-6); Hematocrit 37.9 % (37.0-53.0); Hemoglobin 13.3 g/dL (13.5-17.5); IMMATURE GRAN ABSOLUTE AUTO 0.02 K/mm3 (0.00-0.10); IMMATURE GRAN PERCENT AUTO 0 % (0-1); LYMPHOCYTES ABSOLUTE AUTO 1.51 K/mm3 (0.84-5.20); LYMPHOCYTES PERCENT AUTO 28 % (21-46); MONOCYTES PERCENT AUTO 9 % (4-13); Mean Corpuscular HGB 30.9 pg (26.0-34.0); Mean Corpuscular HGB Conc 35.1 g/dL (31.5-36.5); Mean Corpuscular Volume 88 fL (80-100); Mean Platelet Volume 9.9 fL (9.1-12.4); NEUTROPHILS ABSOLUTE AUTO 3.19 K/mm3 (1.96-9.15); NEUTROPHILS PERCENT AUTO 59 % (41-73); Platelet Count 167 K/mm3 (150-400); RDW Coefficient Variation 13.3 % (11.7-14.2); RDW Standard Deviation 43.3 fL (35.1-46.3); White Blood Cell Count 5.38 K/mm3 (4.00-11.30)
[2024-07-22 08:49] LABS: Albumin, Blood 2.5 g/dL (3.4-5.0); Albumin/Globulin Ratio 0.6 (0.8-1.8); Bilirubin, Total 0.7 mg/dL (0.1-1.0); Bun/Creatinine Ratio 19.7 (12.0-20.0); Calcium, Blood 8.3 mg/dL (8.5-10.1); Creatinine, Blood 0.66 mg/dL (0.60-1.20); Globulin, Blood 3.9 g/dL (2.2-4.0); Magnesium, Blood 1.5 mg/dL (1.6-2.4); Phosphorus, Blood 2.7 mg/dL (2.5-4.9); Potassium, Blood 3.1 mmol/L (3.5-5.5); Total Protein, Blood 6.4 g/dL (6.4-8.2)
[2024-07-22] MEDS ORDERED: Magnesium Sulf 2 GM/Water 50ML 50 ML IV ONE (09:20)
[2024-07-22] MEDS ORDERED: Potassium Chl 20MEQ/Water100ML 100 ML IV SCH (09:20)
[2024-07-22 15:26] VITALS: BP 131/93
--- NOTE | 2024-07-22 16:28 | NUR ---
SUMMARY- PT ALERT TO SELF AND PLACE, KNOWS THE PRESIDENT BUT CANT REMEMBER THE YEAR. CIWA'S RUNNING -, MEDICATING ALTERNATING LIBRIUM 50MG PT AND ATIVEN 2MG IV APPROX Q2 WITH GOOD EFFECT. PT'S SYMPTOMS ARE TREMORS, SWEATING, HEADACHE, DIARRHEA, ANXIETY. SYMPTOMS RELIEVED WITH RX. TOLERATING FOOD AND FLIID. USING URINAL EXCEPT FOR STRESS INCONT AND DIARRHEA INCONT. GIVEN IMMODIUM THIS AM AND DIDN'T HAVE A REOCCRUANCE OF LOOSE STOOL. HEADACHE GREATILY RELEIVED AFTER ATIVAN AND IBUPROFEN. BEDREST TODAY IN RELATION TO THE SEDATIVE MEDICATION. SPOKE WITH SOCIAL SERVIECS ABOUT PT'S WISHES FOR ETOH TREATMENT INPATIENT AFTER HOSPITALIZATION, WILL F/U TOMORROW. WILL REPORT TO NOC RN
[2024-07-22] MEDS ORDERED: IBUP200 PO (16:29)
[2024-07-22 20:04] VITALS: BP 135/78
[2024-07-23 02:52] VITALS: BP 158/93
--- NOTE | 2024-07-23 05:00 | NUR ---
SHIFT SUMMARY: Pt admitted for ETOH and is a full code. Is alert and able to make needs known. ADLs have been a mix of 1-2 depending on activity. On contact ISO for possible bedbugs/ lice and HX of MRSA. stated he did have a low grade headache and was given IBU. on PRN CWIAs which have been anywhere from 10-13 when done this shift and has been treated with alternating ativan and librium. Oswaldo reports sinus in the s.
[2024-07-23 07:19] VITALS: BP 135/89
[2024-07-23 07:25] LABS: Bun/Creatinine Ratio 20.5 (12.0-20.0); Calcium, Blood 8.9 mg/dL (8.5-10.1); Creatinine, Blood 0.78 mg/dL (0.60-1.20); Magnesium, Blood 1.4 mg/dL (1.6-2.4); Phosphorus, Blood 4.1 mg/dL (2.5-4.9)
[2024-07-23] MEDS ORDERED: Acetaminophen 325 MG TABLET PO PRN (13:30)
[2024-07-23] MEDS ORDERED: Ibuprofen 400 MG Tab PO PRN (13:30)
[2024-07-23] MEDS ORDERED: Loperamide HCl 2 MG Cap PO PRN (13:30)
[2024-07-23] MEDS ORDERED: Magnesium Sulf 2 GM/Water 50ML 50 ML IV ONE (15:25)
[2024-07-23] MEDS ORDERED: NS 250 ML IV PRN (15:40)
[2024-07-23 16:27] VITALS: BP 152/99
--- NOTE | 2024-07-23 18:04 | NUR ---
SUMMARY- PT ALERT TO SELF AND PLACE, KNOWS WHO THE PRESIDENT IS AND NOW REMEMBERING THE YEAR IS 2023. PT'S CIWAS 11 AT THE HIGHTST, MEDICATED WITH LIBRIUM 50MG X2 TODAY AND ONCE WITH IV ATIVAN 1MG WITH STABLE WITHDRAWL. PT HAS BEEN SLEEPY ALL DAY AND STATES HE FEELS EXHAUSTED. STAYED IN BED ALL DAY. PUT IN PT/OT ORDERS TO START TOMORROW FOR MOBILIZATION, PT IS VERY HARD TO GET UP EVEN WITH 2 PERSON GAITBELT WHICH WE DID YESTERDAY, BUT PT WAS UNABLE TO BEAR WEIGHT AND HAD POOR GAIT. TOLERATING FOOD AND FLUIDS. MG REPLACED TODAY. PT USES URINAL, BUT INCONT STOOL X2, MEDICATED WITH IMMODIUM. HEADACHE 07/11 THIS AM, MEDICATED WITH IBUPROFEN WITH MOD RELEIF OF JARVIS PAIN 02/08. WILL REPORT TO TOBIAS ZAPATA
[2024-07-23 19:41] VITALS: BP 125/97
--- NOTE | 2024-07-23 23:08 | NUR ---
2157 PT LYING IN BED, REPORTS ANXIETY, NAUSEA, PAIN IN HEAD AND FEET, GAVE ATIVAN, ROXANOL, ZOFRAN, LIBRIUM, WILL EVAL FOR EFFECT. CIWA SCORE WAS A 15 MOSTLY RELATED TO TREMORS, PAIN, NAUSEA, ANXIETY. APPEARS MANAGABLE WITH MEDS. NO OTHER APPARENT SIGNS OF DISTRESS. CALL LIGHT IS IN REACH. BED ALARM IS ON.
--- NOTE | 2024-07-23 23:10 | NUR ---
2200 PT LYING IN BED, EATING SNACKS. NO APPARENT SIGNS OF DISTRESS. CALL LIGHT IS IN REACH. BED ALARM IS ON.
--- NOTE | 2024-07-24 01:56 | NUR ---
0000 PT LYING IN BED, EYES CLOSED, APPEARS TO BE RESTING. BREATHING IS EVEN, UNLABORED. NO APPARENT SIGNS OF DISTRESS. CALL LIGHT IS IN REACH. BED ALARM IS ON.
[2024-07-24 03:22] VITALS: BP 142/91
--- NOTE | 2024-07-24 03:31 | NUR ---
PT APPEARS RESTLESS, CIWA SCORE 19 FOR ANXIETY,NAUSEA,TREMORS, GAVE ATIVAN AND LIBRIUM. NO OTHER APPARENT SIGNS OF DISTRESS. WILL EVAL FOR EFFECT. CALL LIGHT IS IN REACH. BED ALARM IS ON.
[2024-07-24 05:37] LABS: BASOPHILS ABSOLUTE AUTO 0.04 K/mm3 (0.00-0.23); BASOPHILS PERCENT AUTO 1 % (0-2); EOSINOPHILS ABSOLUTE AUTO 0.29 K/mm3 (0.00-0.68); EOSINOPHILS PERCENT AUTO 4 % (0-6); Hematocrit 38.6 % (37.0-53.0); Hemoglobin 13.3 g/dL (13.5-17.5); IMMATURE GRAN ABSOLUTE AUTO 0.03 K/mm3 (0.00-0.10); IMMATURE GRAN PERCENT AUTO 0 % (0-1); LYMPHOCYTES ABSOLUTE AUTO 1.34 K/mm3 (0.84-5.20); LYMPHOCYTES PERCENT AUTO 20 % (21-46); MONOCYTES ABSOLUTE AUTO 0.77 K/mm3 (0.16-1.47); MONOCYTES PERCENT AUTO 11 % (4-13); Mean Corpuscular HGB 31.3 pg (26.0-34.0); Mean Corpuscular HGB Conc 34.5 g/dL (31.5-36.5); Mean Corpuscular Volume 91 fL (80-100); Mean Platelet Volume 9.7 fL (9.1-12.4); NEUTROPHILS ABSOLUTE AUTO 4.29 K/mm3 (1.96-9.15); NEUTROPHILS PERCENT AUTO 64 % (41-73); Platelet Count 189 K/mm3 (150-400); RDW Coefficient Variation 13.4 % (11.7-14.2); RDW Standard Deviation 44.5 fL (35.1-46.3); Red Blood Cell Count 4.25 M/mm3 (4.30-5.90); White Blood Cell Count 6.76 K/mm3 (4.00-11.30)
[2024-07-24 05:56] LABS: Bun/Creatinine Ratio 22.4 (12.0-20.0); Calcium, Blood 8.6 mg/dL (8.5-10.1); Creatinine, Blood 0.71 mg/dL (0.60-1.20); Magnesium, Blood 1.4 mg/dL (1.6-2.4); Potassium, Blood 4.1 mmol/L (3.5-5.5)
--- NOTE | 2024-07-24 06:22 | NUR ---
PT AAO TO SELF AND PLACE. ON RA. REPORTS ANXIETY AND PAIN AND NAUSEA. HAS TREMORS THAT MAY BE BASELINE. GAVE ATIVAN AND LIBRIUM X 3. CIWA UNMEDICATED WAS A MANAGABLE 15 AND 19, MEDICATED IT WA 5 AND 6.
--- NOTE | 2024-07-24 06:30 | NUR ---
PT LYING IN BED, AWAKE, WATCHING TV. REQUESTED AND RECIEVED COFFEE. NO OTHER APPARENT SIGNS OF DISTRESS. CALL LIGHT IS IN REACH. BED ALARM IS ON. NO OTHER CHANGES THIS SHIFT.
[2024-07-24 06:59] VITALS: BP 137/85
[2024-07-24] MEDS ORDERED: Magnesium Sulf 2 GM/Water 50ML 50 ML IV ONE (08:10)
[2024-07-24 15:02] VITALS: BP 116/73
--- NOTE | 2024-07-24 17:38 | NUR ---
SHIFT SUMMARY PT A&OX4, COOPERATIVE, ABLE TO MAKE NEEDS KNOWN. VOLUNTEER BROUGHT PT CLOTHES TODAY AND PT THOUGHT HE WAS BEING DISCHARGED TODAY, I INFORMED HIM I DID NOT HAVE DISCHARGE ORDERS YET BUT I WOULD LET HIM KNOW WHEN THEY CAME IN. ADMINISTERED 50MG LIBRIUM Q4 ALL DAY, SEEMED TO CALM PT AGITATION. USING URINAL APPROPRIATELY. BED IN LOWEST POSITION, CALL LIGHT WITHIN REACH.
[2024-07-24 20:32] VITALS: BP 126/75
[2024-07-25 04:35] VITALS: BP 110/68
[2024-07-25 07:14] VITALS: BP 112/70
[2024-07-25 09:18] LABS: Bun/Creatinine Ratio 18.5 (12.0-20.0); Calcium, Blood 8.2 mg/dL (8.5-10.1); Creatinine, Blood 0.87 mg/dL (0.60-1.20); Magnesium, Blood 1.6 mg/dL (1.6-2.4); Potassium, Blood 4.2 mmol/L (3.5-5.5)
[2024-07-25 15:40] VITALS: BP 152/101
--- NOTE | 2024-07-25 17:12 | NUR ---
SHIFT SUMMARY PT A&OX4, COOPERATIVE, ABLE TO MAKE NEEDS KNOWN. CHANGED POWERGLIDE DRESSING TODAY WITH JOHN ZAPATA, NO MENTIONABLE EVENTS OCCURED. MEDICATING WITH LIBRIUM WHEN PT EXPERIENCING HEADACHE AND ANXIETY. PT EXPRESSES ANXIETY IS CORRELATED TO PT THINKING OF WHAT WILL COME NEXT WHEN HE IS OUT OF HOSPITAL, CASE MANAGEMENT IS WORKING ALL HIS SITUATION. BED IN LOWEST POSITION, CALL LIGHT WITHIN REACH.
[2024-07-25 18:44] LABS: 7-AMINOCLONAZEPAM, URN, QUANT <5 ng/mL; A-HYDROXYALPRAZOLAM, URN, QNT <5 ng/mL; A-HYDROXYMIDAZOLAM, URN, QNT <20 ng/mL; ALPRAZOLAM, URN, QUANT <5 ng/mL; CHLORDIAZEPOXIDE, URN, QUANT <20 ng/mL; CLONAZEPAM, URN, QUANT <5 ng/mL; DIAZEPAM, URN, QUANT <20 ng/mL; LORAZEPAM, URN, QUANT 1697 ng/mL; MIDAZOLAM, URN, QUANT <20 ng/mL; NORDIAZEPAM, URN, QUANT 28 ng/mL; OXAZEPAM, URN, QUANT 71 ng/mL; TEMAZEPAM, URN, QUANT 28 ng/mL
[2024-07-25 20:18] VITALS: BP 167/97
[2024-07-26 05:15] VITALS: BP 129/82
[2024-07-26 07:12] VITALS: BP 130/75
[2024-07-26] MEDS ORDERED: Folic Acid 1 MG TAB PO SCH (09:00)
--- NOTE | 2024-07-26 10:33 | NUR ---
Am checks were performed by nurse. Late call in to shift. When I arrived assist to groom and up out of bed to chair for breakfast. New bedlinens applied. Breakfast offered. anxious about aftercare details but less shaky than yesterday. A nice calming chat helped him lessen his anxiety. Provided with some resource books to fidget with and his nicorette gum. Enjoying his coffee when therapy entered to work with him.
[2024-07-26 14:46] VITALS: BP 140/100
--- NOTE | 2024-07-26 17:27 | NUR ---
SHIFT SUMMARY PT A&OX4, COOPERATIVE, ABLE TO MAKE NEEDS KNOWN. PT IS DOING BETTER TODAY, DID NOT ADMINISTER MUCH LIBRIUM YESTERDAY. PT STILL HAS ANXIETY ABOUT BEING DISCHARGED. MAIN COMPLAINT OF HEADACHE FROM WITHDRAWAL. BED IN LOWEST POSITION, CALL LIGHT WITHIN REACH.
[2024-07-26 19:52] VITALS: BP 146/92
[2024-07-27 04:47] VITALS: BP 133/97
[2024-07-27 07:09] VITALS: BP 137/86
[2024-07-27] MEDS ORDERED: HydrOXYzine Pamoate 25 MG Cap PO PRN (12:35)
[2024-07-27 14:04] VITALS: BP 146/97
--- NOTE | 2024-07-27 17:27 | NUR ---
CIWA OF 8 THIS ASSESSMENT, TRYING ATARAX INSTEAD OF LIBRIUM PER DR PAREDES. TREMORS UNCHANGED THROUGHOUT SHIFT DESPITE LIBRIUM ADMIN, MAIN COMPLAINT IS ANXIETY.
--- NOTE | 2024-07-27 18:19 | NUR ---
SHIFT SUMMARY PATIENT IN ROOM THIS SHIFT. MEDICATED PER CIWA SCALE. PATIENT CONTINUES TO COMPLAIN OF ANXIETY DESPITE BEING MEDICATED, NO CHANGE TO TREMORS WITH MEDICATION EITHER. ATARAX STARTED THIS SHIFT WITH GOOD RESULTS. IBUPROFEN GIVEN SEVERAL TIMES FOR LEG PAIN. PATIENT ABLE TO AMBULATE SHORT DISTANCES IN ROOM WITH SBA FOR SAFETY, NO PHYSICAL ASSISTANCE REQUIRED. UP TO CHAIR FOR MEALS, SEVERAL SNACKS GIVEN THROUGHOUT SHIFT. ABLE TO MAKE NEEDS KNOWN. CALL LIGHT IN REACH, CARES ONGOING.
[2024-07-27 19:16] VITALS: BP 105/82
[2024-07-28 04:17] VITALS: BP 124/83
--- NOTE | 2024-07-28 04:46 | NUR ---
SHIFT SUMMARY PT IS A&O X3-4, ABLE TO MAKE HIS NEEDS KNOWN AND COOPERATIVE WITH CARE. PT AMBULATES INDEPENDENTLY BETWEEN HOSPITAL BED AND THE RESTROOM. GOOD PO INTAKE, REQUESTS FOR SNACKS AND PO FLUIDS. CIWA SCORE OF 12 R/T TREMORS, TACTICLE DISTURBANCES, JARVIS, AND AVH, PER PT REPORT. HS PRN HYDROXYZINE EFFECTIVE. PT REPORTS TAKES GABAPENTIN HOME MED FOR RESTLESS LEGS. MEDICATED WITH APAP FOR LEGPAIN. PT RESTED WELL T/O THIS SHIFT. NO COMPLAINTS OFFERED. BED AT THE LOWEST POSITION, CALL LIGHT W/I REACH.
[2024-07-28 07:10] VITALS: BP 135/71
[2024-07-28 14:47] VITALS: BP 144/92
--- NOTE | 2024-07-28 17:03 | NUR ---
SHIFT SUMMARY PATIENT AMBULATING SHORT DISTANCES IN ROOM THIS SHIFT. ABLE TO DRESS HIMSELF AND PUT SHOES ON INDEPENDENTLY AND SAFELY. BASELINE TREMORS REMAIN UNCHANGED THROUGHOUT SHIFT. GIVEN ANXIETY MEDS AND NICOTINE GUM WITH GOOD RESULTS THIS SHIFT. CONTINUES TO COMPLAIN OF BILATERAL FEET PAIN, GIVEN APAP AND IBUPROFEN THIS SHIFT. BM THIS SHIFT. CALL LIGHT IN REACH, ABLE TO MAKE NEEDS KNOWN. CALL LIGHT IN REACH. CARES ONGOING
[2024-07-28 19:17] VITALS: BP 129/79
[2024-07-28 21:38] VITALS: BP 147/81
[2024-07-28] MEDS ORDERED: Ipratropium/Albuterol SulF 2.5-0.5MG/3 ML Amp INH PRN (22:05)
[2024-07-28] MEDS ORDERED: Albuterol 2.5 MG/3 ML VIAL INH ONE (22:05)
--- NOTE | 2024-07-28 22:05 | NUR ---
PT C/O SOB, COUGHING NON PRODUCTIVE, C/O CHEST PAIN. EKG ORDER RECEIVED FROM DR. MCGUIRE, SHOWING TACHY CARDIA AND BBB. RT BY THE BEDSIDE, DUONEB AND ALBUTEROL NEB TX PER PROTOCOL. 4L VIA OXYMASK, O2 SAT'S >96%. ORDER FOR CHEST X-RAY STAT FROM DR. MCGUIRE, D/T A POSSIBLE ASPIRATION PER RT. RN DAPHNEY NOTIFIED, PROGRAM SCHEDULERSOTERO Naranjo NOTIFIED AND BOTH BY THE BEDSIDE. PT LOOKING MORE COMFORTABLE, AWAITING FOR PORTABLE STAT CHEST X-RAY.
--- NOTE | 2024-07-29 03:26 | NUR ---
SHIFT SUMMARY AT HS C/O MULTIPLE LOOSE STOOLS, PRN IMMODIUM X1 ADMINISTERED ORDERED. MULTIPLE REQUESTS FOR SNACKS AND PO FLUIDS, PT HAS A GREAT APPETITE. PRN HYDROXYZINE FOR C/O ANXIETY, AND PRN NICOTINE GUM X1. PRN TYLENOL FOR C/O 10/10 RESTLESS LEGS&FEET PAIN ADMINISTERED AT HS ORDERED. ~0, PT SNACKING ON PB AND CRACKERS, PT COUGHING AND REPORTS SOB/CHEST PAIN. RT WAS CALLED BY THE BEDSIDE. PER RT REPORT PT HAS COARSE CRACKLES UL'S. DUONEB& ALBUTEROL ADMINISTERED PER PROTOCOL/ORDERS. O2 4L VIA NASAL CANNULA. O2 SAT'S>96%. PER RT'S ASSESSMENT, PT NEEDING A CHEST X-RAY D/T POSSIBLE ASPIRATION. THIS MANAGER PRICING CONTACTED . NEW ORDERS RECEIVED FOR STAT EKG AND CHEST X-RAY. JODI SHELLEY AND CHARGE NURSE SARA BY THE BEDSIDE (SEE PREVIOUS NOTE FOR DETAILS). EKG TACHYCARDIC WITH BBB. PT RESTING COMFORTABLY SINCE 99, AWAITING FOR CHEST X-RAY RESULTS. PT IS A&O X3 AND HAS A SLURRED SPEECH. PT CONTINUES TO COUGH INTERMITTENTLY, PRODUCTIVE,SMALL AMOUNT CLEAR SPUTUM. BED AT THE LOWEST POSITION, CALL LIGHT WITHIN REACH. PT IS ABLE TO MAKE HIS NEEDS KNOWN. ACUTE DISTRESS NOTED/REPORTED FOR THE REST OF THIS SHIFT. PT AMBULATES INDEPENDENTLY AND IS ABLE TO MAKE HIS NEEDS KNOWN. BED AT THE LOWEST POSITION, CALL LIGHT WITHIN REACH.
[2024-07-29 04:20] VITALS: BP 142/84
[2024-07-29 07:12] VITALS: BP 133/83
--- NOTE | 2024-07-29 20:02 | NUR ---
DISCHARGE SUMMARY: A&Ox3-4. CALLS APPROPRIATELY AND IS ABLE TO ADVOCATE NEEDS EFFECTIVELY. AMBULATES WITH SBA. CONTINENT OF BOWEL AND BLADDER. MEDS WHOLE WITH FLUIDS. MEDICATED PRN PAIN. MEDICATIONS FAXED TO [facility]. INSTRUCTED TO ESTABLISH CARE WTIH A PRIMARY CARE PROVIDER. LEFT FLOOR AT WITH ALL BELONGINGS AND DISCHARGE PACKET, ESCORTED BY MITUL ANDERSON. TRANSPORTATION PROVIDED BY [employer] [facility] TO [facility].
== END 2024-07-29 12:15 | disposition home or self-care (01) | DRG 896 ==
LOC: ER 12:30 → ERHOLD 15:56 → MEDS 15:56 → PCU 15:56 → MEDS 07-21 15:40 → ENPENDDIS 07-29 10:50 → MEDS 07-29 12:15
PROVIDERS: Emergency Medicine; Internal Medicine; ADMIT Internal Medicine
DX: F10.239 Alcohol dependence with withdrawal, unspecified (principal); G92.8 Other toxic encephalopathy; Z59.01 Sheltered homelessness; E87.1 Hypo-osmolality and hyponatremia; F41.9 Anxiety disorder, unspecified; R51.9 Headache, unspecified; E83.42 Hypomagnesemia; I10 Essential (primary) hypertension; R74.01 Elevation of levels of liver transaminase levels; F17.210 Nicotine dependence, cigarettes, uncomplicated; E83.39 Other disorders of phosphorus metabolism; E83.51 Hypocalcemia; E87.6 Hypokalemia; E86.0 Dehydration
CPT/HCPCS: 36415; 70450; 71045; 80048; 80053; 82140; 82330; 82607; 82728; 82746; 83540; 83550; 83690; 83735; 84100; 85025; 93005; 93010; 94640; 94664; 94760; 94762; 96361; 96374; 96375; 97110; 97116; 97162; 97166; 97168; 97530; 97535; 99285-25; A9270; C1751; G0481; J0612; J2060; J2405; J2560; J3360; J3411; J3475; J3480; J7030; J7050; J7060; Q0177

== ENCOUNTER 2024-08-06 17:01 | Emergency (ER) | payer OTHER ==
[~2024-08-06] VITALS: Ht 172.7 cm; Wt 68.0 kg
[~2024-08-06 17:01] MED LIST changes: +IBUP200 PO
[2024-08-06 17:44] LABS: BASOPHILS ABSOLUTE AUTO 0.03 K/mm3 (0.00-0.23); BASOPHILS PERCENT AUTO 0 % (0-2); EOSINOPHILS ABSOLUTE AUTO 0.08 K/mm3 (0.00-0.68); EOSINOPHILS PERCENT AUTO 1 % (0-6); Hematocrit 47.3 % (37.0-53.0); IMMATURE GRAN ABSOLUTE AUTO 0.03 K/mm3 (0.00-0.10); IMMATURE GRAN PERCENT AUTO 0 % (0-1); LYMPHOCYTES ABSOLUTE AUTO 1.63 K/mm3 (0.84-5.20); LYMPHOCYTES PERCENT AUTO 14 % (21-46); MONOCYTES ABSOLUTE AUTO 0.48 K/mm3 (0.16-1.47); MONOCYTES PERCENT AUTO 4 % (4-13); Mean Corpuscular HGB 31.2 pg (26.0-34.0); Mean Corpuscular HGB Conc 33.8 g/dL (31.5-36.5); Mean Corpuscular Volume 92 fL (80-100); Mean Platelet Volume 8.6 fL (9.1-12.4); NEUTROPHILS PERCENT AUTO 80 % (41-73); Platelet Count 420 K/mm3 (150-400); RDW Coefficient Variation 14.4 % (11.7-14.2); RDW Standard Deviation 48.3 fL (35.1-46.3); Red Blood Cell Count 5.13 M/mm3 (4.30-5.90); White Blood Cell Count 11.45 K/mm3 (4.00-11.30)
[2024-08-06 17:58] LABS: Albumin, Blood 3.3 g/dL (3.4-5.0); Albumin/Globulin Ratio 0.7 (0.8-1.8); Bilirubin, Total 0.2 mg/dL (0.1-1.0); Creatinine, Blood 0.88 mg/dL (0.60-1.20); Globulin, Blood 4.8 g/dL (2.2-4.0); Potassium, Blood 3.4 mmol/L (3.5-5.5); Total Protein, Blood 8.1 g/dL (6.4-8.2)
[2024-08-06] MEDS ORDERED: LORazepam 2 MG/ML 1ML Injection IV ONE (19:35)
[2024-08-06 23:00] VITALS: BP 145/87
== END 2024-08-06 23:20 | disposition home or self-care (01) ==
LOC: ER 17:01 → EOR 17:02 → ER 23:20
PROVIDERS: Emergency Medicine
DX: F10.129 Alcohol abuse with intoxication, unspecified (principal); I10 Essential (primary) hypertension; F03.90 Unspecified dementia, unspecified severity, without behavioral disturbance, psychotic disturbance, mood disturbance, and anxiety; F17.210 Nicotine dependence, cigarettes, uncomplicated; Y90.6 Blood alcohol level of 120-199 mg/100 ml; Z79.899 Other long term (current) drug therapy
CPT/HCPCS: 80053; 80320; 83735; 85025; 96374; 99284-25